=== PATIENT | female | born 1990 | race Caucasian/White ===

== ENCOUNTER 2022-06-05 23:38 | Emergency (ER) | payer MEDICAID, SELFPAY ==
[2022-06-05 23:46] VITALS: BP 101/70; PULSE 130; RESP 16; TEMP 36.3; O2SAT 98; BMI 25.5
--- NOTE | 2022-06-06 00:17 | ED.NAVMDI ---
HPI - Nausea/Vomiting/Diarrhea General Chief complaint: Nausea/Vomiting Stated complaint: vomitting and diarrhea Time Seen by Provider: 06/05/22 23:49 Source: patient and family Mode of arrival: ambulatory Limitations: no limitations History of Present Illness HPI Narrative: 31-year-old female with known prior history of Crohn's disease presents to the emergency department with nausea vomiting and diarrhea for the past 3 days accompanied by epigastric/middle periumbilical abdominal pain. She has a history of difficult to treat Crohn's disease, having previously been on 80 mg of prednisone daily tapering off just in the last 3 weeks. [facility]. She was started on still Aricept for her Crohn's disease 5 weeks ago and had initially been doing well on this while she was also on the prednisone. This is her 1st flare since being off of the prednisone. She has a history of severe flares in the past but no prior bowel resections or surgeries. Denies a history of bowel obstructions. She is not noticing blood in her stools apparently but does have some history of some chronic anemia. She has not noted fevers. She denies prior history of perforation. It sounds like she has had an endoscopy within the last few months as well. She did not try taking any medications at home for her symptoms as she does not have these available. Her main concern is that she has been unable to hold down any fluids for over 2 days and no food for the past 3 days due to her symptoms. No known illness exposures, no recent changes in her medications other than the prednisone taper. She denies chance of , LMP 9/12 which is not unusual for her to be irregular. Past medical history notable for anemia and Crohn's disease, denies any other chronic medical problems. She denies any long-term medications besides the stool Aricept for her Crohn's disease. She has no known drug allergies. Socially she admits to rare sporadic marijuana use, no recent use of this. No tobacco or alcohol use, no other illicit substances. Related Data Home Medications Medication Instructions Recorded Confirmed Tylenol 06/05/22 tylenol with codeine 06/05/22 Previous Rx's Medication Instructions Recorded hydrocodone 5 mg-acetaminophen 325 1 tab PO Q6H PRN Severe pain not 06/06/22 mg tablet relieved by Tylenol #10 tabs ondansetron 4 mg disintegrating 4 mg PO Q6H Nausea and vomiting 06/06/22 tablet #20 tabs prednisone 20 mg tablet See Rx Instructions .Route 06/06/22 .COMPLEX #32 tabs Allergies Allergy/AdvReac Type Severity Reaction Status Date / Time No Known Drug Allergies Allergy Verified 06/05/22 23:51 Review of Systems Narrative: Notable for the generalized and GI symptoms as described above, otherwise denies times 12 systems. PFSH PFS Social History Smoking Status: Never smoker How often do you have a drink containing alcohol: monthly or less AUDIT-C Alcohol total score: 1 Non-prescribed substance use: marijuana (any form) Non-prescribed substance use details: rare marijuana Exam Const: Vital Signs, click to edit/add: Vital Signs - 24 hr 06/05/22 23:46 06/06/22 00:22 06/06/22 01:00 Temperature 97.3 F L Pulse Rate [Apical ] 118 H 104 H Pulse Rate [Left P ulse Oximeter] 130 H Respiratory Rate 16 16 Blood Pressure [Ri ght Upper Arm] 101/70 115/73 Pulse Oximetry 98 97 Oxygen Delivery Me thod Room Air Room Air 06/06/22 01:30 06/06/22 02:00 Temperature Pulse Rate [Apical ] 94 92 Pulse Rate [Left P ulse Oximeter] Respiratory Rate 16 16 Blood Pressure [Ri ght Upper Arm] 113/76 105/69 Pulse Oximetry 98 94 Oxygen Delivery Me thod Room Air Room Air Documenting provider has reviewed patient's vital signs: yes Common normals: no apparent distress General appearance: cooperative and well kempt Other: Historian, forthcoming. HENMT: Common normals: normocephalic Head and scalp: normocephalic Other: Tacky mucous membranes, but no swelling or redness to the pharynx. Eye: Common normals: conjunctivae normal and no scleral icterus Conjunctiva: conjunctiva(e) normal Neck & C-Spine: Common normals: full ROM and no lymphadenopathy Resp: Common normals: normal respiratory effort, no use of accessory muscles and clear to auscultation bilaterally Effort & inspection: able to speak in complete sentences Auscultation: clear to auscultation bilaterally Cardio: Common normals: regular rate, regular rhythm, S1 normal heart sound, S2 normal heart sound, no murmurs and peripheral pulses 2+ throughout Rate: regular rate Rhythm: regular rhythm Heart sounds: S1 normal and S2 normal Peripheral pulses: pulses 2+ throughout GI: Other: Abdomen nondistended. Bowel sounds are slightly high-pitched but present in all 4 quadrants. There is tenderness in the epigastric and periumbilical areas but no rebound tenderness nor guarding. No mass, no surgical scarring. Extremity: Common normals: normal capillary refill and no pedal edema Neuro: Motor exam: no tremor noted and no movement abnormalities noted Psych: Common normals: thought process normal and speech normal Appearance: well kempt Attitude: engaged Speech: normal speech Thought process: normal thought process Insight: insight good Judgement: judgment good Skin: Common normals: no rashes or lesions noted General skin exam: no rashes or lesions noted Course Course Hospital Course: No signs of peritonitis, discussed risks and benefits of CT scan. She has had many of these through the course of her chronic disease, would like to try to avoid this if possible. Recommend placing IV, Zofran, IV steroid, pain control with a transition onto oral pain medicine as best able. She will need to restart her prednisone and of course call her GI physician for further guidance. My goal for tonight in to be able to rehydrate patient and get her to able to tolerate p.o. liquids and a minimum. The skull was discussed with her. There are no beds available in hospital or available for transfer at this time we will make good attempts to get her symptoms under control with an outpatient plan as best able. If she does not respond to treatment, would recommend CT scan. Reevaluation(s) Reevaluation #1: Update 1:20 a.m., patient reporting marked improvement in her nausea, pain down to a 6. She has received the 1st bag of IV fluids, I elected to start a 2nd bag. Labs are reviewed with patient, not atypical for someone with Crohn's disease, CRP is around 8, platelets are a little elevated, mild iron deficiency anemia, minimal leukocytosis but no overwhelming signs of worry. No indications for antibiotics. She will receive her 1st dose of IV steroids and we discussed outpatient and pain control plans. Vital Signs Vital signs: Initial Vital Signs Temperature 97.3 F L 06/05/22 23:46 Temperature Source Temporal Artery Scan 06/05/22 23:46 Pulse Rate 130 H 06/05/22 23:46 Respiratory Rate 16 06/05/22 23:46 Blood Pressure 101/70 06/05/22 23:46 Blood Pressure Mean 80 06/05/22 23:46 Blood Pressure Position Sitting 06/05/22 23:46 Pulse Oximetry 98 06/05/22 23:46 Oxygen Delivery Method 06/05/22 23:46 Vital Signs Temperature 97.3 F L 06/05/22 23:46 Pulse Rate 130 H 06/05/22 23:46 Respiratory Rate 16 06/05/22 23:46 Blood Pressure 101/70 06/05/22 23:46 Pulse Oximetry 98 06/05/22 23:46 Oxygen Delivery Method 06/05/22 23:46 Temperature 97.3 F L 06/05/22 23:46 Pulse Rate 92 06/06/22 02:00 Respiratory Rate 16 06/06/22 02:00 Blood Pressure 105/69 06/06/22 02:00 Pulse Oximetry 94 06/06/22 02:00 Oxygen Delivery Method 06/06/22 02:00 MDM - Nausea/Vomiting/Diarrhea MDM Narrative Medical decision making narrative: Labs reviewed, CRP mildly elevated with minimal leukocytosis, essentially normal electrolytes and renal function, mild dehydration, mildly elevated platelets not abnormal for autoimmune disease. Labs reviewed with patient, plan of care discussed. Good improvement of her nausea, will attempt fluids and then moving on to p.o. pain medications and some solid foods here. She relates to me that she will contact her GI doctor this morning for further guidance. Update 230: Patient held down the oxycodone well with no significant increase in nausea, pain is quite a bit better though of course not fully resolved. She is able to hold down the ice chips with no difficulty and is finishing her 2nd bag of fluid within the next couple of minutes. Plan is to discharge home, begin oral prednisone, contact her GI doctor with symptomatic control with Zofran and hydrocodone. NC meds of oxycodone and Zofran given for the night. Medical Records Attestation: I reviewed the patient's medical records. Lab Data Attestation: I reviewed the patient's lab results. Labs: Lab Results 06/06/22 06/06/22 06/06/22 Range/Units 00:30 00:30 00:30 WBC 12.32 H (4.50-11.00) K/uL RBC 4.30 (4.00-5.20) m/uL Hgb 11.5 L (12.0-16.0) gm/dL Hct 36.4 (33.0-51.0) % MCV 85 (80-100) fL MCH 27 (26-34) pg MCHC 32 (32-36) gm/dL RDW Coeff of Rebekah 14.5 (11.5-15.5) % Plt Count 545 H (140-440) K/uL Neut % (Auto) 83.6 H (42.0-72.0) % Lymph % (Auto) 7.9 L (20-44) % [place] % (Auto) 7.9 (0.0-11.0) % Eos % (Auto) 0.2 (0.0-7.0) % Baso % (Auto) 0.2 (0.0-3.0) % Neut # (Auto) 10.30 H (1.7-7.0) K/uL Lymph # (Auto) 1.00 (0.90-2.90) K/uL [place] # (Auto) 1.00 H (0.00-0.90) K/UL Eos # (Auto) 0.00 (0.00-0.50) K/uL Baso # (Auto) 0.00 (0.00-0.30) K/uL Abs Immat Gran (auto) 0.02 (0.00-0.30) K/uL Sodium 135 (135-149) mmol/L Potassium 3.9 (3.6-5.1) mmol/L Chloride 99 (96-114) mmol/L Carbon Dioxide 20 (20-32) mmol/L BUN 20 (5-24) mg/dL Creatinine 1.1 (0.5-1.5) mg/dL Estimated Creat Clear 67.90 Estimated GFR 70 ml/min Glucose 134 H (60-115) mg/dL Calcium 9.4 (8.4-10.6) mg/dL Total Bilirubin 1.4 (0.1-1.5) mg/dL AST 13 (12-35) U/L ALT 8 (4-35) U/L Alkaline Phosphatase 125 (40-150) U/L C-Reactive Protein 8.8 H (0.5-1.0) mg/dL Total Protein 8.3 (6.0-8.3) g/dL Albumin 4.1 (3.3-5.0) g/dL Lipase 19 L (23-300) U/L HCG, Qual Negative (Negative) Discharge Plan Discharge Clinical Impression: Acute Crohn's disease Patient Disposition: Home w/ Parent or Adult Condition: Improved Instructions: Crohn Disease (ED) Additional Instructions: Please send a message to your GI doctor as soon as you can. Any advice that they give overrides my recommendations today. Let us start you back on some prednisone. Take your next dose as soon as you can brick picker the medication in the morning. Let us start with 60 mg daily for the next 5 days, then taper to 40 mg daily for 5 days, then 20 mg daily for 5 days, then 10 mg for 4 days, then stop. For nausea, I have given you a prescription for Zofran. This is what you were given IV. It can work Timmy is affectively taken under the tongue. I will provide refills of this as I would like for you to have access to this medication when you need it for flares. I will also give you some pain medication, specifically some hydrocodone. This may cause nausea so consider using the Zofran if this happens. Try to use this as little as possible and the fall to Tylenol for pain control if you can. If you begin running fevers or have lots of bleeding, please come back to the ED. Activity Level: Activity as Tolerated Diet Detail: Gently advancing diet from clears to soft foods to bland foods over the next few days. Prescriptions: New prednisone 20 mg tablet See Rx Instructions .ROUTE .COMPLEX Qty: 32 0RF Rx Instructions: 60 mg daily for 5 days by mouth, then 40 mg daily for 5 days, then 20 mg daily for 5 days, then 10 mg daily for 4 days ondansetron 4 mg tablet,disintegrating 4 mg PO Q6H Qty: 20 1RF hydrocodone-acetaminophen 5-325 mg tablet 1 tab PO Q6H PRN (Reason: Severe pain not relieved by Tylenol) Qty: 10 0RF Rx Instructions: Use sparingly No Action Tylenol tylenol with codeine Stand Alone Forms: [facility] Info Instructions
[2022-06-06 00:22] VITALS: PULSE 118
[2022-06-06] MEDS: LACTATED RINGERS 1000 ML 1,000 ML IV ×2 (00:31→01:17)
[2022-06-06 00:41] LABS: Basophils Percent Auto 0.2 % (0.0-3.0); Eosinophils Percent Auto 0.2 % (0.0-7.0); Hematocrit 36.4 % (33.0-51.0); Hemoglobin* 11.5 gm/dL (12.0-16.0); Immature Granulocytes Abs Auto 0.02 K/uL (0.00-0.30); Lymphocytes Percent Auto 7.9 % (20-44); Mean Corpuscular HGB Conc 32 gm/dL (32-36); Mean Corpuscular Hemoglobin 27 pg (26-34); Mean Corpuscular Volume 85 fL (80-100); Monocytes Percent Auto 7.9 % (0.0-11.0); Neutrophils Percent Auto 83.6 % (42.0-72.0); Platelet Count* 545 K/uL (140-440); RDW Coefficient of Variation % 14.5 % (11.5-15.5); White Blood Count* 12.32 K/uL (4.50-11.00)
[2022-06-06 00:42] LABS: Slide Review Reflex No
[2022-06-06] MEDS: ONDANSETRON 2 MG/ML inj 8 MG IVP (00:45)
[2022-06-06 00:54] LABS: Albumin* 4.1 g/dL (3.3-5.0); Chloride* 99 mmol/L (96-114); Sodium* 135 mmol/L (135-149)
[2022-06-06 00:55] LABS: HCG Qualitative Serum* Negative (Negative); Potassium* 3.9 mmol/L (3.6-5.1)
[2022-06-06 00:56] LABS: Creatinine* 1.1 mg/dL (0.5-1.5); Estimated Glomerular Filt Rate 70 ml/min
[2022-06-06 00:57] LABS: Alkaline Phosphatase* 125 U/L (40-150); Aspartate Amino Transferase* 13 U/L (12-35); Bilirubin Total* 1.4 mg/dL (0.1-1.5); Blood Urea Nitrogen* 20 mg/dL (5-24); Carbon Dioxide* 20 mmol/L (20-32); Lipase* 19 U/L (23-300); Total Protein* 8.3 g/dL (6.0-8.3)
[2022-06-06 00:58] LABS: Alanine Aminotransferase* 8 U/L (4-35); Calcium* 9.4 mg/dL (8.4-10.6); Glucose* 134 mg/dL (60-115)
[2022-06-06 01:00] VITALS: BP 115/73; PULSE 104; RESP 16; O2SAT 97
[2022-06-06 01:00] LABS: C Reactive Protein* 8.8 mg/dL (0.5-1.0)
[2022-06-06] MEDS: MORPHINE 4 MG/ML INJ IVP (01:00)
[2022-06-06] MEDS: METHYLPREDNISOLONE SOD SUCC 62.5 MG/ML (125) 60 MG IVP (01:07)
[2022-06-06 01:30] VITALS: BP 113/76; PULSE 94; RESP 16; O2SAT 98
[2022-06-06 02:00] VITALS: BP 105/69; PULSE 92; RESP 16; O2SAT 94
[2022-06-06] MEDS: OXYCODONE 5 MG TABLET PO (02:08)
[2022-06-06 02:30] VITALS: BP 108/78; PULSE 89; RESP 16; O2SAT 96
== END 2022-06-06 03:00 | disposition home or self-care (01) ==
PROVIDERS: Emergency Provider Family Medicine
DX: K50.90 Crohn's disease, unspecified, without complications (principal)
CPT/HCPCS: 36415; 80053; 83690; 84703; 85025; 86140; 96374; 96375; 99283; 99284; A9270; J2270; J2405; J2930; J7120

== ENCOUNTER 2022-06-15 07:23 | Emergency (ER) | payer MEDICAID, SELFPAY ==
[2022-06-15] VITALS (25 sets, daily range): BP systolic 104–138; BP diastolic 67–89; PULSE 85–121; RESP 16–22; TEMP 36.2–36.7; O2SAT 85–99; BMI 27.0
--- NOTE | 2022-06-15 08:16 | ED_ITS ---
HPI - General Adult General Time Seen by Provider: 08:17 Date Seen: 06/15/22 Chief complaint: Abdominal Pain Stated complaint: Abdominal pain/diarrhea/carmine Time Seen by Provider: 06/15/22 08:13 Source: patient, RN notes reviewed and old records reviewed Mode of arrival: ambulatory Limitations: no limitations History of Present Illness HPI narrative: Patient is a 31-year-old female with Crohn's disease coming in with severe right-sided abdominal pain. This awoke her at 3:00 a.m. this morning. She try it 1/2 of a 5 mg oxycodone tablet and it did not help. She is still on a steroid taper that was dispensed from our ED on June 06. She has been started on Stelara by her GI. She has had her 1st dose but does not receive her next dose I believe until next month. She has more steroids to take from her GI doctor after she is done with ours. The nausea, vomiting and diarrhea have been on and off since she was seen on the . Certainly not as bad as before getting back on the steroids but she is still having these symptoms intermittently. She has had debility for oral intake better than before though. No noted fevers. She thinks at this point she might need a CT scan. She denies any prior abdominal surgeries. She has not had any resections due to her Crohn's. She sees Dr. Davey for GI. Related Data Home Medications Medication Instructions Recorded Confirmed Tylenol 06/05/22 tylenol with codeine 06/05/22 Previous Rx's Medication Instructions Recorded hydrocodone 5 mg-acetaminophen 325 1 tab PO Q6H PRN Severe pain not 06/06/22 mg tablet relieved by Tylenol #10 tabs ondansetron 4 mg disintegrating 4 mg PO Q6H Nausea and vomiting 06/06/22 tablet #20 tabs prednisone 20 mg tablet See Rx Instructions .Route 06/06/22 .COMPLEX #32 tabs Allergies Allergy/AdvReac Type Severity Reaction Status Date / Time No Known Drug Allergies Allergy Verified 06/15/22 07:38 Review of Systems Status of ROS: Reports: 10 or more systems reviewed and unremarkable except as noted in History and below [facility] Medical History (Updated 06/15/22 @ 15:04 by Lili Shetty MD) Crohn's disease Social History Smoking Status: Never smoker How often do you have a drink containing alcohol: monthly or less AUDIT-C Alcohol total score: 1 Non-prescribed substance use: marijuana (any form) Non-prescribed substance use details: rare marijuana service: No Exam Const: Vital Signs, click to edit/add: Vital Signs - 24 hr 06/15/22 07:38 06/15/22 07:45 06/15/22 08:00 Temperature 97.1 F L Pulse Rate [Pulse Oximeter] 121 H 112 H 111 H Respiratory Rate 22 Blood Pressure [Le ft Upper Arm] 117/75 111/76 113/82 Pulse Oximetry 97 96 97 Oxygen Delivery Me thod Room Air Room Air Room Air 06/15/22 08:30 06/15/22 09:17 06/15/22 09:30 Temperature Pulse Rate [Pulse Oximeter] 106 H 95 97 Respiratory Rate Blood Pressure [Le ft Upper Arm] 110/82 104/71 104/71 Pulse Oximetry 97 85 L 95 Oxygen Delivery Me thod Room Air Room Air Room Air 06/15/22 10:02 06/15/22 07:40 06/15/22 10:30 Temperature Pulse Rate [Pulse Oximeter] 97 94 Respiratory Rate 20 16 Blood Pressure [Le ft Upper Arm] 111/74 113/77 Pulse Oximetry 99 96 99 Oxygen Delivery Me thod Room Air Room Air 06/15/22 11:00 06/15/22 11:30 06/15/22 12:00 Temperature Pulse Rate [Pulse Oximeter] 89 90 Respiratory Rate 16 Blood Pressure [Le ft Upper Arm] 107/74 106/67 118/76 Pulse Oximetry 97 97 Oxygen Delivery Me thod Room Air Room Air 06/15/22 12:30 Temperature Pulse Rate [Pulse Oximeter] 85 Respiratory Rate Blood Pressure [Le ft Upper Arm] 114/75 Pulse Oximetry 95 Oxygen Delivery Me thod Documenting provider has reviewed patient's vital signs: yes Common normals: no apparent distress, average body habitus, oriented x3, no limitations and alert General appearance: cooperative, comfortable and ill appearing ( looks mildly sick.) HENMT: Common normals: normocephalic, head/scalp atraumatic and hearing grossly normal bilaterally Head and scalp: normocephalic and atraumatic Eye: Common normals: PERRL, EOMs intact bilaterally, conjunctivae normal and no scleral icterus Conjunctiva: conjunctiva(e) normal Pupil: PERRL Neck & C-Spine: Common normals: full ROM, no lymphadenopathy, supple, no meningeal signs, no JVD and thyroid normal Thyroid: thyroid normal Chest: Common normals: inspection of chest normal Resp: Common normals: normal respiratory effort, no retractions, no use of accessory muscles and clear to auscultation bilaterally Auscultation: clear to auscultation bilaterally Cardio: Common normals: no JVD, regular rhythm, S1 normal heart sound, S2 normal heart sound, no gallops, no clicks and no murmurs Rate: tachycardic Rhythm: regular rhythm Heart sounds: S1 normal and S2 normal GI: Other: Abdomen is soft, does not seem distended but I listen for a while and really hear no abdominal sounds. She is diffusely tender when I palpate but states it is really hurting more over in the right side. She admits she is tender when I palpate everywhere. No rebound or guarding on examination at this time. Extremity: Common normals: normal to inspection, full ROM, normal capillary refill, no joint enlargement, no clubbing, cyanosis or edema, no calf tenderness and no pedal edema Neuro: Common normals: oriented x3 Sensorium/orientation: alert Meningeal signs: no meningeal signs Course Course Hospital Course: Patient will have a L of IV fluids. We will get a full complement of labs. We are going to give her 2 mg IV morphine for pain control. She does not feel she needs anything for nausea at this time. We will be proceeding with CT IV contrast. She obviously has Crohn's disease, need to consider other etiologies such as appendicitis, complications of Crohn's disease. Her pulse rate is high, likely dehydrated. May need more IV fluids and will assess that. Reevaluation(s) Reevaluation #1: Reviewed with patient that I had just spoken with Radiology. Verbal report from the radiologist is that she has abscesses in her abdomen with a perforation. She has a stricture in the transverse colon. There is free fluid in the pelvis. Will await the dictated reading. She sees [facility]. We are going to need to transfer her. The radiologist stated that she would likely need a drain put in. Will have staff see if we can transfer. Have reviewed with Irma that it has been extremely difficult to transfer but she really needs to go to a higher level of care. Have ordered Zosyn after blood cultures but do not feel this patient to be septic at this time. Time: 09:42 Reevaluation #2: I have reviewed with patient and her mom who is now here that we are having difficulty with transfer. I have spoken with our surgeon who has looked at her CT. She would prefer transfer where there is GI maybe even colorectal. She does not believe that these necessarily look drainable oz far as fluid collections on the CT. The radiologist thought that they were. I do have a page in to [facility] to see if it might be possible for that to happen in the meantime will contact further facilities advancing out. There are no beds at [facility], nothing in the [facility] system, nothing in the [facility], nothing in the [facility], nothing at [facility], nothing with [facility]. We have exhausted local higher level of care. Will continue to look for other facilities outwards. Patient is hemodynamically stable outside of the tachycardia. Her fluids RO a bit behind his they had to be stopped for her going to CT. She is requesting something further for pain and I have ordered p.r.n. morphine every 2 hours, another L over 2 hours after this current 1 is finished. She is not nauseated at this time. Note, her pulse is much better just after 500 mL of fluids, down to 97 at this time. Time: 10:47 Reevaluation #3: Have spoken with Dr. Davey her kiln burner helper through [employer]. He has no further of capabilities to help us with hospitalization. Upon review of the CT with him, he thinks there is a high likelihood that she will need surgery. He did recommend that she go somewhere that there is colorectal surgery. We are still attempting to contact facilities. Our ED litigation assistant checked [facility] [place]. She also called [facility] and or [facility], reviewed with her that these would not be adequate, this patient needs GI and now colorectal surgery. She had heard from [facility], [facility]'s and [facility] in [place] and they are full. I am awaiting a call back from [facility], he did not have the films to look at when I spoke with him 1st. We will page him back at [facility] if we have not heard from him in a bit. Time: 11:42 Additional Reevaluation(s): We have contacted [facility] in [place], [place] [place] would be the only possible facility for her to go there and they have declined. [facility], [facility] and [facility] have declined. I did speak with Ivet PAREDES at [facility] in [place] and they are declining. At 1:16 p.m., I did get her on a habits wait list. They did try to have me talk to their colorectal surgeon but they could not get through at all, tried paging multiple times. Thus, we will have to wait a bed opening and continue to try to transfer elsewhere in the interim. We will have to talk to the hospitalist once [facility] has a bed open. Alternatively, if the patient starts to decline, she may be appropriate for a unit bed at that time, but she certainly is not at this point. I have ordered maintenance fluids for her, will maintain NPO status. I have subsequently notified our surgeon that there is no place around us. I will be talking to our hospitalist about keeping this patient here until we can transfer to a colorectal surgeon. It should be noted that hours were spent attempting making arrangements, consultations and potential transfers between myself and the ED staff. Did try to call [facility] back and spoke with Ira PAREDES at 3:23 p.m.. She is going to check with colorectal at [facility] in [place]. She thinks the possibly might be able to take them. Received a phone call back at 4:43 p.m. from Urszula dominique RN that was taking over. They have redone their senses and they were on divert at [facility] as well. They will not be able to accommodate our request. I have subsequently told the hospitalist, will await [facility]. Vital Signs Vital signs: Initial Vital Signs Temperature 97.1 F L 06/15/22 07:38 Temperature Source Temporal Artery Scan 06/15/22 07:38 Pulse Rate 121 H 06/15/22 07:38 Pulse Rhythm 06/15/22 07:38 Respiratory Rate 22 06/15/22 07:38 Blood Pressure 117/75 06/15/22 07:38 Blood Pressure Mean 89 06/15/22 07:38 Blood Pressure Position Supine 06/15/22 07:38 Pulse Oximetry 97 06/15/22 07:38 Oxygen Delivery Method 06/15/22 07:38 Vital Signs Temperature 97.1 F L 06/15/22 07:38 Pulse Rate 121 H 06/15/22 07:38 Respiratory Rate 22 06/15/22 07:38 Blood Pressure 117/75 06/15/22 07:38 Pulse Oximetry 97 06/15/22 07:38 Oxygen Delivery Method 06/15/22 07:38 Temperature 97.1 F L 06/15/22 07:38 Pulse Rate 85 06/15/22 12:30 Respiratory Rate 16 06/15/22 12:00 Blood Pressure 114/75 06/15/22 12:30 Pulse Oximetry 95 06/15/22 12:30 Oxygen Delivery Method 06/15/22 12:00 Medical Decision Making Lab Data Lab results reviewed: Yes I reviewed the patient's lab results Labs: Lab Results 06/15/22 06/15/22 06/15/22 Range/Units 08:23 08:23 08:23 WBC 18.64 H (4.50-11.00) K/uL RBC 3.85 L (4.00-5.20) m/uL Hgb 10.3 L (12.0-16.0) gm/dL Hct 33.4 (33.0-51.0) % MCV 87 (80-100) fL MCH 27 (26-34) pg MCHC 31 L (32-36) gm/dL RDW Coeff of Rebekah 15.8 H (11.5-15.5) % Plt Count 398 (140-440) K/uL Neut % (Auto) 86.8 H (42.0-72.0) % Lymph % (Auto) 7.0 L (20-44) % [place] % (Auto) 5.7 (0.0-11.0) % Eos % (Auto) 0.1 (0.0-7.0) % Baso % (Auto) 0.1 (0.0-3.0) % Neut # (Auto) 16.20 H (1.7-7.0) K/uL Lymph # (Auto) 1.30 (0.90-2.90) K/uL [place] # (Auto) 1.10 H (0.00-0.90) K/UL Eos # (Auto) 0.00 (0.00-0.50) K/uL Baso # (Auto) 0.00 (0.00-0.30) K/uL Abs Immat Gran (auto) 0.05 (0.00-0.30) K/uL Sodium 132 L (135-149) mmol/L Potassium 3.7 (3.6-5.1) mmol/L Chloride 97 (96-114) mmol/L Carbon Dioxide 27 (20-32) mmol/L BUN 13 (5-24) mg/dL Creatinine 0.7 (0.5-1.5) mg/dL Estimated Creat Clear 106.71 Estimated GFR 120 ml/min Glucose 109 (60-115) mg/dL Lactate 1.2 (0.5-1.9) mmol/L Calcium 8.5 (8.4-10.6) mg/dL Total Bilirubin 1.0 (0.1-1.5) mg/dL AST 12 (12-35) U/L ALT 10 (4-35) U/L Alkaline Phosphatase 80 (40-150) U/L C-Reactive Protein 8.7 H (0.5-1.0) mg/dL Total Protein 6.6 (6.0-8.3) g/dL Albumin 3.4 (3.3-5.0) g/dL HCG, Qual (Negative) SARS-CoV-2 (PCR) (Negative) 06/15/22 06/15/22 Range/Units 08:23 08:23 WBC (4.50-11.00) K/uL RBC (4.00-5.20) m/uL Hgb (12.0-16.0) gm/dL Hct (33.0-51.0) % MCV (80-100) fL MCH (26-34) pg MCHC (32-36) gm/dL RDW Coeff of Rebekah (11.5-15.5) % Plt Count (140-440) K/uL Neut % (Auto) (42.0-72.0) % Lymph % (Auto) (20-44) % [place] % (Auto) (0.0-11.0) % Eos % (Auto) (0.0-7.0) % Baso % (Auto) (0.0-3.0) % Neut # (Auto) (1.7-7.0) K/uL Lymph # (Auto) (0.90-2.90) K/uL [place] # (Auto) (0.00-0.90) K/UL Eos # (Auto) (0.00-0.50) K/uL Baso # (Auto) (0.00-0.30) K/uL Abs Immat Gran (auto) (0.00-0.30) K/uL Sodium (135-149) mmol/L Potassium (3.6-5.1) mmol/L Chloride (96-114) mmol/L Carbon Dioxide (20-32) mmol/L BUN (5-24) mg/dL Creatinine (0.5-1.5) mg/dL Estimated Creat Clear Estimated GFR ml/min Glucose (60-115) mg/dL Lactate (0.5-1.9) mmol/L Calcium (8.4-10.6) mg/dL Total Bilirubin (0.1-1.5) mg/dL AST (12-35) U/L ALT (4-35) U/L Alkaline Phosphatase (40-150) U/L C-Reactive Protein (0.5-1.0) mg/dL Total Protein (6.0-8.3) g/dL Albumin (3.3-5.0) g/dL HCG, Qual Negative (Negative) SARS-CoV-2 (PCR) Negative SARS-CoV-2 (Negative) Imaging Data CT scan - abdomen: Attestation: I have reviewed the pertinent imaging results. My impression: I did review her CT preliminarily, did see stool buildup in the proximal colon. Small bowel looked inflammatory or abnormal. Did see extraluminal fluid. Will obviously need to await Radiology over-read. Radiologist's impression: Patient: IRMA WEBER Facility:?[facility] Patient ID:?[id number] Site Patient ID:?[id number]. Site :?[id number] Study:?CT Abdomen/Pelvis 79cc Isovue 370-06/15/2022 9:17:56 AM Ordering Physician:?Sena Pearson Final Report: Indication: SEVERE RT SIDED ABD PAIN. KNOWN CROHNS Technique: Postcontrast CT abdomen and pelvis. 79 cc Isovue 370 intravenous contrast. Please note that all CT scans at this facility use dose modulation, iterative reconstruction, and/or weight-based dosing when appropriate to reduce radiation dose to as low as reasonably achievable. Comparison: None Findings: Lung bases are clear. No pleural effusion. Breast tissue appears normal, as visualized. Mild periportal edema within the liver. No intrahepatic masses. Gallbladder is completely nondistended. Numerous calcified stones are present measuring up to 7 millimeters. No biliary duct dilation. The pancreas is normal. Normal spleen. Several punctate nonobstructing stones within each kidney measuring up to 3 millimeters. The ureters are within normal limits. Normal lizbeth dder, uterus and ovaries. There is segmental wall thickening of the mid transverse colon extending over a length of 5.4 cm. Associated mural wall thickening is present measuring up to 9 millimeters. Surrounding inflammatory changes are present along an extraluminal collection of air, fluid and soft tissue density measuring 3.2 x 2.8 x 2.9 cm, located in the greater omental fat just superior and anterior to the mid transverse colon. An additional collection of extraluminal fluid and soft tissue density is located just inferior and posterior to the mid transverse colon measuring 4.9 x 2.7 cm. No disseminated free-air. There is distension of the cecum and right colon which measures up to 6.7 cm. Mild fluid distention of the ileum also present measuring up to 3.5 cm. Moderately large amount of pelvic free fluid noted. Normal appendix. No fracture. Impression: Severe segmental inflammation of the mid transverse colon with 2 extraluminal collections of fluid/soft tissue density/air representing phlegmonous collections/abscesses in the adjacent greater omental fat, measuring 3.2 x 2.8 x 2.9 cm and 4.9 x 2.7 cm. Associated partial obstruction of the right colon, cecum and ileum. Results communicated to Dr. Shetty at 9:40 a.m 06/15/2022. 06/15/2022. Cholelithiasis. Punctate nonobstructing bilateral renal stones. Please note that all CT scans at this facility use dose modulation, iterative reconstruction, and/or weight-based dosing when appropriate to reduce radiation dose to as low as reasonably achievable. Dictated by Agus Mcconnell MD @ 06/15/2022 9:43:36 AM (Electronic Signature) Critical Care Time Critical Care Time Critical Care Time: No Discharge Plan Discharge Clinical Impression: Acute Crohn's disease Patient Disposition: Admitted As Inpatient Condition: Unchanged
--- NOTE | 2022-06-15 08:22 | CRLHL7_ITS ---
For Patients: As a result of the Century Cures Act, medical imaging exams and procedure reports are released immediately into your electronic medical record. You may view this report before your referring provider. If you have questions, please contact your health care provider. Indication: SEVERE RT SIDED ABD PAIN. KNOWN CROHNS Technique: Postcontrast CT abdomen and pelvis. 79 cc Isovue 370 intravenous contrast. Please note that all CT scans at this facility use dose modulation, iterative reconstruction, and/or weight-based dosing when appropriate to reduce radiation dose to as low as reasonably achievable. Comparison: None Findings: Lung bases are clear. No pleural effusion. Breast tissue appears normal, as visualized. Mild periportal edema within the liver. No intrahepatic masses. Gallbladder is completely nondistended. Numerous calcified stones are present measuring up to 7 millimeters. No biliary duct dilation. The pancreas is normal. Normal spleen. Several punctate nonobstructing stones within each kidney measuring up to 3 millimeters. The ureters are within normal limits. Normal bladder, uterus and ovaries. There is segmental wall thickening of the mid transverse colon extending over a length of 5.4 cm. Associated mural wall thickening is present measuring up to 9 millimeters. Surrounding inflammatory changes are present along an extraluminal collection of air, fluid and soft tissue density measuring 3.2 x 2.8 x 2.9 cm, located in the greater omental fat just superior and anterior to the mid transverse colon. An additional collection of extraluminal fluid and soft tissue density is located just inferior and posterior to the mid transverse colon measuring 4.9 x 2.7 cm. No disseminated free-air. There is distension of the cecum and right colon which measures up to 6.7 cm. Mild fluid distention of the ileum also present measuring up to 3.5 cm. Moderately large amount of pelvic free fluid noted. Normal appendix. No fracture. Impression: Severe segmental inflammation of the mid transverse colon with 2 extraluminal collections of fluid/soft tissue density/air representing phlegmonous collections/abscesses in the adjacent greater omental fat, measuring 3.2 x 2.8 x 2.9 cm and 4.9 x 2.7 cm. Associated partial obstruction of the right colon, cecum and ileum. Results communicated to Dr. Shetty at 9:40 a.m 06/15/2022. 06/15/2022. Cholelithiasis. Punctate nonobstructing bilateral renal stones. Please note that all CT scans at this facility use dose modulation, iterative reconstruction, and/or weight-based dosing when appropriate to reduce radiation dose to as low as reasonably achievable. Dictated by Agus Mcconnell MD @ 06/15/2022 9:43:36 AM (Electronically Signed)
[2022-06-15] MEDS: 0.9 % SODIUM CHLORIDE 1000 ml 1,000 ML 500 ML IV ×2 (08:50→11:37)
[2022-06-15] MEDS: MORPHINE 2 MG/ML inj IVP ×6 (08:53→19:29)
[2022-06-15 08:56] LABS: Basophils Percent Auto 0.1 % (0.0-3.0); Eosinophils Percent Auto 0.1 % (0.0-7.0); Hematocrit 33.4 % (33.0-51.0); Hemoglobin* 10.3 gm/dL (12.0-16.0); Immature Granulocytes Abs Auto 0.05 K/uL (0.00-0.30); Mean Corpuscular HGB Conc 31 gm/dL (32-36); Mean Corpuscular Hemoglobin 27 pg (26-34); Mean Corpuscular Volume 87 fL (80-100); Monocytes Percent Auto 5.7 % (0.0-11.0); Neutrophils Percent Auto 86.8 % (42.0-72.0); Platelet Count* 398 K/uL (140-440); RDW Coefficient of Variation % 15.8 % (11.5-15.5); Red Blood Count 3.85 m/uL (4.00-5.20); White Blood Count* 18.64 K/uL (4.50-11.00)
[2022-06-15 08:58] LABS: Slide Review Reflex No
[2022-06-15 09:02] LABS: Lactate* 1.2 mmol/L (0.5-1.9)
[2022-06-15 09:26] LABS: HCG Qualitative Serum* Negative (Negative)
[2022-06-15 09:34] LABS: Albumin* 3.4 g/dL (3.3-5.0); Chloride* 97 mmol/L (96-114); SARS PCR* Negative SARS-CoV-2 (Negative)
[2022-06-15 09:35] LABS: Potassium* 3.7 mmol/L (3.6-5.1); Sodium* 132 mmol/L (135-149)
[2022-06-15 09:37] LABS: Creatinine* 0.7 mg/dL (0.5-1.5); Est. Creatinine Clearance* 106.71; Estimated Glomerular Filt Rate 120 ml/min
[2022-06-15 09:38] LABS: Alanine Aminotransferase* 10 U/L (4-35); Alkaline Phosphatase* 80 U/L (40-150); Aspartate Amino Transferase* 12 U/L (12-35); Blood Urea Nitrogen* 13 mg/dL (5-24); Calcium* 8.5 mg/dL (8.4-10.6); Carbon Dioxide* 27 mmol/L (20-32); Glucose* 109 mg/dL (60-115); Total Protein* 6.6 g/dL (6.0-8.3)
[2022-06-15 09:40] LABS: C Reactive Protein* 8.7 mg/dL (0.5-1.0)
[2022-06-15] MEDS: PIPERACILLIN/TAZOBACTAM 3.375 GM in 0.9 % SODIUM CHLORIDE Mini-bag 100 ML IVPB (10:02)
[2022-06-15] MEDS: 0.9 % SODIUM CH + KCL 20 mEq/L 1,000 ML 100 ML IV (15:34)
--- NOTE | 2022-06-15 18:53 | P.GSCN_ITS ---
History of Present Illness Consult details Date Seen: 06/15/22 Consult date: 06/15/22 Narrative: 31-year-old female presented to emergency room with abdominal pain that was getting progressively more severe. Patient has a history of Crohn's disease and has been on Prednisone 10 mg and was started on Stelara with the last injection being 8 weeks ago. Two weeks ago patient was seen in the emergency room with mild episode of right oral quadrant abdominal pain. She thought that she was sick. The pain has improved but yesterday the pain became significantly worse. The patient describes the pain as ?stabbing?. It comes in waves. She does not recall previous episodes of similar pain. She had nausea and vomited several times. She has not been passing gas today. Her last bowel movement was today in the morning. In the emergency room she was found to have an elevated WBC of 18. An abdominal CT was obtained that showed severe segmental inflammation of mid transverse colon with 2 extraluminal collections of fluid/soft tissue density with a small air bubble concerning for a phlegmonous collection versus an abscess. These were measuring 3.2 x 2.9 cm and 4.9 x 2.7 cm. There is an associated partial obstruction of the right colon, cecum and ileum. Review of Systems Narrative: General: no fevers HENT: no problems swallowing CV: no shortness of breath Resp: no cough GI: See above : no dysuria, no increased urinary frequency, no hematuria Skin: no new rashes Musculoskeletal: no back pain Neuro: no muscle weakness Psyche: no depression, no anxiety PFSH PFSH Medical History (Updated 06/15/22 @ 19:00 by Aníbal Arriaza MD) Crohn's disease Social History Smoking Status: Never smoker How often do you have a drink containing alcohol: monthly or less AUDIT-C Alcohol total score: 1 Non-prescribed substance use: marijuana (any form) Non-prescribed substance use details: rare marijuana service: No Meds Home Medications and Allergies Home Medications Medication Instructions Recorded Confirmed Type acetaminophen 160 mg/5 mL oral 1,000 mg PO QID PRN 06/15/22 06/15/22 History elixir Allergies Allergy/AdvReac Type Severity Reaction Status Date / Time No Known Drug Allergies Allergy Verified 06/15/22 07:38 Exam Narrative: Exam Narrative: General appearance: Alert, cooperative, and in no distress Pulmonary: Chest symmetric, lungs clear bilaterally Cardiovascular Heart: Regular rate and rhythm, S1, S2, no murmurs/rubs/gallops Gastrointestinal Abdominal: not distended, not tender to palpation in the left lower quadrant but tender to palpation in epigastrium and right lower quadrant. Skin: Normal skin color, texture, and turgor. No rashes or lesions. Psychiatric: Alert, cooperative, normal affect. Const: Vital Signs, click to edit/add: Vital Signs - 24 hr 06/15/22 07:38 06/15/22 07:45 06/15/22 08:00 Temperature 97.1 F L Pulse Rate [Pulse Oximeter] 121 H 112 H 111 H Respiratory Rate 22 Blood Pressure [Le ft Upper Arm] 117/75 111/76 113/82 Pulse Oximetry 97 96 97 Oxygen Delivery Me thod Room Air Room Air Room Air 06/15/22 08:30 06/15/22 09:17 06/15/22 09:30 Temperature Pulse Rate [Pulse Oximeter] 106 H 95 97 Respiratory Rate Blood Pressure [Le ft Upper Arm] 110/82 104/71 104/71 Pulse Oximetry 97 85 L 95 Oxygen Delivery Me thod Room Air Room Air Room Air 06/15/22 10:02 06/15/22 07:40 06/15/22 10:30 Temperature Pulse Rate [Pulse Oximeter] 97 94 Respiratory Rate 20 16 Blood Pressure [Le ft Upper Arm] 111/74 113/77 Pulse Oximetry 99 96 99 Oxygen Delivery Me thod Room Air Room Air 06/15/22 11:00 06/15/22 11:30 06/15/22 12:00 Temperature Pulse Rate [Pulse Oximeter] 89 90 Respiratory Rate 16 Blood Pressure [Le ft Upper Arm] 107/74 106/67 118/76 Pulse Oximetry 97 97 Oxygen Delivery Me thod Room Air Room Air 06/15/22 12:30 06/15/22 13:00 06/15/22 13:30 Temperature Pulse Rate [Pulse Oximeter] 85 90 Respiratory Rate Blood Pressure [Le ft Upper Arm] 114/75 115/70 138/81 Pulse Oximetry 95 96 Oxygen Delivery Me thod Room Air 06/15/22 14:00 06/15/22 14:30 06/15/22 15:00 Temperature Pulse Rate [Pulse Oximeter] 88 90 91 Respiratory Rate Blood Pressure [Le ft Upper Arm] 109/76 110/74 110/74 Pulse Oximetry 93 94 96 Oxygen Delivery Me thod Room Air Room Air Room Air 06/15/22 15:30 06/15/22 16:00 06/15/22 16:30 Temperature Pulse Rate [Pulse Oximeter] 94 89 90 Respiratory Rate Blood Pressure [Le ft Upper Arm] 105/89 118/81 115/78 Pulse Oximetry 96 96 96 Oxygen Delivery Fl thod Room Air Room Air Room Air 06/15/22 17:00 06/15/22 17:26 Temperature 98.1 F Pulse Rate [Pulse Oximeter] 85 86 Respiratory Rate 16 Blood Pressure [Le ft Upper Arm] 121/79 Pulse Oximetry 95 97 Oxygen Delivery Fl thod Room Air Room Air Results Labs Labs: Abnormal lab results 06/15/22 06/15/22 Range/Units 08:23 08:23 WBC 18.64 H (4.50-11.00) K/uL RBC 3.85 L (4.00-5.20) m/uL Hgb 10.3 L (12.0-16.0) gm/dL MCHC 31 L (32-36) gm/dL RDW Coeff of Rebekah 15.8 H (11.5-15.5) % Neut % (Auto) 86.8 H (42.0-72.0) % Lymph % (Auto) 7.0 L (20-44) % Neut # (Auto) 16.20 H (1.7-7.0) K/uL [place] # (Auto) 1.10 H (0.00-0.90) K/UL Sodium 132 L (135-149) mmol/L C-Reactive Protein 8.7 H (0.5-1.0) mg/dL Diabetes panel 06/15/22 Range/Units 08:23 Sodium 132 L (135-149) mmol/L Potassium 3.7 (3.6-5.1) mmol/L Chloride 97 (96-114) mmol/L Carbon Dioxide 27 (20-32) mmol/L BUN 13 (5-24) mg/dL Creatinine 0.7 (0.5-1.5) mg/dL Glucose 109 (60-115) mg/dL Calcium 8.5 (8.4-10.6) mg/dL AST 12 (12-35) U/L ALT 10 (4-35) U/L Alkaline Phosphatase 80 (40-150) U/L Total Protein 6.6 (6.0-8.3) g/dL Albumin 3.4 (3.3-5.0) g/dL Calcium panel 06/15/22 Range/Units 08:23 Calcium 8.5 (8.4-10.6) mg/dL Albumin 3.4 (3.3-5.0) g/dL Pituitary panel 06/15/22 Range/Units 08:23 Sodium 132 L (135-149) mmol/L Potassium 3.7 (3.6-5.1) mmol/L Chloride 97 (96-114) mmol/L Carbon Dioxide 27 (20-32) mmol/L BUN 13 (5-24) mg/dL Creatinine 0.7 (0.5-1.5) mg/dL Glucose 109 (60-115) mg/dL Calcium 8.5 (8.4-10.6) mg/dL Adrenal panel 06/15/22 Range/Units 08:23 Sodium 132 L (135-149) mmol/L Potassium 3.7 (3.6-5.1) mmol/L Chloride 97 (96-114) mmol/L Carbon Dioxide 27 (20-32) mmol/L BUN 13 (5-24) mg/dL Creatinine 0.7 (0.5-1.5) mg/dL Glucose 109 (60-115) mg/dL Calcium 8.5 (8.4-10.6) mg/dL Total Bilirubin 1.0 (0.1-1.5) mg/dL AST 12 (12-35) U/L ALT 10 (4-35) U/L Alkaline Phosphatase 80 (40-150) U/L Total Protein 6.6 (6.0-8.3) g/dL Albumin 3.4 (3.3-5.0) g/dL All other labs normal. Assessment and Plan Assessment and plan (1) Stricture of transverse colon: Status: Acute Plan 31-year-old female with Crohn's disease presents with abdominal pain that is most likely due to a localized contained transverse colon perforation and proximal partial colonic obstruction. I discussed with the patient that this could be an inflammatory stricture with contained perforation due to her Crohn's disease. Per patient she had multiple colonoscopies and had multiple areas of Crohn's disease. I think this patient would be best served in the bigger center with colorectal surgery and access to Gastroenterology. This patient has been waiting for transfer with no luck all day. She initially came in tachycardic and that improved with resuscitation. She has been NPO with IV antibiotics. Her vital signs have been stable although her abdomen is diffusely tender. We were finally able to find a bed at [facility] and patient will be transferring there shortly.
--- NOTE | 2022-06-15 20:24 | ED.NURSE ---
[facility] at bedside, report given.
--- NOTE | 2022-06-15 21:03 | ED.NURSE ---
report to [facility] yarn wrappercorporate development intern
== END 2022-06-15 20:40 | disposition short-term general hospital (02) ==
LOC: ED 15:04 → SS 19:50 → ED 20:05
PROVIDERS: Emergency Provider Family Medicine
DX: K50.914 Crohn's disease, unspecified, with abscess (principal)
CPT/HCPCS: 36415; 74177; 80053; 83605; 84703; 85025; 86140; 87040; 87186; 87635; 94761; 96361; 96365; 96375; 96376; 99285; J2270; J2543; J7030; Q9967

== ENCOUNTER 2022-06-15 20:20 | Outpatient (CLI) | payer MEDICAID, SELFPAY ==
--- OUTSIDE RECORDS SUMMARY | 2022-06-17 09:57 | XMS_ITS | Clinical Summary ---
:1990 [facility] Address [address] [address] Care Team Providers Name Role Phone Chico Buchanan MD Primary Care Provider Source Comments You are receiving this document as you are listed as the primary care provider,follow-up provider, or the patient has been referred to you for consultation.This is in compliance with the Medicare and Medicaid EHR Incentive Program,which states Providers who transition their patient to another setting of careor provider of care or refers their patient to another provider of care shouldprovide summarycare record for each transition of care or referral. [employer] Allergies Active Allergy Reactions Severity Noted Date Comments Bee Venom Hives High 01/21/2013 Medications No known medications Encounters Date Type Specialty Care Team Description 06/15/2022 Anesthesia Event [facility] Inpatient Shruti, Manny R, DO 06/15/2022 Hospital Encounter [facility] Inpatient Franc, Small bow el obstruction (HRC) (Primary Dx); Jaylon Swartz MD Intra-abdominal fluid collection; Brasseur, Crohn's disease with complication, unspecified gastrointestinal tract location (HRC) Robin Hernandes MD 06/15/2022 - Surgery [facility] Inpatient Brasseur, RIGHT HEMICOLEC JASMEET WITH 06/16/2022 Robin Hernandes MD DRAINAGE OF INTERPERITONEAL ABSCESS 06/15/2022 Ancillary Procedure Radiology from Last 3 Months Immunizations Name Administration Dates Next Due DTaP/Hib 09/16/1994 MMR 09/16/1994 Social History Tobacco Use Types Packs/Day Years Used Date Smoking Tobacco: Never Assessed Food Insecurity Answer Date Recorded Within the past 12 months, you worried that your food would Never true 06/16/2022 run out before you got money to buy more. Within the past 12 months, the food you bought just didn't N ever true 06/16/2022 last and you didn't have money to get more. Sex Assigned at Date Recorded Not on file Last Filed Vital Signs Vital Sign Reading Time Taken Comments Blood Pressure 117/74 06/17/2022 8:25 AM CDT Pulse 119 06/17/2022 8:25 AM CDT Temperature 36.9 ??C (98.4 ??F) 06/17/2022 8:25 AM CDT Respiratory Rate 18 06/17/2022 8:25 AM CDT Oxygen Saturation 96% 06/17/2022 8:25 AM CDT Inhaled Oxygen Concentration - - Weight 73.5 kg (162 lb) 06/16/2022 3:50 AM CDT Height 165.1 cm (5' 5) 06/16/2022 5:00 AM CDT Body Mass Index 26.96 06/16/2022 3:50 AM CDT Plan of Treatment Upcoming Encounters Date Type Specialty Care Team Description 06/30/2022 Appointment General Surgery Fransisco Kaur MD [address] [place], [place] [address] (Wo rk) 06/30/2022 Appointment Wound Clinic Renard Merchant APRN, PROSPECTING DRILLER HELPER [address], [place] [address] (Wo rk) Scheduled Procedures Name Priority Associated Diagnoses Date/Time OPEN EXPLORATION ABDOMEN ADULT Intra-abdominal f luid collection Health Maintenance Due Date Last Done Comments Cervical Cancer Screening 1990 Due Hep C Screening (Preventive 1990 Services) HepB (1) 1992 COVID-19 Vaccine (#1) 04/25/1993 HIV Screening (Preventive 2008 Services) Adult Preventive Visit 2010 03/18/1999, 09/23/1993 Influenza (#1) 2022 08/14/2020, 05/04/2019, 08/20/2017, Additional history exists DTaP/Tdap/Td (7 - Tdap) 04/12/2029 04/12/2019, 03/15/2011, 06/03/2010, Additional history exists Zoster/Shingles (1 of 2) 2042 Hib Completed 09/16/1994 MCV4 Completed 06/03/2010 HepA Aged Out 09/25/2015 No longer eligib le based on patient 's age to complete this topic Pneumococcal Aged Out 09/25/2015 No longer eligib le based on patient 's age to complete this topic HPV Vaccine Completed 08/20/2017, 11/09/2011, 06/03/2010 IPV (Polio) Aged Out No longer eligib le based on patient 's age to complete this topic Procedures The patient is currently admitted. The information in this section might not be complete until the patient is discharged. Procedure Name Priority Date/Time Associated Diagnosis Comme nts MAGNESIUM Routine 06/17/2022 5:19 Results for this AM CDT procedure are i n the results section. BASIC METABOLIC PANEL Routine 06/17/2022 5:19 Res ults for this AM CDT procedure are i n the results section. COMPLETE BLOOD Routine 06/17/2022 5:18 Results fo r this COUNT-NO DIFF AM CDT procedure are in the results section. GLUCOSE, WHOLE BLOOD Routine 06/16/2022 11:58 Res ults for this POCT PM CDT procedure are i n the results section. GLUCOSE, WHOLE BLOOD Routine 06/16/2022 7:47 Resu lts for this POCT PM CDT procedure are i n the results section. GLUCOSE, WHOLE BLOOD Routine 06/16/2022 4:27 Resu lts for this POCT PM CDT procedure are i n the results section. GLUCOSE, WHOLE BLOOD Routine 06/16/2022 1:03 Resu lts for this POCT PM CDT procedure are i n the results section. GLUCOSE, WHOLE BLOOD Routine 06/16/2022 8:25 Resu lts for this POCT AM CDT procedure are i n the results section. PATH REVIEW (LAB USE Routine 06/16/2022 7:44 Resu lts for this ONLY) AM CDT procedure are i n the results section. PHOSPHORUS Routine 06/16/2022 7:44 Results for this AM CDT procedure are i n the results section. MAGNESIUM Routine 06/16/2022 7:44 Results for this AM CDT procedure are i n the results section. BASIC METABOLIC PANEL Routine 06/16/2022 7:44 Res ults for this AM CDT procedure are i n the results section. COMPLETE BLOOD Routine 06/16/2022 7:44 Results fo r this COUNT-NO DIFF AM CDT procedure are in the results section. GLUCOSE, WHOLE BLOOD Routine 06/16/2022 2:54 Resu lts for this POCT AM CDT procedure are i n the results section. OPEN EXPLORATION 06/16/2022 2:46 Crohn's disease with ABDOMEN ADULT AM CDT complication, unspecified gastrointestinal tract location (HRC) 2019 NOVEL STAT 06/16/2022 2:41 Results for this CORONAVIRUS AM CDT procedure are i n the results section. HEMOGLOBIN, MEASURED Routine 06/16/2022 12:42 Res ults for this POCT AM CDT procedure are i n the results section. GLUCOSE, WHOLE BLOOD Routine 06/16/2022 12:40 Res ults for this POCT AM CDT procedure are i n the results section. BT SECOND DRAW Routine 06/15/2022 10:09 Results f or this PM CDT procedure are i n the results section. BASIC METABOLIC PANEL STAT 06/15/2022 10:03 Re sults for this PM CDT procedure are i n the results section. COMPLETE BLOOD STAT 06/15/2022 10:03 Results f or this COUNT-NO DIFF PM CDT procedure are in the results section. ANTIBODY SCREEN STAT 06/15/2022 10:03 Results for this PM CDT procedure are i n the results section. BLOOD TYPE STAT 06/15/2022 10:03 Results for this PM CDT procedure are i n the results section. APTT (ACTIVATED Routine 06/15/2022 10:03 Results for this PARTIAL PM CDT procedure are i n THROMBOPLASTIN TIME the resu lts section. INR/PROTIME STAT 06/15/2022 10:03 Results for this PM CDT procedure are i n the results section. TYPE AND SCREEN STAT 06/15/2022 10:03 Results for this PM CDT procedure are i n the results section. FOREIGN IMAGE(S) CT Routine 06/15/2022 12:00 Resu lts for this ABDOMEN/PELVIS AM CDT procedure are in the results section. from Last 3 Months Results (ABNORMAL) Basic Metabolic Panel (06/17/2022 5:19 AM CDT)Only the most recent of 3 resultswithin the time period is included. athologist Signature Sodium 135 (L) 136 - 145 06/17/2022 [facility] mmol/L 5:49 AM T HOSPITAL Potassium 4.4 3.5 - 5.1 06/17/2022 [facility] mmol/L 5:49 AM T [facility]OSPITAL Chloride 100 98 - 109 06/17/2022 [facility] mmol/L 5:49 AM [facility] CO2 28 20 - 29 06/17/2022 [facility] mmol/L 5:49 AM [facility] Anion Gap 7 7 - 16 06/17/2022 [facility] mmol/L 5:49 AM [facility] Calcium 8.4 8.4 - 10.4 06/17/2022 [facility] mg/dL 5:49 AM [facility] BUN 7 7 - 26 06/17/2022 [facility] mg/dL 5:49 AM [facility] Creatinine 0.81 0.55 - 1.02 06/17/2022 [facility] mg/dL 5:49 AM [facility] Glucose 108 (H) 70 - 100 06/17/2022 [facility] mg/dL 5:49 AM [facility] Comment: The given reference range is fo r the fasting state. Non-fasting reference range for glucose is 70 - 180 mg/dL. GFR, Estimated >60 >60 mL/min/1.73m2 06/17/2022 5:49 [facility] Specimen Anatomical Collection Method / Collection Time Recei jeanie Time (Source) Location / Volume Laterality Blood Venipuncture / 06/17/2022 5:19 06/17/2022 5:22 Unknown AM CDT AM CDT Babs Nance MD LAB_1 Performing Organization Address City/State/ZIP Code Phon e Number [address] [address] Magnesium (06/17/2022 5:19 AM CDT)Only the most recent of2 resultswithin the time period is included. athologist Signature Magnesium 2.2 1.6 - 2.6 06/17/2022 [facility] mg/dL 5:49 AM [facility] Specimen Anatomical Collection Method / Collection Time Recei jeanie Time (Source) Location / Volume Laterality Blood Venipuncture / 06/17/2022 5:19 06/17/2022 5:22 Unknown AM CDT AM CDT Babs Nance MD LAB_1 Performing Organization Address [facility] Phon e Number [address] [address] (ABNORMAL) Complete Blood Count-No Diff (06/17/2022 5:18 AM CDT)Only the most recent of3 resultswithin the time period is included. Analysis Performed At Patho logist Time Signature WBC 12.9 (H) 3.5 - 10.5 06/17/2022 [facility] x10(9)/L 5:32 AM CDT HOSPITAL RBC 3.41 (L) 3.90 - 06/17/2022 [facility] 5.03 5:32 AM T HOSPITAL x10(12)/L Hemoglobin 9.2 (L) 12.0 - 06/17/2022 [facility] 15.5 g/dL 5:32 AM T HOSPITAL HCT 30.8 (L) 34.9 - 06/17/2022 [facility] 44.5 % 5:32 AM CDT HOSPITAL MCV 90.3 80.0 - 06/17/2022 [facility] 100.0 fL 5:32 AM T HOSPITAL MCH 27.0 (L) 27.6 - 06/17/2022 [facility] 33.3 pg 5:32 AM CDT HOSPITAL MCHC 29.9 (L) 31.5 - 06/17/2022 [facility] 35.2 g/dL 5:32 AM T HOSPITAL RDW 16.0 (H) 11.9 - 06/17/2022 [facility] 15.5 % 5:32 AM T HOSPITAL Platelets 306 150 - 450 06/17/2022 [facility] x10(9)/L 5:32 AM T HOSPITAL Automated NRBC 0 <=0 /100 06/17/2022 [facility] WBC 5:32 AM T HOSPITAL Specimen Anatomical Collection Method / Collection Time Recei jeanie Time (Source) Location / Volume Laterality Blood Venipuncture / 06/17/2022 5:18 06/17/2022 5:22 Unknown AM CDT AM CDT Babs Nance MD LAB_1 Performing Organization Address [facility] Code [address] [address] Glucose, Whole Blood POCT (06/16/2022 11:58 PM CDT)Only the most recent of7 resultswithin the time period is included. [facility] gist Method Time Signature Glucose, Whole 109 70 - 180 06/17/2022 [facility] Blood mg/dL 12:00 AM CDT HOSPITAL POCT Comment 1 RN Notified 06/17/2022 [facility] 12:00 AM CDT HOSPITAL Performing RCLab S116 06/17/2022 [facility] Location 12:00 AM CDT HOSPITAL Specimen Anatomical Collection Method Collection Time Receive d Time (Source) Location / / Volume Laterality Blood 06/16/2022 11:58 06/17/2022 PM CDT 12:00 AM CDT Robin Kaur MD LAB_1 Performing Organization Address City/[facility]/ZIP [address] [address] Blood Smear Review (Lab Use Only) (06/16/2022 7:44 AM CDT) [facility] Method Time Signature Path Review Slide review 06/16/2022 [facility] done 12:58 PM CDT HOSPITAL internally for quality improvement coordinator purposes Path Review WBC high 06/16/2022 [facility] Reason 12:58 PM CDT HOSPITAL Specimen Anatomical Collection Method / Collection Time Recei jeanie Time (Source) Location / Volume Laterality Blood Venipuncture / 06/16/2022 7:44 06/16/2022 8:07 Unknown AM CDT AM CDT Robin Kaur MD LAB_1 Performing Organization Address City/State/ZIP [address] [address] Phosphorus (06/16/2022 7:44 AM CDT) P athologist Signature Phosphorus 4.2 2.3 - 4.7 06/16/2022 [facility] mg/dL 8:37 AM CDT HOSPITAL Specimen Anatomical Collection Method / Collection Time Recei jeanie Time (Source) Location / Volume Laterality Blood Venipuncture / 06/16/2022 7:44 06/16/2022 8:07 Unknown AM CDT AM CDT Robin Kaur MD LAB_1 Performing Organization Address City/[facility]/ZIP Code Phon e Number [address] [address] Rapid Covid-19 - Asymptomatic [[id number]] (06/16/2022 2:41 AM CDT) Component Value Ref Range Test Analysis Performed Pathologis t Method Time At Signature COVID-19 Not Detected Not 06/16/2022 [facility] Interpretation Detected 4:41 AM HOSPITAL CDT Source Nasopharyngeal 06/16/2022 [facility] swab 4:41 AM HOSPITAL CDT Specimen Anatomical Collection Method Collection Time Receive d Time (Source) Location / / Volume Laterality Swab (Source Non-blood 06/16/2022 2:41 AM 2:56 Required) Collection / CDT AM CDT (Nasopharyngeal Unknown swab) [facility] - 06/16/2022 4:41 AM CD T Test performed by real-time PCR. This test has been authorized by the FDA under an Emergency Use Authorization (EUA) for use by authorized laboratories. Yamilet Walker APRN, CRNA LAB_1 Performing Organization Address [facility]/ZIP Code Phon e Number [address] [address] (ABNORMAL) Hemoglobin, Measured POCT (06/16/2022 12:42 AM CDT) Analysis Performed At Patho logist Time Signature Hemoglobin 9.8 (L) 12.0 - 06/16/2022 [facility] 15.5 g/dL 11:23 AM CDT HOSPITAL Performing RCLAB OR 06/16/2022 [facility] Location 11:23 AM CDT HOSPITAL Specimen Anatomical Collection Method Collection Time Receive d Time (Source) Location / / Volume Laterality Blood 06/16/2022 12:42 06/16/2022 AM CDT 11:23 AM CDT Interface Provider LAB_1 Performing Organization Address [facility]/ZIP Code Phon e Number [address] [address] Blood Type second draw (06/15/2022 10:09 PM CDT) P athologist Signature ABO A 06/15/2022 [facility] BLOOD 11:01 PM CDT BANK RH Positive 06/15/2022 [facility] BLOOD 11:01 PM CDT BANK Specimen Anatomical Collection Method / Collection Time Recei jeanie Time (Source) Location / Volume Laterality Blood Venipuncture / 06/15/2022 10:09 2 Unknown PM CDT 10:22 PM CDT Jasmyn Rodriguez MD LAB_1 Performing Organization Address [facility] Phon e Number [facility] BLOOD BANK [address] [place] [address] Antibody Screen (06/15/2022 10:03 PM CDT) Patholo gist Method Time Signature Antibody Screen Negative 06/15/2022 [facility] BLOOD Interpretation 11:01 PM CDT BANK Specimen Anatomical Collection Method / Collection Time Recei jeanie Time (Source) Location / Volume Laterality Blood Venipuncture / 06/15/2022 10:03 2 Unknown PM CDT 10:17 PM CDT Endy Fisher PA-C LAB_1 Performing Organization Address [facility] Phon e Number [facility] BLOOD BANK [address] [place] [address] Blood Type (06/15/2022 10:03 PM CDT) P athologist Signature ABO A 06/15/2022 [facility] BLOOD 10:51 PM CDT BANK RH Positive 06/15/2022 [facility] BLOOD 10:51 PM CDT BANK Specimen Anatomical Collection Method / Collection Time Recei jeanie Time (Source) Location / Volume Laterality Blood Venipuncture / 06/15/2022 10:03 2 Unknown PM CDT 10:17 PM CDT Endy Fisher PA-C LAB_1 Performing Organization Address [facility] Phon e Number [facility] BLOOD [facility]ANK [address] [place] [address] APTT (Activated Partial Thromboplastin Time) (06/15/2022 10:03 PM CDT) P athologist Signature APTT 29.5 22.5 - 36.5 06/15/2022 [facility] Seconds 10:33 PM CDT HOSPITAL Specimen Anatomical Collection Method / Collection Time Recei jeanie Time (Source) Location / Volume Laterality Blood Venipuncture / 06/15/2022 10:03 2 Unknown PM CDT 10:17 PM CDT Endy Fisher PA-C LAB_1 Performing Organization Address [facility] Phon e Number [address] [address] (ABNORMAL) INR/Protime (06/15/2022 10:03 PM CDT) athologist Signature Protime 15.4 (H) 11.8 - 14.6 06/15/2022 [facility] Seconds 10:33 PM CDT HOSPITAL INR 1.2 (H) 0.9 - 1.1 06/15/2022 [facility] 10:33 PM CDT HOSPITAL Specimen Anatomical Collection Method / Collection Time Recei jeanie Time (Source) Location / Volume Laterality Blood Venipuncture / 06/15/2022 10:03 2 Unknown PM CDT 10:17 PM CDT [facility] - 06/15/2022 10:33 PM C DT Therapeutic range determined by protocol established by anticoagulation provider. Endy Fisehr PA-C LAB_1 Performing Organization Address [facility] Phon e Number [address] [address] Foreign Image(S) CT Abdomen/Pelvis (06/15/2022 12:00 AM CDT) Specimen (Source) Anatomical Location Collection Method / Collectio n Time Received Time / Laterality Volume Narrative EXTERNAL RESULTS - 06/16/2022 7:35 AM CD T These outside images have been uploaded into PACS. If the results were provided, they will be located in the pa saurabh's chart under the Media or Imaging tab. Foreign Images Provider RAD NON-REPORTABLES Performing Organization Address [facility] Phon e Number EXTERNAL RESULTS from Last 3 Months Insurance Payer Benefit Plan / Subscriber ID Effective Dates Phone Addre ss Type Group UCARE UCARE MNCARE [id number] 2021-Present [phone] [place] Medicaid [address] [place] [address] Advance Directives Latest Code Status on File Code Status Date Activated Date Inactivated Comments Full Code 06/15/2022 11:02 PM Care Teams Tapper Supervisor Relationship Specialty Start Date End Date Chico Buchanan MD PCP - General 08/05/[address] [place] [address]
--- OUTSIDE RECORDS SUMMARY | 2022-06-17 09:58 | XMS_ITS | Encounter Summary ---
:1990 Author Organization [facility] Address [address] [address] Care Team Providers Name Role Phone Chico Buchanan MD Primary Care Provider Encounter Details Date Type Department Care Team Description 09/16/1994 PN Conversion Only [facility] s Mariano Rayo [address] [address] [place], [place] [id number] Social History Tobacco Use Types Packs/Day Years [...] Assigned at Date Recorded Not on file documented as of this encounter Plan of Treatment Upcoming Encounters Date Type Specialty Care Team Description 06/30/2022 Appointment General Surgery Fransisco Kaur MD [address] [place], [place] [address] (Wo rk) 06/30/2022 Appointment Wound Clinic Renard Merchant, MANAGER STUDIO, CONSTRUCTION PROJECT ENGINEER [address] [place], [place] [address] (Wo rk) Scheduled Procedures Name Priority Associated Diagnoses Date/Time OPEN EXPLORATION ABDOMEN ADULT Intra-abdominal f luid collection documented as of this encounter Visit Diagnoses Not on filedocumented in this encounter Care Teams Renal Technician Relationship Specialty Start Date End Date Chanel, Chico G, MD PCP - General 08/05/1994 [address] [place] [address] documented as of this encounter
--- OUTSIDE RECORDS SUMMARY | 2022-06-17 09:58 | XMS_ITS | Encounter Summary ---
:1990 [facility] Address [address] [address] Care Team Providers Name Role Phone Chico Buchanan MD Primary Care Provider Reason for Visit Procedure/Equipment (Routine) - Incomplete Specialty Diagnoses / Procedures Referred By Contact Refer red To Contact Procedures Provider, Foreign Images Foreign Image(S) CT [address] Abdomen/[place] [address] Referral ID Status Reason Start Date Expiration Date Visits V isits Requested Authorized [id number] Incomplete 06/16/2022 09/15/2023 1 1 Encounter Details Date Type Department Care Team Description 06/15/2022 Ancillary Procedure [facility] PACS [address] [place] [address] Social History Tobacco Use Types Packs/Day Years [...] Appointment General Surgery Fransisco Kaur MD [address] [place], [place] [address] (Wo rk) 06/30/2022 Appointment Wound Clinic Renard Merchant, MUTUEL DEPARTMENT MANAGER, CONVENIENCE STORE CLERK [address] [place], [place] [address] (Wo rk) Scheduled Procedures Name Priority Associated Diagnoses Date/Time OPEN EXPLORATION ABDOMEN ADULT Intra-abdominal f luid collection documented as of this encounter Procedures Procedure Name Priority Date/Time Associated Diagnosis Comme nts FOREIGN IMAGE(S) CT Routine 06/15/2022 12:00 AM R esults for this ABDOMEN/PELVIS CDT procedure are in the results section. documented in this encounter Results Foreign Image(S) CT Abdomen/Pelvis (06/15/2022 12:00 AM CDT) Specimen (Source) Anatomical Location Collection Method / Collectio n Time Received Time / Laterality Volume Narrative EXTERNAL RESULTS - 06/16/2022 7:35 AM CD T These outside images have been uploaded into PACS. If the results were provided, they will be located in the melvi wiley's chart under the Media or Imaging tab. Foreign Images Provider RAD NON-REPORTABLES Performing Organization Address City/State/ZIP Code Phon e Number EXTERNAL RESULTS documented in this encounter Visit Diagnoses Not on filedocumented in this encounter Care Teams Incendiaries Supervisor Relationship Specialty Start Date End Date Chico Buchanan MD PCP - General [birth year]/[address] [place] [address] documented as of this encounter
--- OUTSIDE RECORDS SUMMARY | 2022-06-17 09:58 | XMS_ITS | Encounter Summary ---
:1990 Author [facility] Address [address] [place] [address] Care Team Providers Name Role Phone Chico Buchanan MD Primary Care Provider Encounter Details Date Type Department Care Team Description 09/23/1993 Office Visit Zoey Roche APRN, Unspe cified otitis media; MAT PUNCHER Need for prophylactic vaccination with u nspecified combined vaccine; [address] C/O Routine or child health check [place] [address] Social History Tobacco Use Types Packs/Day Years [...] Appointment General Surgery Fransisco Kaur MD [address] [place], [place] [address] (Wo rk) 06/30/2022 Appointment Wound Clinic Renard Merchant APRN, MAT PUNCHER [address] [place], [place] [address] (Wo rk) Scheduled Procedures Name Priority Associated Diagnoses Date/Time OPEN EXPLORATION ABDOMEN ADULT Intra-abdominal f luid collection documented as of this encounter Visit Diagnoses Diagnosis Unspecified otitis media Need for prophylactic vaccination with u nspecified combined vaccine Routine or child health check documented in this encounter Care Teams Slot Shift Supervisor Relationship Specialty Start Date End Date Chico Buchanan MD PCP - General [birth year]/05[birth year]1996 [address] [address] documented as of this encounter
--- OUTSIDE RECORDS SUMMARY | 2022-06-17 09:58 | XMS_ITS | Encounter Summary ---
:1990 Author Organization [facility] Address [address] [place] [address] Care Team Providers Name Role Phone Chico Buchanan MD Primary Care Provider Reason for Visit Auth/Cert (Routine) Specialty Diagnoses / Procedures Referred By Contact Refer red To Contact Diagnoses Exacerbation of Crohn's disease (HRC) Intra-abdominal fluid collection Small bowel obstruction (HRC) Crohn's exacerbation Intra-abdominal fluid collection Small bowel obstruction (HRC) Referral ID Status Reason Start Date Expiration Date Visits Requ ested Visits Authorized [id number] 1 1 Encounter Details Date Type Department Care Team Description 06/15/2022 Anesthesia Event RH Operating Room Manny Bahena DO [address] [facility]. [address] [place] [address] [place] [address] [phone] (Wo rk) Anesthesia Record Procedure Summary Procedure Name Responsible Anesthesia Start Anesthesia Stop Anesthesiologist Time Time RIGHT HEMICOLECTOMY WITH Manny Bahena DO 06/15/2205/24 0253 DRAINAGE OF INTERPERITONEAL ABSCESS Events Date Time Event Comment 06/15/2022 2329 An Start 2335 An Start Data 2336 An Induction 2336 / Present 2338 An Intubation 06/16/2022 0006 an tony now Surgical incisio n 0021 / Present 0042 An Labs Blood glucose 12 2 mg/dl. Hemocue 9.8 g/dl. 0244 An Extubation Purposeful movem ent with spontaneous respirations and adequate air exchange. Suctioned and ETT removed. Transfe rred with oxygen to recovery. 0246 an stop data 0253 An Stop Care transferred . 0253 Care Handoff Note I discussed wi th the receiving nurse and we: 1) Identified the p atient, muniz family member(s) or patient surrogat e 2) Identified the responsible practitioner 3) Reviewed the pertinent medical history 4) Discu ssed the surgical/procedure course 5) Reviewed intr a-op anesthesia management and issues during an esthesia 6) Set expectations for the post-procedu re period 7) Allowed opportunity for questions an d acknowledgement of understanding of report Electr onically signed by Yamilet Walker APRN, JALOUSIES INSTALLER Name Total midazolam 2 mg/2 mL injection (aka VERSED) 2 mg fentaNYL injection (aka SUBLIMAZE) 2 mL lidocaine 1% PF injection aka (XYLOCAINE) 50 mg propofol 10 mg/mL for procedural sedation (aka diPRIva n) 150 mg carboxymethylcellulose 1% eye drops (aka CELLUVISC) 2 Drop rocuronium injection (aka ZEMURON) 90 mg succinylcholine injection (aka QUELICIN) 100 mg phenylephrine-NaCl 0.9% 100 mcg/mL syringe (aka VITALY-SY NEPHRINE) 200 mcg dexamethasone 4 mg/mL injection (aka DECADRON) 4 mg ondansetron injection (aka ZOFRAN) 4 mg sugammadex injection 200mg/ 2mL (aka BRIDION) 200 mg HYDROmorphone 1 mg/mL injection (aka DILAUDID) 1 mg ceFAZolin (ANCEF) 2 g in sodium chloride 0.9% 100 mL p remade IVPB 2 g metroNIDAZOLE (FLAGYL) 500mg in sodium chloride 0.9% 1 00 mL IVPB 500 mg albumin human (FLEXBUMIN) 5 % IV solution 250 mL indocyanine green injection (IC-GREEN) 3 mL lactated ringers infusion 2,000 mL Agents Name O2 Air Sevoflurane () Blood No blood administrations on file. Lines, Drains, and Airways Type Details Placement Removal Peripheral IV Placement Date: 06/15/222209 by 06/15/22; Placement Anuel Nick RN Time: 2209; Pre-existing: No; Inserted by?: RN; Size (Gauge): 18 G; Orientation: Left; Insertion attempts: 1; Blood draw with insertion?: yes; Patient Tolerance: Tolerated well Incision/Surgical Site 06/16/22; 0005; 06/16/22 0005 by Abdomen; Medial, Upper Brian Negron, RN Drain 06/16/22; 0145; No; 06/16/22 0145 by Left; LUQ; Amandeep; 19 Brian Negron, RN Fr. Colostomy 06/16/22; 0155; No; 06/16/22 0155 by RUQ Brian Negron, RN Peripheral IV Placement Date: 06/15/222149 by 06/16/222017 b y 06/15/22; Placement Anuel Nick, Cindy Vogel, Time: 2149; RN Pre-existing: Yes; Inserted by?: Medic; Size (Gauge): 20 G; Orientation: Right; Removal Date: 06/16/22; Removal Time: 2017; Removal Reason: No longer needed; Catheter Tip: Intact ETT Placement Date: 06/15/222337 by 06/16/22243 b y 06/15/22; Placement Yamilet Walker, Yamilet Walker, Time: 2337; Placed By: ELECTRICAL PROJECT ENGINEER, JALOUSIES INSTALLER ELECTRICAL PROJECT ENGINEER, KWAKU Salguero JALOUSIES INSTALLER; Induction Type: Pre-O2, IV, RSI; Masking: Not attempted; ETT Type: ETT; Orientation: Right; Size (mm): 7.0; Depth Secured (cm): 21 cm; Cuffed: Cuffed; Intubation Method: DL; Cormack_Lehane Glottic Grade: Grade 1; Glottic View: Cords Open, Cords Clear; Blade: Farrell; Blade Size: 2; Insertion attempts: 1; Difficulty: Atraumatic; Adjunct Equipment: Stylet; Placement Verification: BBSE, Positive EtCO2, auscultation; Teeth and Lips Unchanged: Unchanged; Removal Date: 06/16/22; Removal Time: 243 Indwelling Urethral 06/15/22; 2344; No; 06/15/222344 by 2 0235 by Catheter tiff; 1 person; Brian Negron, RN Brian Negron, Indwelling Catheter; RN 16 Fr.; 1 documented in this encounter Social History Tobacco Use Types Packs/Day Years [...] on file documented as of this encounter Miscellaneous Notes Anesthesia Postprocedure Evaluation - Manny Bahena DO - 06/16/2022 3:18 AM CDT [facility] Anesthesia Post-op Note Patient: Irma Michelle Post-Op Diagnosis: Crohn's disease with complication, unspecified gastrointestinal tract location (hrc) Procedure Performed: Procedure(s): RIGHT HEMICOLECTOMY WITH DRAINAGE OF INTERPERITONEAL ABSCESS - Wound Class: 4 INFECTED/DIRTY Anesthesia Type: General Post-op vital signs: Vitals Value Taken Time BP 122/82 06/16/22314 Temp 98.5 ??F (36.9 ??C) 06/16/22247 Pulse 123 06/16/22316 Resp 30 06/16/22316 SpO2 94 % 06/16/22316 Vitals shown include unvalidated device data. Pain Score: Preferred Pain Scale: word (Verbal Rating Pain Scale) Post-op assessment: No anesthesia complication. Patient location: PACU Airway Status: Patent Cardiovascular function: Satisfactory Hydration status: Satisfactory PONV: None Level of Consciousness: Awake Fully Participates Postop Assessment: Patient tolerated procedure well. Electronically signed by: Manny Bahena DO 06/16/2022 3:18 AM Anesthesia Preprocedure Evaluation - Manny Bahena DO - 06/15/2022 11:16 PM CDT [facility] Anesthesia Pre-op Evaluation Procedure: OPEN EXPLORATION ABDOMEN ADULT, N/A RESECTION SMALL BOWEL, N/A HPI: 31 y.o. old female with Crohn's disease with complication, unspecified gastrointestinal tract location (hrc) No Known Allergies No past medical history on file. There is no problem list on file for this patient. No past surgical history on file. No current outpatient medications on file as of 06/15/2022. Facility-Administered Medications as of 06/15/2022 Medication Dose Route Frequency ??? bupivacaine 0.25% PF (2.5 mg/mL) (SENSORCAINE) 150 mg, dexamethasone (DECADRON) 4 mg, EPINEPHrine 0.3 mg in sodium chloride 0.9 % 90 mL injection Injection Once (Non-Scheduled) ??? ceFAZolin (ANCEF) 2 g in sodium chloride 0.9% 100 mL premade IVPB 2 g Intravenous Once (Non-Scheduled) ??? lidocaine PF (XYLOCAINE) 1 % injection 1 mL 1 mL Intradermal Pre-Procedure ??? metroNIDAZOLE (FLAGYL) 500mg in sodium chloride 0.9% 100 mL IVPB 500 mg Intravenous Once (Non-Scheduled) ??? sodium chloride 0.9% infusion 500 mL Intravenous Continuous Labs: Lab Results Component Value Date/Time SODIUM 136 06/15/2022 10:03 PM K 4.0 06/15/2022 10:03 PM CHLORIDE 101 06/15/2022 10:03 PM BUN 9 06/15/2022 10:03 PM CREATININE 0.78 06/15/2022 10:03 PM GLUCOSE 87 06/15/2022 10:03 PM Lab Results Component Value Date/Time WBC 20.4 (H) 06/15/2022 10:03 PM HGB 9.7 (L) 06/15/2022 10:03 PM HCT 31.9 (L) 06/15/2022 10:03 PM PLTS 351 06/15/2022 10:03 PM INR (no units) Date Value 06/15/2022 1.2 (H) Blood Bank: ABO (no units) Date Value 06/15/2022 A Antibody Screen Interpretation (no units) Date Value 06/15/2022 Negative EKG: No results found for this or any previous visit. Physical Exam: BP 105/82 Pulse (!) 105 Temp 99.2 ??F (37.3 ??C) (Oral) Resp 18 SpO2 96% Assessment/Plan: Review of Systems NPO Status: Acceptable. Patient does not have GERD. Patient is not a current smoker. The patient denies alcohol use. Patient denies any recent URI. History of PONV: No. History of motion sickness: No. Patient denies any personal or family history of anesthesia complications. Exam Mental Status: Alert and oriented. Mallampati score: I (One). Mouth opening: Normal Thyromental Distance: > 3 finger breadths and Normal Neck Extension: Full Neck Circumference > 40 cm?: No Previous airway assessment: No prior intubations. Current airway assessment:Normal Dentition: Age appropriate. Cardiac Exam: Regular rate and rhythm. Respiratory Exam: Breath sounds clear to auscultation Assessment ASA Status: 2 . Plan Anesthesia type: General, ETT and RSI Induction: Intravenous and Propofol Maintenance: Inhalation Postoperative pain management: Plan for postoperative opioid use PONV Risk Score Adult: 3 PONV Prophylaxis (planned): Ondansetron and Decadron Anesthetic plan, risks, benefits and alternatives discussed with: Patient or Dance Teacher agree tothe anesthesia treatment plan and Patient. Possibility of blood products discussed. Additional equipment needed: 2nd IV The patient and/or their sales representative gas service were notified about the potential risks of damage to the lips, teeth, dental devices, mouth and airway. H&P Reviewed and Patient examined, no change observed IV access Antibiotics per surgery Electronically signed by: Manny Bahena DO 06/15/2022 11:16 PM documented in this encounter Plan of Treatment Upcoming Encounters Date Type Specialty Care Team Description 06/30/2022 Appointment General Surgery Fransisco Kaur MD [address] [place], [place] [address] (Wo rk) 06/30/2022 Appointment Wound Clinic Renard Merchant, ELECTRICAL PROJECT ENGINEER, DRY SAND MOLDER [address] [place], [place] [address] (Wo rk) Scheduled Procedures Name Priority Associated Diagnoses Date/Time OPEN EXPLORATION ABDOMEN ADULT Intra-abdominal f luid collection documented as of this encounter Visit Diagnoses Not on filedocumented in this encounter Administered Medications Inactive Administered Medications - up to 3 most recent administrations Medication Order MAR Action Action Date Dose Rate Site albumin human (FLEXBUMIN) 5 % Given 06/15/2022 11:56 PM CDT 250 mL infusion Intravenous, Starting on Wed06/15/22 at 2356, Until Wed06/16/22 at 0253 carboxymethylcellulose PF (CELLUVISC) 1 % Given 06/15/2022 1 1:37 PM CDT 2 Drops ophthalmic gel Both Eyes, Starting on Wed06/15/22 at 2337, Until Wed06/16/22 at 0253 ceFAZolin (ANCEF) 2 g in sodium chloride 0.9% Given 06/15/20 11:46 PM CDT 2 g 100 mL premade IVPB 2 g, Intravenous, Administer over 30 Minutes, ONCE (NON-SCHEDULED), Starting on Wed06/15/22 at 2303, For 1 dose, Give 30 minutes prior to incision, Pre-op dexamethasone (DECADRON) injection Given 06/15/2022 11:45 PM CDT 4 mg Intravenous, Starting on Wed06/15/22 at 2345, Until Wed06/16/22 at 0253 fentaNYL (SUBLIMAZE) injection Given 06/16/2022 12:17 AM CDT 1 mL Intravenous, Starting on Wed06/15/22 at 2336, Until Wed06/16/22 at 025 Given 06/15/2022 11:36 PM CDT 1 mL HYDROmorphone (DILAUDID) injection Given 06/16/2022 1:42 AM CDT 0.5 mg Intravenous, Starting on Wed06/16/22 at 0056, Until Wed06/16/22 at 0253 Given 06/16/2022 1:30 AM CDT 0.3 mg Given 06/16/2022 12:56 AM CDT 0.2 mg indocyanine green (IC-GREEN) injection Given 06/16/2022 1:29 AM CDT 3 mL Intravenous, Starting on Wed06/16/22 at 0129, Until Wed06/16/22 at 0253 lactated ringers infusion Started 06/16/2022 2:29 AM CDT Intravenous, Starting on Wed06/15/22 at 2325 Started 06/16/2022 1:00 AM CDT Started 06/15/2022 11:25 PM CDT lidocaine PF (XYLOCAINE) 1 % injection Given 06/15/2022 11:36 PM CDT 50 mg Intravenous, Starting on Wed06/15/22 at 2336 metroNIDAZOLE (FLAGYL) 500mg in sodium Given 06/15/2022 11:58 PM CDT 500 mg chloride 0.9% 100 mL IVPB 500 mg, Intravenous, Administer over 30 Minutes, ONCE (NON-SCHEDULED), Starting on Wed06/15/22 at 2303, For 1 dose, Give 30 minutes prior to incision, Pre-op midazolam (VERSED) injection Given 06/15/2022 11:29 PM CDT 2 mg Intravenous, Starting on Wed06/15/22 at 2329, Until Wed06/16/22 at 0253 ondansetron (ZOFRAN) injection Given 06/16/2022 1:42 AM CDT 4 mg Intravenous, Starting on Wed06/16/22 at 0142, Until Wed06/16/22 at 0253 phenylephrine-NaCl 0.9% (VITALY-SYNEPHRINE) Given 06/16/2022 12:38 AM CDT 100 mcg injection Intravenous, Starting on Wed06/16/22 at 0038, Until Wed06/16/22 at 0253 Given 06/16/2022 12:26 AM CDT 100 mcg propofol (aka diPRIvan) injection Given 06/15/2022 11:36 PM CDT 150 mg Intravenous, Starting on Wed06/15/22 at 2336 rocuronium (ZEMURON) injection Given 06/16/2022 12:45 AM CDT 20 mg Intravenous, Starting on Wed06/15/22 at 2352, Until Wed06/16/22 at 0253 Given 06/16/2022 12:17 AM CDT 20 mg Given 06/15/2022 11:52 PM CDT 50 mg succinylcholine (QUELICIN) injection Given 06/15/2022 11:36 PM CDT 100 mg Intravenous, Starting on Wed06/15/22 at 2336, Until Wed06/16/22 at 0253 sugammadex (BRIDION) injection Given 06/16/2022 2:31 AM CDT 200 mg Intravenous, Starting on Wed06/16/22 at 0231, Until Wed06/16/22 at 0253 documented in this encounter Care Teams Nike Athlete Relationship Specialty Start Date End Date Chico Buchanan MD PCP - General [birth year][address] [place] [address] documented as of this encounter
--- OUTSIDE RECORDS SUMMARY | 2022-06-17 09:58 | XMS_ITS | Encounter Summary ---
:1990 [facility] Address [address] [place] [address] Care Team Providers Name Role Phone Chico Buchanan MD Primary Care Provider Reason for Visit Reason Comments PE,C&TC VIA INTERFACE Encounter Details Date Type Department Care Team Description 03/18/1999 Office Visit [facility], CARLOS [facility] CHILD HE[facility] EXAM; Practice [facility] [address] [facility] [place] [address] [place], [place] PHYSICIAN SERVI HARVINDER [address] [place], [place] [phone] Social History Tobacco Use Types Packs/Day Years [...] 06/30/2022 Appointment General Surgery Fransisco Kaur MD [address] [place] [phone] (Wo rk) 06/30/2022 Appointment Wound Clinic Renard Merchant APRN, CNP [address] [place], [place] [address] (Tena rk) Scheduled Procedures Name Priority Associated Diagnoses Date/Time OPEN EXPLORATION ABDOMEN ADULT Intra-abdominal f luid collection documented as of this encounter Visit Diagnoses Diagnosis Routine or child health check Laboratory examination documented in this encounter Care Teams Script Editor Relationship Specialty Start Date End Date Chico Buchanan MD PCP - General [birth year][address] [place] [address] documented as of this encounter
--- OUTSIDE RECORDS SUMMARY | 2022-06-17 09:58 | XMS_ITS | Encounter Summary ---
:1990 [facility] Address [address] [address] Care Team Providers Name Role Phone Chico Buchanan MD Primary Care Provider Reason for Visit Reason Comments Abdominal Pain Auth/Cert (Routine) Specialty Diagnoses / Procedures Referred By Contact Refer red To Contact Diagnoses Exacerbation of Crohn's disease (HRC) Intra-abdominal fluid collection Small bowel obstruction (HRC) Crohn's exacerbation Intra-abdominal fluid collection Small bowel obstruction (HRC) Referral ID Status Reason Start Date Expiration Date Visits Requ ested Visits Authorized [id number] 1 1 Encounter Details Date Type Department Care Team Description 06/15/2022 - Surgery RH Operating Room Robin Kaur RIGHT HEMICOLECTOMY WITH 06/16/2022 [address] [place] [address] 640 SUMEET INTERPERITONEAL ABSCESS [phone] [place] [address] Social History Tobacco Use Types Packs/Day Years [...] on file documented as of this encounter Last Filed Vital Signs Vital Sign Reading Time Taken Comments Blood Pressure 116/79 06/16/2022 7:50 PM CDT Pulse 96 06/16/2022 7:50 PM CDT Temperature 36.7 ??C (98 ??F) 06/16/2022 7:50 PM CDT Respiratory Rate 16 06/16/2022 7:50 PM CDT Oxygen Saturation 97% 06/16/2022 7:50 PM CDT Inhaled Oxygen Concentration - - Weight 73.5 kg (162 lb) 06/16/2022 3:50 AM CDT Height 165.1 cm (5' 5) 06/16/2022 5:00 AM CDT Body Mass Index 26.96 06/16/2022 3:50 AM CDT documented in this encounter Progress Notes Robin Kaur MD - 06/16/2022 6:00 AM CDT SURGERY PROGRESS NOTE Patient Name: Irma Michelle Date of : 1990 Date of Service: 06/16/22 Attending Attestation I saw and evaluated the patient and discussed their management with the resident I reviewed the noteand agree with the documented findings, assessment, and plan of care except where indicated above. Robin Kaur Colorectal Surgery POD #1 s/p right channing with end ileostomy for Crohn's SUBJECTIVE NAEO. Tachycardic to 120's. Pain well controlled. No nausea or vomiting. No fevers or chills. Not yet ambulated. Oxygenating on RA. OBJECTIVE Temp (24hrs), Min:98.3 ??F (36.8 ??C), Max:99.2 ??F (37.3 ??C) BP 117/82 Pulse (!) 120 Temp 98.3 ??F (36.8 ??C) (Oral) Resp 16 Ht 5' 5 (1.651 m) Wt 73.5kg (162 lb) SpO2 98% BMI 26.96 kg/m?? Intake/Output Summary (Last 24 hours) at 06/16/2022 0600 Last data filed at 06/16/2022 0543 Gross per 24 hour Intake 2000 ml Output 410 ml Net 1590 ml UOP: 300cc overnight Drain: 110cc / 24hr Ileostomy: 0cc / 24hr General: alert, interactive, appropriate Chest: breathing nonlabored Abd: soft, distended, mildly tender to palpation throughout. Incisions c/d/i. Drain with ss output. Ileostomy pink, healthy, bowel sweat in bag Extremities: no pedal edema. Labs: pending ASSESSMENT/PLAN: 31 y.o. female POD#1 s/p right hemicolectomy with end ileostomy for Crohn's S/p right channing with end ileostomy: routine drain cares. WOCN for new stoma Neuro: Matheus tylenol, gabapentin; PRN robaxin, dilaudid, oxycodone. No motrin for this pt in setting of Crohns Resp: IS CV: tachycardic to 120's this morn, cont to monitor GI/FEN: - CLD, boost - 1L bolus this morning - IVF until adequate oral intake, resolution of tachycardia - WOCN new stoma : Monitor UOP ID: Abx x 4 days post op (through 06/19) Activity: up ad jeff Ppx: lovenox Dispo: s11 Discussed [address] Vincent Flynn PA-C 06/16/2022, 6:00 AM Surgery Pager: [phone] ADDENDUM: prelim results blood cultures from [employer]: +anaerobic growth, one bottle. Unclear what is growing. Will redraw cultures. Joy Flynn PA-C 06/16/2022, 10:11 AM Raine Hernandez MD - 06/16/2022 3:07 AM CDT Post-Op Check Note 06/16/2022 S: Irma Michelle is a 31 y.o. female with a history of Crohn's disease now POD#0 s/p right hemicolectomy and end ileostomy. On evaluation, patient is doing as expected post operatively. Pain tolerable and patient about to get pain medication at time of exam. Denies dizziness, SOB, CP, N/V. Has not yet voided post-operatively. O: Filed Vitals: 06/15/22213506/15/22 2139 06/16/22 0248 06/16/22 0250 BP: 105/82 131/82 121/87 Pulse: (!) 105 (!) 118 (!) 118 Resp: Temp: 99.2 ??F (37.3 ??C) 98.5 ??F (36.9 ??C) TempSrc: Oral Temporal Artery SpO2: 96% 100% 100% General: Resting, conversant, NAD Resp: NLB on RA CV: RRR by rad pulse. Abd: soft, appropriately tender, non-distended, CITLALI drain with serosanguinous output, midline vac in place Ext: Moves all four extremities equally Lymph: No significant lower extremity edema Neuro/Psych: appropriate mood and affect, cooperative A/P: No acute post-operative events, doing well. Will continue plan per primary service. Please page if questions. Raine Hernandez MD, PharmD General Surgery PGY1 Pager: [phone] Robin Kaur MD - 06/15/2022 10:47 PM CDT Evaluated patient at bedside and evaluated OSH records. 31 yo F w crohns colitis w perforation of what appears mid transverse colon. Has peritonitis. Plan for OR tonight segmental colectomy with likelyend ileostomy. Informed consent was performed with the patient. We discussed the benefits of intervening surgically. We discussed the likely outcomes in this scenario with alternatives - including not intervening surgically. We discussed the risks of the planned procedure with the patient. We discussed that complications from surgery very rarely can result in or permanent disability. The patient understood that bleeding can occur as the result of the procedure sometimes requiring a blood transfusion or in some cases another surgery or procedure to stop thebleeding. We discussed the possibility of infection, including superficial wound infections as well as deeper infections such as an abscess or a leak from the bowel after our anastomosis. It was explained in these instances other surgical intervention may be needed, or potentially the placement of a percutaneous drain. It was discussed that damaging the surrounding area can occur during a colectomy, this may include damaging the ureters, other bowel, other organs, blood vessels and nerves which can have a variety of consequences and in some cases may require an additional surgery to fix the problem, if identified during the case we would repair it at that time if needed and call for other specialists if needed. It was discussed that they may need future surgeries depending on the results of this i ntervention, and that in their case an ostomy is necessary. In these cases we can typically reverse the ostomy at a later date, but in some instances the ostomy may be permanent. We discussed the need for continue therapy with their GI and the need for follow-up after successful surgical intervention. documented in this encounter Procedure Notes Robin Kaur MD - 06/16/2022 7:[address] [facility] Operative Note Surgery Date: 06/16/2022 Surgeon(s) and Role: * Robin Kaur MD - Primary * Babs Nance MD - Resident - Assisting Pre-op Diagnosis: * Crohn's disease with complication, unspecified gastrointestinal tract location (HRC) [K50.919] Post-op Diagnosis: * Crohn's disease with complication, unspecified gastrointestinal tract location (HRC) [K50.919] Procedure(s) (LRB): RIGHT HEMICOLECTOMY WITH DRAINAGE OF INTERPERITONEAL ABSCESS (N/A) EBL: 40mL Specimens: ID Type Source Tests Collected by Time Destination 1 : Right Colon Tissue Colon SURGICAL PATHOLOGY Robin Kaur MD 06/16/2022 0104 Findings: perforated transverse colon Complications: none IVF: 2L crystalloid and 250mL 5% albumin UOP: 300mL Intraoperative consultation: none Justification for Procedure: Irma Michelle is a 31 y.o. female with a history of crohns disease with a perforation of transversecolon who is transferred from outside hospital who no has developed peritonitis. The next step in this patient's care is to perform an ex lap likely a right colectomy. We discussed the benefits of intervening surgically. We discussed the likely outcomes in this scenario with alternatives - including not intervening surgically. We informed her that continued waiting and non intervention could result in life threatening sepsis. We discussed the risks of the planned pro cedure with the patient. We discussed that complications from surgery can result in or permanent disability. The patient understood that bleeding can occur as the result of the procedure sometimes requiring a blood transfusion or in some cases another surgery or procedure to stop the bleeding. We discussed the possibility of infection, including superficial wound infections as well as deeper infections such as an abscess or a leak from the bowel. It was explained in these instances other surgical intervention may be needed, or potentially the placement of a percutaneous drain. It was discussed that damaging the surrounding area can occur during a colectomy, this may include damaging the ureters, other bowel, other organs, blood vessels and nerves which can have a variety of consequences andin some cases may require an additional surgery to fix the problem, if identified during the case wewould repair it at that time if needed and call for other specialists if needed. It was discussed that they may need future surgeries or treatments depending on the results of this intervention, and that in some cases an ostomy may need to be created. We discussed the possibility of hernia. Procedure in detail After informed consent the patient was brought to operating room and underwent endotracheal intubation. Patient was placed in split leg postion. We then prepped and draped the patient is usual fashion.Time out was performed following our current universal protocol. We began the surgery by making a midline incision. We carefully entered the abdominal cavity. We placed an XL maximo wound retractor. We identified the inflammatory mass of the mid transverse colon. Weopened the lesser sac being the colon from the stomach. The lesser sac was filled with purulent fluid. A perforation of the transverse colon. A bookwalter retractor was placed. The right colon was dilated. We then turned our attention to the right colon. We identified the sail of treves on the terminal ileum and identified were it became the cecum. We then mobilized the right colon lateral to medial by taking down the white line of toldt. We lifted the mesentery off of the retroperitoneum. Until it waslifted well away from the retroperitoneum and the retroperitoneal structures were indeed down away from our field. The ileocolic pedicle was identified. We protected and identified duodenum and the retroperitoneal structures were down and away from our field. We took great care to gently dissect the duodenum away from the mesentery to the right colon as well as ureter. We then took a 75mm blue load KATHY stapler and transected the small bowel roughly 5cm proximal to the IC valve, after having the mesentery from the specific spot on the TI. We then scored the mesentery anteriorly along our planned dissection. We and skeletonized the ileocolic pedicle. We used ligasure device to lig ate the mesentery and the ileocolic pedicle specifically. Again we were careful to keep the duodenumand retroperitoneal structures away from our dissection/ligation. We completed taking down hepatic flexure and continued our dissection plan along transverse colon mesentery. We ligated the middle colic high using ligasure. We turned our attention distally and found a good spot of healthy distal transverse colon well distal from the perforated transverse colon. We the mesentery from the wall of the colon and used a 75mm blue load KATHY to transect the distal colon margin. The specimen was sent to pathology. We evaluated proximal and distal bowel ends which had palpable blood supply and has good bleeding at the edges. We indicated to anesthesia to give ICG and it was given intravenously. Srinivas used fluorescence angiography on the transected ends of bowel. It was bright blue and well perfused. The contamination, the steroid use made me unable to be comfortable to perform a primary anastomosis. In addition, there was creeping fat seen on the proximal descending colon. We could express fluid and air through the area. We used warm irrigation to clean his abdomen with copious irrigation. We then performed our TAP block (using 45mL bilaterally of a 90mL solution containing 0.3mg of epinephrine and 4mg of dexamethasone and 150mg of 0.25% bupivacaine in a total mixed in normal saline.) We placed a 19fr drain in the lesser sac in the location of the previous abscess. We prepped the ileostomy at the pre-marked location made prior on the patient's abdomen preoperatively. We easily passed the terminal ileum through the skin. Then we re-draped and re-scrubbed and used the closing tray. We closed peritoneum with 2-0 vicryl. We closed the fascia with 2-0 pds. We then closed the midline skin with natividad. We matured the ostomyand brooked the ileostomy with 3-0 vicryl. We placed preveena on the wound. All instrument counts and sponge counts were complete. That concluded the surgery. The patient was brought to pacu extubated. Robin Kaur MD - 06/16/2022 2:[address] [facility] Brief Operative Progress Note Surgery Date: 06/16/2022 Surgeon(s) and Role: * Robin Kaur MD - Primary * Babs Nance MD - Resident - Assisting Pre-op Diagnosis: * Crohn's disease with complication, unspecified gastrointestinal tract location (HRC) [K50.919] Post-op Diagnosis: * Crohn's disease with complication, unspecified gastrointestinal tract location (HRC) [K50.919] Procedure(s) (LRB): RIGHT HEMICOLECTOMY WITH DRAINAGE OF INTERPERITONEAL ABSCESS AND END ILEOSTOMY(N/A) EBL: 40mL IVF: 2L crystalloid 250mL 5% albumin UOP: 300mL Specimens: ID Type Source Tests Collected by Time Destination 1 : Right Colon Tissue Colon SURGICAL PATHOLOGY Robin Kaur MD 06/16/2022 0104 Complications / Findings: none/intra-abdominal abscess representing infection prior to the time of surgery documented in this encounter Consult Notes Lindsey Montano RN - 06/16/2022 2:33 PM CDTAssociated Order(s): WOUND/DINING HOST CONSULT Images from the original note were not included. [facility] Wound Progress Note Evaluate for: New ileostomy Consulted by: NAY Diagnosis: Encounter Diagnoses Name Primary? Small bowel obstruction (HRC) Yes Intra-abdominal fluid collection Crohn's disease with complication, unspecified gastrointestinal tract location (HRC) Relevant Labs: Lab Results Component Value Date/Time WBC 25.3 (H) 06/16/2022 07:44 AM WBC 20.4 (H) 06/15/2022 10:03 PM Patient reports: Patient consents to assessment and treatment. Relevant patient history: Per chart: 31 y.o. female with history of Crohn's disease diagnosed 8 years ago currently on Stelaraand prednisone (last dose within past week) who presents from OSH with acute flare and CT evidence of severe transverse colon inflammation associated with abscesses and a partial bowel obstruction. Assessment: Patient lying in bed with head of bed raised and SO at bedside. Prevena vac in place over midline incision (not assessed) and lies within pouching landscape. Current pouch with small compromise medially. Abdomen tender. Stoma size: 32 mm Stoma shape: Round Stoma color: Red Mucocutaneous junction: Intact Angie-stomal skin: WDL Stool/flatus: Enemy Swim succus present Type of Pouch: Alzada #[id number] with barrier ting #[id number] Paste: NA Powder: NA Belt: NA Complications: Prevena vac placement is within pouching landscape and drape was removed with pouch removal. Suction was turned off for aprox. 10 min while Vac patency re-achieved. Plan: Continue with education and pouch change demonstrations wvery other day while patient in hospital. Patient Education: Provided and reviewed written material, online resources and learning aid. Discussed stoma health and possible concerns. Provided complete verbalized pouch change with patient holding had over stoma after application. Patient tired but followed teaching. SO was very engaged in education and provided appropriate support to patient. Pedal pulses: Not applicable Pain: Patient recently medicated as per MAR before consult Signs of infection: none to skin/wound assessed Patient consult included visit and visual assessment: Yes/No: Yes. The following areas were visuallyassessed: Abdomen Pressure Related Wound: No Treatment Provided: Education and demonstration as mentioned above. Inpatient Plan and orders: Inpatient plan: Bedside RN to provide dressing changes as ordered PRN. Bedside RN to follow wound care and/or skin care order(s) PRN. Wound team to return 06/18 for continued education and demonstration. Support Surface: IsoFlex mattress (low air loss pump in use) Wound Care/Skin Care orders(s): Ostomy/Stoma Care ONGOING Comments: Nursing to provide care in accordance with Ostomy Care Policy [id number] (including): 1. Observe color and appearance of stoma and document every shift. 2. Empty pouch when 1/3 full of stool and record. 3. Change pouch every other day and PRN if there is leakage. 4. Begin having the patient participate in ostomy cares as soon as able. 5. Document learning in [facility] Patient Education activity. If peristomal skin is irritated, apply stomahesive powder, rub in dust off excess. Question Answer Comment Type of stoma Ileostomy Type of appliance Alzada #8931 with #7805 barrier ring Wafer size 32 mm Bag size Standard Topical powder/cream/paste None used Discharge Plan and orders: Discharge plan: Patient should continue to change pouch every other day until seen in outpatient clinic or by home care. Additional Consults: Not at this time Communication: I spoke with the patient, SO and RN regarding plan of care and entered orders. Please reorder the Wound/greens keeper Consult for questions, concerns or deterioration. Wound/Ostomy nurse is available Wednesday-Wednesday (excluding holidays) between 8a to 3p. If outside of this time please contact Attending Practitioner/team. Report completed by Lindsey Neal RN, CWWINNIE --- End of Report --- documented in this encounter OR Notes H&P - Rosales Blanchard MD - 06/15/2022 9:43 PM CDT ACS History & Physical Note Date of Service: 06/15/2022 Time of Consult Page: [id number] Time of Exam: 2154 Assessment/Plan Irma Michelle is a 31 y.o. female with history of Crohn's disease diagnosed 8 years ago currently on Stelara and prednisone (last dose within past week) who presents from OSH with acute flare and CT evidence of severe transverse colon inflammation associated with abscesses and a partial bowel obstruction. Tachycardic with diffuse abdominal tenderness. - NPO, IV fluids - Pain control - Consented for ex lap, possible bowel resection - To OR this evening Discussed with staff: Dr Jordan Blanchard MD Surgery PGY3 CC: I was asked by Dr. Bruner to evaluate the patient for Crohn's flare HPI: Irma Michelle is a 31 y.o. female with PMH Crohn's who presents with abdominal pain and CT evidenceconcerning for acute Crohn's flare with evere transverse colon inflammation associated with abscesses and a partial bowel obstruction. Tachycardic with diffuse abdominal tenderness.. Diagnosed 8 years ago. Previously on Remicade and Humira. Currently on Stelara and a prednisone burst (last dose a couple of days ago). Presented to outside ED with severe pain and tachycardia which came down after fluids. WBC [address] scan thus she was transferred to [facility]. Currently, the patient endorses diffuse abdominal pain associated with nausea/vomiting. Patient denies headache, midline neck/back pain; no chest pain or SOB. No pain, weakness or paraesthesias in the extremities. ROS: Negative unless stated in HPI above. Past Medical History Crohn's disease Social History Social History Tobacco Use Smoking status: Not on file Smokeless tobacco: Not on file Substance Use Topics Alcohol use: Not on file Drug use: Not on file Surgical History No past abdominal surgeries Family History No family history on file. No adverse reaction to anesthesia/bleeding/clotting disorders Medications No current facility-administered medications for this encounter. No current outpatient medications on file. Allergies Not on File Examination BP 105/82 Pulse (!) 105 Temp 99.2 ??F (37.3 ??C) (Oral) Resp 18 SpO2 96% General: Awake, alert, NAD HEENT: EOMI, normocephalic, atraumatic Cardiovascular: Sinus tachycardia on tele Pulmonary: NLB on RA Abdomen: soft, mildly distended, diffuse tenderness to palpation with rebound tenderness, no peritoneal signs Extremities: No edema, no gross deformities Neuro: medical administrative technician II-XII grossly intact Skin: Warm, well perfused Labs/Imaging Results for orders placed or performed in visit on 03/18/99 HEMOGLOBIN, BLOOD Result Value Ref Range Hemoglobin 13.3 11.5 - 15.5 g/dl UA MICRO IF Result Value Ref Range Appr Yellow Appr Clear Sp Gr 1.024 1.005 - 1.030 Leuk Pos 0 Nitr 0 0 pH 5.0 4.5 - 8.0 Prot 0 0 mg/dl Gluc 0 0 g/dl Ket 0 0 Urob 0.1-1 0.1 - 1 mg/dl Bili 0 0 Blood 0 0 UA MICRO Result Value Ref Range RBC'S 0 0 - 3 /hpf WBC'S 0-2 0 - 5 /hpf Epith, Squamous Occ /hpf Bact 0 Casts 0 /lpf Associated attestation - Urszula Ortega MD - 06/15/2022 10:22 PM CDT Trauma/ACS Staff I saw and examined the patient on date of service 06/15/2022. I agree with the findings and plan of care as documented in the note by Dr. Blanchard. Patient with Crohn's disease, recently started on Stelara (supposed to be taking prednisone but stopped on her own a few days ago) who was initially at [facility] with abdominal pain. Has reported transverse colon inflammation and stricture with surrounding abscesses and some cecal dilation co ncerning for obstruction. Her abdominal pain has been worsening throughout the day prompting transfer here for operative intervention. Patient is pretty tender in the epigastrium with voluntary guarding. She says she feels like crap. Planning on going to OR [facility] with colorectal for colon resection and likely ileostomy. To be admitted to colorectal service post-op. Urszula Ortega MD 06/15/2022, 10:20 PM documented in this encounter ED Notes Endy Fisher PA-C - 06/15/2022 9:31 PM CDT [facility] Emergency Medicine Visit Note Chief Complaint: No chief complaint on file. HPI Irma Michelle is a 31 y.o. old female with a past medical history of Crohn's disease on Stelara whopresents to the emergency department for evaluation of abdominal pain. Patient is a transfer from [facility]. Patient developed abdominal pain yesterday night. Around 3:30 a.m. this morning the pain got significantly worse. She is having pain on the right upper and lower abdomen. Currently rates the pain 5/10. Patient was found to have a partial bowel obstruction with phlegmon/abscess. She was on a steroid taper from the ED on 06/06. She was recently started on Stelera for her Crohn's. She had one infusion so far and is due for her second infusion soon. Denies hematuria, melena, or hematochezia. She has been having nausea, vomiting, and diarrhea intermittently since 06/06. Denies previoushistory of abdominal surgeries. Denies dysuria. Patient denies chest pain, shortness of breath, fever, chills, or cough. In addition to the above, I have personally reviewed any medications, allergies, problem list, medical history, surgical history and social history in the health record as of this visit. Review of Systems A complete review of systems was performed and is otherwise negative. Vitals: 06/15/22213506/15/222138 BP: 105/82 Pulse: (Abnormal) 105 Resp: 18 Temp: 99.2 ??F (37.3 ??C) SpO2: 96% Physical Exam General: awake and alert, comfortable, in no acute distress HEENT: atraumatic, no scleral injection, no nasal discharge, neck supple, midsized pupils Chest: clear to auscultation bilaterally without wheezes or crackles, non labored respirations, symmetric chest rise Cardiovascular: regular rate and rhythm, no murmurs or gallops Abdomen: soft, diffuse abdominal tenderness in all 4 quadrants- worse in RUQ/RLQ, no rebound or guarding, mildly distended Extremities: no deformities, edema, or tenderness Skin: warm, dry, no rashes Neuro: alert and oriented x 3, moving extremities x 4 This note created using speech-recognition software and may contain unintended word substitutions. Endy Fisher PA-C ED Course as of 06/16/22 0153 WedJun 15, [id number] Irma Michelle is a 31 y.o. old female with a past medical history of Crohn's disease on [facility] who presents to the emergency department for evaluation of abdominal pain. On arrival, patient is tachycardic otherwise vital signs are within normal limits. Patient is a transfer from [facility]. Patient was seen this morning and awaiting transfer with no available hospital. CT revealed SBOwith partial bowel obstruction with fluid collections. Patient received Zosyn. COVID negative. WBC 18.64, Hb 10.3, CRP 8.7, HCG qual negative. Plan for ACS consult. [KF] 227 ACS evaluated patient. Will go to OR soon. Labs ordered. Bed placed with colorectal surgery. [KF] 5017 Complete Blood Count no Diff(!) Leukocytosis at 20.4. Anemia with hb 9.7. Nortmal platelets. [KF] 2245 INR(!): 1.2 INR 1.2. [KF] 2246 PTT: 29.5 PTT WNL. [KF] 2247 Basic Metabolic Panel No significant electrolyte derangements, no acidosis or anion gap, no renal impairment. Glucose 87. [KF] 2253 Type and Screen A+ [KF] ED Course User Index [KF] Endy Fisher PA-C Clinical Impressions as of 06/16/22 0153 Small bowel obstruction (HRC) Intra-abdominal fluid collection Jaylon Dave MD - 06/15/2022 9:28 PM CDT [facility] Emergency Department Attending Supervision Note I have personally seen and examined patient. Case reviewed and discussed with Endy Fisher PA-C. I have reviewed and agreed with the PMH, FH, SOC, ROS. Please see today's note by NAY. NAY Care under my supervision. Case notes: Transferred from an outside hospital due to small bowel obstruction with abscesses. Has a history of Crohn's disease with few days of increasing pain particularly severe after 3:00 a.m. today. Has leukocytosis and elevated inflammatory markers CT with severe segmental inflammation of the transverse colon, to early abscesses, partial SBO Antibiotics given Will need discussion with IR, GI, colorectal and hospital admission Assessment: SBO with abscesses Crohns disease Christina Medical Decision Making/Plan: Admit Author: Jaylon Bruner MD Jossue Martin MD - 06/15/2022 7:34 PM CDT Referred from Outside ER by Provider for abdominal pain. Background/plan: 31 year old F with PMH of Crohn's. Recently started on Stelera 10 days ago. Recent course of steroids. Recent ER visit with dehydration, treated with fluids and restarted on course of steroids. Went to ER with severe abdominal pain, tachycardic there. Afebrile. HR normalized after fluids. Leukocytosis to 18. CRP of 8. CT shows severe segmental inflammation of mid- transverse colon + 2phlegmon/early abscess + partial bowel obstruction. Got Zosyn. Needs colorectal. Means of arrival: EMS Call back: none documented in this encounter Plan of Treatment Upcoming Encounters Date Type Specialty Care Team Description 06/30/2022 Appointment General Surgery Fransisco Kaur MD [address] [place], [place] [address] (Wo rk) 06/30/2022 Appointment Wound Clinic Renard Merchant APRN, DIRECTOR FRAUD [address], [place] [address] (Wo rk) Pending Results Name Type Priority Associated Diagnoses Date/Ti nv Surgical Path Lab Routine Crohn's disease with 2021 1:04 complication, unspecified AM CDT gastrointestinal tract location (HRC) Blood Culture - Microbiology Routine 06/16/2022 1 2:15 Venipuncture PM CDT Blood Culture - Microbiology Routine 06/16/2022 1 2:15 Venipuncture PM CDT Blood Culture Microbiology Routine 06/16/2022 12: 15 PM CDT Blood Culture Microbiology Routine 06/16/2022 12: 15 PM CDT Scheduled Orders Name Type Priority Associated Diagnoses Order S chedule Surgical Path Lab Routine Crohn's disease with Releas e Upon complication, Ordering for 1 unspecified Occurrences gastrointestinal tract start ing 06/16/2022 location (HRC) until 022, 1 completed Monitoring Platelets Lab Routine Every 2 days at 6am for 14 Days starting 2021 until 2 Blood Culture - Microbiology Routine Once today s tarting Venipuncture now for 1 Occurrences starting 2021 until 2 Blood Culture - Microbiology Routine Once today s tarting Venipuncture now for 1 Occurrences starting 2021 until 2 Blood Culture Microbiology Routine Once for 1 Occurrences starting 2021 until 2, 1 completed Blood Culture Microbiology Routine Once for 1 Occurrences starting 2021 until 2, 1 completed Scheduled Procedures Name Priority Associated Diagnoses Date/Time OPEN EXPLORATION ABDOMEN ADULT Intra-abdominal f luid collection Scheduled Referrals Name Type Priority Associated Diagnoses Order S chedule Wound Care Referral Referral Routine Small bowel obstructi on Ordered: 06/16/2022 ([facility]) documented as of this encounter Procedures The patient is currently admitted. The information in this section might not be complete until the patient is discharged. Procedure Name Priority Date/Time Associated Diagnosis Comme nts BASIC METABOLIC PANEL Routine 06/17/2022 5:19 Res ults for this AM CDT procedure are i n the results section. MAGNESIUM Routine 06/17/2022 5:19 Results for this [...] CDT procedure are in the results section. MAGNESIUM Routine 06/16/2022 7:44 [...] procedure are i n the results section. ANTIBODY SCREEN STAT 06/15/2022 [...] n THROMBOPLASTIN TIME the resu lts section. COMPLETE BLOOD STAT 06/15/2022 10:03 Results f or this COUNT-NO DIFF PM CDT procedure are in the results section. INR/PROTIME STAT 06/15/2022 10:03 Results for this PM CDT procedure are i n the results section. FOREIGN IMAGE(S) CT Routine 06/15/2022 12:00 Resu lts for this ABDOMEN/PELVIS AM CDT procedure are in the results section. documented in this encounter Results Magnesium (06/17/2022 5:19 AM CDT) P athologist Signature Magnesium 2.2 1.6 - 2.6 06/17/2022 [facility] mg/dL 5:49 AM CDT HOSPITAL Specimen Anatomical Collection Method / Collection Time Recei jeanie Time (Source) Location / Volume Laterality Blood Venipuncture / 06/17/2022 5:19 06/17/2022 5:22 Unknown AM CDT AM CDT Babs Nance MD LAB_1 Performing Organization Address City/[facility]/ZIP Code Phon e Number [facility] [address] [place] [address] (ABNORMAL) Basic Metabolic Panel (06/17/2022 5:19 AM CDT) athologist Signature Sodium 135 (L) 136 - 145 06/17/2022 [facility] mmol/L 5:49 AM CDT HOSPITAL Potassium 4.4 3.5 - 5.1 06/17/2022 [facility] mmol/L 5:49 AM T HOSPITAL Chloride 100 98 - 109 06/17/2022 [facility] mmol/L 5:49 AM T [facility] CO2 28 20 - 29 06/17/2022 [facility] mmol/L 5:49 AM T [facility] Anion Gap 7 7 - 16 06/17/2022 [facility] mmol/L 5:49 AM T [facility] Calcium 8.4 8.4 - 10.4 06/17/2022 [facility] mg/dL 5:49 AM T [facility] BUN 7 7 - 26 06/17/2022 [facility] mg/dL 5:49 AM T [facility] Creatinine 0.81 0.55 - 1.02 06/17/2022 [facility] mg/dL 5:49 AM T [facility] Glucose 108 (H) 70 - 100 06/17/2022 [facility] mg/dL 5:49 AM T [facility]PITAL Comment: The given reference range is fo r the fasting state. Non-fasting reference range for glucose is 70 - 180 mg/dL. GFR, Estimated >60 >60 mL/min/1.73m2 06/17/2022 5:49 [facility] Specimen Anatomical Collection Method / Collection Time Recei jeanie Time (Source) Location / Volume Laterality Blood Venipuncture / 06/17/2022 5:19 06/17/2022 5:22 Unknown AM CDT AM CDT Babs Nance MD LAB_1 Performing Organization Address City/State/ZIP Code Phon e Number [address] [address] (ABNORMAL) Complete Blood Count-No Diff (06/17/2022 5:18 AM CDT) Analysis Performed At Patho logist Time Signature WBC 12.9 (H) 3.5 - 10.5 06/17/2022 [facility] x10(9)/L 5:32 AM T HOSPITAL RBC 3.41 (L) 3.90 - 06/17/2022 [facility] 5.03 5:32 AM T [facility]PITAL x10(12)/L Hemoglobin 9.2 (L) 12.0 - 06/17/2022 [facility] 15.5 g/dL 5:32 AM T [facility] HCT 30.8 (L) 34.9 - 06/17/2022 [facility] 44.5 % 5:32 AM T HOSPITAL MCV 90.3 80.0 - 06/17/2022 [facility] 100.0 fL 5:32 AM T [facility] MCH 27.0 (L) 27.6 - 06/17/2022 [facility] 33.3 pg 5:32 AM T [facility] MCHC 29.9 (L) 31.5 - 06/17/2022 [facility] 35.2 g/dL 5:32 AM T [facility] RDW 16.0 (H) 11.9 - 06/17/2022 [facility] 15.5 % 5:32 AM T [facility]OSPITAL Platelets 306 150 - 450 06/17/2022 [facility] x10(9)/L 5:32 AM T [facility] Automated NRBC 0 <=0 /100 06/17/2022 [facility] WBC 5:32 AM T [facility]OSPITAL Specimen Anatomical Collection Method / Collection Time Recei jeanie Time (Source) Location / Volume Laterality Blood Venipuncture / 06/17/2022 5:18 06/17/2022 5:22 Unknown AM CDT AM CDT Babs Nance MD LAB_1 Performing Organization Address City/State/ZIP Code Phon e Number [address] [address] Glucose, Whole Blood POCT (06/16/2022 11:58 PM CDT) [facility] gist Method Time Signature Glucose, Whole 109 70 - 180 06/17/2022 [facility] Blood mg/dL 12:00 AM T HOSPITAL POCT Comment 1 RN Notified 06/17/2022 [facility] 12:00 AM CDT HOSPITAL Performing RCLab S116 06/17/2022 [facility] Location 12:00 AM CDT HOSPITAL Specimen Anatomical Collection Method Collection Time Receive d Time (Source) Location / / Volume Laterality Blood 06/16/2022 11:58 06/17/2022 PM CDT 12:00 AM CDT Robin Kaur MD LAB_1 Performing Organization Address [facility] Phon e Number [address] [address] Glucose, Whole Blood POCT (06/16/2022 7:47 PM CDT) [facility] gist Method Time Signature Glucose, Whole 156 70 - 180 06/16/2022 [facility] Blood mg/dL 7:48 PM CDT HOSPITAL POCT Comment 1 RN Notified 06/16/2022 [facility] 7:48 PM CDT HOSPITAL Performing RCLab S116 06/16/2022 [facility] Location 7:48 PM CDT HOSPITAL Specimen Anatomical Collection Method Collection Time Receive d Time (Source) Location / / Volume Laterality Blood 06/16/2022 7:47 PM 2 7:48 CDT PM CDT Robin Kaur MD LAB_1 Performing Organization Address [facility] Phon e Number [address] [address] Glucose, Whole Blood POCT (06/16/2022 4:27 PM CDT) [facility] Method Time Signature Glucose, Whole 159 70 - 180 06/16/2022 [facility] Blood mg/dL 4:28 PM CDT HOSPITAL POCT Comment 1 RN Notified 06/16/2022 [facility] 4:28 PM CDT HOSPITAL Performing RCLab S116 06/16/2022 [facility] Location 4:28 PM CDT HOSPITAL Specimen Anatomical Collection Method Collection Time Receive d Time (Source) Location / / Volume Laterality Blood 06/16/2022 4:27 PM 2 4:28 CDT PM CDT Robin Kaur MD LAB_1 Performing Organization Address [facility]/[place]IP [facility] [place] Number [address] [address] Glucose, Whole Blood POCT (06/16/2022 1:03 PM CDT) [facility] Method Time Signature Glucose, Whole 150 70 - 180 06/16/2022 [facility] Blood mg/dL 1:06 PM CDT HOSPITAL Performing RCLab S116 06/16/2022 [facility] Location 1:06 PM CDT HOSPITAL Specimen Anatomical Collection Method Collection Time Receive d Time (Source) Location / / Volume Laterality Blood 06/16/2022 1:03 PM 2 1:06 CDT PM CDT Robin Kaur MD LAB_1 Performing Organization Address City/[facility] Phon e Number [address] [address] (ABNORMAL) Glucose, Whole Blood POCT (06/16/2022 8:25 AM CDT) [facility] Signature Glucose, Whole 186 (H) 70 - 180 06/16/2022 [facility] Blood mg/dL 8:27 AM CDT HOSPITAL Performing RCLab S116 06/16/2022 [facility] Location 8:27 AM CDT HOSPITAL Specimen Anatomical Collection Method Collection Time Receive d Time (Source) Location / / Volume Laterality Blood 06/16/2022 8:25 AM 2 8:27 CDT AM CDT Robin Kaur MD LAB_1 Performing Organization Address [facility] Phon e Number [address] [address] Blood Smear Review (Lab Use Only) (06/16/2022 7:44 AM CDT) [facility] Path Review Slide review 06/16/2022 [facility] done 12:58 PM CDT HOSPITAL internally for water quality tester purposes Path Review WBC high 06/16/2022 [facility] Reason 12:58 PM CDT HOSPITAL Specimen Anatomical Collection Method / Collection Time Recei jeanie Time (Source) Location / Volume Laterality Blood Venipuncture / 06/16/2022 7:44 06/16/2022 8:07 Unknown AM CDT AM CDT Robin Kaur MD LAB_1 Performing Organization Address [facility]/ZIP Code Phon e Number [address] [address] Phosphorus (06/16/2022 7:44 AM CDT) athologist Signature Phosphorus 4.2 2.3 - 4.7 06/16/2022 [facility] mg/dL 8:37 AM CDT HOSPITAL Specimen Anatomical Collection Method / Collection Time Recei jeanie Time (Source) Location / Volume Laterality Blood Venipuncture / 06/16/2022 7:44 06/16/2022 8:07 Unknown AM CDT AM CDT Robin Kaur MD LAB_1 Performing Organization Address [facility]/[address] [address] (ABNORMAL) Magnesium (06/16/2022 7:44 AM CDT) athologist Signature Magnesium 1.5 (L) 1.6 - 2.6 06/16/2022 [facility] mg/dL 8:36 AM CDT HOSPITAL Specimen Anatomical Collection Method / Collection Time Recei jeanie Time (Source) Location / Volume Laterality Blood Venipuncture / 06/16/2022 7:44 06/16/2022 8:07 Unknown AM CDT AM CDT Robin Kaur MD LAB_1 Performing Organization Address [facility]/[address] [address] (ABNORMAL) Basic Metabolic Panel (Na, K, Cl, Co2, BUN. Creat, Gluc, Ca) (06/16/2022 7:44 AM CDT) athologist Signature Sodium 132 (L) 136 - 145 06/16/2022 [facility] mmol/L 8:36 AM CDT HOSPITAL Potassium 3.9 3.5 - 5.1 06/16/2022 [facility] mmol/L 8:36 AM CDT HOSPITAL Chloride 100 98 - 109 06/16/2022 [facility] mmol/L 8:36 AM CDT HOSPITAL CO2 22 20 - 29 06/16/2022 [facility] mmol/L 8:36 AM CDT HOSPITAL Anion Gap 10 7 - 16 06/16/2022 [facility] mmol/L 8:36 AM CDT HOSPITAL Calcium 8.3 (L) 8.4 - 10.4 06/16/2022 [facility] mg/dL 8:36 AM CDT HOSPITAL BUN 10 7 - 26 06/16/2022 [facility] mg/dL 8:[address] [facility] Creatinine 0.75 0.55 - 1.02 06/16/2022 [facility] mg/dL 8:[address] [facility] Glucose 189 (H) 70 - 100 06/16/2022 [facility] mg/dL 8:[address] [facility] Comment: The given reference range is fo r the fasting state. Non-fasting reference range for glucose is 70 - 180 mg/dL. GFR, Estimated >60 >60 mL/min/1.73m2 06/16/2022 8:36 [facility] Specimen Anatomical Collection Method / Collection Time Recei jeanie Time (Source) Location / Volume Laterality Blood Venipuncture / 06/16/2022 7:44 06/16/2022 8:07 Unknown AM CDT AM T Robin Kaur MD LAB_1 Performing Organization Address City/State/[place] [address] (ABNORMAL) CBC with Platelets (06/16/2022 7:44 AM T) Analysis Performed At Patho logist Time Signature WBC 25.3 (H) 3.5 - 10.5 06/16/2022 [facility] x10(9)/L 9:[address] [facility] RBC 3.98 3.90 - 06/16/2022 [facility] 5.03 9:[address] [facility] x10(12)/L Hemoglobin 10.7 (L) 12.0 - 06/16/2022 [facility] 15.5 g/dL 9:[address] [facility] HCT 34.9 34.9 - 06/16/2022 [facility] 44.5 % 9:[address] [facility] MCV 87.7 80.0 - 06/16/2022 [facility] 100.0 fL 9:[address] [facility] MCH 26.9 (L) 27.6 - 06/16/2022 [facility] 33.3 pg 9:[address] [facility] MCHC 30.7 (L) 31.5 - 06/16/2022 [facility] 35.2 g/dL 9:[address] [facility] RDW 15.9 (H) 11.9 - 06/16/2022 [facility] 15.5 % 9:08 AM CDT HOSPITAL Platelets 343 150 - 450 06/16/2022 [facility] x10(9)/L 9:08 AM CDT HOSPITAL Automated NRBC 0 <=0 /100 06/16/2022 [facility] WBC 9:08 AM CDT HOSPITAL Specimen Anatomical Collection Method / Collection Time Recei jeanie Time (Source) Location / Volume Laterality Blood Venipuncture / 06/16/2022 7:44 06/16/2022 8:07 Unknown AM CDT AM CDT Robin Kaur MD LAB_1 Performing Organization Address [facility]/[place]IP [facility] Ph[place] Number [address] [address] Glucose, Whole Blood POCT (06/16/2022 2:54 AM CDT) Patholo gist Method Time [facility] Glucose, Whole 147 70 - 180 06/16/2022 [facility] Blood mg/dL 2:55 AM CDT HOSPITAL Performing RCLAB PACU 06/16/2022 [facility] Location 2:55 AM CDT HOSPITAL Specimen Anatomical Collection Method Collection Time Receive d Time (Source) Location / / Volume Laterality Blood 06/16/2022 2:54 AM 2 2:55 CDT AM CDT Interface Provider LAB_1 Performing Organization Address [facility]/[place]IP [facility] Phon [place] Number [address] [address] Rapid Covid-19 - Asymptomatic [[id number]] (06/16/2022 2:41 AM CDT) Component Value Ref Range Test Analysis Performed Pathologis t Method Time At [facility] COVID-19 Not Detected Not 06/16/2022 [facility] Interpretation Detected 4:41 AM HOSPITAL CDT Source Nasopharyngeal 06/16/2022 [facility] swab 4:41 AM HOSPITAL CDT Specimen Anatomical Collection Method Collection Time Receive d Time (Source) Location / / Volume Laterality Swab (Source Non-blood 06/16/2022 2:41 AM 2 2:56 Required) Collection / CDT AM CDT (Nasopharyngeal Unknown swab) [facility] - 06/16/2022 4:41 AM CD T Test performed by real-time PCR. This test has been authorized by the FDA under an Emergency Use Authorization (EUA) for use by authorized laboratories. Yamilet Juan Walker APRN, CRNA LAB_1 Performing Organization Address [facility] Phon e Number [address] [address] (ABNORMAL) Hemoglobin, Measured POCT (06/16/2022 12:42 AM CDT) Analysis Performed At Path logis Time Signature Hemoglobin 9.8 (L) 12.0 - 06/16/2022 [facility] 15.5 g/dL 11:23 AM CDT HOSPITAL Performing RCLAB OR 06/16/2022 [facility] Location 11:23 AM CDT HOSPITAL Specimen Anatomical Collection Method Collection Time Receive d Time (Source) Location / / Volume Laterality Blood 06/16/2022 12:42 06/16/2022 AM CDT 11:23 AM CDT Interface Provider LAB_1 Performing Organization Address [facility] Phon e Number [address] [address] Glucose, Whole Blood POCT (06/16/2022 12:40 AM CDT) Analysis Performed At [facility] Time Signature Glucose, Whole 122 70 - 180 06/16/2022 [facility] Blood mg/dL 12:42 AM CDT HOSPITAL Performing RCLAB OR 06/16/2022 [facility] Location 12:42 AM CDT HOSPITAL Specimen Anatomical Collection Method Collection Time Receive d Time (Source) Location / / Volume Laterality Blood 06/16/2022 12:40 06/16/2022 AM CDT 12:42 AM CDT Interface Provider LAB_1 Performing Organization Address [facility] Phon e Number [address] [address] Blood Type second draw (06/15/2022 10:09 PM CDT) P athologist Signature ABO A 06/15/2022 [facility] BLOOD 11:01 PM CDT BANK RH Positive 06/15/2022 [facility] BLOOD 11:01 PM CDT BANK Specimen Anatomical Collection Method / Collection Time Recei jeanie Time (Source) Location / Volume Laterality Blood Venipuncture / 06/15/2022 10:09 2 Unknown PM CDT 10:22 PM CDT Jasmyn Rodriguez MD LAB_1 Performing Organization Address City/State/ZIP Code [facility] e Number [facility] [address] [place] [address] Basic Metabolic Panel (06/15/2022 10:03 PM CDT) P athologist Signature Sodium 136 136 - 145 06/15/2022 [facility] mmol/L 10:47 PM CDT HOSPITAL Potassium 4.0 3.5 - 5.1 06/15/2022 [facility] mmol/L 10:47 PM CDT HOSPITAL Chloride 101 98 - 109 06/15/2022 [facility] mmol/L 10:47 PM CDT HOSPITAL CO2 26 20 - 29 06/15/2022 [facility] mmol/L 10:47 PM CDT HOSPITAL Anion Gap 9 7 - 16 06/15/2022 [facility] mmol/L 10:47 PM CDT HOSPITAL Calcium 8.8 8.4 - 10.4 06/15/2022 [facility] mg/dL 10:47 PM CDT HOSPITAL BUN 9 7 - 26 06/15/2022 [facility] mg/dL 10:47 PM CDT HOSPITAL Creatinine 0.78 0.55 - 1.02 06/15/2022 [facility] mg/dL 10:47 PM CDT HOSPITAL Glucose 87 70 - 100 06/15/2022 [facility] mg/dL 10:47 PM CDT HOSPITAL Comment: The given reference range is fo r the fasting state. Non-fasting reference range for glucose is 70 - 180 mg/dL. GFR, Estimated >60 >60 mL/min/1.73m2 06/15/2022 10:[address] [facility] Specimen Anatomical Collection Method / Collection Time Recei jeanie Time (Source) Location / Volume Laterality Blood Venipuncture / 06/15/2022 10:03 2 Unknown PM CDT 10:17 PM CDT Endy Fisher PA-C LAB_1 Performing Organization Address City/[facility]/ZIP [facility] e Number [facility] [address] [place] [address] (ABNORMAL) Complete Blood Count no Diff (06/15/2022 10:03 PM CDT) Analysis Performed At Patho logist Time Signature WBC 20.4 (H) 3.5 - 10.5 06/15/2022 [facility] x10(9)/L 10:24 PM CDT HOSPITAL RBC 3.55 (L) 3.90 - 06/15/2022 [facility] 5.03 10:24 PM CDT HOSPITAL x10(12)/L Hemoglobin 9.7 (L) 12.0 - 06/15/2022 [facility] 15.5 g/dL 10:24 PM CDT HOSPITAL HCT 31.9 (L) 34.9 - 06/15/2022 [facility] 44.5 % 10:24 PM CDT HOSPITAL MCV 89.9 80.0 - 06/15/2022 [facility] 100.0 fL 10:24 PM CDT HOSPITAL MCH 27.3 (L) 27.6 - 06/15/2022 [facility] 33.3 pg 10:24 PM CDT HOSPITAL MCHC 30.4 (L) 31.5 - 06/15/2022 [facility] 35.2 g/dL 10:24 PM CDT HOSPITAL RDW 16.3 (H) 11.9 - 06/15/2022 [facility] 15.5 % 10:24 PM CDT HOSPITAL Platelets 351 150 - 450 06/15/2022 [facility] x10(9)/L 10:24 PM CDT HOSPITAL Automated NRBC 0 <=0 /100 06/15/2022 [facility] WBC 10:24 PM CDT HOSPITAL Specimen Anatomical Collection Method / Collection Time Recei jeanie Time (Source) Location / Volume Laterality Blood Venipuncture / 06/15/2022 10:03 2 Unknown PM CDT 10:17 PM CDT Endy Fisher PA-C LAB_1 Performing Organization Address [facility] Phon e Number [facility] [address] [place] [id number] Antibody Screen (06/15/2022 10:03 PM CDT) [facility] gist Method Time Signature Antibody Screen Negative 06/15/2022 [facility] BLOOD Interpretation 11:01 PM CDT BANK Specimen Anatomical Collection Method / Collection Time Recei jeanie Time (Source) Location / Volume Laterality Blood Venipuncture / 06/15/2022 10:03 2 Unknown PM CDT 10:17 PM CDT Endy Fisher PA-C LAB_1 Performing Organization Address City/[facility] Phon e Number [facility] [address] [place] [address] Blood Type (06/15/2022 10:03 PM CDT) athologist Signature ABO A 06/15/2022 [facility] BLOOD 10:51 PM CDT BANK RH Positive 06/15/2022 [facility] BLOOD 10:51 PM CDT BANK Specimen Anatomical Collection Method / Collection Time Recei jeanie Time (Source) Location / Volume Laterality Blood Venipuncture / 06/15/2022 10:03 2 Unknown PM CDT 10:17 PM CDT Endy Fisher PA-C LAB_1 Performing Organization Address City/[facility]/ZIP [facility] Ph[place] Number [facility] [address] [place] [id number] APTT (Activated Partial Thromboplastin Time) (06/15/2022 10:03 PM CDT) athologist Signature APTT 29.5 22.5 - 36.5 06/15/2022 [facility] Seconds 10:33 PM CDT HOSPITAL Specimen Anatomical Collection Method / Collection Time Recei jeanie Time (Source) Location / Volume Laterality Blood Venipuncture / 06/15/2022 10:03 2 Unknown PM CDT 10:17 PM CDT Endy Fisher PA-C LAB_1 Performing Organization Address [facility] Phon e Number [address] [address] (ABNORMAL) INR/Protime (06/15/2022 10:03 PM CDT) athologist Signature Protime 15.4 (H) 11.8 - 14.6 06/15/2022 [facility] Seconds 10:33 PM CDT HOSPITAL INR 1.2 (H) 0.9 - 1.1 06/15/2022 [facility] 10:33 PM CDT HOSPITAL Specimen Anatomical Collection Method / Collection Time Recei jeanie Time (Source) Location / Volume Laterality Blood Venipuncture / 06/15/2022 10:03 2 Unknown PM CDT 10:17 PM CDT [facility] - 06/15/2022 10:33 PM C DT Therapeutic range determined by protocol established by anticoagulation provider. Endy Fisher PA-C LAB_1 Performing Organization Address [facility] Phon e Number [address] [address] Foreign Image(S) CT Abdomen/Pelvis (06/15/2022 12:00 AM CDT) Specimen (Source) Anatomical Location Collection Method / Collectio n Time Received Time / Laterality Volume Narrative EXTERNAL RESULTS - 06/16/2022 7:35 AM CD T These outside images have been uploaded into PACS. If the results were provided, they will be located in the pa tient's chart under the Media or Imaging tab. Foreign Images Provider RAD NON-REPORTABLES Performing Organization Address City/State/ZIP Code Phon e Number EXTERNAL RESULTS documented in this encounter Visit Diagnoses Diagnosis Small bowel obstruction (HRC) - Primary Unspecified intestinal obstruction Intra-abdominal fluid collection Other ascites Crohn's disease with complication, unspe cified gastrointestinal tract location (HRC) Crohn's disease with complication, unspe cified gastrointestinal tract location (HRC) Plan of Care - Pauline Haddad RN - 06/16/2022 1:34 PM CDT [facility]. Practitioner Notified Note Name of Practitioner notified: Tessa Hudson MD Time of Practitioner notification: 1:35 PM Reason: [id number]:Miguel Angel,Dena-Just FYI, Mag and sodium low this morning. Did u want any replacements? Change IV fluid? Thanks! Shiloh PAREDES Response: Magnesium replacement ordered and MIV fluids changed to NS at same rate. Plan of Care - Chata Galan RN - 06/16/2022 4:[address] [facility] Nursing Post-Op Note Admission Date/Time: 06/15/2022 9:27 PM Returned to: S11 on (date) 06/16 at (time) 0350 from [facility] Transported by: Litter/cart Medical devices present on return from O.R.: IV General condition on return from O.R.: Good. Arouse to voice. Can make needs known. Endorses pain with activity and some nausea. Plan of Care - Jessica Yanes RN - 06/16/2022 3:37 AM CDT I completed a full assessment and assessments as ordered and per policy on this patient during my work shift. Reassessments completed during my work shift are unchanged unless documented. Triage Assessment Note - Anuel Nick RN - 06/15/2022 9:39 PM CDT Refer to pre-arrival note documented in this encounter Administered Medications Active Administered Medications - up to 3 most recent administrations Medication Order MAR Action Action Date Dose Rate Site acetaminophen (TYLENOL) tablet Given 06/17/2022 5:31 AM CDT 1,00 0 mg 1,000 mg 1,000 mg, Oral, Q8H, First dose on Wed06/16/22 at 0600, Until Discontinued, PACU & Post-op Given 06/16/2022 10:20 PM CDT 1,000 mg Given 06/16/2022 2:56 PM CDT 1,000 mg cefTRIAXone (ROCEPHIN) 1 g in sodium chloride Started 2:57 PM CDT 1 g 0.9 % 50 mL IVPB 1 g, Intravenous, Administer over 30 Minutes, Q24H (NON-STND), First dose (after last modification) on Wed06/16/22 at 1030, For 4 doses dextrose (D50) IVPB 25 g 25 g, Intravenous, Q15MIN PRN, Hypoglycemia, Per Adult Hypoglycemia Treatment Protocol, Starting on Wed06/16/22 at 02 31, Per Hypoglycemic episode: Give 25g IV push, recheck POCT glucose in 15 minutes , if result less than 70mg/dL, may repeat. After 2 doses notify Practitioner. May continue to enzo at while waiting for call back. dextrose 5%-NaCl 0.9% infusion New Bag Started 06/17/2022 2:45 AM 100 mL/hr Intravenous, at 100 mL/hr, CDT CONTINUOUS, Starting on Wed06/16/22 at 1445 Started 06/16/2022 5:59 PM CDT 100 mL/hr enoxaparin (LOVENOX) prefilled Given 06/17/2022 8:31 AM CDT 40 m g Abdominal Tissue syringe 40 mg 40 mg, Subcutaneous, Q24H, First dose on Wed06/16/22 at 0800, Until Discontinued, For VTE/DVT prophylaxis; First dose to start 4 hours after surgery end time. Ordering Provider Note: First dose start time must be within 22 hours of surgery end time., Post-op Given 06/16/2022 8:32 AM CDT 40 mg Abdom inal Tissue gabapentin (NEURONTIN) capsule 200 mg Given 06/17/2022 8:31 AM CDT 200 mg 200 mg, Oral, TID, First dose on Wed06/16/22 at 0800, Until Discontinued, For neuropathic or acute post operative pain Given 06/16/2022 8:30 PM CDT 200 mg Given 06/16/2022 2:56 PM CDT 200 mg glucagon rDNA (diagnostic) (GLUCAGEN) in jection 1 mg 1 mg, Intramuscular, Q15MIN PRN, Hypoglycemia, Per Koffi lt Hypoglycemia Treatment Protocol, Starting on Wed06/16/22 at , Until Discontinued, Per Hypoglycemic episode: Give 1mg IM, turn patient on side to prevent aspiration if vomits. If appropriate, establish IV access STAT. Recheck POCT gl ucose in 15 minutes, if result less than 70mg/dL and still no IV access, may r epeat 1mg IM x 1. Recheck POCT glucose in 15 minutes, if result is less than 70m g/dL notify Practitioner. glucose (GLUTOSE) oral gel 15 g of gluco se 15 g of glucose, Oral, Q15MIN PRN, Hypog lycemia, Per Adult Hypoglycemia Treatment Protocol, Starting on Wed06/16/22 at , Until Discontinued, Give 15g orally, recheck POCT glucose in 15 minutes, if r esult less than 70mg/dL, may repeat. After 2 doses notify Practitioner. May continue to treat whi le waiting for call back. 37.5g tube delivers 15g of glucose HYDROmorphone (DILAUDID) injection 0.2-0 .4 mg Given 06/17/2022 1:57 AM CDT 0.2 mg 0.2-0.4 mg, Intravenous, Q2H PRN, Pain, Use if unable to take PO, Starting on Wed06/16/22 at 0232, Until Shy 06/18/22 at 0231, For 48 hours, Give IV opioid for breakthrough pain, if unable to give PO or per patient preference. Given 06/16/2022 12:53 PM CDT 0.4 mg Given 06/16/2022 8:47 AM CDT 0.4 mg methocarbamol (ROBAXIN) tablet 500 mg Given 06/17/2022 8:31 AM CDT 500 mg 500 mg, Oral, Q6H PRN, Muscle Spasms, Starting on Wed06/16/22 at 0232, Until Discontinued Given 06/17/2022 12:33 AM CDT 500 mg Given 06/16/2022 5:59 PM CDT 500 mg metoclopramide (REGLAN) injection 5 mg 5 mg, Intravenous, Q6H PRN, Nausea, Vomiting, Starting on Wed06/16/22 at 0232, Until Discontinued, Give 1st line medications, then 2n d line, then 3rd line. Progress to next line if medication is i neffective after 15 minutes, or has been previously ineffective, or if a medication for a line is not ordered. May use medication from any line if patient pref erence indicates. If third line agent is ineffective, call Practitioner. If unable to give IV m edications contact Practitioner. Aromatherapy may be used a t any time as adjunct therapy. 1st Line - ondansetron 2nd Line -prochlorperazine 3rd Line - meto clopramide metroNIDAZOLE (FLAGYL) tablet 500 mg Given 06/17/2022 8:31 AM CDT 500 mg 500 mg, Oral, BID, First dose (after last modification) on Wed06/16/22 at 1030, For 8 doses, Hazardous waste disposal required., Indications: Perioperative Pharmacoprophylaxis Given 06/16/2022 8:30 PM CDT 500 mg Given 06/16/2022 2:56 PM CDT 500 mg ondansetron (ZOFRAN) injection 4 mg 4 mg, Intravenous, Q8H PRN, Nausea, Vomiting, Starting on Wed06/16/22 at 0232, Until Discontinued, Give 1st line medications, then 2n d line, then 3rd line. Progress to next line if medication is i neffective after 15 minutes, or has been previously ineffective, or if a medication for a line is not ordered. May use medication from any line if patient pref erence indicates. If third line agent is ineffective, call Practitioner. If unable to give IV m edications contact Practitioner. Aromatherapy may be used a t any time as adjunct therapy. 1st Line - ondansetron 2nd Line -prochlorperazine 3rd Line - meto clopramide oxyCODONE (ROXICODONE) immediate release Given 06/17/2022 5:44 A M CDT 10 mg tablet 5-10 mg 5-10 mg, Oral, Q4H PRN, Pain, Starting on Wed06/16/22 at 0232, Until Discontinued, Give PO opioid if able to take PO and pain not well controlled with other medications or interventions. Given 06/16/2022 10:25 PM CDT 10 mg Given 06/16/2022 2:56 PM CDT 10 mg prochlorperazine (COMPAZINE) injection 1 0 mg Given 06/16/2022 3:45 AM CDT 10 mg 10 mg, Intravenous, Q6H PRN, Nausea, Vomiting, Starting on Wed06/16/22 at 0232, Until Discontinued, Give 1st line medications, then 2nd line, then 3rd line. Progress to next line if medication is ineffective after 15 minutes, or has been previously ineffective, or if a medication for a line is not ordered. May use medication from any line if patient preference indicates. If third line agent is ineffective, call Practitioner. If unable to give IV medications contact Practitioner. Aromatherapy may be used at any time as adjunct therapy. 1st Line - ondansetron 2nd Line -prochlorperazine 3rd Line - metoclopramide Inactive Administered Medications - up to 3 most recent administrations Medication Order MAR Action Action Date Dose Rate Site bupivacaine 0.25% PF (2.5 mg/mL) Given 06/16/2022 1:13 AM CDT (SENSORCAINE) 150 mg, dexamethasone (DECADRON) 4 mg, EPINEPHrine 0.3 mg in sodium chloride 0.9 % 90 mL injection Injection, ONCE (NON-SCHEDULED), Starting on Wed06/15/22 at 2226, For 1 dose, Intra-op documented in this encounter Active and Recently Administered Medications Times are shown in CDT. Scheduled Medication Order 06/15/2022 06/16/2022 06/17/2022 acetaminophen (TYLENOL) tablet 1,000 mg 0548 (Given - Provider: Chata Galan RN)1456 (Given - Provider: Pauline Haddad, LENA)2220 (Given - Provider: Cindy Diez RN) 0531 (Given - Provider: Cynthia cedeno RN)1400 (Due)2200 (Due) 1,000 mg, Oral, Q8H, First dose on Wed at 0600, Until Discontinued, PACU & Post-op bupivacaine 0.25% PF (2.5 mg/mL) (SENSOR JATIN) 150 mg, dexamethasone (DECADRON) 4 mg, EPINEPHrine 0.3 mg in sodium chloride 0.9 % 90 mL injection (COMPLETED) 0113 (Given - Provider: Robin Kaur MD - Comment: to sterile field) Injection, ONCE (NON-SCHEDULED), Startin g on Wed06/15/22 at 2226, For 1 dose, Intra-op ceFAZolin (ANCEF) 2 g in sodium chloride 0.9% 100 mL p remade IVPB (COMPLETED) 2346 (Given - Provider: June Nieves APRN, SCENARIO WRITER) 2 g, Intravenous, Administer over 30 Min utes, ONCE (NON-SCHEDULED), Starting on Wed06/15/22 at 2303, For 1 dose, Give 30 minutes prior to incision, Pre-op cefTRIAXone (ROCEPHIN) 1 g in sodium chloride 0.9 % 50 mL IV PB 1457 (Started - Provider: Pauline Haddad, ELNA)1530 (Infused - Provider: Mario Pritchard RN) 1030 (Due) 1 g, Intravenous, Administer over 30 Min utes, Q24H (NON-STND), First dose (after last modification) on Wed06/16/22 at 1030, For 4 doses enoxaparin (LOVENOX) prefilled syringe 40 mg 0832 (Given - Provider: Pauline Haddad, LENA) 0831 (Given - Provider: Pauline bueno RN) 40 mg, Subcutaneous, Q24H, First dose on Wed06/16/22 at 0800, Until Discontinued, For VTE/DVT prophylaxis; First dose to start 4 hours after surgery end time. Ordering Provider Note: First dose start t william must be within 22 hours of surgery end time., Post-op gabapentin (NEURONTIN) capsule 200 mg 08 32 (Given - Provider: Pauline Haddad RN)1456 (Given - Provider: Pauline Haddad RN)2030 (Given - Provider: Cindy Diez RN) 0831 (Given - Provider: Pauline bueno RN)1400 (Due)2000 (Due) 200 mg, Oral, TID, First dose on Wed at 0800, Until Discontinued, For neuropathic or acute post operative pain insulin lispro (HumALOG) injection vial 0-8 Units () 0400 (Not Given - Provider: Chata Galan RN - Reason: Order parameters not met)0800 (Not Given - Provider: Pauline Haddad RN - Reason: Other (Enter Reason in Comment Area)) 0026 (Not Given - Provider: Cynthia Kuo RN - Reason: Order parameters not met) 0-8 Units, Subcutaneous, Q4H, First dose on Wed06/16/22 at 0400, For 24 hours, Blood Glucose less than 150 mg/dL give 0 units Blood Glucose 151-200 mg/dL give 2 units Blood Glucose 201-250 mg/dL give 4 1200 (Not G iven - Provider: Pauline Haddad RN - Reason: Order parameters not met)1725 (Given - Provider: Mario Pritchard RN)2029 (Given - Provider: Cindy Diez RN) units Blood Glucose 251-300 mg/dL give 6 units Blood Glucose greater than 300 mg/dL give 8 units, Post-op lactated ringers IV bolus 1,000 mL (COMPLETED) 1005 (Started - Provider: Pauline Haddad RN)1209 (Infused - Provider: Pauline Haddad RN) 1,000 mL, Intravenous, Administer over 1 Hours, ONCE, On Wed06/16/22 at 0815, For 1 dose magnesium sulfate 2 g in water 50 ml IVPB (COMPLETED) 1600 (Started - Provider: Mario Pritchard, RN)1800 (Infused - Provider: Mario Pritchard RN) 2 g, Intravenous, Administer over 120 Mi nutes, ONCE, On Wed06/16/22 at 1400, For 1 dose metroNIDAZOLE (FLAGYL) 500mg in sodium chloride 0.9% 1 00 mL IVPB (COMPLETED) 2358 (Given - Provider: June Nieves, COPY CENTER SPECIALIST, SCENARIO WRITER) 500 mg, Intravenous, Administer over 30 Minutes, ONCE (NON-SCHEDULED), Starting on Wed06/15/22 at 2303, For 1 dose, Give 30 minutes prior to incision, Pre-op metroNIDAZOLE (FLAGYL) tablet 500 mg 145 6 (Given - Provider: Pauline Haddad, LENA)2030 (Given - Provider: Cindy Diez, LENA) 0831 (Given - Provider: Pauline Haddad, LENA)2000 (Due) 500 mg, Oral, BID, First dose (after las t modification) on Wed06/16/22 at 1030, For 8 doses, Hazardous waste disposal required., Indications: Perioperative Pharmacoprophylaxis Continuous Medication Order 06/15/2022 06/16/2022 06/17/2022 dextrose 5%-NaCl 0.9% infusion 1759 (Sta rted - Provider: Cindy Diez RN) 0245 (New Bag Started - Provider: Cynthia Kuo, LENA) Intravenous, at 100 mL/hr, CONTINUOUS, Starting on Wed06/16/22 at 1445 lactated ringers infusion (CANCELED) 040 7 (Started - Provider: Chata Galan RN) Intravenous, at 100 mL/hr, CONTINUOUS, S tarting on Wed06/16/22 at 0400, Administer on day of surgery, PACU & Post-op sodium chloride 0.9% infusion (CANCELED) 1457 (Started - Provider: Pauline Haddad RN) Intravenous, at 100 mL/hr, CONTINUOUS, Starting on Wed06/16/22 at 1400 PRN Medication Order 06/15/2022 06/16/2022 06/17/2022 dextrose (D50) IVPB 25 g(Linked Group 1) 25 g, Intravenous, Q15MIN PRN, Hypoglyce amanda, Per Adult Hypoglycemia Treatment Protocol, Starting on Wed06/16/22 at 0231, Per Hypoglycemic episode: Give 25g IV push, recheck POCT glucose in 15 minutes, if result less than 70mg/dL, may repeat. After 2 doses notify Practitioner. May continue to treat while waiting for call back. glucagon rDNA (diagnostic) (GLUCAGEN) injection 1 mg(Linked Grou p 1) 1 mg, Intramuscular, Q15MIN PRN, Hypogly cemia, Per Adult Hypoglycemia Treatment Protocol, Starting on Wed06/16/22 at 0231, Until Discontinued, Per Hypoglycemic episode: Give 1mg IM, turn patient on neptali e to prevent aspiration if vomits. If ap propriate, establish IV access STAT. Recheck POCT glucose in 15 minutes, if result less than 70mg/dL and still no IV access, may repeat 1mg IM x 1. Recheck POCT g lucose in 15 minutes, if result is less than 70mg/dL notify Prac titioner. glucose (GLUTOSE) oral gel 15 g of glucose(Linked Group 1) 15 g of glucose, Oral, Q15MIN PRN, Hypog lycemia, Per Adult Hypoglycemia Treatment Protocol, Starting on Wed06/16/22 at 0231, Until Discontinued, Give 15g orally, recheck POCT glucose in 15 minutes, if result less than 70mg/dL, may repeat. Af ter 2 doses notify Practitioner. May continue to treat while waiting for call back. 37.5g tube delivers 15g of glucose HYDROmorphone (DILAUDID) injection 0.2-0.4 mg 0847 (Given - Provider: Pauline Hadadd RN)1253 (Given - Provider: Pauline Haddad RN) 0157 (Given - Provider: Cynthia Kuo RN) 0.2-0.4 mg, Intravenous, Q2H PRN, Pain, Use if unable to take PO, Starting on Wed06/16/22 at 0232, Until Wed06/18/22 at 023, For 48 hours, Give IV opioid for breakthrough pain, if unable to give PO or per patient preference. methocarbamol (ROBAXIN) tablet 500 mg 08 32 (Given - Provider: Pauline Haddad RN)1759 (Given - Provider: Cindy Diez RN) 0033 (Given - Provider: Cynthia Kuo RN)0831 (Given - Provider: Pauline Haddad RN) 500 mg, Oral, Q6H PRN, Muscle Spasms, St arting on Wed06/16/22 at 0232, Until Discontinued metoclopramide (REGLAN) injection 5 mg(Linked Group 2) 5 mg, Intravenous, Q6H PRN, Nausea, Vomi ting, Starting on Wed06/16/22 at 0232, Until Discontinued, Give 1st line medications, then 2nd line, then 3rd line. Progress to next line if medication is ineffe ctive after 15 minutes, or has been prev iously ineffective, or if a medication for a line is not ordered. May use medication from any line if patient preference indicates. If third line agent is ineffec tive, call Practitioner. If unable to gi ve IV medications contact Practitioner. Aromatherapy may be used at any time as adjunct therapy. 1st Line - ondansetron 2nd Line -prochlorperazine 3rd Line - metoclopramide naloxone (NARCAN) injection 0.2 mg 0.2 mg, Intravenous, PRN PER PARAMETERS, Opioid Reversal, Excessive Sedation/Respiratory Rate less than 8 breaths per minute.? Notify Practitioner if given., Starting on Wed06/16/22 at 0232, Until D iscontinued, Excessive Sedation/Respirat ory Rate less than 8 breaths per minute.? Notify Practitioner if given. ondansetron (ZOFRAN) injection 4 mg (CANCELED) 321 (Given - Provider: Jessica Yanes RN) 4 mg, Intravenous, Q15MIN PRN, Nausea, S tarting on Wed06/16/22 at 0144, Until Wed06/16/22 at 0333, For 2 doses, Step 1 Ondansetron 4 mg IV If not given in operating room. (PACU use only) If an intra-o perative dose was given may repeat up to a total dose of 8 mg (including intra- operative dose). If nausea is not resolved in 15 minutes go to step 2 (Dexamethasone) if ordered otherwise proceed to next antiemetic step., PACU (only) ondansetron (ZOFRAN) injection 4 mg(Linked Group 2) 4 mg, Intravenous, Q8H PRN, Nausea, Vomi ting, Starting on Wed06/16/22 at 0232, Until Discontinued, Give 1st line medications, then 2nd line, then 3rd line. Progress to next line if medication is ineffe ctive after 15 minutes, or has been prev iously ineffective, or if a medication for a line is not ordered. May use medication from any line if patient preference indicates. If third line agent is ineffec tive, call Practitioner. If unable to gi ve IV medications contact Practitioner. Aromatherapy may be used at any time as adjunct therapy. 1st Line - ondansetron 2nd Line -prochlorperazine 3rd Line - metoclopramide oxyCODONE (ROXICODONE) immediate release tablet 5-10 mg 0548 (Given - Provider: Chata Galan RN)1009 (Given - Provider: Pauline Haddad, LENA)1456 (Given - Provider: Pauline Haddad, LENA)2225 (Given - Provider: Cindy Diez RN) 0544 (Given - Provider: Cynthia Kuo RN) 5-10 mg, Oral, Q4H PRN, Pain, Starting o n Wed06/16/22 at 0232, Until Discontinued, Give PO opioid if able to take PO and pain not well controlled with other medications or interventions. prochlorperazine (COMPAZINE) injection 10 mg(Linked Group 2) 2505 (Given - Provider: Nely Munguia RN) 10 mg, Intravenous, Q6H PRN, Nausea, Vom iting, Starting on Wed06/16/22 at 0232, Until Discontinued, Give 1st line medications, then 2nd line, then 3rd line. Progress to next line if medication is ineff ective after 15 minutes, or has been pre viously ineffective, or if a medication for a line is not ordered. May use medication from any line if patient preference indicates. If third line agent is ineffe ctive, call Practitioner. If unable to g edmundo IV medications contact Practitioner. Aromatherapy may be used at any time as adjunct therapy. 1st Line - ondansetron 2nd Line -prochlorperazine 3rd Line - metoclopramide Linked Groups Order Group 1: glucose (GLUTOSE) oral gel 15 g of glucoseJump to med 15 g of glucose, Oral, Q15MIN PRN, Hypog lycemia, Per Adult Hypoglycemia Treatment Protocol, Starting on Wed06/16/22 at 0231, Until Discontinued
Give 15g orally, recheck POCT glucose in 15 reese tyler, if result less than 70mg/dL, may re peat. After 2 doses notify Practitioner. May continue to treat while waiting for call back. 37.5g tube delivers 15g of glucose
Or dextrose (D50) IVPB 25 gJump to med 25 g, Intravenous, Q15MIN PRN, Hypoglyce amanda, Per Adult Hypoglycemia Treatment Protocol, Starting on Wed06/16/22 at 0231
Per Hypoglycemic episode: Give 25g IV push, recheck POCT glucos e in 15 minutes, if result less than 70m g/dL, may repeat. After 2 doses notify Practitioner. May continue to treat while waiting for call back.
Or glucagon rDNA (diagnostic) (GLUCAGEN) injection 1 mgJump to med 1 mg, Intramuscular, Q15MIN PRN, Hypogly cemia, Per Adult Hypoglycemia Treatment Protocol, Starting on Wed06/16/22 at 0231, Until Discontinued
Per Hypoglycemic episode: Give 1mg IM, tu rn patient on side to prevent aspiration if vomits. If appropriate, establish IV access STAT. Recheck POCT glucose in 15 minutes, if result less than 70mg/dL and still no IV access, m ay repeat 1mg IM x 1. Recheck POCT glucose in 15 minutes, if result is less than 70mg/dL notify Practitioner.
Group 2: ondansetron (ZOFRAN) injection 4 mgJump to med 4 mg, Intravenous, Q8H PRN, Nausea, Vomi ting, Starting on Wed06/16/22 at 0232, Until Discontinued
Give 1st line medications, then 2nd line, then 3rd line. Progress to next line if medication i s ineffective after 15 minutes, or has b een previously ineffective, or if a medication for a line is not ordered. May use medication from any line if patient preference indicates. If third line agent is ineffective, call Practitioner. If unab le to give IV medications contact Practitioner. Aromatherapy may be used at any time as adjunct therapy. 1st Line - ondansetron &n bsp;2nd Line -prochlorperazine 3rd Line - metoclopramide
And prochlorperazine (COMPAZINE) injection 10 mgJump to med 10 mg, Intravenous, Q6H PRN, Nausea, Vom iting, Starting on Wed06/16/22 at 0232, Until Discontinued
Give 1st line medications, then 2nd line, then 3rd line. Progress to next line if medication is ineffective after 15 minutes, or has been previously ineffective, or if a medication for a line is not ordered. May use medication from any line if patient preference indicates. If third line agent i s ineffective, call Practitioner. If dilia ble to give IV medications contact Practitioner. Aromatherapy may be used at any time as adjunct therapy. 1st Line - ondansetron & nbsp;2nd Line -prochlorperazine 3rd Line - metoclopramide
And metoclopramide (REGLAN) injection 5 mgJump to med 5 mg, Intravenous, Q6H PRN, Nausea, Vomi ting, Starting on Wed06/16/22 at 0232, Until Discontinued
Give 1st line medications, then 2nd line, then 3rd line. Progress to next line if medication i s ineffective after 15 minutes, or has b een previously ineffective, or if a medication for a line is not ordered. May use medication from any line if patient preference indicates. If third line agent is ineffective, call Practitioner. If unab le to give IV medications contact Practitioner. Aromatherapy may be used at any time as adjunct therapy. 1st Line - ondansetron &n bsp;2nd Line -prochlorperazine 3rd Line - metoclopramide
And Aromatherapy - Q-easy Routine, Q8H PRN, Starting on Wed at 0945, Until Specified
Aromatherapy may be used at any time as adjunct therapy as needed for Nausea/Vomiting. documented in this encounter Care Teams System Configuration Specialist Relationship Specialty Start Date End Date Chico Buchanan MD PCP - General 08/05/[address] [place] [id number] documented as of this encounter
--- OUTSIDE RECORDS SUMMARY | 2022-06-17 09:58 | XMS_ITS | Encounter Summary ---
:1990 Author Organization [facility] Address [address], [place] [address] Care Team Providers Name Role Phone Chico Buchanan MD Primary Care Provider Encounter Details Date Type Department Care Team Description 11/12/1993 Office Visit tEhan Song MD Need for prophylactic [id number] [place] [address] unspecified combined [phone] (Wo rk) vaccine Social History Tobacco Use Types Packs/Day Years [...] Appointment General Surgery Fransisco Kaur MD [address] [place], [place] [address] (Wo rk) 06/30/2022 Appointment Wound Clinic Renard Merchant, ASSOCIATE TEACHER, [employer]IT[employer] RETINAL SURGEON [address], [place] [address] (Wo rk) Scheduled Procedures Name Priority Associated Diagnoses Date/Time OPEN EXPLORATION ABDOMEN ADULT Intra-abdominal f luid collection documented as of this encounter Visit Diagnoses Diagnosis Need for prophylactic vaccination with u nspecified combined vaccine documented in this encounter Care Teams Certified Nurse Midwife Relationship Specialty Start Date End Date Chico Buchanan MD PCP - General 08/05/[address] [place] [id number] documented as of this encounter
--- OUTSIDE RECORDS SUMMARY | 2022-06-17 09:58 | XMS_ITS | Encounter Summary ---
:[address] [facility] Address [address] [address] Care Team Providers Name Role Phone Chico Buchanan MD Primary Care Provider Reason for Referral Consult/Transfer Care (Routine) - New Request Specialty Diagnoses / Procedures Referred By Contact Refer red To Contact Diagnoses Small bowel obstruction (HRC) Robin Kaur MD [address] [place] [address] Referral ID Status Reason Start Date Expiration Date Visits V isits Requested Authorized [id number] New Request 06/16/2022 09/15/2023 1 1 Scheduling Instructions Your provider has recommended an appoint ment with the [facility]. You may call [phone] to matheus edule your appointment. Procedure/Equipment (Routine) - Incomplete Specialty Diagnoses / Procedures Referred By Contact Refer red To Contact Procedures Provider, Foreign Images Foreign Image(S) CT [address] Abdomen/[place] [address] Referral ID Status Reason Start Date Expiration Date Visits V isits Requested Authorized [id number] Incomplete 06/16/2022 09/15/2023 1 1 Procedure/Equipment (Routine) - Incomplete Specialty Diagnoses / Procedures Referred By Contact Refer red To Contact Diagnoses Intra-abdominal fluid collection Robin Kaur MD Procedures Case Request OR - General/Vascular Surg: OPEN EXPLORATION ABDOMEN ADULT [address] [place] [address] Referral ID Status Reason Start Date Expiration Date Visits V isits Requested Authorized [id number] Incomplete 06/15/2022 09/14/2023 1 1 Reason for Visit Reason Comments Abdominal Pain Auth/Cert (Routine) Specialty Diagnoses / Procedures Referred By Contact Refer red To Contact Diagnoses Exacerbation of Crohn's disease (HRC) Intra-abdominal fluid collection Small bowel obstruction (HRC) Crohn's exacerbation Intra-abdominal fluid collection Small bowel obstruction (HRC) Referral ID Status Reason Start Date Expiration Date Visits Requ ested Visits Authorized [id number] 1 1 Encounter Details Date Type Department Care Team Description 06/15/2022 [place] [address] Jaylon Bruner MD [address] [place] [address] Small bowel obstruction (HRC) (Primary D x); Encounter [address] [facility] Robin Kaur MD [address] [place] [address] Intra-abdominal fluid collection; [place], [place] Crohn's disea se with complication, unspecified gastrointestinal tract location (HRC) [id number] Social History Tobacco Use Types Packs/Day Years [...] Flynn PA-C 06/16/2022, 6:00 AM Surgery Pager: [phone] ADDENDUM: prelim results blood cultures from [facility]: +anaerobic growth, one bottle. Unclear what is [...] not yet voided post-operatively. O: Filed Vitals: 06/15/22 2136 06/15/22 2139 06/16/22 0248 06/16/22 0250 BP: 105/82 [...] Hernandez MD, PharmD General Surgery PGY1 Pager: [phone] Robin Kaur MD - 06/15/2022 10:47 PM [...] MD - 06/16/2022 7:[address] [facility] Operative Note Surgery Date: 06/16/2022 Surgeon(s) and [...] MD - 06/16/2022 2:[address] [facility] Brief Operative Progress Note Surgery Date: 06/16/2022 [...] RN - 06/16/2022 2:33 PM CDTAssociated Order(s): WOUND/RN ASSESSMENT CONSULT Images from the original note were not included. [facility] Wound Progress Note Evaluate for: New [...] Mucocutaneous junction: Intact Angie-stomal skin: WDL Stool/flatus: [place] succus present Type of Pouch: [place] #[id number] with barrier ting #[id number] Paste: NA [...] soon as able. 5. Document learning in [facility] Patient Education activity. If peristomal skin is irritated, apply stomahesive powder, rub in dust off excess. Question Answer Comment Type of stoma Ileostomy Type of appliance Ismael #8931 with #[id number] barrier ring Wafer size [...] care and entered orders. Please reorder the Wound/classifier Consult for questions, concerns or deterioration. Wound/Ostomy nurse is available Wednesday-Wednesday (excluding holidays) between 8a to 3p. If outside of this time please contact Attending Practitioner/team. Report completed by Lindsey Neal RN, RAFIA --- End of Report --- documented in this encounter OR Notes H&P - Rosales Blanchard MD - 06/15/2022 9:43 PM CDT ACS History & Physical Note Date of Service: 06/15/2022 Time of Consult Page: [phone] Time of Exam: 2154 Assessment/Plan Irma Michelle [...] CT scan thus she was transferred to [facility]. 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 Has reported transverse colon inflammation and stricture with surrounding abscesses and some cecal dilation co ncerning for obstruction. Her abdominal pain has been worsening throughout the day prompting transfer here for operative intervention. Patient is pretty tender in the epigastrium with voluntary guarding. She says she feels like crap. Planning on going to OR tonight with colorectal for colon resection and likely ileostomy. To be admitted to colorectal service post-op. Urszula Ortega MD 06/15/2022, 10:20 PM documented in this encounter ED Notes Endy Fisher PA-C - 06/15/2022 9:31 PM CDT [facility] Emergency Medicine Visit Note Chief Complaint: No chief complaint on file. HPI Irma Michelle is a 31 y.o. old female with a past medical history of Crohn's disease on [place] whopresents to the emergency department for evaluation of abdominal pain. Patient is a transfer from [facility]. Patient developed abdominal pain yesterday night. Around [...] Fisher PA-C ED Course as of 06/16/22 015WedJun 15, [id number] Irma Michelle is a 31 y.o. old female with a past medical history of Crohn's disease on [facility] who presents to the emergency department for evaluation of abdominal pain. On arrival, patient is tachycardic otherwise vital signs are within normal limits. Patient is a transfer from [facility]. Patient was seen this morning and awaiting transfer with no available hospital. CT revealed SBOwith partial bowel obstruction with fluid collections. Patient received Zosyn. COVID negative. WBC 18.64, Hb 10.3, CRP 8.7, HCG qual negative. Plan for ACS consult. [KF] 2153 ACS evaluated patient. Will go to OR soon. Labs ordered. Bed placed with colorectal surgery. [KF] 2244 Complete Blood Count no Diff(!) Leukocytosis at 20.4. Anemia with hb 9.7. Nortmal platelets. [KF] 2244 INR(!): 1.2 INR 1.2. [KF] 2246 PTT: 29.5 PTT WNL. [KF] 2247 Basic Metabolic Panel No significant electrolyte derangements, no acidosis or anion gap, no renal impairment. Glucose 87. [KF] 2253 Type and Screen A+ [KF] ED Course User Index [KF] Endy Fisher PA-C Clinical Impressions as of 06/16/22 0153 Small bowel obstruction (HRC) Intra-abdominal fluid collection Jaylon Bruner MD - 06/15/2022 9:28 PM CDT [facility] Emergency Department Attending Supervision Note I [...] Making/Plan: Admit Author: Jaylon Bruner MD Jossue Foley MD - 06/15/2022 7:34 PM CDT Referred [...] Appointment General Surgery Fransisco Kaur MD [address], [place] [address] (Wo rk) 06/30/2022 Appointment Wound Clinic Renard Merchant, SOUND RANGING CREWMEMBER, SPOUT LINER HELPER [address] [place], [place] [address] (Wo rk) Pending Results Name Type Priority Associated Diagnoses Date/Ti nm Surgical Path Lab Routine Crohn's disease with [...] Routine Small bowel obstructi on Ordered: 06/16/2022 ([facility]) documented as of this encounter Procedures The [...] Organization Address City/State/ZIP Code Phon e Number [facility] [address] [place] [address] (ABNORMAL) Basic Metabolic Panel (06/17/2022 5:19 AM CDT) P athologist Signature Sodium 135 (L) 136 - 145 06/17/2022 [facility] mmol/L 5:49 AM CDT HOSPITAL Potassium 4.4 3.5 - 5.1 06/17/2022 [facility] mmol/L 5:49 AM CDT HOSPITAL Chloride 100 98 - 109 06/17/2022 [facility] mmol/L 5:49 AM T HOSPITAL CO2 28 20 - 29 06/17/2022 [facility] mmol/L 5:49 AM CDT [facility]PITAL Anion Gap 7 7 - 16 06/17/2022 [facility] mmol/L 5:49 AM CDT [facility]PITAL Calcium 8.4 8.4 - 10.4 06/17/2022 [facility] mg/dL 5:49 AM CDT [facility]OSPITAL BUN 7 7 - 26 06/17/2022 [...] >60 >60 mL/min/1.73m2 06/17/2022 5:49 [facility] Specimen Anatomical Collection Method / Collection Time Recei jeanie Time (Source) Location / Volume Laterality Blood Venipuncture / 06/17/2022 5:19 06/17/2022 5:22 Unknown AM CDT AM CDT Babs Nance MD LAB_1 Performing Organization Address City/[facility]/ZIP Code Phon e Number [address] [address] (ABNORMAL) Complete Blood Count-No Diff (06/17/2022 5:18 [...] 06/17/2022 [facility] 33.3 pg 5:32 AM T HOSPITAL MCHC 29.9 (L) 31.5 - 06/17/2022 [facility] 35.2 g/dL 5:32 AM T [facility]OSPITAL RDW 16.0 (H) 11.9 - 06/17/2022 [facility] 15.5 % 5:32 AM T HOSPITAL Platelets 306 150 - 450 06/17/2022 [facility] x10(9)/L 5:32 AM T [facility] Automated NRBC 0 <=0 /100 06/17/2022 [facility] WBC 5:32 AM T HOSPITAL Specimen Anatomical Collection Method / Collection Time Recei jeanie Time (Source) Location / Volume Laterality Blood Venipuncture / 06/17/2022 5:18 06/17/2022 5:22 Unknown AM CDT AM CDT Babs Nance MD LAB_1 Performing Organization Address City/State/ZIP Code Phon e Number [address] [address] Glucose, Whole Blood POCT (06/16/2022 11:58 PM CDT) [facility] gist Method Time Signature Glucose, Whole 109 70 - 180 06/17/2022 [facility] Blood mg/dL 12:00 AM T HOSPITAL POCT Comment 1 RN Notified 06/17/2022 [facility] 12:00 AM [facility] Performing RCLab S116 06/17/2022 [facility] Location 12:00 AM T HOSPITAL Specimen Anatomical Collection Method Collection Time Receive d Time (Source) Location / / Volume Laterality Blood 06/16/2022 11:58 06/17/2022 PM CDT 12:00 AM CDT Robin Kaur MD LAB_1 Performing Organization Address City/[facility] e Number [address] [address] Glucose, Whole Blood POCT (06/16/2022 7:47 PM CDT) [facility] Method Time Signature Glucose, Whole 156 70 - 180 06/16/2022 [facility] Blood mg/dL 7:48 PM CDT HOSPITAL POCT Comment 1 RN Notified 06/16/2022 [facility] 7:48 PM CDT HOSPITAL Performing RCLab S116 06/16/2022 [facility] Location 7:48 PM CDT HOSPITAL Specimen Anatomical Collection Method Collection Time Receive d Time (Source) Location / / Volume Laterality Blood 06/16/2022 7:47 PM 2 7:48 CDT PM CDT Robin Kaur MD LAB_1 Performing Organization Address [facility] e Number [address] [address] Glucose, Whole Blood POCT (06/16/2022 4:27 PM CDT) [facility] Method Time Signature Glucose, Whole 159 [...] Robin Kaur MD LAB_1 Performing Organization Address City/[facility] e Number [address] [address] Glucose, Whole Blood POCT (06/16/2022 1:03 PM CDT) [facility] Method Time Signature Glucose, Whole 150 70 - 180 06/16/2022 [facility] Blood mg/dL 1:06 PM CDT HOSPITAL Performing RCLab S116 06/16/2022 [facility] Location 1:06 PM T HOSPITAL Specimen Anatomical Collection Method Collection Time Receive d Time (Source) Location / / Volume Laterality Blood 06/16/2022 1:03 PM 2 1:06 CDT PM CDT Robin Karu MD LAB_1 Performing Organization Address City/[facility]/ZIP Code Phon e Number [address] [address] (ABNORMAL) Glucose, Whole Blood POCT (06/16/2022 8:25 AM CDT) [facility] Method Time Signature Glucose, Whole 186 (H) 70 - 180 06/16/2022 [facility] Blood mg/dL 8:27 AM CDT HOSPITAL Performing RCLab S116 06/16/2022 [facility] Location 8:27 AM CDT HOSPITAL Specimen Anatomical Collection Method Collection Time Receive d Time (Source) Location / / Volume Laterality Blood 06/16/2022 8:25 AM 2 8:27 CDT AM CDT Robin Kaur MD LAB_1 Performing Organization Address City/[facility]/ZIP Code Phon e Number [address] [address] Blood Smear Review (Lab Use Only) (06/16/2022 7:44 AM CDT) [facility] Method Time Signature Path Review Slide review 06/16/2022 [facility] done 12:58 PM CDT HOSPITAL internally for quality system manager purposes Path Review WBC high 06/16/2022 [facility] Reason 12:58 PM CDT HOSPITAL Specimen Anatomical Collection Method / Collection Time Recei jeanie Time (Source) Location / Volume Laterality Blood Venipuncture / 06/16/2022 7:44 06/16/2022 8:07 Unknown AM CDT AM CDT Robin Kaur MD LAB_1 Performing Organization Address City/[facility]/ZIP [facility] Phon e Number [address] [address] Phosphorus (06/16/2022 7:44 AM CDT) P athologist Signature Phosphorus 4.2 2.3 - 4.7 06/16/2022 [facility] mg/dL 8:37 AM CDT HOSPITAL Specimen Anatomical Collection Method / Collection Time Recei jeanie Time (Source) Location / Volume Laterality Blood Venipuncture / 06/16/2022 7:44 06/16/2022 8:07 Unknown AM CDT AM CDT Robin Kaur MD LAB_1 Performing Organization Address [facility] e [address] [address] (ABNORMAL) Magnesium (06/16/2022 7:44 AM CDT) athologist Signature Magnesium 1.5 (L) 1.6 - 2.6 06/16/2022 [facility] mg/dL 8:36 AM CDT HOSPITAL Specimen Anatomical Collection Method / Collection Time Recei jeanie Time (Source) Location / Volume Laterality Blood Venipuncture / 06/16/2022 7:44 06/16/2022 8:07 Unknown AM CDT AM CDT Robin Kaur MD LAB_1 Performing Organization Address [facility]/[address] [address] (ABNORMAL) Basic Metabolic Panel (Na, K, Cl, [...] - 26 06/16/2022 [facility] mg/dL 8:36 AM CDT HOSPITAL Creatinine 0.75 0.55 - 1.02 06/16/2022 [facility] mg/dL 8:36 AM CDT HOSPITAL Glucose 189 (H) 70 - 100 06/16/2022 [facility] mg/dL 8:36 AM [facility] Comment: The given reference range is fo r the fasting state. Non-fasting reference range for glucose is 70 - 180 mg/dL. GFR, Estimated >60 >60 mL/min/1.73m2 06/16/2022 8:36 [facility] Specimen Anatomical Collection Method / Collection Time Recei jeanie Time (Source) Location / Volume Laterality Blood Venipuncture / 06/16/2022 7:44 06/16/2022 8:07 Unknown AM CDT AM CDT Robin Kaur MD LAB_1 Performing Organization Address City/State/ZIP Code Phon e Number [address] [address] (ABNORMAL) CBC with Platelets (06/16/2022 7:44 AM T) Analysis Performed At Patho logist Time Signature WBC 25.3 (H) 3.5 - 10.5 06/16/2022 [facility] x10(9)/L 9:08 AM [facility] RBC 3.98 3.90 - 06/16/2022 [facility] 5.03 9:08 AM [facility] x10(12)/L Hemoglobin 10.7 (L) 12.0 - 06/16/2022 [facility] 15.5 g/dL 9:08 AM [facility] HCT 34.9 34.9 - 06/16/2022 [facility] 44.5 % 9:08 AM [facility] MCV 87.7 80.0 - 06/16/2022 [facility] 100.0 fL 9:08 AM [facility] MCH 26.9 (L) 27.6 - 06/16/2022 [facility] 33.3 pg 9:08 AM [facility] MCHC 30.7 (L) 31.5 - 06/16/2022 [facility] 35.2 g/dL 9:08 AM [facility] RDW 15.9 (H) 11.9 - 06/16/2022 [facility] 15.5 % 9:08 AM [facility] Platelets 343 150 - 450 06/16/2022 [facility] x10(9)/L 9:08 AM [facility] Automated NRBC 0 <=0 /100 06/16/2022 [facility] WBC 9:08 AM CDT HOSPITAL Specimen Anatomical Collection Method / Collection Time Recei jeanie Time (Source) Location / Volume Laterality Blood Venipuncture / 06/16/2022 7:44 06/16/2022 8:07 Unknown AM CDT AM CDT Robin Kaur MD LAB_1 Performing Organization Address City/[facility]/ZIP Code Phon e Number [address] [address] Glucose, Whole Blood POCT (06/16/2022 2:54 AM CDT) Patholo gist Method Time [facility] Glucose, Whole 147 70 - 180 06/16/2022 [facility] Blood mg/dL 2:55 AM CDT HOSPITAL Performing RCLAB PACU 06/16/2022 [facility] Location 2:55 AM CDT HOSPITAL Specimen Anatomical Collection Method Collection Time Receive d Time (Source) Location / / Volume Laterality Blood 06/16/2022 2:54 AM 2 2:55 CDT AM CDT Interface Provider LAB_1 Performing Organization Address [facility]/ZIP [facility] Phon e Number [address] [address] Rapid Covid-19 - Asymptomatic [[id number]] (06/16/2022 2:41 AM CDT) Component Value Ref Range Test Analysis Performed Pathologis t Method Time At [facility] COVID-19 Not Detected Not 06/16/2022 [facility] Interpretation Detected 4:41 AM HOSPITAL CDT Source Nasopharyngeal 06/16/2022 [facility] swab 4:41 AM HOSPITAL CDT Specimen Anatomical Collection Method Collection Time Receive d Time (Source) Location / / Volume Laterality Swab (Source Non-blood 06/16/2022 2:41 AM 2 2:56 Required) Collection / CDT AM CDT (Nasopharyngeal Unknown swab) [facility] - 06/16/2022 4:41 AM CD T Test performed by real-time PCR. This test has been authorized by the FDA under an Emergency Use Authorization (EUA) for use by authorized laboratories. Yamilet Walker APRN, CRNA LAB_1 Performing Organization Address [facility]/ZIP [facility] Phon e Number [address] [address] (ABNORMAL) Hemoglobin, Measured POCT (06/16/2022 12:42 AM CDT) Analysis Performed At [facility] Time Signature Hemoglobin 9.8 (L) 12.0 - 06/16/2022 [facility] 15.5 g/dL 11:23 AM CDT HOSPITAL Performing RCLAB OR 06/16/2022 [facility] Location 11:23 AM CDT HOSPITAL Specimen Anatomical Collection Method Collection Time Receive d Time (Source) Location / / Volume Laterality Blood 06/16/2022 12:42 06/16/2022 AM CDT 11:23 AM CDT Interface Provider MD LAB_1 Performing Organization Address [facility] Phon e Number [address] [address] Glucose, Whole Blood POCT (06/16/2022 12:40 AM CDT) Analysis Performed At [facility] Signature Glucose, Whole 122 70 - 180 06/16/2022 [facility] Blood mg/dL 12:42 AM CDT HOSPITAL Performing RCLAB OR 06/16/2022 [facility] Location 12:42 AM CDT HOSPITAL Specimen Anatomical Collection Method Collection Time Receive d Time (Source) Location / / Volume Laterality Blood 06/16/2022 12:40 06/16/2022 AM CDT 12:42 AM CDT Interface Provider LAB_1 Performing Organization Address [facility] Phon e Number [address] [address] Blood Type second draw (06/15/2022 10:09 PM CDT) athologist Signature ABO A 06/15/2022 [facility] BLOOD 11:01 PM CDT BANK RH Positive 06/15/2022 [facility] BLOOD 11:01 PM CDT BANK Specimen Anatomical Collection Method / Collection Time Recei jeanie Time (Source) Location / Volume Laterality Blood Venipuncture / 06/15/2022 10:09 2 Unknown PM CDT 10:22 PM CDT Jasmyn Rodriguez MD LAB_1 Performing Organization Address [facility]/ZIP [facility] Phon e Number [facility] BLOOD BANK [address] [place] [address] Basic Metabolic Panel (06/15/2022 10:03 PM CDT) [...] - 1.02 06/15/2022 [facility] mg/dL 10:47 PM T HOSPITAL Glucose 87 70 - 100 06/15/2022 [facility] mg/dL 10:47 PM T HOSPITAL Comment: The given reference range is fo r the fasting state. Non-fasting reference range for glucose is 70 - 180 mg/dL. GFR, Estimated >60 >60 mL/min/1.73m2 06/15/2022 10:[address] [facility] Specimen Anatomical Collection Method / Collection Time Recei jeanie Time (Source) Location / Volume Laterality Blood Venipuncture / 06/15/2022 10:03 2 Unknown PM CDT 10:17 PM CDT Endy Fisher PA-C LAB_1 Performing Organization Address City/State/ZIP Code Phon e Number [address] [address] (ABNORMAL) Complete Blood Count no Diff (06/15/2022 [...] Endy Fisher PA-C LAB_1 Performing Organization Address City/[facility]/ZIP [facility] Phon e Number [address] [address] Antibody Screen (06/15/2022 10:03 PM CDT) [facility] gist Method Time Signature Antibody Screen Negative 06/15/2022 [facility] BLOOD Interpretation 11:01 PM CDT BANK Specimen Anatomical Collection Method / Collection Time Recei jeanie Time (Source) Location / Volume Laterality Blood Venipuncture / 06/15/2022 10:03 2 Unknown PM CDT 10:17 PM CDT Endy Fisher PA-C LAB_1 Performing Organization Address City/[facility] Phon e Number [facility] BLOOD [facility] [address] [place] [address] Blood Type (06/15/2022 10:03 PM CDT) P athologist Signature ABO A 06/15/2022 [facility] BLOOD 10:51 PM CDT BANK RH Positive 06/15/2022 [facility] BLOOD 10:51 PM CDT BANK Specimen Anatomical Collection Method / Collection Time Recei jeanie Time (Source) Location / Volume Laterality Blood Venipuncture / 06/15/2022 10:03 2 Unknown PM CDT 10:17 PM CDT Endy Fisher PA-C LAB_1 Performing Organization Address [facility]/ZIP [facility] e Number [facility] B[facility]OD [facility] [address] [place] [address] APTT (Activated Partial Thromboplastin Time) (06/15/2022 10:03 PM CDT) athologist Signature APTT 29.5 22.5 - 36.5 06/15/2022 [facility] Seconds 10:33 PM CDT HOSPITAL Specimen Anatomical Collection Method / Collection Time Recei jeanie Time (Source) Location / Volume Laterality Blood Venipuncture / 06/15/2022 10:03 2 Unknown PM CDT 10:17 PM CDT Endy Fisher PA-C LAB_1 Performing Organization Address [facility] e Number [address] [address] (ABNORMAL) INR/Protime (06/15/2022 10:03 PM CDT) athologist Signature Protime 15.4 (H) 11.8 - 14.6 06/15/2022 [facility] Seconds 10:33 PM CDT HOSPITAL INR 1.2 (H) 0.9 - 1.1 06/15/2022 [facility] 10:33 PM CDT HOSPITAL Specimen Anatomical Collection Method / Collection Time Recei jeanie Time (Source) Location / Volume Laterality Blood Venipuncture / 06/15/2022 10:03 2 Unknown PM CDT 10:17 PM CDT [facility] - 06/15/2022 10:33 PM C DT Therapeutic range determined by protocol established by anticoagulation provider. Endy Fisher PA-C LAB_1 Performing Organization Address [facility] e Number [address] [address] Foreign Image(S) CT Abdomen/Pelvis (06/15/2022 12:00 AM [...] Haddad RN - 06/16/2022 1:34 PM CDT [facility]. Practitioner Notified Note Name of Practitioner notified: Tessa Hudson MD Time of Practitioner notification: 1:35 PM Reason: [id number]:Miguel Angel,Dena-Just FYI, Mag and sodium low this morning. Did u want any replacements? Change IV fluid? Thanks! Shiloh PAREDES Response: Magnesium replacement ordered and MIV fluids changed to NS at same rate. Plan of Care - Chata Galan RN - 06/16/2022 4:[address] [facility] Nursing Post-Op Note Admission Date/Time: 06/15/2022 9:27 [...] MAR Action Action Date Dose Rate Site insulin lispro (HumALOG) Given 06/16/2022 8:29 PM CDT 2 Units Right Arm injection vial 0-8 Units 0-8 Units, Subcutaneous, Q4H, First dose on Wed06/16/22 at 0400, For 24 hours, Blood Glucose less than 150 mg/dL give 0 units Blood Glucose 151-200 mg/dL give 2 units Blood Glucose 201-250 mg/dL give 4 units Blood Glucose 251-300 mg/dL give 6 units Blood Glucose greater than 300 mg/dL give 8 units, Post-op Given 06/16/2022 5:25 PM CDT 2 Units Left Arm lactated ringers infusion Started 06/16/2022 4:07 AM CDT 100 mL/hr Intravenous, at 100 mL/hr, CONTINUOUS, Starting on Wed06/16/22 at 0400, Administer on day of surgery, PACU & Post-op lactated ringers IV bolus 1,000 Started 06/16/2022 10:05 AM CD T 1,000 mL 500 mL/hr mL 1,000 mL, Intravenous, Administer over 1 Hours, ONCE, On Wed06/16/22 at 0815, For 1 dose magnesium sulfate 2 g in water 50 ml IVP B Started 06/16/2022 4:00 PM CDT 2 g 2 g, Intravenous, Administer over 120 Minutes, ONCE, On Wed06/16/22 at 1400, For 1 dose ondansetron (ZOFRAN) injection 4 mg Given 06/16/2022 3:22 AM CDT 4 mg 4 mg, Intravenous, Q15MIN PRN, Nausea, Starting on Wed06/16/22 at 0144, Until Wed06/16/22 at 0333, For 2 doses, Step 1 Ondansetron 4 mg IV If not given in operating room. (PACU use only) If an intra-operative dose was given may repeat up to a total dose of 8 mg (including intra-operative dose). If nausea is not resolved in 15 minutes go to step 2 (Dexamethasone) if ordered otherwise proceed to next antiemetic step., PACU (only) sodium chloride 0.9% infusion Started 06/16/2022 2:57 PM CDT 100 mL/hr Intravenous, at 100 mL/hr, CONTINUOUS, Starting on Wed06/16/22 at 1400 documented in this encounter Active and Recently Administered Medications Times are shown in CDT. Scheduled Medication Order 06/15/2022 06/16/2022 06/17/2022 acetaminophen (TYLENOL) tablet 1,000 mg 0548 (Given - Provider: Chata Galan RN)1456 (Given - Provider: Pauline Haddad RN)2220 (Given - Provider: Cindy Diez RN) 0531 [...] 2346 (Given - Provider: June Nieves APRN, HIGH SCHOOL LIBRARY MEDIA SPECIALIST) 2 g, Intravenous, Administer over 30 Min utes, ONCE (NON-SCHEDULED), Starting on Wed06/15/22 at 2303, For 1 dose, Give 30 minutes prior to incision, Pre-op cefTRIAXone (ROCEPHIN) 1 g in sodium chloride 0.9 % 50 mL IV PB 1457 (Started - Provider: Pauline Haddad RN)1530 (Infused - Provider: Mario Pritchard RN) 1030 (Due) 1 g, Intravenous, Administer over 30 Min utes, Q24H (NON-STND), First dose (after last modification) on Wed06/16/22 at 1030, For 4 doses enoxaparin (LOVENOX) prefilled syringe 40 mg 0832 (Given - Provider: Pauline Haddad RN) 0831 (Given - Provider: Pauline bueno, LENA) 40 mg, Subcutaneous, Q24H, First dose on [...] parameters not met)1725 (Given - Provider: Mario Pritchard, LENA)2029 (Given - Provider: Cindy Diez RN) units [...] IVPB (COMPLETED) 1600 (Started - Provider: Mario Pritchard RN)1800 (Infused - Provider: Mario Pritchard RN) 2 g, Intravenous, Administer over 120 Mi nutes, ONCE, On Wed06/16/22 at 1400, For 1 dose metroNIDAZOLE (FLAGYL) 500mg in sodium chloride 0.9% 1 00 mL IVPB (COMPLETED) 1908 (Given - Provider: June Nieves APRN, HIGH SCHOOL LIBRARY MEDIA SPECIALIST) 500 mg, Intravenous, Administer over 30 Minutes, ONCE (NON-SCHEDULED), Starting on Wed06/15/22 at 2303, For 1 dose, Give 30 minutes prior to incision, Pre-op metroNIDAZOLE (FLAGYL) tablet 500 mg 145 6 (Given - Provider: Pauline Haddad RN)2030 (Given - Provider: Cindy Diez, LENA) 0831 (Given - Provider: Pauline Haddad, LENA)2000 (Due) 500 mg, Oral, BID, First dose (after las t modification) on Wed06/16/22 at 1030, For 8 doses, Hazardous waste disposal required., Indications: Perioperative Pharmacoprophylaxis Continuous Medication Order 06/15/2022 06/16/2022 06/17/2022 dextrose 5%-NaCl 0.9% infusion 1759 (Sta rted - Provider: Cindy Diez, LENA) 0245 (New Bag Started - Provider: Cynthia Kuo, RN) Intravenous, at 100 mL/hr, CONTINUOUS, Starting on Wed06/16/22 at 1445 lactated ringers infusion (CANCELED) 040 7 (Started - Provider: Chata Galan RN) Intravenous, at 100 mL/hr, CONTINUOUS, S tarting on Wed06/16/22 at 0400, Administer on day of surgery, PACU & Post-op sodium chloride 0.9% infusion (CANCELED) 1457 (Started - Provider: Pauline Haddad, LENA) Intravenous, at 100 mL/hr, CONTINUOUS, Starting [...] 0.2-0.4 mg 0847 (Given - Provider: Pauline Haddad RN)1253 (Given - Provider: Pauline Haddad RN) [...] given. ondansetron (ZOFRAN) injection 4 mg (CANCELED) 032 (Given - Provider: Jessica Yanes RN) 4 [...] 5-10 mg 0548 (Given - Provider: Chata Galan, RN)1009 (Given - Provider: Pauline Haddad, LENA)1456 (Given - Provider: Pauline Haddad, LENA)2225 (Given - Provider: Cindy Diez RN) 0544 (Given - Provider: Cynthia Kuo, LENA) 5-10 mg, Oral, Q4H PRN, Pain, Starting o n Wed06/16/22 at 0232, Until Discontinued, Give PO opioid if able to take PO and pain not well controlled with other medications or interventions. prochlorperazine (COMPAZINE) injection 10 mg(Linked Group 2) 9465 (Given - Provider: Nely Munguia RN) 10 [...] Nausea/Vomiting. documented in this encounter Care Teams In Class Special Education Teacher Relationship Specialty Start Date End Date Chico Buchanan MD PCP - General 08/05/[address] [place] [address] documented as of this encounter
--- OUTSIDE RECORDS SUMMARY | 2022-06-17 09:58 | XMS_ITS | Encounter Summary ---
:1990 Author Organization [facility] Address [address], [place] [address] Care Team Providers Name Role Phone Chico Buchanan MD Primary Care Provider Encounter Details Date Type Department Care Team Description 08/03/1993 Office Visit Clarence Reyes MD Acute upper respiratory infections of unspecified site Social History Tobacco Use Types Packs/Day Years [...] Appointment General Surgery Fransisco Kaur MD [address] [place], [place] [address] (Wo rk) 06/30/2022 Appointment Wound Clinic Renard Merchant, TENSION MACHINE OPERATOR, EPIC ANALYST [address] [place], [place] [address] (Wo rk) Scheduled Procedures Name Priority Associated Diagnoses Date/Time OPEN EXPLORATION ABDOMEN ADULT Intra-abdominal f luid collection documented as of this encounter Visit Diagnoses Diagnosis Acute upper respiratory infections of un specified site documented in this encounter Care Teams Campus Rep Relationship Specialty Start Date End Date Chico Buchanan MD PCP - General [birth year]/[address] [place] [address] documented as of this encounter
--- OUTSIDE RECORDS SUMMARY | 2022-06-17 09:58 | XMS_ITS | Encounter Summary ---
:1990 Author Organization [facility] Address [address] [place] [address] Care Team Providers Name Role Phone Chico Buchanan MD Primary Care Provider Encounter Details Date Type Department Care Team Description 03/18/1999 Orders Only Zoey Roche APRN, CURING SUPERVISOR [address] [facility] [place] [address] Social History Tobacco Use Types Packs/Day Years [...] Appointment General Surgery Fransisco Kaur MD [address] [place], [place] [address] (Wo rk) 06/30/2022 Appointment Wound Clinic Renard Merchant APRN, CURING SUPERVISOR [address] [place], [place] [address] (Wo rk) Scheduled Procedures Name Priority Associated Diagnoses Date/Time OPEN EXPLORATION ABDOMEN ADULT Intra-abdominal f luid collection documented as of this encounter Procedures Procedure Name Priority Date/Time Associated Diagnosis Comme nts HEMOGLOBIN, BLOOD Waiting 03/18/1999 2:59 PM Resu lts for this CDT procedure are i n the results section. UA MICRO Routine 03/18/1999 2:59 PM Results f or this CDT procedure are i n the results section. UA MICRO IF Routine 03/18/1999 2:59 PM Results f or this CDT procedure are i n the results section. documented in this encounter Results UA MICRO (03/18/1999 2:59 PM CDT) P athologist Signature RBC'S 0 0 - 3 /hpf [facility] WBC'S 0-2 0 - 5 /hpf [facility] Epith, Occ /hpf [facility] Squamous Bact 0 [facility] Casts 0 /lpf [facility] Specimen Anatomical Collection Method Collection Time Receive d Time (Source) Location / / Volume Laterality 03/18/1999 2:59 PM 9 3:00 CDT PM CDT Zoey Roche APRN, JOSELINE LAB_1 Performing Organization Address [facility] Phon e Number [facility] [phone] [address] UA MICRO IF (03/18/1999 2:59 PM CDT) athologist Signature Appr Yellow [facility] Appr Clear [facility] Sp Gr 1.024 1.005 - [facility] 1.030 Leuk Pos 0 [facility] Nitr 0 0 [facility] pH 5.0 4.5 - 8.0 [facility] Prot 0 0 mg/dl [facility] Gluc 0 0 g/dl [facility] Ket 0 0 [facility] Urob 0.1-1 0.1 - 1 [facility] mg/dl Bili 0 0 [facility] Blood 0 0 [facility] Specimen Anatomical Collection Method Collection Time Receive d Time (Source) Location / / Volume Laterality 03/18/1999 2:59 PM 9 3:00 CDT PM CDT Zoey Roche APRN, CURING SUPERVISOR LAB_1 Performing Organization Address [facility] Phon e Number [facility] [phone] [facility] [address] [place] [phone] HEMOGLOBIN, BLOOD (03/18/1999 2:59 PM CDT) athologist Signature Hemoglobin 13.3 11.5 - 15.5 [facility] g/dl Specimen Anatomical Collection Method Collection Time Receive d Time (Source) Location / / Volume Laterality 03/18/1999 2:59 PM 9 3:00 CDT PM CDT Zoey Roche APRN, CNP LAB_1 Performing Organization Address City/State/ZIP Code Phon e Number [facility] [phone] [facility] [address] [address] documented in this encounter Visit Diagnoses Not on filedocumented in this encounter Care Teams Certified Surgical Technologist Relationship Specialty Start Date End Date Chico Buchanan MD PCP - General [birth year]/[address] [place] [address] documented as of this encounter
--- OUTSIDE RECORDS SUMMARY | 2022-06-17 09:58 | XMS_ITS | Encounter Summary ---
:1990 Author [facility] Address [address] [address] Care Team Providers Name Role Phone Chico Buchanan MD Primary Care Provider Encounter Details Date Type Department Care Team Description 12/25/2013 Orders Only HP Claims MD [employer] Contact Bill [address] [place] [address] Mailstop [id number] [phone] (Wo rk) Social History Tobacco Use Types Packs/Day Years [...] Appointment General Surgery Fransisco Kaur MD [address] [place], [place] [address] (Wo rk) 06/30/2022 Appointment Wound Clinic Renard Merchant APRN, AUTO SERVICE INSTRUCTOR [address] [place], [place] [address] (Wo rk) Scheduled Procedures Name Priority Associated Diagnoses Date/Time OPEN EXPLORATION ABDOMEN ADULT Intra-abdominal f luid collection documented as of this encounter Visit Diagnoses Not on filedocumented in this encounter Care Teams Machine Erector Relationship Specialty Start Date End Date Chico Buchanan MD PCP - General 08/05/1994 [address] [address] documented as of this encounter
--- OUTSIDE RECORDS SUMMARY | 2022-06-17 09:58 | XMS_ITS | Encounter Summary ---
:1990 Author [facility] Address [address], [place] [address] Care Team Providers Name Role Phone Chico Buchanan MD Primary Care Provider Encounter Details Date Type Department Care Team Description 08/07/1993 Office Visit Duy Buchanan MD Unspecified otitis media [address] [place] [address] (Wo rk) Social History Tobacco Use Types [...] Appointment General Surgery Fransisco Kaur MD [address] [place], [place] [address] (Wo rk) 06/30/2022 Appointment Wound Clinic Renard Merchant APRN, LEVEL VIAL SETTER [address] [place], [place] [address] (Wo rk) Scheduled Procedures Name Priority Associated Diagnoses Date/Time OPEN EXPLORATION ABDOMEN ADULT Intra-abdominal f luid collection documented as of this encounter Visit Diagnoses Diagnosis Unspecified otitis media documented in this encounter Care Teams Regional Rehabilitation Director Relationship Specialty Start Date End Date Chico Buchanan MD PCP - General [birth year][address] [place] [address] documented as of this encounter
== END 2022-06-15 20:21 | disposition home or self-care (01) ==
LOC: AMB 06-17 09:56
PROVIDERS: Visit Provider Family Medicine
DX: K50.90 Crohn's disease, unspecified, without complications (principal); R10.9 Unspecified abdominal pain
CPT/HCPCS: A0425; A0434

== ENCOUNTER 2023-07-25 01:45 | Emergency (ER) | payer MEDICAID, SELFPAY ==
[2023-07-25] VITALS (7 sets, daily range): BP systolic 113–126; BP diastolic 76–88; PULSE 63–82; RESP 20; TEMP 36.6; O2SAT 99–100; BMI 30.5
--- NOTE | 2023-07-25 02:12 | ED_ITS ---
HPI - Abdominal Pain General Time Seen by Provider: 02:12 Date Seen: 07/25/23 Chief Complaint: Abdominal Pain Stated Complaint: right side abdominal pain Time Seen by Provider: 07/25/23 01:52 History of Present Illness HPI narrative: Patient left prior to being seen. Related Data Home Medications Medication Instructions Recorded Confirmed acetaminophen 160 mg/5 mL oral 1,000 mg PO QID PRN 06/15/22 07/25/23 elixir docosahexaenoic acid PO 07/25/23 ustekinumab subcut 07/25/23 Allergies Allergy/AdvReac Type Severity Reaction Status Date / Time No Known Drug Allergies Allergy Verified 07/25/23 01:57 PFSH [facility] Medical History (Updated 06/21/22 @ 00:00 by Juhi Madera) Crohn's disease ?K50.90 - Crohn's disease, unspecified, without complications (ICD-10) Social History Smoking Status: Former smoker Do you use any of these nicotine containing products: None Second hand tobacco smoke exposure: No How often do you have a drink containing alcohol: monthly or less AUDIT-C Alcohol total score: 1 Non-prescribed substance use: marijuana (any form) Non-prescribed substance use details: rare marijuana service: No Exam Const: Vital Signs, click to edit/add: Vital Signs - 24 hr 07/25/23 01:47 Temperature 97.8 F Pulse Rate [Pulse Oximeter] 82 Respiratory Rate 20 Blood Pressure [Ri ght Upper Arm] 126/81 Pulse Oximetry 100 Oxygen Delivery Me thod Room Air Course Vital Signs Vital signs: Initial Vital Signs Temperature 97.8 F 07/25/23 01:47 Temperature Source Temporal Artery Scan 07/25/23 01:47 Pulse Rate 82 07/25/23 01:47 Respiratory Rate 20 07/25/23 01:47 Blood Pressure 126/81 07/25/23 01:47 Blood Pressure Mean 96 07/25/23 01:47 Blood Pressure Position Sitting 07/25/23 01:47 Pulse Oximetry 100 07/25/23 01:47 Oxygen Delivery Method Room Air 07/25/23 01:47 Vital Signs Temperature 97.8 F 07/25/23 01:47 Pulse Rate 82 07/25/23 01:47 Respiratory Rate 20 07/25/23 01:47 Blood Pressure 126/81 07/25/23 01:47 Pulse Oximetry 100 07/25/23 01:47 Oxygen Delivery Method Room Air 07/25/23 01:47 Temperature 97.8 F 07/25/23 01:47 Pulse Rate 66 07/25/23 03:01 Respiratory Rate 20 07/25/23 01:47 Blood Pressure 113/88 07/25/23 03:01 Pulse Oximetry 99 07/25/23 03:01 Oxygen Delivery Method Room Air 07/25/23 02:18 MDM - Abdominal Pain Lab Data Labs: Lab Results 07/25/23 Range/Units 02:10 Urine Color Yellow (Yellow) Urine Appearance Clear (Clear) Urine pH 6.5 (5.0-8.5) Ur Specific [place] 1.025 (1.000-1.030) Urine Protein Negative (Negative) Urine Glucose (UA) Negative (Negative) Urine Ketones Negative (Negative) Urine Blood Negative (Negative) Urine Nitrite Negative (Negative) Urine Bilirubin Negative (Negative) Urine Urobilinogen 0.2 (0.2-1.0) Ur Leukocyte Esterase Negative (Negative) Urine RBC 0-2 (0-2) Urine WBC 0-2 (0-5) Ur Squamous Epith Cells None (None-Few) Urine Bacteria None (None) Urine HCG, Qual Negative (Negative) Discharge Plan Discharge Patient Disposition: Home, Self-Care Prescriptions: No Action docosahexaenoic acid [ DHA] PO ustekinumab [Stelara] subcut acetaminophen 160 mg/5 mL elixir 1,000 mg PO QID PRN Follow Up/Referrals: Provider,Not a Local [Primary Care Provider] -
[2023-07-25 02:38] LABS: Appearance Urine Clear (Clear); Bilirubin Urine Negative (Negative); Blood Urine Negative (Negative); Color Urine Yellow (Yellow); Glucose Urine Negative (Negative); Ketones Urine Negative (Negative); Leukocyte Esterase Urine Negative (Negative); Nitrite Urine Negative (Negative); Protein Urine Negative (Negative); Specific Gravity Urine 1.025 (1.000-1.030); Urobilinogen Urine 0.2 (0.2-1.0); pH Urine 6.5 (5.0-8.5)
[2023-07-25 02:49] LABS: RBC Urine 0-2 (0-2); Ur HCG Qualitative* Negative (Negative); WBC Urine 0-2 (0-5)
--- NOTE | 2023-07-25 03:05 | ED.NURSE ---
Pt states she is going to leave. Refusal of services signed. Pt leaves ER without being seen. Pt ambulatory, accompanied by partner.
== END 2023-07-25 03:10 | disposition home or self-care (01) ==
LOC: ED 03:09
PROVIDERS: Emergency Provider Family Medicine
DX: Z53.21 Procedure and treatment not carried out due to patient leaving prior to being seen by health care provider (principal)
CPT/HCPCS: 81001; 81025; 95992; 99281

== ENCOUNTER 2023-10-18 15:56 | Emergency (ER) | payer MEDICAID, SELFPAY ==
[2023-10-18 15:59] VITALS: BP 101/70; PULSE 90; RESP 18; TEMP 37.2; O2SAT 95; BMI 31.0
--- NOTE | 2023-10-18 16:17 | ED.GENADULT ---
HPI - General Adult General Chief complaint: Chest Pain Stated complaint: UC ref-R side chest and back pain-gallstones? Time Seen by Provider: 10/18/23 16:16 History of Present Illness HPI narrative: Pt 14 weeks and 6 days and is receiving care at [facility]. Pt c /o intermittent right sided chest pain that radiates to bottom of right ribs and right back. Pt also states she is unable to eat and when she does eat, she has sharp bursts of pain and nausea approximately 30 minutes after eating. Hx gallstones. Pt was at [facility] urgent care earlier today and advised to come to ER. This is pt's second . Pt states first had complications at (pt's baby was not breathing after and was in NICU in [place]). 32 year old woman presenting to the emergency department with complaint of abdominal and flank pain. She is nearly 15 weeks . Over the last week has been experiencing daily sharp pain that starts in the epigastrium and radiates around her upper right side to her back following any food ingestion she says. Tends to last 2-3 hours. May have been helped with a warm bath. Partner might rub her back/right flank. A year and a half ago did have perforated bowel and surgery for this. She reports a history of gallstones and surgery to remove them at the age of 8 however with further clarification sounds like this was actually ovarian cysts. This pain did not occur when she had some broth the other day. Seem to resolve initially after having expelled some gas. Last night was a particularly bad attack occurring about 30 minutes after having a beef zohaib and some corn dogs. Mother apparently had a cholecystectomy. Does not report any dysuria. Went to urgent care earlier today and advised to go to the emergency department after being told there was nothing they could do for them at the urgent care. Related Data Home Medications Medication Instructions Recorded Confirmed acetaminophen 160 mg/5 mL oral 1,000 mg PO QID PRN 06/15/22 10/18/23 elixir docosahexaenoic acid PO 07/25/23 ustekinumab subcut 07/25/23 Allergies Allergy/AdvReac Type Severity Reaction Status Date / Time bee venom protein (honey bee) Allergy Unknown Verified 10/18/23 16:07 Review of Systems Status of ROS: Reports: 6 or more systems reviewed and unremarkable except as noted in History and below PFSH PFS Medical History Crohn's disease ?K50.90 - Crohn's disease, unspecified, without complications (ICD-10) Social History Smoking Status: Former smoker Do you use any of these nicotine containing products: None Second hand tobacco smoke exposure: No How often do you have a drink containing alcohol: monthly or less AUDIT-C Alcohol total score: 1 Non-prescribed substance use: marijuana (any form) Non-prescribed substance use details: rare marijuana service: No Exam Narrative: Exam Narrative: Pleasant. NAD. Skin is warm and dry. Abdomen appears appropriately gravid. Bowel sounds are present. She is tender to palpation epigastrium and to the right upper quadrant. No peritoneal signs. Negative Santiago's. Lungs appear to be clear. Heart in elevated rate and regular rhythm. Extremities are well perfused without edema. Const: Vital Signs, click to edit/add: Vital Signs - 24 hr 10/18/23 15:59 Temperature 98.9 F Pulse Rate [Pulse Oximeter] 90 Respiratory Rate 18 Blood Pressure [Ri ght Upper Arm] 101/70 Pulse Oximetry 95 Oxygen Delivery Me thod Room Air Documenting provider has reviewed patient's vital signs: yes Course Vital Signs Vital signs: Initial Vital Signs Temperature 98.9 F 10/18/23 15:59 Temperature Source Temporal Artery Scan 10/18/23 15:59 Pulse Rate 90 10/18/23 15:59 Respiratory Rate 18 10/18/23 15:59 Blood Pressure 101/70 10/18/23 15:59 Blood Pressure Mean 80 10/18/23 15:59 Blood Pressure Position Sitting 10/18/23 15:59 Pulse Oximetry 95 10/18/23 15:59 Oxygen Delivery Method Room Air 10/18/23 15:59 Vital Signs Temperature 98.9 F 10/18/23 15:59 Pulse Rate 90 10/18/23 15:59 Respiratory Rate 18 10/18/23 15:59 Blood Pressure 101/70 10/18/23 15:59 Pulse Oximetry 95 10/18/23 15:59 Oxygen Delivery Method Room Air 10/18/23 15:59 Temperature 98.9 F 10/18/23 15:59 Pulse Rate 90 10/18/23 15:59 Respiratory Rate 18 10/18/23 15:59 Blood Pressure 101/70 10/18/23 15:59 Pulse Oximetry 95 10/18/23 15:59 Oxygen Delivery Method Room Air 10/18/23 15:59 Medications Administered Medications: Discontinued Medications Generic Name Dose Route Start Last Admin Trade Name Steveq PRN Reason Stop Dose Admin Sodium Chloride 1,000 mls @ 1,000 mls/hr 10/18/23 16:39 10/18/23 19:30 0.9 % Sodium Chloride 1000 Ml IV 10/18/23 17:38 Infused .Q1H ONE Infusion Medical Decision Making MDM Narrative Medical decision making narrative: I would suspect biliary colic here is leading in differential. Does not seem to have risk factors otherwise for pancreatitis. Does not seem to be experiencing a Crohn's flare. Would be set up for strictures and obstruction in the abdomen following perforation and surgery but does not sound to be experiencing abnormal bowels. Gastritis, stomach or duodenal ulcer or duodenitis could be an issue too. IV placed. Will do ultrasound limited and a check labs to correlate with findings. She does not feel she needs other intervention is though admits might benefit from some IV fluids generally Did discuss ultrasound findings with ring attacher. Confirming mildly thickened gallbladder wall, cholelithiasis and dilated common bile duct. Labs show mildly elevated transaminases but also elevation of alkaline phosphatase. Bili is normal. Discussed all findings with on-call surgeon. Concern for ductal stone and offered admission for MRCP and potential surgery. Alternatively outpatient with close follow-up. Ms. Michelle prefers the latter noting a son at home. Ambulating and comfortable prior to departure. Left with significant other. Urinalysis also indicates an infection. She has had increased vaginal discharge though not atypical as described for . I suppose could also represent BV or similar. See patient discharge plan Lab Data Lab results reviewed: Yes I reviewed the patient's lab results Labs: Lab Results 10/18/23 10/18/23 Range/Units 16:22 16:55 WBC 7.62 (4.50-11.00) K/uL RBC 3.50 L (4.00-5.20) m/uL Hgb 10.3 L (12.0-16.0) gm/dL Hct 31.8 L (33.0-51.0) % MCV 91 (80-100) fL MCH 29 (26-34) pg MCHC 32 (32-36) gm/dL RDW Coeff of Rebekah 14.1 (11.5-15.5) % Plt Count 270 (140-440) K/uL Neut % (Auto) 76.5 H (42.0-72.0) % Lymph % (Auto) 18.5 L (20-44) % [place] % (Auto) 4.1 (0.0-11.0) % Eos % (Auto) 0.5 (0.0-7.0) % Baso % (Auto) 0.3 (0.0-3.0) % Neut # (Auto) 5.80 (1.7-7.0) K/uL Lymph # (Auto) 1.40 (0.90-2.90) K/uL [place] # (Auto) 0.30 (0.00-0.90) K/UL Eos # (Auto) 0.04 (0.00-0.50) K/uL Baso # (Auto) 0.02 (0.00-0.30) K/uL Abs Immat Gran (auto) 0.01 (0.00-0.30) K/uL Imm/Tot Granulo (auto) 0.1 % Sodium 136 (135-149) mmol/L Potassium 4.1 (3.6-5.1) mmol/L Chloride 103 (96-114) mmol/L Carbon Dioxide 26 (20-32) mmol/L Anion Gap 7 (7-15) mEq/L BUN 8 (5-24) mg/dL Creatinine 0.5 (0.5-1.5) mg/dL Estimated Creat Clear 148.04 Estimated GFR 129 ml/min Glucose 83 (60-115) mg/dL Calcium 9.4 (8.4-10.6) mg/dL Total Bilirubin 0.9 (0.1-1.5) mg/dL Direct Bilirubin 0.3 (0.0-0.5) mg/dL AST 104 H (12-35) U/L ALT 175 H (4-35) U/L Alkaline Phosphatase 244 H (40-150) U/L C-Reactive Protein 1.4 H (0.5-1.0) mg/dL Total Protein 7.9 (6.0-8.3) g/dL Albumin 4.0 (3.3-5.0) g/dL Lipase 190 (23-300) U/L Urine Color Yellow (Yellow) Urine Appearance Cloudy A (Clear) Urine pH 7.0 (5.0-8.5) Ur Specific [place] 1.020 (1.000-1.030) Urine Protein 1+ A (Negative) Urine Glucose (UA) Negative (Negative) Urine Ketones Negative (Negative) Urine Blood Negative (Negative) Urine Nitrite Negative (Negative) Urine Bilirubin Negative (Negative) Urine Urobilinogen 0.2 (0.2-1.0) Ur Leukocyte Esterase 3+ A (Negative) Urine RBC 0-2 (0-2) Urine WBC >100 A (0-5) Ur Squamous Epith Cells Few (None-Few) Amorphous Sediment Moderate A (None) Urine Bacteria Many A (None) Discharge Plan Discharge Clinical Impression: Cholelithiasis, Biliary colic, Cystitis Patient Disposition: Home w/ Parent or Adult Condition: Stable Additional Instructions: I understand that you prefer not to be admitted. Please return for intense pain not relieved within 2 hours, repeated vomiting, fever. Would ask you to follow-up with primary care/OB within a couple of days to recheck your labs. Your transaminases were elevated. Would like you also to see General surgery. I spoke with Dr. Cuevas today. They would be happy to see you in clinic. Please call tomorrow on advice of the emergency department to set up these appointments tomorrow. Will need to have the relatively fat/oil free diet in the meantime. Probably easiest just to avoid meat products. Focus on hydration. Can use Percocet and Zofran if needed. Can get these from [facility]. cephalexin as antibiotic urine culture is pending Prescriptions: No Action docosahexaenoic acid [ DHA] PO ustekinumab [Stelara] subcut acetaminophen 160 mg/5 mL elixir 1,000 mg PO QID PRN Hold Instructions: On hold for , per pt Follow Up/Referrals: Provider,Not a Local [Primary Care Provider] - Stand Alone Forms: [employer] Info Instructions
[2023-10-18 16:31] LABS: Appearance Urine Cloudy (Clear); Bilirubin Urine Negative (Negative); Blood Urine Negative (Negative); Color Urine Yellow (Yellow); Glucose Urine Negative (Negative); Ketones Urine Negative (Negative); Leukocyte Esterase Urine 3+ (Negative); Nitrite Urine Negative (Negative); Protein Urine 1+ (Negative); Urobilinogen Urine 0.2 (0.2-1.0)
[2023-10-18 16:46] LABS: Amorphous Sediment Urine Moderate; Bacteria Urine Many; RBC Urine 0-2 (0-2); Squamous Epithelial Cell Urine Few (None-Few); WBC Urine >100 (0-5)
[2023-10-18 17:08] LABS: Basophils Absolute Auto 0.02 K/uL (0.00-0.30); Basophils Percent Auto 0.3 % (0.0-3.0); Eosinophils Absolute Auto 0.04 K/uL (0.00-0.50); Eosinophils Percent Auto 0.5 % (0.0-7.0); Hematocrit 31.8 % (33.0-51.0); Hemoglobin* 10.3 gm/dL (12.0-16.0); Immature Granulocytes Abs Auto 0.01 K/uL (0.00-0.30); Immature Granulocytes Pct Auto 0.1 %; Lymphocytes Percent Auto 18.5 % (20-44); Mean Corpuscular HGB Conc 32 gm/dL (32-36); Mean Corpuscular Hemoglobin 29 pg (26-34); Mean Corpuscular Volume 91 fL (80-100); Monocytes Percent Auto 4.1 % (0.0-11.0); Neutrophils Percent Auto 76.5 % (42.0-72.0); Platelet Count* 270 K/uL (140-440); RDW Coefficient of Variation % 14.1 % (11.5-15.5); White Blood Count* 7.62 K/uL (4.50-11.00)
[2023-10-18 17:10] LABS: Slide Review Reflex No
[2023-10-18] MEDS: 0.9 % SODIUM CHLORIDE 1000 ml 1,000 ML IV (17:10)
[2023-10-18 17:20] LABS: Chloride* 103 mmol/L (96-114); Sodium* 136 mmol/L (135-149)
[2023-10-18 17:22] LABS: Creatinine* 0.5 mg/dL (0.5-1.5); Est. Creatinine Clearance* 148.04; Estimated Glomerular Filt Rate 129 ml/min
[2023-10-18 17:23] LABS: Alanine Aminotransferase* 175 U/L (4-35); Alkaline Phosphatase* 244 U/L (40-150); Anion Gap 7 mEq/L (7-15); Aspartate Amino Transferase* 104 U/L (12-35); Bilirubin Direct* 0.3 mg/dL (0.0-0.5); Bilirubin Total* 0.9 mg/dL (0.1-1.5); Blood Urea Nitrogen* 8 mg/dL (5-24); Calcium* 9.4 mg/dL (8.4-10.6); Carbon Dioxide* 26 mmol/L (20-32); Glucose* 83 mg/dL (60-115); Lipase* 190 U/L (23-300); Potassium* 4.1 mmol/L (3.6-5.1); Total Protein* 7.9 g/dL (6.0-8.3)
[2023-10-18 17:26] LABS: C Reactive Protein* 1.4 mg/dL (0.5-1.0)
--- NOTE | 2023-10-18 18:00 | US_ITS ---
Patient: SILVIA WEBER Facility:?[facility] Patient ID:?[id number] Site Patient ID:?[id number]. Site :?[id number] Study:?US-Abdomen RUQ-10/18/2023 6:37:27 PM Ordering Physician:?ED Final Report: INDICATION: Right upper quadrant pain. TECHNIQUE: Ultrasound abdomen limited. Sonographic images of the right upper quadrant were obtained using jones-scale and color Doppler images. COMPARISON: CT abdomen/pelvis dated 06/15/2022. FINDINGS: Liver: Echogenicity of the liver parenchyma is within normal limits. The liver measures 15.5 cm. Bile ducts: Intrahepatic bile ducts are not dilated. There is mild dilation of the common bile duct, measuring up to 0.8 cm. No choledocholithiasis identified. Gallbladder: Multiple gallstones. Gallbladder is decompressed, no significant gallbladder wall thickening or pericholecystic fluid identified. Negative sonographic Santiago`s sign. Pancreas: Pancreas is poorly visualized secondary to acoustic shadowing from overlying/adjacent bowel gas. Right kidney: The right kidney measures 9.3 cm in length. No renal calculi or significant hydronephrosis is identified. IMPRESSION: 1. Cholelithiasis, without secondary signs of acute cholecystitis. 2. Mild dilation of the common bile duct measuring up to 0.8 cm. No choledocholithiasis is identified. Recommend correlation with serum alkaline phosphatase. Dictated by Mario Umana MD @ 10/18/2023 8:32:56 PM Signed by:?Mario Umana MD @10/18/2023 8:32:56 PM (Electronic Signature)
== END 2023-10-18 21:01 | disposition home or self-care (01) ==
PROVIDERS: Emergency Provider Family Medicine
DX: K80.70 Calculus of gallbladder and bile duct without cholecystitis without obstruction (principal); N30.90 Cystitis, unspecified without hematuria
CPT/HCPCS: 36415; 76705; 80048; 80076; 81001; 83690; 85025; 86140; 87086; 96360; 96361; 99284; J7030

== ENCOUNTER 2023-11-08 12:47 | Outpatient (CLI) | payer MEDICAID, SELFPAY | END 2023-11-08 12:48 | disposition home or self-care (01) | LOC: NFLDREF 11-10 11:19 | PROVIDERS: PCP Family Medicine; Visit Provider Family Medicine | DX: N30.90 Cystitis, unspecified without hematuria (principal); Z01.818 Encounter for other preprocedural examination | CPT/HCPCS: 87086 ==

== ENCOUNTER 2023-11-15 06:05 | Day surgery (SDC) | payer MEDICAID, SELFPAY ==
[2023-11-15] VITALS (12 sets, daily range): BP systolic 103–125; BP diastolic 60–73; PULSE 61–79; RESP 14–25; TEMP 36.2–36.6; O2SAT 96–100; BMI 30.7
--- NOTE | 2023-11-15 06:57 | SUR.PREOP ---
Lazaro OB RN down to SDS at 0650 for HR check with doppler. HR 145.
[2023-11-15] MEDS: SODIUM CHLORIDE 0.9 % (FLUSH) 10 ML SYRINGE IVF (07:00)
[2023-11-15] MEDS: LACTATED RINGERS 1000 ML 1,000 ML 100 ML IV ×2 (07:00→07:54)
[2023-11-15] MEDS: CEFAZOLIN 2 GM INJ IVP (07:52)
--- NOTE | 2023-11-15 08:41 | P.GSOP_ITS ---
Operative Note Date of procedure: 11/15/23 Pre-op diagnosis: 1. Biliary colic. 2. 18 weeks gestation. 3. s/p total colectomy. Post-op diagnosis: Same Type of Procedure: 1. Laparoscopic cholecystectomy. Indications: 33-year-old female with Crohn's disease 18 weeks s/p initially right hemicolectomy and then completion total colectomy with diverting ileostomy and ileostomy takedown was seen in clinic for evaluation of right upper quadrant and epigastric abdominal pain. Patient described the pain as starting in epigast rium and wrapping around her right upper quadrant and radiating to the back. Patient was seen in emergency room prior to her clinic presentation. She stated that the pain was so severe that she was not able to tolerated. She had vomiting associated with the pain. She was not sure if certain food was the culprit of her pain. She noticed that any type of food could bring her symptoms on. When patient was worked up in the emergency room she was found to have elevated AST 104, ALT 175, alkaline phosphatase 244, normal bilirubin. Her WBC was normal. A gallbladder ultrasound showed a contracted gallbladder with cholelithiasis. The common bile duct was measured 4 mm distally and 8 mm proximally. When patient was seen in clinic her pain was resolved and patient was avoiding greasy food. On clinical exam her abdomen was not distended, it was tender to palpation in the right upper quadrant and epigastrium was negative Santiago sign. She had a well-healed midline laparotomy scar and right mid abdominal ileostomy scar. Given patient's clinical history and her 18 weeks gestation, discussion was held about managing her symptoms conservatively with avoiding greasy food and fatty food versus laparoscopic cholecystectomy. We had a long discussion regarding the risks associated with surgery during specifically pre term labor, loss, and the need for additional procedures. We also discussed the risks of infection, bleeding, injury to intra-abdominal organs, and injury to the common bile duct, and patient agreed to proceed. Procedure Description: After discussing the risks and benefits of the procedure, the patient signed informed consent.? The operative site was marked and the patient was brought to the operating room and placed on the operating table in supine position.? Care was taken to pad the patient's pressure points.?? The patient was then intubated by anesthesia.?? The operative site was then prepped and draped in the usual sterile fashion.? A time-out was then performed. A 5-mm laparoscopy port was placed in the left upper quadrant guided by a 5-mm laparoscope placed into a translucent trochar.~ Passage through the layers of the abdominal wall was visualized with the laparoscope.~ A pneumoperitoneum was established. A 0-degree 5-mm laparoscope was advanced into the abdomen. The abdomen was briefly surveyed, and adhesions were noted in the right upper quadrant and epigastrium. Periumbilical incisional hernia and right mid abdominal hernia from patient's previous ileostomy were noted. No intra- abdominal structures were incarcerated in this hernias. A gravid uterus was noted inferior to the umbilicus. A 10-mm port were placed infraumbilically just below the periumbilical hernia and two more 5 mm ports were placed on the right under direct visualization by laparoscope. The camera was then changed to 10 mm 30-degree scope and placed into the abdomen through the 10 mm port. The left upper quadrant port entrance was examined and no injury to intra-abdominal organs was identified. I first proceeded with lysis of adhesions in the left upper quadrant. This was done with hook cautery. Once the gallbladder was identified, the fundus was then grasped and the gallbladder was retracted cephalad. Additional lysis of adhesions of omentum a was done with hook cautery and Metzenbaum scissors to be able to identify the gallbladder infundibulum. The infundibulum was grasped and retracted laterally, exposing the peritoneum overlying the triangle of Calot. This was then divided and exposed in a blunt fashion and with hook cautery. Common bile duct was not identified but care was taken not to injure it. The cystic duct was clearly identified and bluntly dissected circumferentially. Cystic artery was identified and tissues around it were dissected off. The cystic artery and the cystic duct were clearly going into the gallbladder. The cystic artery was first clipped with 5 mm clips on the patient's side and the gallbladder side and divided with scissors. The cystic duct was slightly dilated and when 5 mm clips were placed, the clips did not go completely across the cystic duct. I elected not to dissect the cystic duct further towards the andrea hepaticus. Two clips were placed on the patient's side and a single clip was spaced on the specimen side of the cystic duct, and the cystic duct was divided with scissors. I then placed 0-0 PDS suture just proximal to the cystic duct clips. The gallbladder was dissected from the liver bed in retrograde fashion using hookcautery. The gallbladder was placed into an Endo-Catch bag and removed through the infraumbilical incision. Surgical site was examined for bleeding. No bleeding was seen in the surgical field. The fascia of the infraumbilical incision was then closed with a figure of 8 0-0 vicryl. This closure was examined intra-abdominally, and no intra-abdominal structures were incarcerated in the closure. This fascial closure was very close to the periumbilical fascial defect. Pneumoperitoneum was completely reduced after viewing removal of the trocars under direct vision. The skin was then closed with 4-0 monocryl and steristrips were applied. Instrument, sponge, and needle counts were correct at closure and at the conclusion of the case. The patient was transferred to PACU in stable condition. Findings: Gravid uterus. The gallbladder did not have evidence of acute inflammation but was contracted. Scar tissue was noted mostly in the upper abdomen. Periumbilical ventral hernia and abdominal hernia at the previous ileostomy site on the right was noted. Patient's pre and post surgery Doppler showed healthy heart rate for the baby. Anesthesia: GETA Surgeon: Aníbal Arriaza MD Estimated blood loss (mL): 5 Specimen: Gallbladder Condition: stable Disposition: PACU
[2023-11-15] MEDS: MEPERIDINE 25 MG/ML INJ 12.5 MG IVP (09:12)
--- NOTE | 2023-11-15 09:12 | W.ANESCHARGE ---
Anesthesia Charges Start Date/Time Anesthesia Start Date: 11/15/23 Anesthesia Start Time: 07:29 Stop Date/Time Anesthesia Stop Date: 11/15/23 Anesthesia Stop Time: 08:49
--- NOTE | 2023-11-15 09:29 | SUR.PHASEI ---
patient met discharge criteria per anesthesia
--- NOTE | 2023-11-15 10:18 | W.ANESCHARGE ---
Anesthesia Charges Start Date/Time Anesthesia Start Date: 11/15/23 Anesthesia Start Time: 07:29 Stop Date/Time Anesthesia Stop Date: 11/15/23 Anesthesia Stop Time: 08:49
== END 2023-11-15 10:50 | disposition home or self-care (01) ==
PROVIDERS: PCP Family Medicine; Visit Provider Surgery
PROC: 0FT44ZZ Resection of Gallbladder, Percutaneous Endoscopic Approach (ICD-10-PCS; CPT 47562; principal; 2023-11-15 07:30)
DX: O26.612 Liver and biliary tract disorders in pregnancy, second trimester (principal); O99.612 Diseases of the digestive system complicating pregnancy, second trimester; K80.10 Calculus of gallbladder with chronic cholecystitis without obstruction; K50.90 Crohn's disease, unspecified, without complications; Z3A.18 18 weeks gestation of pregnancy
CPT/HCPCS: 47562; 00790; 88304; J0330; J0690; J1100; J1200; J1630; J2175; J2250; J2371; J2405; J2704; J2710; J2765; J3010; J7120

== ENCOUNTER 2024-01-21 07:13 | Outpatient (CLI) | payer MEDICAID, SELFPAY ==
--- NOTE | 2024-01-21 07:15 | CRLHL7_ITS ---
For Patients: As a result of the Century Cures Act, medical imaging exams and procedure reports are released immediately into your electronic medical record. You may view this report before your referring provider. If you have questions, please contact your health care provider. INDICATION: Third trimester scan, evaluate growth. Crohn`s disease. COMPARISON: none TECHNIQUE: Real time jones scale imaging of the fetus was performed. FINDINGS: Sonographic imaging demonstrates a single living intrauterine gestation. Fetus demonstrates a regular cardiac rate of 149 beats per minute. Fetus has a variable position. The placenta lies posterior. Amniotic fluid volume appears normal and there is a single deepest vertical pocket: 5.7 cm. The estimated weight is 1357gm which lies at the 68th %. BPD 63rd percentile. HC 36th percentile. AC 77th percentile. FL 43rd percentile. The HC/AC ratio measures 1.05 range (0.99-1.21). IMPRESSION: Sonographic gestational age 29 weeks 1 day and sonographic due date 04/06/2024. Sonographic age 5 days ahead of the clinical age. Estimated weight 68th percentile. Abdominal circumference 77th percentile. Dictated by Agus Mcconnell MD @ 01/23/2024 6:01:29 AM (Electronically Signed)
--- OUTSIDE RECORDS SUMMARY | 2024-01-21 07:15 | XMS_ITS | Clinical Summary ---
Author Organization [facility] Address [address] [place] [address] Care Team Providers Care Household Appliance Repairer Name Role Phone Yasmine Dumont MD Primary Care Provider [phone] Allergies No known active allergies Medications Medication Sig Dispensed Refills Start Date End Date Status hydrocodone-acetamino phen 5-325 MG per tabletIndications:For earm fracture Take 1 tablet by mouth every 6 hours as needed for pain. 30 tablet 0 09/07/2011 Active oxycodone-acetaminoph en (PERCOCET) 5-325 MG per tablet Take 1 tablet by mouth every 4 hours as needed for pain. 20 tablet 0 09/09/2011 Active Encounters Date Type Department Care Team Description 12/08/2023 2:00 PM CDT Office Visit [facility] [address] [place] [address] Tristen Swartz MD Encounter for follow-up ultrasound of anatomy (Primary Dx) 12/08/2023 1:24 PM CDT - 12/08/2023 11:59 PM CDT Hospital Encounter [facility] [address] [place] [address] Tristen Swartz MD Encounter for follow-up ultrasound of anatomy Discharge Disposition: Home or Self Care 12/08/2023 Travel 11/10/2023 12:15 PM CDT Office Visit [facility] [place] [address] [place] [address] Annmarie Gilbert APRN CNP Rauk, Phillip Neil, MD High-risk , unspecified trimester (Primary Dx); Crohn's disease of large intestine with other complication (H); Encounter for follow-up ultrasound of anatomy 11/10/2023 11:45 AM CDT - 11/10/2023 11:59 PM CDT Hospital Encounter [facility] [place] [address] [place] [address] Annmarie Gilbert APRN CNP Rauk, Phillip Neil, MD related condition, antepartum Discharge Disposition: Home or Self Care 11/10/2023 Travel 11/05/2023 PRE VISIT [facility] [place] [address] [place] [phone] Ria Barger RN Ultrasound (L2-Crohns disease, low weight gain in ) 11/05/2023 Transcribe Orders [facility] [place] [address] [facility] [address] [place] [phone] Annmarie Gilbert APRN CNP related condition, antepartum (Primary Dx) 11/01/2023 Medical Correspondence [facility] [address] [facility] [place] [phone] Scan, Non-Provider 10/29/2023 Medical Correspondence [facility] [address] [facility] [place] [phone] Scan, Non-Provider from Last 3 Months Social History Tobacco Use Types Packs/Day Years Used Date Smoking Tobacco: Never Alcohol Use Standard Drinks/Week Comments No 0 (1 standard drink = 0.6 oz pur e alcohol) Adolescent Education Answer Date Record ed Getting School Help Needed Not on file 05/23 Estimated Date of Delivery Comme nts Yes 04/11/2024 Based on Ultraso und Sex and Gender Information Value Date Recorded Sex Assigned at Not on file Gender Identity Not on file Sexual Orientation Not on file Last Filed Vital Signs Vital Sign Reading Time Taken Comments Blood Pressure 121/83 06/24/2021 2:58 AM CDT Pulse 83 06/24/2021 2:58 AM CDT Temperature 36.7 ??C (98 ??F) 06/24/2021 2:58 AM CDT Respiratory Rate 18 06/24/2021 2:58 AM CDT Oxygen Saturation 94% 06/24/2021 2:58 AM CDT Inhaled Oxygen Concentration - - Weight 70.8 kg (156 lb) 06/24/2021 2:58 AM CDT Height 165.1 cm (5' 5) 06/24/2021 2:58 AM CDT Body Mass Index 25.96 06/24/2021 2:58 AM CDT Plan of Treatment Health Maintenance Due Date Last Done Comments ADVANCE CARE PLANNING 1992 ANNUAL REVIEW OF HM ORDERS 1992 YEARLY PREVENTIVE VISIT 03/18/2000 03/18/1999 HIV SCREENING 10/24/2007 HEPATITIS C SCREENING 2010 COVID-19 Vaccine ( season) 2023 06/27/2021, 06/06/2021 PHQ-2 (once per calendar year) 2023 MATERNAL SCREENING DISCUSSION 09/14/2023 OBGCT (OB) 12/21/2023 INFLUENZA VACCINE (Season Ended) 2024 08/14/2020, 05/04/2019, 08/20/2017, Additional history exists PAP 08/20/2026 08/20/2023, 08/20/2023 DTAP/TDAP/TD IMMUNIZATION (7 - Td or Tdap) 04/12/2029 04/12/2019, 03/15/2011, 06/03/2010, Additional history exists HEPATITIS B IMMUNIZATION Completed 006, 04/21/2005, 01/06/2000, Additional history exists MENINGITIS IMMUNIZATION Completed 06/03/2010 Pneumococcal Vaccine: Pediatrics (0 to 5 Years) and At-Risk Patients (6 to 64 Years) Aged Out 09/25/2015 No longer eligible based on patient's age to complete this topic HPV IMMUNIZATION Completed 08/20/2017, , 11/09/2011, Additional history exists IPV IMMUNIZATION Aged Out No longer e ligible based on patient's age to complete this topic RSV MONOCLONAL ANTIBODY Aged Out No l onger eligible based on patient's age to complete this topic RSV VACCINE ( & 60+) (No Doses Required) Completed Medical Devices Implanted Type Area Shellfish Farming Supervisor Device Identifier Shelf Expiration Date Model / Serial / Lot Graft Bone Putty Dbx 01ml [id number] Implanted:Qty: 1 on 09/07/2011 at [facility] Left: Arm 10/21/2012 [id number] / [id number] / Explanted Type Area Shellfish Farming Supervisor Device Identifier Shelf Expiration Date Model / Serial / Lot Screws And Plate Implanted:09/07 by Israel Rg MD (Quantity not on file) Explanted:Qty: 1 on 09/07/2011 at [facility] Left: Arm Procedures Procedure Name Priority Date/Time Associated Diagnosis Comments [facility] US COMPREHENSIVE SINGLE F/U Routine 12/08/2023 2:13 PM CDT Encounter for follow-up ultrasound of anatomy [facility] US COMPREHENSIVE SINGLE Routine 11/10/2023 12:57 PM CDT related condition, antepartum from Last 3 Months Results * [facility] US Comprehensive Single F/U (12/08/2023 2:13 PM CDT) Anatomical Region Laterality Modality Ultrasound 12/08/2023 1:27 PM CDT Impressions 12/08/2023 2:08 PM CDT IMPRESSION ----- 1. Peters at 22w 1d gestational age. 2. The remaining anatomic survey was completed, no anomalies commonly detected by ultrasound were identified within the limits of ultrasound. 3. Growth parameters and estimated weight were consistent with gestational age predicted by assigned CHERIE. 4. The amniotic fluid volume appeared normal. Narrative 12/08/2023 2:08 PM CDT ?Comp Follow Up ----- Pat. Name: IRMA WEBER ? Study Date: ??12/08/2023 1:27pm Pat. NO: ??[id number] ?Referring ??MD: ANNMARIE GILBERT Site: [facility] ? Dot Compliance Coordinator: Rekha Maldonado RDMS : ??1990 ?Age: ?? 33 ----- INDICATION ----- Reevaluate growth and suboptimal anatomy METHOD ----- Transabdominal ultrasound examination. View: Suboptimal view: limited by abdominal scarring ----- Peters . Number of fetuses: 1 DATING ----- ? Date ?Details ?Gest. age ?CHERIE LMP ?06/02/2023 ?27 w + 0 d ? 03/08/2024 Prior assessment ? 08/18/2023 ? GA: 6 w + 1 d ?22 w + 1 d ? 04/11/2024 U/S ? 12/08/2023 ? based upon AC, BPD, Femur, HC ?22 w + 2 d ? 04/10/2024 Assigned dating ?Dating performed on 11/10/2023, based on the prior assessment (on 08/18/2023) ? 22 w + 1 d ? 04/11/2024 GENERAL EVALUATION ----- Cardiac activity present. FHR 136 bpm. movements present. Presentation Variable. Placenta Posterior. Umbilical cord 3 vessel cord. Amniotic fluid Amount of AF: normal. MVP 4.7 cm. BIOMETRY ----- Main Biometry: BPD ?54.7 ?mm ? 22w 5d ?Hadlock OFD ?70.3 ?mm ? 21w 6d ?Nicolaides HC ?201.0 ?mm ?22w 2d ?Hadlock Cerebellum tr ?22.6 ? mm ?21w 2d ?Nicolaides AC ?180.3 ?mm ?22w 6d ?67% ?Hadlock Femur ?36.2 ? mm ?21w 3d ?Hadlock Weight Calculation: EFW ? 491 ? g ? 50% ?Hadlock EFW (lb,oz) ? 1 lb 1 ?oz EFW by ?Hadlock ([id number]) Head / Face / Neck Biometry: Line Person ? 6.1 ? mm CM ?4.5 ? mm ANATOMY ----- The following structures appear normal: Head / Neck ? Cranium. Head size. Head shape. Lateral ventricles. Midline falx. Cavum septi pellucidi. Cerebellum. Cisterna magna. Thalami. Face ? Lips. Nose. Heart / Thorax ?4-chamber view. RVOT view. LVOT view. Aortic arch view. Ductal arch view. 1-fwhtrv-jpmzjvi view. ? Right lung. Left lung. Diaphragm. Abdomen ? Stomach. Kidneys. Bladder. Spine ?Cervical spine. Thoracic spine. Lumbar spine. Sacral spine. The following structures were documented previously: Face ? Profile. MATERNAL STRUCTURES ----- Cervix ?Suboptimal Right Ovary ?Not examined Left Ovary ?Not examined RECOMMENDATION ----- We discussed the findings on today's ultrasound with the patient. Return to primary provider for continued care. Thank-you for the opportunity to participate in the care of this patient. If you have questions regarding today's evaluation or if we can be of further service, please contact the [facility]. anomalies may be present but not detected Procedure Note Tristen Swartz MD - 12/08/2023 Comp Follow Up ----- Pat. Name: IRMA WEBER Study Date: 12/08/2023 1:27pm Pat. NO: [id number] Referring MD: ANNMARIE GILBERT Site: [facility] Dot Compliance Coordinator: Rekha Maldonado RDMS : 1990 Age: 33 ----- INDICATION ----- Reevaluate growth and suboptimal anatomy METHOD ----- Transabdominal ultrasound examination. View: Suboptimal view: limited byabdominal scarring ----- Peters . Number of fetuses: 1 DATING ----- DateDetailsGest. age CHERIE LMP w + 0 d 03/08/2024 Prior assessment 08/18/2023 GA: 6 w +1 d22 w + 1 d 04/11/2024 U/S 12/08/2023ased upon AC, BPD, Femur, HC22 w + 2 d 04/10/2024 Assigned dating Dating performed on 11/10/2023, based onthe prior assessment (on 08/18/2023) 22 w + 1 04/11/2024 GENERAL EVALUATION ----- Cardiac activity present. FHR 136 bpm. movements present. Presentation Variable. Placenta Posterior. Umbilical cord 3 vessel cord. Amniotic fluid Amount of AF: normal. MVP 4.7 cm. BIOMETRY ----- Main Biometry: BPD 54.7 mm22w 5d Hadlock OFD 70.3 mm21w 6d Nicolaides HC 201.0 mm22w 2d Hadlock Cerebellum tr 22.6 mm21w 2d Nicolaides AC 180.3 mm22w 6d 67% Hadlock Femur 36.2 mm21w 3d Hadlock Weight Calculation: EFW 491 g50% Hadlock EFW (lb,oz) 1 lb 1 oz EFW by Hadlock ([id number]) Head / Face / Neck Biometry: Line Person 6.1 mm CM 4.5 mm ANATOMY ----- The following structures appear normal: Head / Neck Cranium. Head size. Head shape.Lateral ventricles. Midline falx. Cavum septi pellucidi. Cerebellum.Cisterna magna. Thalami. Face Lips. Nose. Heart / Thorax 4-chamber view. RVOT view. LVOT view.Aortic arch view. Ductal arch view. 8-njmdhe-qfjrxvy view. Right lung. Left lung.Diaphragm. Abdomen Stomach. Kidneys. Bladder. Spine Cervical spine. Thoracic spine.Lumbar spine. Sacral spine. The following structures were documented previously: Face Profile. MATERNAL STRUCTURES ----- Cervix Suboptimal Right Ovary Not examined Left Ovary Not examined RECOMMENDATION ----- We discussed the findings on today's ultrasound with the patient. Return to primary provider for continued care. Thank-you for the opportunity to participate in the care of this patient.If you have questions regarding today's evaluation or if we can be offurther service, please contact the [facility]. anomalies may be present but not detected IMPRESSION ----- 1. Peters at 22w 1d gestational age. 2. The remaining anatomic survey was completed, no anomaliescommonly detected by ultrasound were identified within the limits ofprenatal ultrasound. 3. Growth parameters and estimated weight were consistent withgestational age predicted by assigned CHERIE. 4. The amniotic fluid volume appeared normal. Tristen Swartz MD [facility] US ORDERABL ES * [facility] US Comprehensive Single (11/10/2023 12:57 PM CDT) Anatomical Region Laterality Modality Ultrasound 11/10/2023 12:0 1 PM CDT Impressions 11/10/2023 1:01 PM CDT IMPRESSION ----- 1) Sonographic biometry agrees with gestational age predicted by assigned CHERIE. 2) The upper lip and cardiac anatomy were not adequately seen. 3) The anatomy was otherwise adequately visualized and appeared normal. 4) None of the anomalies commonly detected by ultrasound were evident in those structures that were visualized. 5) No markers for aneuploidy seen. Narrative 11/10/2023 1:01 PM CDT ?Comprehensive ----- Pat. Name: IRMA WEBER ? Study Date: ??11/10/2023 12:01pm Pat. NO: ??[id number] ?Referring ??MD: ANNMARIE GILBERT Site: ??[facility] ? Dot Compliance Coordinator: Yinka Orozco RDMS : ??1990 ?Age: ?? 33 ----- INDICATION ----- Crohn's Disease - Stelara. Declined Screening. METHOD ----- Transabdominal ultrasound examination. View: Suboptimal view: limited by abdominal scarring. Suboptimal view: limited by position ----- Peters . Number of fetuses: 1 DATING ----- ? Date ?Details ?Gest. age ?CHERIE LMP ?06/02/2023 ?23 w + 0 d ? 03/08/2024 Prior assessment ? 08/18/2023 ? GA: 6 w + 1 d ?18 w + 1 d ? 04/11/2024 U/S ? 11/10/2023 ? based upon AC, BPD, Femur, HC ?18 w + 3 d ? 04/09/2024 Assigned dating ?Dating performed on 11/10/2023, based on the prior assessment (on 08/18/2023) ? 18 w + 1 d ? 04/11/2024 GENERAL EVALUATION ----- Cardiac activity present. FHR 145 bpm. movements present. Presentation Variable. Placenta Posterior, No Previa, > 2 cm from internal os. Umbilical cord 3 vessel cord. Amniotic fluid Amount of AF: normal. MVP 4.2 cm. BIOMETRY ----- Main Biometry: BPD ?40.7 ?mm ? 18w 2d ?Quang QUINTANILLA ?56.0 ?mm ? 18w 4d ?Nicolaides HC ?154.9 ?mm ?18w 3d ?Hadlock Cerebellum tr ?19.8 ? mm ?18w 6d ?Nicolaides AC ?131.5 ?mm ?18w 5d ?65% ?Hadlock Femur ?26.5 ? mm ?18w 0d ?Hadlock Humerus ?29.3 ?mm ? 19w 4d ?Juan Jose Weight Calculation: EFW ? 237 ? g ? 59% ?Hadlock EFW (lb,oz) ? 0 lb 8 ?oz EFW by ?Hadlock ([id number]) Head / Face / Neck Biometry: Line Person ? 8.1 ? mm CM ?3.9 ? mm Nasal bone ? 5.0 ? mm Nuchal fold ? 4.4 ? mm ANATOMY ----- The following structures appear normal: Head / Neck ? Cranium. Head size. Head shape. Lateral ventricles. Choroid plexus. Midline falx. Cavum septi pellucidi. Cerebellum. Cisterna magna. ? Parenchyma. Thalami. Vermis. ? Neck. Nuchal fold. Face ? Profile. Nose. Maxilla. Mandible. Orbits. Lens. Heart / Thorax ?RVOT view. Situs. Aortic arch view. Bicaval view. Superior vena cava. Inferior vena cava. 3-vessel view. Cardiac position. Cardiac size. Cardiac ? rhythm. ? Diaphragm. Abdomen ? Abdominal wall. Cord insertion. Stomach. Kidneys. Bladder. Liver. Bowel. Genitals. Spine ?Cervical spine. Thoracic spine. Lumbar spine. Extremities / Skeleton ?Right arm. Right hand. Left arm. Left hand. Right leg. Right foot. Left leg. Left foot. The following structures could not be adequately visualized: Face ? Lips. Heart / Thorax ?4-chamber view. LVOT view. Ductal arch view. 6-mnhhza-cfzaail view. ? Right lung. Left lung. Spine ?Sacral spine. MATERNAL STRUCTURES ----- Cervix ?Visualized ? Appearance: Appears Closed ? Approach - Transabdominal: Cervical length 55.7 mm Right Ovary ?Visualized Left Ovary ?Not visualized RECOMMENDATION ----- We discussed the findings on today's ultrasound with the patient. The patient is scheduled to return to [facility] in 4 weeks to complete the anatomic survey. For Crohn's disease on a biological agent we recommend that you assess growth every 4 weeks beginning at 28 weeks and begin weekly testing at 32 weeks. Return to primary provider for continued care. Thank-you for the opportunity to participate in the care of this patient. If you have questions regarding today's evaluation or if we can be of further service, please contact the [facility]. anomalies may be present but not detected Procedure Note Tristen Swartz MD - 11/10/2023 Comprehensive ----- Pat. Name: IRMA WEBER Study Date: 11/10/2023 12:01pm Pat. NO: [id number] Referring MD: ANNMARIE GILBERT Site: [facility] Dot Compliance Coordinator: Yinka Orozco RDMS : 1990 Age: 33 ----- INDICATION ----- Crohn's Disease - Stelara. Declined Screening. METHOD ----- Transabdominal ultrasound examination. View: Suboptimal view: limited byabdominal scarring. Suboptimal view: limited by position ----- Peters . Number of fetuses: 1 DATING ----- DateDetailsGest. age CHERIE LMP w + 0 d 03/08/2024 Prior assessment 08/18/2023 GA: 6 w +1 d18 w + 1 d 04/11/2024 U/S 11/10/2023ased upon AC, BPD, Femur, HC18 w + 3 d 04/09/2024 Assigned dating Dating performed on 11/10/2023, based onthe prior assessment (on 08/18/2023) 18 w + 1 04/11/2024 GENERAL EVALUATION ----- Cardiac activity present. FHR 145 bpm. movements present. Presentation Variable. Placenta Posterior, No Previa, > 2 cm from internal os. Umbilical cord 3 vessel cord. Amniotic fluid Amount of AF: normal. MVP 4.2 cm. BIOMETRY ----- Main Biometry: BPD 40.7 mm18w 2d Hadlock OFD 56.0 mm18w 4d Nicolaides HC 154.9 mm18w 3d Hadlock Cerebellum tr 19.8 mm18w 6d Nicolaides AC 131.5 mm18w 5d 65% Hadlock Femur 26.5 mm18w 0d Hadlock Humerus 29.3 mm19w 4d Juan Jose Weight Calculation: EFW 237 g59% Hadlock EFW (lb,oz) 0 lb 8 oz EFW by Hadlock ([id number]) Head / Face / Neck Biometry: Line Person 8.1 mm CM 3.9 mm Nasal bone 5.0 mm Nuchal fold 4.4 mm ANATOMY ----- The following structures appear normal: Head / Neck Cranium. Head size. Head shape.Lateral ventricles. Choroid plexus. Midline falx. Cavum septi pellucidi.Cerebellum. Cisterna magna. Parenchyma. Thalami. Vermis. Neck. Nuchal fold. Face Profile. Nose. Maxilla. Mandible.Orbits. Lens. Heart / Thorax RVOT view. Situs. Aortic arch view.Bicaval view. Superior vena cava. Inferior vena cava. 3-vessel view.Cardiac position. Cardiac size. Cardiac rhythm. Diaphragm. Abdomen Abdominal wall. Cord insertion.Stomach. Kidneys. Bladder. Liver. Bowel. Genitals. Spine Cervical spine. Thoracic spine.Lumbar spine. Extremities / Skeleton Right arm. Right hand. Left arm. [place]. Right leg. Right foot. Left leg. Left foot. The following structures could not be adequately visualized: Face Lips. Heart / Thorax 4-chamber view. LVOT view. Ductal archview. 1-wgodri-kmvfyqp view. Right lung. Left lung. Spine Sacral spine. MATERNAL STRUCTURES ----- Cervix Visualized Appearance: Appears Closed Approach - Transabdominal:Cervical length 55.7 mm Right Ovary Visualized Left Ovary Not visualized RECOMMENDATION ----- We discussed the findings on today's ultrasound with the patient. The patient is scheduled to return to [facility] in 4 weeks to complete theanatomic survey. For Crohn's disease on a biological agent we recommend that you assessfetal growth every 4 weeks beginning at 28 weeks and begin weeklyantenatal testing at 32 weeks. Return to primary provider for continued care. Thank-you for the opportunity to participate in the care of this patient.If you have questions regarding today's evaluation or if we can be offurther service, please contact the [facility]. anomalies may be present but not detected IMPRESSION ----- 1) Sonographic biometry agrees with gestational age predicted by assignedEDD. 2) The upper lip and cardiac anatomy were not adequately seen. 3) The anatomy was otherwise adequately visualized and appearednormal. 4) None of the anomalies commonly detected by ultrasound were evident inthose structures that were visualized. 5) No markers for aneuploidy seen. Annmarie Gilbert APRN [facility] US ORDERABLES from Last 3 Months Care Teams Household Appliance Repairer Relationship Specialty Start Date End Date Yasmine Dumont MD PCP - General Speciality Unknown 08/31/11
--- OUTSIDE RECORDS SUMMARY | 2024-01-21 07:16 | XMS_ITS | Clinical Summary ---
Author Organization [facility] Address [address], [place] [address] Care Team Providers Care Head Of Sales Promotion Name Role Phone Marie Yanes PA-C Primary Care Provider [phone] Source Comments You are receiving this document as you are listed as the primary care provider,follow-up provider, or the patient has been referred to you for consultation.This is in compliance with the Medicare and[facility] EHR Incentive Program,which states Providers who transition their patient to another setting of careor provider of care or refers their patient to another provider of care shouldprovide summary care record for each transition of care or referral. [facility] Allergies Active Allergy Reactions Criticality Noted Date Comments Bee Venom Hives High 01/21/2013 Other Gastrointestinal 06/20/2022 Lactose intolerance - causes gas, nausea and diarrhea Medications Medication Sig Dispensed Refills Start Date End Date Status loperamide (IMODIUM) 2 MG capsule Take 2 Capsules (4 mg) by mouth 4 times a day before meals. 200 Capsule 3 06/22/2022 Active methocarbamol (ROBAXIN) 500 MG tablet Take 1 Tablet (500 mg) by mouth every 6 hours as needed. 15 Tablet 06/22/2022 Active acetaminophen (TYLENOL) 500 MG tablet Take 2 Tablets (1,000 mg) by mouth every 8 hours as needed for Pain. Maximum acetaminophen dose is 4000 mg in 24 hours 100 Tablet 06/22/2022 Active HYDROcodone-acetami nophen (NORCO) 5-325 MG tablet Take 1 Tablet by mouth every 6 hours as needed. 06/06/2022 Active ondansetron (ZOFRAN-ODT) 4 MG disintegrating tablet Take 1 Tablet (4 mg) by mouth every 6 hours as needed. 06/06/2022 Active predniSONE (DELTASONE) 10 MG tablet Take 4 Tablets (40 mg) by mouth. Active predniSONE (DELTASONE) 20 MG tablet Take by mouth. 06/06/2022 Active predniSONE (DELTASONE) 5 MG tablet Take by mouth. 06/08/2022 Active Active Problems Problem Noted Date Diagnosed Date Exacerbation of Crohn's disease 06/22/2022 Intra-abdominal fluid collection 06/22/2022 Colon perforation 06/22/2022 Immunizations Name Administration Dates Next Due DTaP/Hib 09/16/1994 MMR 09/16/1994 Social History Tobacco Use Types Packs/Day Years Used Date Smoking Tobacco: Never Assessed Sex and Gender Information Value Date Recorded Sex Assigned at Not on file Gender Identity Not on file Sexual Orientation Not on file Last Filed Vital Signs Vital Sign Reading Time Taken Comments Blood Pressure 120/82 06/22/2022 3:25 PM CDT Pulse 102 06/22/2022 3:25 PM CDT Temperature 37.3 ??C (99.2 ??F) 06/22/2022 1:19 PM CD T Respiratory Rate 18 06/22/2022 3:25 PM CDT Oxygen Saturation 100% 06/22/2022 3:25 PM CDT Inhaled Oxygen Concentration - - Weight 73.5 kg (162 lb) 06/16/2022 3:50 AM CDT Height 165.1 cm (5' 5) 06/18/2022 1:00 PM CDT p er chart Body Mass Index 26.96 06/16/2022 3:50 AM CDT Plan of Treatment Health Maintenance Due Date Last Done Comments Cervical Cancer Screening Due 1992 Hep C Screening (Preventive Services) 1992 HIV Screening (Preventive Services) 2008 Adult Preventive Visit 2010 03/18/1999, 1993 HepB (1) 10/24/2011 COVID-19 Vaccine ( season) 2023 06/27/2021, 06/06/2021 Influenza (Season Ended) 2024 020, 05/04/2019, 08/20/2017, Additional history exists DTaP/Tdap/Td (7 - Tdap) 04/12/2029 04/12/20 19, 03/15/2011, 06/03/2010, Additional history exists Zoster/Shingles (1 of 2) 2042 Hib Completed 09/16/1994, 09/16/1994 MCV4 Completed 06/03/2010 HepA Aged Out 09/25/2015 No longer eligi ble based on patient's age to complete this topic Pneumococcal Aged Out 09/25/2015 No longer eligi ble based on patient's age to complete this topic HPV Vaccine Completed 08/20/2017, 10/21, 06/03/2010 IPV (Polio) Aged Out No longer eligi ble based on patient's age to complete this topic Advance Directives * Full Code (Latest Code Status on File) Date Activated Date Inactivated Comments 06/15/2022 11:02 PM 06/22/2022 8:11 PM Care Teams Head Of Sales Promotion Relationship Specialty Start Date End Date Marie Yanes PA-C PCP - General Physician Gas Reverser 06/18/22
--- OUTSIDE RECORDS SUMMARY | 2024-01-21 07:16 | XMS_ITS | Encounter Summary ---
Author Organization [place] Address [address] [place] [address]. [place] [address] Care Team Providers Care Supervisor Assembly Name Role Phone Yasmine Dumont MD Primary Care Provider Encounter Details Date Type Department Care Team ([facility] Contact Info) Description 10/29/2023 Medical Correspondence [facility] [address] [place] [phone] Scan, Non-Provider Social History Tobacco Use Types Packs/Day Years Used Date Smoking Tobacco: Never Alcohol Use Standard Drinks/Week Comments No 0 (1 standard drink = 0.6 oz pur e alcohol) Adolescent Education Answer Date Record ed Getting School Help Needed Not on file 05/23 Sex and Gender Information Value Date Recorded Sex Assigned at Not on file Gender Identity Not on file Sexual Orientation Not on file documented as of this encounter Plan of Treatment Not on file documented as of this encounter Visit Diagnoses Not on filedocumented in this encounter Care Teams Supervisor Assembly Relationship Specialty Start Date End Date Yasmine Dumont MD PCP - General Speciality Unknown 08/31/11 documented as of this encounter
--- OUTSIDE RECORDS SUMMARY | 2024-01-21 07:16 | XMS_ITS | Encounter Summary ---
Author Organization [place] Address [address] [facility] [place] [address] Care Team Providers Care Batter Depositor Name Role Phone Yasmine Dumont MD Primary Care Provider [phone] Reason for Referral * Diagnostic Imaging Ultrasound (Routine) - Pending Review Specialty Diagnoses / Procedures Referred By Contac t Referred To Contact Radiology. Diagnoses Encounter for follow-up ultrasound of anatomy Procedures [facility] US Comprehensive Single F/U Tristen Swartz MD [address] [place] [address] Referral ID Status Reason Start Date Expiration Date V isits Requested Visits Authorized [id number] Pending Review 11/10/2023 11/09/2024 1 1 Reason for Visit * Reason Comments Ultrasound L2-Chron's, low weig ht gain in Encounter Details Date Type Department Care Team (Late st Contact Info) Description 11/10/2023 12:15 PM CDT Office Visit [facility] [place] [address] [facility] [address] [place] [phone] Annmarie Gilbert APRN [facility] [address] [place] [address] Tristen Swartz MD [address] [place], [place] [address] [facility] [address] [place] [address] High-risk , unspecified trimester (Primary Dx); Crohn's disease of large intestine with other complication (H); Encounter for follow-up ultrasound of anatomy Social History Tobacco Use Types Packs/Day Years [...] on file documented as of this encounter Progress Notes * Tristen Swartz MD - 11/10/2023 12:15 PM CDT Please see Imaging tab under Chart Review for details of today's US at the [facility]. Trsiten Swartz MD Maternal- Medicine documented in this encounter Plan of Treatment Not on file documented as of this encounter Results * [facility] US Comprehensive Single F/U (12/08/2023 2:13 PM [...] ? Study Date: ??12/08/2023 1:27pm Pat. NO: ??[id number] ?Referring ??MD: ANNMARIE GILBERT Site: ??[facility] ? Renal Nurse: Rekha Maldonado RDMS : ??1990 ?Age: ?? [...] 1 lb 1 ?oz EFW by ?Hadlock ([id number]) Head / Face / Neck Biometry: Splunk Architect ? 6.1 ? mm CM ?4.5 ? mm ANATOMY ----- The following structures appear normal: Head / Neck ? Cranium. Head size. Head shape. Lateral ventricles. Midline falx. Cavum septi pellucidi. Cerebellum. Cisterna magna. Thalami. Face ? Lips. Nose. Heart / Thorax ?4-chamber view. RVOT view. LVOT view. Aortic arch view. Ductal arch view. 2-smevgy-afjpocp view. ? Right lung. Left lung. Diaphragm. [...] WEBER Study Date: 12/08/2023 1:27pm Pat. NO: [id number] Referring MD: ANNMARIE GILBERT Site: [facility] Renal Nurse: Rekha Maldonado RDMS : 1990 Age: 33 [...] 1 lb 1 oz EFW by Hadlock ([id number]) Head / Face / Neck Biometry: Splunk Architect 6.1 mm CM 4.5 mm ANATOMY ----- The following structures appear normal: Head / Neck Cranium. Head size. Head shape.Lateral ventricles. Midline falx. Cavum septi pellucidi. Cerebellum.Cisterna magna. Thalami. Face Lips. Nose. Heart / Thorax 4-chamber view. RVOT view. LVOT view.Aortic arch view. Ductal arch view. 0-qsbuxg-dslyqan view. Right lung. Left lung.Diaphragm. Abdomen Stomach. [...] fluid volume appeared normal. Tristen Swartz MD [facility] US ORDERABL ES documented in this encounter Visit Diagnoses Diagnosis High-risk , unspecified trimester- Primary Crohn's disease of large intestine with other complication (H) Encounter for follow-up ultrasound of anatomy Encounter for follow-up ultrasound of anatomy documented in this encounter Care Teams Batter Depositor Relationship Specialty Start Date End Date Yasmine Dumont MD PCP - General Speciality Unknown 08/31/11 documented as of this encounter
--- OUTSIDE RECORDS SUMMARY | 2024-01-21 07:16 | XMS_ITS | Encounter Summary ---
Author Organization [place] Address [address] [place] [address] Care Team Providers Care Roller Varnisher Name Role Phone Yasmine Dumont MD Primary Care Provider [phone] Reason for Visit * Reason Comments Ultrasound L2-Crohns disease, l ow weight gain in Encounter Details Date Type Department Care Team (Late st Contact Info) Description 11/05/2023 PRE VISIT [facility] Maternal Medicine Center [place] [address] [facility] [address] [place] [address] Ria Barger, LENA Ultrasound (L2-Crohns disease, low weight gain in ) Social History Tobacco Use Types Packs/Day Years [...] on filedocumented in this encounter Care Teams Roller Varnisher Relationship Specialty Start Date End Date Yasmine Dumont MD PCP - General Speciality Unknown 08/31/11 documented as of this encounter
--- OUTSIDE RECORDS SUMMARY | 2024-01-21 07:16 | XMS_ITS | Encounter Summary ---
Author Organization [place] Address [address] [place] [address] Care Team Providers Care Property Custodian Name Role Phone Yasmine Dumont MD Primary Care Provider [phone] Encounter Details Date Type Department Care Team (Latest Contact Info) Description 11/10/2023 Travel Social History Tobacco Use Types Packs/Day Years [...] on filedocumented in this encounter Care Teams Property Custodian Relationship Specialty Start Date End Date Yasmine Dumont MD PCP - General Speciality Unknown 08/31/11 documented as of this encounter
--- OUTSIDE RECORDS SUMMARY | 2024-01-21 07:16 | XMS_ITS | Encounter Summary ---
Author Organization [place] Address [address] [place] [address] Care Team Providers Care Food And Nutrition Services Supervisor Name Role Phone Yasmine Dumont MD Primary Care Provider [phone] Encounter Details Date Type Department Care Team (Latest Contact Info) Description 12/08/2023 Travel Social History Tobacco Use Types Packs/Day [...] on filedocumented in this encounter Care Teams Food And Nutrition Services Supervisor Relationship Specialty Start Date End Date Yasmine Dumont MD PCP - General Speciality Unknown 08/31/11 documented as of this encounter
--- OUTSIDE RECORDS SUMMARY | 2024-01-21 07:16 | XMS_ITS | Referral Summary ---
Author Organization [place] Address [address] [place] [address] Care Team Providers Care Unix Administrator Name Role Phone Yasmine Dumont MD Primary Care Provider [phone] Encounters Date Type Department Care Team Description 12/08/2023 Travel 12/08/2023 2:00 PM CDT Office Visit [facility] [place] [address] [place] [phone] Tristen Swartz MD Encounter for follow-up ultrasound of anatomy (Primary Dx) 12/08/2023 1:24 PM CDT - 12/08/2023 11:59 PM CDT Hospital Encounter [facility] [address] [place] [phone] Tristen Swartz MD Encounter for follow-up ultrasound of anatomy Discharge Disposition: Home or Self Care 11/10/2023 Travel 11/10/2023 12:15 PM CDT Office Visit [facility] [address] [place] [phone] Annmarie Gilbert APRN CNP Rauk, Phillip Neil, MD High-risk , unspecified trimester (Primary Dx); Crohn's disease of large intestine with other complication (H); Encounter for follow-up ultrasound of anatomy 11/10/2023 11:45 AM CDT - 11/10/2023 11:59 PM CDT Hospital Encounter [facility] [place] [address] [place] [facility] [address] [place] [address] Annmarie Gilbert APRN CNP Rauk, Phillip Neil, MD related condition, antepartum Discharge Disposition: Home or Self Care 11/05/2023 PRE VISIT [facility] [place] [address] [place] [facility] [address] [place] [phone] Ria Barger RN Ultrasound (L2-Crohns disease, low weight gain in ) 11/05/2023 Transcribe Orders [facility] [place] [address] [facility] [place] [facility] [address] [place] [phone] Annmarie Gilbert APRN CNP related condition, antepartum (Primary Dx) 11/01/2023 [facility] [address] [place] [phone] Scan, Non-Provider 10/29/2023 [facility] [address] [place] [phone] Scan, Non-Provider from Last 3 Months Allergies No known active allergies Medications Medication [...] for pain. 20 tablet 0 09/09/2011 Active Social History Tobacco Use Types Packs/Day Years [...] 06/24/2021 2:58 AM CDT Plan of Treatment Not on file Medical Devices Implanted Type Area Rail Washer Device Identifier Shelf Expiration Date Model / Serial / Lot Graft Bone Putty Dbx 01ml [id number] Implanted:Qty: 1 on 09/07/[address] [facility] Left: Arm 10/21/2012 [id number] / [id number] / Explanted Type Area Rail Washer Device Identifier Shelf Expiration Date Model / Serial / Lot Screws And Plate Implanted:09/07 by Israel Rg MD (Quantity not on file) Explanted:Qty: 1 on 09/07/[address] [facility] Left: Arm Procedures Procedure Name Priority Date/Time Associated Diagnosis Comments [facility] US COMPREHENSIVE SINGLE F/U Routine 12/08/2023 2:13 PM CDT Encounter for follow-up ultrasound of anatomy [facility] US COMPREHENSIVE SINGLE Routine 11/10/2023 12:57 PM CDT related condition, antepartum from Last 3 Months Results * [facility] US Comprehensive Single F/U (12/08/2023 2:13 PM [...] ? Study Date: ??12/08/2023 1:27pm Pat. NO: ??[id number] ?Referring ??MD: ANNMARIE GILBERT Site: ??[facility] ? Horse Stud Manager: Rekha Maldonado RDMS : ??1990 ?Age: ?? [...] 1 lb 1 ?oz EFW by ?Hadlock ([id number]-[id number]-FL) Head / Face / Neck Biometry: Nurse Clinical ? 6.1 ? mm CM ?4.5 ? mm ANATOMY ----- The following structures appear normal: Head / Neck ? Cranium. Head size. Head shape. Lateral ventricles. Midline falx. Cavum septi pellucidi. Cerebellum. Cisterna magna. Thalami. Face ? Lips. Nose. Heart / Thorax ?4-chamber view. RVOT view. LVOT view. Aortic arch view. Ductal arch view. 3-dcxpwj-awjipil view. ? Right lung. Left lung. Diaphragm. [...] WEBER Study Date: 12/08/2023 1:27pm Pat. NO: [id number] Referring MD: ANNMARIE GILBERT Site: [facility] Horse Stud Manager: Rekha Maldonado RDMS : 1990 Age: 33 ----- INDICATION ----- Reevaluate growth and suboptimal anatomy METHOD ----- Transabdominal ultrasound examination. View: Suboptimal view: limited byabdominal scarring ----- Peters . Number of fetuses: 1 DATING ----- DateDetailsGest. age CHEREI LMP w + 0 d 03/08/2024 Prior [...] 1 lb 1 oz EFW by Hadlock ([id number]-FL) Head / Face / Neck Biometry: Nurse Clinical 6.1 mm CM 4.5 mm ANATOMY ----- The following structures appear normal: Head / Neck Cranium. Head size. Head shape.Lateral ventricles. Midline falx. Cavum septi pellucidi. Cerebellum.Cisterna magna. Thalami. Face Lips. Nose. Heart / Thorax 4-chamber view. RVOT view. LVOT view.Aortic arch view. Ductal arch view. 2-pvtgqj-bxolonr view. Right lung. Left lung.Diaphragm. Abdomen Stomach. [...] fluid volume appeared normal. Tristen Swartz MD Ángel [facility] US ORDERABL ES * [facility] US Comprehensive Single (11/10/2023 12:57 PM CDT) [...] ? Study Date: ??11/10/2023 12:01pm Pat. NO: ??[id number] ?Referring ??MD: ANNMARIE GILBERT Site: ??[facility] ? Horse Stud Manager: Yinka Orozco RDMS : ??1990 ?Age: ?? 33 ----- INDICATION ----- Crohn's Disease - Levi. Declined Screening. METHOD ----- Transabdominal ultrasound examination. [...] Biometry: BPD ?40.7 ?mm ? 18w 2d ?Hadlock OFD ?56.0 ?mm ? 18w 4d ?Nicolaides HC ?154.9 ?mm ?18w 3d ?Hadlock Cerebellum tr ?19.8 ? mm ?18w 6d ?Nicolaides AC ?131.5 ?mm ?18w 5d ?65% ?Hadlock Femur ?26.5 ? mm ?18w 0d ?Hadlock Humerus ?29.3 ?mm ? 19w 4d ?Juan Jose Weight Calculation: EFW ? 237 ? g ? 59% ?Hadlock EFW (lb,oz) ? 0 lb 8 ?oz EFW by ?Hadlock ([id number]) Head / Face / Neck Biometry: Nurse Clinical ? 8.1 ? mm CM ?3.9 ? [...] ?4-chamber view. LVOT view. Ductal arch view. 6-ktztzp-xtfdaru view. ? Right lung. Left lung. Spine ?Sacral spine. MATERNAL STRUCTURES ----- Cervix ?Visualized ? Appearance: Appears Closed ? Approach - Transabdominal: Cervical length 55.7 mm Right Ovary ?Visualized Left Ovary ?Not visualized RECOMMENDATION ----- We discussed the findings on today's ultrasound with the patient. The patient is scheduled to return to [facility] in 4 weeks to complete the anatomic [...] WEBER Study Date: 11/10/2023 12:01pm Pat. NO: [id number] Referring MD: ANNMARIE GILBERT Site: [facility] Horse Stud Manager: Yinka Orozco RDMS : 1990 Age: 33 [...] 0 lb 8 oz EFW by Hadlock ([id number]-FL) Head / Face / Neck Biometry: Nurse Clinical 8.1 mm CM 3.9 mm Nasal bone [...] Thorax 4-chamber view. LVOT view. Ductal archview. 4-oqcvut-zjknnwu view. Right lung. Left lung. Spine Sacral spine. MATERNAL STRUCTURES ----- Cervix Visualized Appearance: Appears Closed Approach - Transabdominal:Cervical length 55.7 mm Right Ovary Visualized Left Ovary Not visualized RECOMMENDATION ----- We discussed the findings on today's ultrasound with the patient. The patient is scheduled to return to [facility] in 4 weeks to complete theanatomic survey. [...] markers for aneuploidy seen. Annmarie Gilbert APRN DIGITAL MARKETING ASSOCIATE G [facility] US ORDERABLES from Last 3 Months Care Teams Unix Administrator Relationship Specialty Start Date End Date Yasmine Dumont MD PCP - General Speciality Unknown 08/31/11
--- OUTSIDE RECORDS SUMMARY | 2024-01-21 07:16 | XMS_ITS | Encounter Summary ---
Author Organization [place] Address [address] [place] [address] Care Team Providers Care Housing Relocation Name Role Phone Yasmine Dumont MD Primary Care Provider [phone] Reason for Referral * Diagnostic Imaging Ultrasound (Routine) - Pending Review Specialty Diagnoses / Procedures Referred By Contac t Referred To Contact Radiology. Diagnoses related condition, antepartum Procedures [facility] US Comprehensive [facility] Annmarie Gilbert APRN CNP [facility] [address] [place] [address] Referral ID Status Reason Start Date Expiration Date V isits Requested Visits Authorized [id number] Pending Review 11/05/2023 11/04/2024 1 1 * Consultation (Routine) - Pending Review Specialty Diagnoses / Procedures Referred By Contac t Referred To Contact Diagnoses related condition, antepartum Annmarie Gilbert APRN CNP [facility] [address] [place] [address] [facility] [address] [place] [address] Referral ID Status Reason Start Date Expiration Date V isits Requested Visits Authorized [id number] Pending Review 11/05/2023 11/04/2024 1 1 Question Answer Preferred Location: [facility] [place] [facility] 04/11/2024 Ultrasound Comprehensive US (>than 18 weeks GA) US PROC NONE MFM Issue OTHER (enter details in Comments) - Crohn's disease, low weight gain in MFM MD Consultation (unrelated to Ultrasound findings): No Inflammatory Bowel Disease Clinic: Joint MFM and GI Consultation: No Chronic Kidney Disease: Joint MFM and Nephrology Consultation No Genetic Counseling Consultation: No fax [facility], Comments Crohn's disease, low weight gain in Encounter Details Date Type Department Care Team (Late st Contact Info) Description 11/05/2023 Transcribe Orders [facility] Maternal Medicine [facility] [place] [address] [facility] [address] [place] [address] Annmarie Gilbert APRN [facility] [address] [place] [address] related condition, antepartum (Primary Dx) Social History Tobacco Use Types Packs/Day Years [...] as of this encounter Plan of Treatment Scheduled Referrals Name Type Priority Associated Diagnoses Orde r Schedule Mat Med Ctr Referral - Referral Routine related condition, antepartum Expected: 11/05/2023 (Approximate), Expires: 11/04/2024 documented as of this encounter Results * [facility] US Comprehensive Single (11/10/2023 12:57 PM CDT) [...] 1:01 PM CDT ?Comprehensive ----- Pat. Name: TIACLAUDIO ARDONIE ? Study Date: ??11/10/2023 12:01pm Pat. NO: ??[id number] ?Referring ??: ANNMARIE GILBERT Site: ??[facility] ? Can Machine Operator: Yinka Orozco RDMS : ??1990 ?Age: ?? [...] 0 lb 8 ?oz EFW by ?Hadlock ([id number]-PT-RP-FL) Head / Face / Neck Biometry: Mechanical Door Repairer ? 8.1 ? mm CM ?3.9 ? [...] ?4-chamber view. LVOT view. Ductal arch view. 7-ldwcll-jovizdw view. ? Right lung. Left lung. Spine ?Sacral spine. MATERNAL STRUCTURES ----- Cervix ?Visualized ? Appearance: Appears Closed ? Approach - Transabdominal: Cervical length 55.7 mm Right Ovary ?Visualized Left Ovary ?Not visualized RECOMMENDATION ----- We discussed the findings on today's ultrasound with the patient. The patient is scheduled to return to [facility] in 4 weeks to complete the anatomic [...] WEBER Study Date: 11/10/2023 12:01pm Pat. NO: [id number] Referring MD: ANNMARIE GILBERT Site: [facility] Can Machine Operator: Yinka Orozco RDMS : 1990 Age: 33 [...] assessment (on 08/18/2023) 18 w + 1 d8/ GENERAL EVALUATION ----- Cardiac activity present. FHR [...] mm18w 0d Hadlock Humerus 29.3 mm19w 4d Ujan Jose Weight Calculation: EFW 237 g59% Hadlock EFW (lb,oz) 0 lb 8 oz EFW by Hadlock ([id number]-[id number]-FL) Head / Face / Neck Biometry: Mechanical Door Repairer 8.1 mm CM 3.9 mm Nasal bone [...] Thorax 4-chamber view. LVOT view. Ductal archview. 6-mfovrp-warmgwg view. Right lung. Left lung. Spine Sacral spine. MATERNAL STRUCTURES ----- Cervix Visualized Appearance: Appears Closed Approach - Transabdominal:Cervical length 55.7 mm Right Ovary Visualized Left Ovary Not visualized RECOMMENDATION ----- We discussed the findings on today's ultrasound with the patient. The patient is scheduled to return to [facility] in 4 weeks to complete theanatomic survey. [...] markers for aneuploidy seen. Annmarie Gilbert APRN MANAGER CENTER IMG [facility] US ORDERABLES documented in this encounter Visit Diagnoses Diagnosis related condition, antepartum- Primary related condition, antepartum documented in this encounter Care Teams Housing Relocation Relationship Specialty Start Date End Date Yasmine Dumont MD PCP - General Speciality Unknown 08/31/11 documented as of this encounter
--- OUTSIDE RECORDS SUMMARY | 2024-01-21 07:16 | XMS_ITS | Encounter Summary ---
Author Organization [place] Address [address] [place] [address]. [place] [address] Care Team Providers Care Box Sorter Name Role Phone Yasmine Dumont MD Primary Care Provider [phone] Encounter Details Date Type Department Care Team ([facility] Contact Info) Description 11/01/2023 Medical Correspondence [facility] [address] [place] [phone] Scan, Non-Provider Social History Tobacco Use [...] on filedocumented in this encounter Care Teams Box Sorter Relationship Specialty Start Date End Date Yasmine Dumont MD PCP - General Speciality Unknown 08/31/11 documented as of this encounter
--- OUTSIDE RECORDS SUMMARY | 2024-01-21 07:16 | XMS_ITS | Encounter Summary ---
Author Organization [place] Address [address] [facility] [place] [address] Care Team Providers Care Transplant Surgeon Name Role Phone Yasmine Dumont MD Primary Care Provider [phone] Reason for Visit * Reason Comments Ultrasound RL2-Subopt Encounter Details Date Type Department Care Team (Late st Contact Info) Description 12/08/2023 2:00 PM CDT Office Visit [facility] Maternal Medicine [facility] [place] [address] [facility] [address] [place] [address] Tristen Swartz MD [address] [facility] [address] [place] [address] Encounter for follow-up ultrasound of anatomy (Primary Dx) Social History Tobacco Use Types [...] Progress Notes * Tristen Swartz MD - 12/08/2023 2:00 PM CDT Please see Imaging tab under Chart Review for details of today's US at the [facility]. Tristen Swartz MD Maternal- Medicine documented in this encounter Plan of Treatment Not on file documented as of this encounter Visit Diagnoses Diagnosis Encounter for follow-up ultrasound of anatomy- Primary documented in this encounter Care Teams Transplant Surgeon Relationship Specialty Start Date End Date Yasmine Dumont MD PCP - General Speciality Unknown 08/31/11 documented as of this encounter
--- OUTSIDE RECORDS SUMMARY | 2024-01-21 07:16 | XMS_ITS | Encounter Summary ---
Author Organization [facility] Address [address] [place] [id number] Care Team Providers Care Vocational Psychologist Name Role Phone Yasmine Dumont MD Primary Care Provider [phone] Reason for Referral * Diagnostic Imaging Ultrasound (Routine) - Pending Review Specialty Diagnoses / Procedures Referred By Contac t Referred To Contact Radiology. Diagnoses related condition, antepartum Procedures [facility] US Comprehensive Single Annmarie Gilbert APRN CNP [facility] [address] [place] [address] Referral ID Status Reason Start Date Expiration Date V isits Requested Visits Authorized [id number] Pending Review 11/05/2023 11/04/2024 1 1 Reason for Visit * Diagnostic Imaging Ultrasound (Routine) - Pending Review Specialty Diagnoses / Procedures Referred By Holly perry Referred To Contact Radiology. Diagnoses related condition, antepartum Procedures [facility] US Comprehensive Single Annmarie Gilbert APRN CNP [facility] [address] [place] [address] Referral ID Status Reason Start Date Expiration Date V isits Requested Visits Authorized [id number] Pending Review 11/05/2023 11/04/2024 1 1 Encounter Details Date Type Department Care Team (Latest Contact Info) Description 11/10/2023 11:45 AM CDT - 11/10/2023 11:59 PM CDT Hospital Encounter [facility] [place] [address] [facility] [address] [place] [address] Annmarie Gilbert APRN [facility] [address] [place] [address] Tristen Swartz MD [address] [address] [place] [address] related condition, antepartum Discharge Disposition: Home or Self Care Social History Tobacco Use Types Packs/Day Years [...] on file documented as of this encounter Medications at Time of Discharge Medication Sig Dispensed Refills Start Date End Date hydrocodone-acetaminophen 5-325 MG per tabletIndications:Forearm fracture Take 1 tablet by mouth every 6 hours as needed for pain. 30 tablet 0 09/07/2011 oxycodone-acetaminophen (PERCOCET) 5-325 MG per tablet Take 1 tablet by mouth every 4 hours as needed for pain. 20 tablet 0 09/09/2011 documented as of this encounter Plan of Treatment Not on file documented as of this encounter Procedures Procedure Name Priority Date/Time Associated Diagnosis Comments [facility] US COMPREHENSIVE SINGLE Routine 11/10/2023 12:57 PM CDT related condition, antepartum documented in this encounter Results * [facility] US Comprehensive Single (11/10/2023 12:57 PM CDT) [...] ? Study Date: ??11/10/2023 12:01pm Pat. NO: ??[id number] ?Referring ??MD: ANNMARIE GILBERT Site: ??[facility] ? Liquid Loader: Yinka Orozco RDMS : ??1990 ?Age: ?? [...] ? 0 lb 8 ?oz EFW by ?[facility] ([id number]) Head / Face / Neck Biometry: Machine Iii Coremaker ? 8.1 ? mm CM ?3.9 ? [...] ?4-chamber view. LVOT view. Ductal arch view. 4-fbggwx-shrwrvd view. ? Right lung. Left lung. Spine ?Sacral spine. MATERNAL STRUCTURES ----- Cervix ?Visualized ? Appearance: Appears Closed ? Approach - Transabdominal: Cervical length 55.7 mm Right Ovary ?Visualized Left Ovary ?Not visualized RECOMMENDATION ----- We discussed the findings on today's ultrasound with the patient. The patient is scheduled to return to [facility] in 4 weeks to complete the anatomic [...] WEBER Study Date: 11/10/2023 12:01pm Pat. NO: [id number] Referring MD: ANNMARIE GILBERT Site: [facility] Liquid Loader: Yinka Orozco RDMS : 1990 Age: 33 [...] 0 lb 8 oz EFW by [facility] ([id number]) Head / Face / Neck Biometry: Machine Iii Coremaker 8.1 mm CM 3.9 mm Nasal bone [...] Thorax 4-chamber view. LVOT view. Ductal archview. 2-yoiewp-acdadlk view. Right lung. Left lung. Spine Sacral spine. MATERNAL STRUCTURES ----- Cervix Visualized Appearance: Appears Closed Approach - Transabdominal:Cervical length 55.7 mm Right Ovary Visualized Left Ovary Not visualized RECOMMENDATION ----- We discussed the findings on today's ultrasound with the patient. The patient is scheduled to return to [facility] in 4 weeks to complete theanatomic survey. [...] markers for aneuploidy seen. Annmarie Gilbert APRN DIRECTOR OF HOUSING AND ENERGY SERVICES IMG [facility] US ORDERABLES documented in this encounter Visit Diagnoses Diagnosis related condition, antepartum documented in this encounter Care Teams Vocational Psychologist Relationship Specialty Start Date End Date Yasmine Dumont MD PCP - General Speciality Unknown 08/31/11 documented as of this encounter
--- OUTSIDE RECORDS SUMMARY | 2024-01-21 07:16 | XMS_ITS | Encounter Summary ---
Author Organization [facility] Address [address] [place] [address] Care Team Providers Care Improvement Lead Name Role Phone Yasmine Dumont MD Primary Care Provider [phone] Reason for Referral * Diagnostic Imaging Ultrasound (Routine) - Pending Review Specialty Diagnoses / Procedures Referred By Contac t Referred To Contact Radiology. Diagnoses Encounter for follow-up ultrasound of anatomy Procedures [facility] US Comprehensive Single F/U Tristen Swartz MD [address] [address] Referral ID Status Reason Start Date Expiration Date V isits Requested Visits Authorized [id number] Pending Review 11/10/2023 11/09/2024 1 1 Reason for Visit * Diagnostic Imaging Ultrasound (Routine) - Pending Review Specialty Diagnoses / Procedures Referred By Holly perry Referred To Contact Radiology. Diagnoses Encounter for follow-up ultrasound of anatomy Procedures [facility] US Comprehensive Single F/U Tristen Swartz MD [address] [place] [address] Referral ID Status Reason Start Date Expiration Date V isits Requested Visits Authorized [id number] Pending Review 11/10/2023 11/09/2024 1 1 Encounter Details Date Type Department Care Team (Latest Contact Info) Description 12/08/2023 1:24 PM CDT - 12/08/2023 11:59 PM CDT Hospital Encounter [facility] [place] [address] [place] [address] Tristen Swartz MD [address] [place] [address] Encounter for follow-up ultrasound of anatomy Discharge Disposition: Home or Self Care Social [...] Procedure Name Priority Date/Time Associated Diagnosis Comments [facility] US COMPREHENSIVE SINGLE F/U Routine 12/08/2023 2:13 PM CDT Encounter for follow-up ultrasound of anatomy documented in this encounter Results * [facility] US Comprehensive Single F/U (12/08/2023 2:13 [...] ? Study Date: ??12/08/2023 1:27pm Pat. NO: ??[id number] ?Referring ??MD: BEBO SANTIAGO Site: ??[facility] ? Sewer: Rekha Maldonado RDMS : ??1990 ?Age: ?? [...] 1 lb 1 ?oz EFW by ?[facility] ([id number]) Head / Face / Neck Biometry: Hedge Fund Accountant ? 6.1 ? mm CM ?4.5 ? mm ANATOMY ----- The following structures appear normal: Head / Neck ? Cranium. Head size. Head shape. Lateral ventricles. Midline falx. Cavum septi pellucidi. Cerebellum. Cisterna magna. Thalami. Face ? Lips. Nose. Heart / Thorax ?4-chamber view. RVOT view. LVOT view. Aortic arch view. Ductal arch view. 1-feugza-ebwhqil view. ? Right lung. Left lung. Diaphragm. [...] WEBER Study Date: 12/08/2023 1:27pm Pat. NO: [id number] Referring MD: BEBO SANTIAGO Site: [facility] Sewer: Rekha BoyleFLORENCIO العلي : 1990 Age: 33 ----- INDICATION ----- [...] (lb,oz) 1 lb 1 oz EFW by [facility] ([id number]) Head / Face / Neck Biometry: Hedge Fund Accountant 6.1 mm CM 4.5 mm ANATOMY ----- The following structures appear normal: Head / Neck Cranium. Head size. Head shape.Lateral ventricles. Midline falx. Cavum septi pellucidi. Cerebellum.Cisterna magna. Thalami. Face Lips. Nose. Heart / Thorax 4-chamber view. RVOT view. LVOT view.Aortic arch view. Ductal arch view. 6-splckw-inhgbaf view. Right lung. Left lung.Diaphragm. Abdomen Stomach. [...] fluid volume appeared normal. Tristen Swartz MD [facility] US ORDERABL ES documented in this encounter Visit Diagnoses Diagnosis Encounter for follow-up ultrasound of anatomy documented in this encounter Care Teams Improvement Lead Relationship Specialty Start Date End Date Yasmine Dumont MD PCP - General Speciality Unknown 08/31/11 documented as of this encounter
--- OUTSIDE RECORDS SUMMARY | 2024-01-21 07:16 | XMS_ITS | Continuity of Care Document ---
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 Please contact the source practice for further details. Medications Medication Instructions Dosage Effective Dates (start - stop) Status Comments Stelara 90 mg/mL subcutaneous syringe Administer Stelara 90mg/mL every 6 weeks by subcutaneous route - Active VITAMINS (unknown strength) take 1 by Oral route every day Not Available - Active Procedures Procedure Date Therap/dx Inj; Subq/im Stelara Injection Routine Serum Collection Offic/outpt E&m Estab Mod-hi 2 24 Iv Infus Therap/dx-by Phys; To Stelara Injection Routine Serum Collection Therap/dx Inj; Subq/im Stelara Injection Therap/dx Inj; Subq/im Stelara Injection Therap/dx Inj; Subq/im Stelara Injection Therap/dx Inj; Subq/im Stelara Injection Routine Serum Collection Therap/dx Inj; Subq/im Stelara Injection Therap/dx Inj; Subq/im Stelara Injection Routine Serum Collection Ileoscpy-stoma; Dx W/wo Specmn FFS W/Submucosal Injection Sigmoidoscopy Flex; W/bx 1/mx 3 Level Iv-surg Path Gross/micro Therap/dx Inj; Subq/im Stelara Injection Therap/dx Inj; Subq/im Stelara Injection Routine Serum Collection Therap/dx Inj; Subq/im Stelara Injection HB Assess Or Reassessment Therap/dx Inj; Subq/im Stelara Injection Medical nutrition therapy, initial, each 15 minutes Routine Serum Collection Therap/dx Inj; Subq/im Stelara Injection Offic/outpt E&m Estab Mod-hi 2 Offic/outpt E&m Estab Mod-hi 2 22 Routine Serum Collection Iv Infus Therap/dx-by Phys; To 22 Stelara Infusion Ugi Endo; W/bx 1/mx Level Iv-surg Path Gross/micro Routine Serum Collection Routine Serum Collection Subsqt Hosp-da E&m Minr Compl 2 Init Inpt Cons New/est Mod-hi 2 Established Level 4 Routine Serum Collection Established Level 5 IV Infusion Up To 1 Hour Remicade Per 10 Mg Routine Serum Collection IV Infusion Up To 1 Hour Each Additional Hour Remicade Per 10 Mg Remicade Per 10 Mg Iv Infus Therap/dx-by Phys; To Venofer Iv Infus Therap/dx-by Phys; To Venofer Iv Infus Therap/dx-by Phys; To Venofer Iv Infus Therap/dx-by Phys; To Venofer IV Infusion Up To 1 Hour Each Additional Hour Remicade Per 10 Mg Remicade Per 10 Mg IV Infusion Up To 1 Hour Each Additional Hour Remicade Per 10 Mg Remicade Per 10 Mg Routine Serum Collection Offic/outpt E&m [facility] Mod-nv 4 Colonoscopy Flex; W/bx 1/mx Ugi Endo; W/bx 1/mx Level Iv-surg Path Gross/micro Immunocytochemistry, Each Antibody Offic/outpt E&m [facility] Mod-hi Routine Serum Collection Bld Ct; Hg/pltlt Ct Auto/compl Ag-immunoassay; Hep B Surface C-reactive Prot Comp Metabolic Panel Cyanocobalamin Vitamin D; 25 Hydroxy Offic/outpt E&m Estab Low-mod 6 Routine Serum Collection C-reactive Prot Vitamin D; 25 Hydroxy Hepatic Function Panel Bld Ct; Hg/pltlt Ct Auto/compl 16 Offic/outpt E&m Estab Mod-hi 2 16 Colonoscopy Flex; W/bx 1/mx Level Iv-surg Path Gross/micro 16 Routine Serum Collection Bld Ct; Hg/pltlt Ct Auto/compl 16 Hepatic Function Panel Offic/outpt E&m Estab Low-mod 6 Routine Serum Collection Immuniz Admin; 1/combo Vacc/to 16 Hepatitis A Vaccine Adult Dose 16 Immuniz Admin; 2/> Sing/comb V 16 [id number] Vaccine Immuniz Admin; 2/> Sing/comb V 16 Influenza vaccine-quadrivalent [address]; Hg/pltlt Ct Auto/compl 16 Hepatic Function Panel Prothrombin Time Offic/outpt E&m Estab Low-mod 5 Offic/outpt E&m Estab Mod-hi 2 15 Routine Serum Collection Bld Ct; Hg/pltlt Ct Auto/compl 15 C-reactive Prot Comp Metabolic Panel Vitamin D; 25 Hydroxy Offic/outpt E&m Estab Mod-hi 4 15 Routine Serum Collection Gg; Iga, Igd, Igg, Igm, Ea Bld Ct; Hg/pltlt Ct Auto/compl 15 Hepatitis A Antibody; Igg & Ig 15 Hepatic Function Panel C-reactive Prot Prothrombin Time Medical nutrition therapy, initial, each 15 minutes Routine Serum Collection Bld Ct; Hg/pltlt Ct Auto/compl 15 Hepatic Function Panel Prothrombin Time Gg; Ige Gg; Iga, Igd, Igg, Igm, Ea Offic/outpt E&m Estab Mod-hi 2 15 Routine Serum Collection Bld Ct; Hg/pltlt Ct Auto/compl 15 Cyanocobalamin C-reactive Prot Comp Metabolic Panel Ag-immunoassay; Hep B Surface 5 Vitamin D; 25 Hydroxy Hepatitis B Surface Antibody Hep B Core Antibody Routine Serum Collection Colonoscopy Flex; W/bx 1/mx Level Iv-surg Path Gross/micro 15 Init Hosp-da E&m Mod Severity 5 Subsqt Hosp-da E&m Minr Compl 5 Subsqt Hosp-da E&m Minr Compl 5 Subsqt Hosp-da E&m Minr Compl 5 Ugi Endo; W/bx 1/mx Level Iv-surg Path Gross/micro 15 Immunocytochemistry, Each Antibody Advance Directives Directive Yes / No Effective Date File Name No Information Encounters Encounter Description Practice Location Reason(s) For Visit Diagnoses Date Provider Providers Copied on Encounter [facility], [address] [address], [place], [place], [id number], [place] tel:[phone] [facility] No Information 4 Tamica Mcclain. [address] [address], [place], [place], [id number], [place]. tel:[phone] [facility], [address] [address], [place], [place], [address], [place] tel:[phone] [facility] [place] Crohn's disease of both small and lg int w/o complications 4 Demetri Borrego. [address] [address], [place], [place], [address], [place]. tel:[phone] Referring Provider: Referral Self, USE FOR SELF REFERRALS. [facility], [address] [address], [place], [id number], [place] tel:[phone] [facility] Crohn's disease of both small and lg int w/o complications 4 Tamica Mcclain. [address] [facility], [address], [address], [place]. tel:[phone] Referring Provider: Referral Self, USE FOR SELF REFERRALS. [facility], [address] [address], [place], [id number], [place] tel:[phone] [facility] No Information 4 Tamica Mcclain. [address] [facility], [address], [id number], [place]. tel:[phone] Offic/outpt E&m Estab Mod-hi 2 [facility], [address] [address], [place], [id number], [place] tel:[phone] [facility] GI Symptoms or Concerns (chief complaint) Previous History Review (chief complaint) Crohn's disease of both small and large intestine without complication 4 Tamica Mcclain. [address] [facility], [address], [id number], [place]. tel:[phone] Referring Provider: Referral Self, USE FOR SELF REFERRALS. [facility], [address] [address], [place], [id number], [place] tel:[phone] [facility] [place] Crohn's disease of both small and lg int w/o complications 4 Tamica Mcclain. [address] [facility], [facility] [address], [place], [address], [place]. tel:[phone] [facility], [address] [address], [place], [id number], [place] tel:[phone] [facility] Crohn's disease of both small and lg int w/o complications 0 4 Tamica Mcclain. [address] [facility], [address], [id number], [place]. tel:[phone] [facility], [address] [address], [place], [address], [place] tel:[phone] [facility] [place] Crohn's disease of both small and lg int w/o complications 4 Demetri Borrego. [address] [facility], [facility] [address], [place], [place], [address], [place]. tel:[phone] Referring Provider: Referral Self, USE FOR SELF REFERRALS. [facility], [address] [address], [place], [address], [place] tel:[phone] [facility] Crohn's disease of both small and lg int w/o complications 4 Tamica Mcclain. [address] [facility], [address], [id number], [place]. tel:[phone] Referring Provider: Referral Self, USE FOR SELF REFERRALS. [facility], [address] [address], [place], [address], [place] tel:[phone] [facility] [place] Crohn's disease of both small and lg int w/o complications 4 Tamica Mcclain. [address] [facility], [facility] [address], [place], [address], [place]. tel:[phone] [facility], [address] [address], [place], [address], [place] tel:[phone] [facility] [place] Crohn's disease of both small and lg int w/o complications 4 Demetri Borrego. [address] [facility], [facility] [address], [place], [address], [place]. tel:[phone] Referring Provider: Referral Self, USE FOR SELF REFERRALS. [facility], [address] [address], [place], [address], [place] tel:[phone] [facility] [place] Crohn's disease of both small and lg int w/o complications 4 Tamica Mcclain. [address] [facility], [facility] [address], [place], [address], [place]. tel:[phone] [facility], [address] [address], [place], [address], [place] tel:[phone] [facility] [place] Crohn's disease of both small and lg int w/o complications 4 Nazanin Humphrey. [address] [facility], [facility] [address], [place], [address], [place]. tel:[phone] Referring Provider: Referral Self, USE FOR SELF REFERRALS. [facility], [address] [address], [place], [address], [place] tel:[phone] [facility] [place] Crohn's disease of both small and lg int w/o complications 4 Tamica Mcclain. [address] [facility], [address], [id number], [place]. tel:[phone] [facility], [address] [address], [place], [address], [place] tel:[phone] [facility] [place] Crohn's disease of both small and lg int w/o complications 3 Flip Joyce. [address] [facility], [facility] [address], [place], [address], [place]. tel:[phone] Referring Provider: Referral Self, USE FOR SELF REFERRALS. [facility], [address] [address], [place], [address], [place] tel:[phone] [facility] [place] Crohn's disease of both small and lg int w/o complications 3 Tmaica Mcclain. [address] [facility], [facility] [address], [place], [address], [place]. tel:[phone] [facility], [address] [address], [place], [address], [place] tel:[phone] [facility] Crohn's disease of both small and large intestine with other complication 3 Tamica Mcclain. [address] [facility], [facility] [address], [place], [address], [place]. tel:[phone] [facility], [address] [address], [place], [address], [place] tel:[phone] [facility] [place] Crohn's disease of both small and lg int w/o complications 3 Bahman Ang. [address] [facility], [facility] [address], [place], [address], [place]. tel:[phone] Referring Provider: Johny Davey MD, [address] [facility] [address], [place], [address] . tel:[phone] [facility], [address] [address], [place], [address], [place] tel:[phone] [facility] Crohn's disease of both small and lg int w/o complications 3 Tamica Mcclain. [facility], [address], [id number], [place]. tel:[phone] Referring Provider: Referral Self, USE FOR SELF REFERRALS. [facility], [address] [address], [place], [address], [place] tel:[phone] [facility] Crohn's disease of both small and lg int w/o complications 0 3 Tamica Mcclain. [facility], [facility] [address], [place], [address], [place]. tel:[phone] [facility], [address] [address], [place], [address], [place] tel:[phone] [facility] [place] Crohn's disease of both small and lg int w/o complications 3 Flip Joyce. [address] [facility], [facility] [address], [place], [place], [address], [place]. tel:[phone] Referring Provider: Referral Self, USE FOR SELF REFERRALS. [facility], [address] [address], [place], [address], [place] tel:[phone] [facility] [place] Crohn's disease of both small and lg int w/o complications 3 Tamica Mcclain. [address] [facility], [facility] [address], [place], [address], [place]. tel:[phone] [facility], [address] [address], [place], [address], [place] tel:[phone] [facility] [place] Crohn's disease of both small and lg int w/o complications 3 Bahman Ang. [address] [facility], [facility] [address], [place], [address], [place]. tel:[phone] Referring Provider: Referral Self, USE FOR SELF REFERRALS. [facility], [address] [address], [place], [address], [place] tel:[phone] [facility] Crohn's disease of both small and lg int w/o complications 3 Tamica Mcclain. [address] [facility], [facility] [address], [place], [address], [place]. tel:[phone] Referring Provider: Referral Self, USE FOR SELF REFERRALS. [facility], [address] [address], [place], [address], [place] tel:[phone] [facility] [place] Crohn's disease of both small and lg int w/o complications 3 Tamica Mcclain. [address] [facility], [facility] [address], [place], [address], [place]. tel:[phone] [facility], [address] [address], [place], [address], [place] tel:[phone] [facility] GI Symptoms or Concerns (chief complaint) Crohn's disease of both small and lg int w oth complicationC rohn's disease of both small and large intestine with other complicationC rohn's disease of both small and lg int w oth complication 3 Tamica Mcclain. [address] [facility], [facility] [address], [place], [address], [place]. tel:[phone] Referring Provider: Referral Self, USE FOR SELF REFERRALS. [facility], [address] [address], [place], [address], [place] tel:[phone] [facility] [place] Crohn's disease of both small and lg int w/o complications 3 Gregorio Ponce. [address] [facility], [address], [id number], [place]. tel:[phone] Referring Provider: Referral Self, USE FOR SELF REFERRALS. [facility], [address] [address], [place], [address], [place] tel:[phone] [facility] Crohn's disease of both small and lg int w/o complications 3 Tamica Mcclain. [address] [facility], [address], [id number], [place]. tel:[phone] [facility], [address] [address], [place], [address], [place] tel:[phone] [facility] [place] Crohn's disease of both small and lg int w/o complications 3 Ashu Ruby. [address] [facility], [address], [id number], [place]. tel:[phone] Referring Provider: Referral Self, USE FOR SELF REFERRALS. [facility], [address] [address], [place], [address], [place] tel:[phone] [facility] Crohn's disease of both small and lg int w/o complications 3 Tamica Mcclain. [address] [facility], [facility] [address], [place], [address], [place]. tel:[phone] Referring Provider: Referral Self, USE FOR SELF REFERRALS. [facility], [address] [address], [place], [address], [place] tel:[phone] [facility] Crohn's disease of both small and lg int w/o complications Nov- 3 Tamica Mcclain. [address] [facility] [address], [place], [address], [place]. tel:[phone] [facility], [address] [address], [place], [address], [place] tel:[phone] [facility] Crohn's disease of both small and large intestine with other complication Apr-1 3 Tamica Mcclain. [address] [facility], [facility] [address], [place], [address], [place]. tel:[phone] [facility], [address] [address], [place], [address], [place] tel:[phone] [facility] [place] Crohn's disease of both small and lg int w/o complications Oct- 3 Nazanin Humphrey. [facility], [address], [id number], [place]. tel:[phone] Referring Provider: Referral Self, USE FOR SELF REFERRALS. [facility], [address] [address], [place], [address], [place] tel:[phone] [facility] Crohn's disease of both small and lg int w/o complications Sep- 3 Tamica Mcclain. [facility], [facility] [address], [place], [address], [place]. tel:[phone] [facility], [address] [address], [place], [address], [place] tel:[phone] [facility] GI Symptoms or Concerns (chief complaint) Crohn's disease of both small and lg int w oth complication Sep- 3 Tung Mariano PhD, LP Latoya. [address] [place] [address], [address], [address], [place]. tel:[phone] Referring Provider: Referral Self, USE FOR SELF REFERRALS. [facility], [address] [address], [place], [address], [place] tel:[phone] [facility] Crohn's disease of both small and lg int w/o complications 3 Tamica Mcclain. [address] [facility], [facility] [address], [place], [place], [address], [place]. tel:[phone] Referring Provider: Referral Self, USE FOR SELF REFERRALS. [facility], [address] [address], [place], [address], [place] tel:[phone] [facility] [place] Crohn's disease of both small and lg int w/o complications 3 Cabrera Carrasco. [address] [facility], [facility] [address], [place], [address], [place]. tel:[phone] Referring Provider: Referral Self, USE FOR SELF REFERRALS. [facility], [address] [address], [place], [address], [place] tel:[phone] [facility] Crohn's disease of both small and large intestine without complication 3 Tamica Mcclain. [address] [facility], [address], [address], [place]. tel:[phone] [facility], [address] [address], [place], [address], [place] tel:[phone] [facility] GI Symptoms or Concerns (chief complaint) Crohn's disease of both small and large intestine without complicationD ietary counseling and surveillance 2 Trav Klein. [address] [facility], [address], [address], [place]. tel:[phone] Referring Provider: Referral Self, USE FOR SELF REFERRALS. [facility], [address] [address], [place], [address], [place] tel:[phone] [facility] [place] Crohn's disease of both small and large intestine without complicationC rohn's disease of both small and lg int w oth complication 2 Teresa Lim. [address] [facility], [facility] [address], [place], [address], [place]. tel:[phone] Referring Provider: Referral Self, USE FOR SELF REFERRALS. [facility], [address] [address], [place], [address], [place] tel:[phone] [facility] [place] Crohn's disease of both small and large intestine without complication 2 Tamica Mcclain. [address] [facility], [address], [address], [place]. tel:[phone] Offic/outpt E&m Estab Mod-hi 2 [facility], [address] [address], [place], [address], [place] tel:[phone] [facility] GI Symptoms or Concerns (chief complaint) Previous History Review (chief complaint) Crohn's disease of both small and large intestine with other complication 2 Tamica Mcclain. [address] [facility], [address], [address], [place]. tel:[phone] Referring Provider: Referral Self, USE FOR SELF REFERRALS. Offic/outpt E&m Estab Mod-hi 2 [facility], [address] [address], [place], [address], [place] tel:[phone] [facility] GI Symptoms or Concerns (chief complaint) Previous History Review (chief complaint) Crohn's disease of both small and large intestine without complication 2 Tamica Mcclain. [address] [facility], [address], [address], [place]. tel:[phone] Referring Provider: Referral Self, USE FOR SELF REFERRALS. [facility], [address] [address], [place], [address], [place] tel:[phone] [facility] [place] Crohn's disease of both small and lg int w/o complications Apr-2 2 Teresa Lim. [address] [facility], [address], [address], [place]. tel:[phone] Referring Provider: Referral Self, USE FOR SELF REFERRALS. [facility], [address] [address], [place], [address], [place] tel:[phone] [facility] Crohn's disease of both small and large intestine without complication Sep-1 2 Tamica Mcclain. [address] [facility], [address], [place], [place], [address], [place]. tel:[phone] [facility], [address] [address], [place], [address], [place] tel:[phone] [facility] GI Symptoms or Concerns (chief complaint) Abdominal pain, unspecified abdominal locationUnspe cified abdominal pain Sep-0 2 Tamica Mcclain. [address] [facility], [address], [place], [place], [address], [place]. tel:[phone] Referring Provider: Referral Self, USE FOR SELF REFERRALS. [facility], [address] [address], [place], [address], [place] tel:[phone] [facility] Epigastric abdominal pain Sep-0 2 Tamica Mcclain. [address] [facility], [address], [place], [address], [place]. tel:[phone] [facility], [address] [address], [place], [address], [place] tel:[phone] [facility] Crohn's disease of both small and lg int w/o complications Sep-0 2 Tamica Mcclain. [address] [facility], [facility] [address], [place], [address], [place]. tel:[phone] Referring Provider: Referral Self, USE FOR SELF REFERRALS. [facility], [address] [address], [place], [address], [place] tel:[phone] [facility] Crohn's disease of both small and lg int w/o complications Aug-3 2 Tamica Mcclain. [address] [facility], [address], [place], [address], [place]. tel:[phone] Referring Provider: Referral Self, USE FOR SELF REFERRALS. [facility], [address] [address], [place], [address], [place] tel:[phone] [facility] Crohn's disease of both small and large intestine without complication 2 Tamica Mcclain. [address] [facility], [facility] [address], [place], [address], [place]. tel:[phone] Subsqt Hosp-da E&m Minr Compl [facility], [address] [address], [place], [address], [place] tel:[phone] [facility] No Information 2 Bud Fernandez. [address] [facility], [facility] 500, [place], [place], [address], [place]. tel:[phone] Referring Provider: Rebecca Pulliam, [address] [facility] 500, [place], [address] . tel:[phone] Init Inpt Cons New/est Mod-hi [facility], [address] [address], [place], [address], [place] tel:[phone] [facility] No Information 2 Enriqueta Sauceda. [address] [facility], [facility] 500, [place], [place], [address], [place]. tel:[phone] Referring Provider: Marie LALA, [id number] [place] [address], [address]. tel:[phone] Established Level 4 [facility], [address] [address], [place], [address], [place] tel:[phone] [facility] GI Symptoms or Concerns (chief complaint) Previous History Review (chief complaint) Crohn's disease of both small and large intestine without complication 2 Tamica Mcclain. [address] [facility], [facility] [address], [place], [address], [place]. tel:[phone] Referring Provider: Referral Self, USE FOR SELF REFERRALS. [facility], [address] [address], [place], [address], [place] tel:[phone] [facility] Crohn's disease of both small and lg int w/o complications Mckinley-1 7-202 2 Zackery Aguirre. [address] [facility], [place] [address], [place], [address], [place]. tel:[phone] Referring Provider: Referral Self, USE FOR SELF REFERRALS. Established Level 5 [facility], [address] [address], [place], [address], [place] tel:[phone] [facility] GI Symptoms or Concerns (chief complaint) Crohn's disease of both small and lg int w/o complications 2 Zackery Aguirre. [address] [facility], [facility] [address], [place], [address], [place]. tel:[phone] Referring Provider: Referral Self, USE FOR SELF REFERRALS. [facility], [address] [address], [place], [address], [place] tel:[phone] [facility] [place] Crohn's disease of both small and lg int w/o complications 2 Skylar Duron. [address] [facility], [place] [address], [place], [address], [place]. tel:[phone] Referring Provider: Referral Self, USE FOR SELF REFERRALS. [facility], [address] [address], [place], [address], [place] tel:[phone] [facility] Iron deficiency anemia secondary to blood loss (chronic) 2 Tamica Mcclain. [address] [facility], [facility] [address], [place], [address], [place]. tel:[phone] Referring Provider: Referral Self, USE FOR SELF REFERRALS. [facility], [address] [address], [place], [address], [place] tel:[phone] [facility] No Information 1 Tamica Mcclain. [address] [facility], [place] [address], [place], [place], [address], [place]. tel:[phone] [facility], [address] [address], [place], [address], [place] tel:[phone] [facility] [place] Crohn's disease of both small and lg int w/o complications 1 Skylar Duron. [address] [place] [address], [id number], [place]. tel:[phone] Referring Provider: Referral Self, USE FOR SELF REFERRALS. [facility], [address] [address], [place], [address], [place] tel:[phone] [facility] No Information 1 Tamica Mcclain. [address] [place] [address], [facility] [address], [place], [address], [place]. tel:[phone] [facility], [address] [address], [place], [address], [place] tel:[phone] [facility] [place] Iron deficiency anemia secondary to blood loss (chronic) 1 Skylar Duron. [address] [place] [address], [id number], [place]. tel:[phone] Referring Provider: Referral Self, USE FOR SELF REFERRALS. [facility], [address] [address], [place], [address], [place] tel:[phone] [facility] [place] Iron deficiency anemia secondary to blood loss (chronic) 1 Kushal Biggs. [address] [place] [address], [id number], [place]. tel:[phone] Referring Provider: Referral Self, USE FOR SELF REFERRALS. [facility], [address] [address], [place], [address], [place] tel:[phone] [facility] [place] Iron deficiency anemia secondary to blood loss (chronic) 1 Shell Olmos. [address] [place] [address], [address], [address], [place]. tel:[phone] Referring Provider: Referral Self, USE FOR SELF REFERRALS. [facility], [address] [address], [place], [address], [place] tel:[phone] [facility] [place] Iron deficiency anemia secondary to blood loss (chronic) Oct-0 1 Juanjose Carlisle. [address] [facility], [address], [address], [place]. tel:[phone] Referring Provider: Referral Self, USE FOR SELF REFERRALS. [facility], [address] [address], [place], [address], [place] tel:[phone] [facility] [place] Crohn's disease of both small and lg int w/o complications Sep-2 1 Mau Mclain. [address] [facility], [facility] [address], [place], [address], [place]. tel:[phone] Referring Provider: Referral Self, USE FOR SELF REFERRALS. [facility], [address] [address], [place], [address], [place] tel:[phone] [facility] [place] Crohn's disease of both small and lg int w/o complications Sep-1 1 Tamica Mcclain. [address] [facility], [facility] [address], [place], [address], [place]. tel:[phone] Referring Provider: Referral Self, USE FOR SELF REFERRALS. [facility], [address] [address], [place], [address], [place] tel:[phone] [facility] No Information Sep- 1 Jackie Kelly. [address] [facility], [facility] [address], [place], [address], [place]. tel:[phone] [facility], [address] [address], [place], [address], [place] tel:[phone] [facility] Iron deficiency anemia due to chronic blood loss Sep-0 1 Tamica Mcclain. [address] [facility], [facility] 500, [place], [place], [address], [place]. tel:[phone] Offic/outpt E&m Estab Mod-hi 4 [facility], [address] [address], [place], [place], [address], [place] tel:[phone] [facility] GI Symptoms or Concerns (chief complaint) Crohn's disease of both small and large intestine without complication 1 Tamica Mcclain. [address] [place] [address], [facility] [address], [place], [address], [place]. tel:[phone] Referring Provider: Referral Self, USE FOR SELF REFERRALS. [facility], [address] [address], [place], [address], [place] tel:[phone] [facility] Anemia, unspecifiedCr ohn's disease of colon with complicationC rohn's disease of large intestine with unsp complications Anemia, unspecified 1 Marily Rodriguez. [address] [place] [address], [facility] [address], [place], [address], [place]. tel:[phone] [facility], [address] [address], [place], [address], [place] tel:[phone] [facility] No Information 1 Jackie Kelly. [address] [facility], [facility] 500, [place], [place], [address], [place]. tel:[phone] [facility], [address] [address], [place], [address], [place] tel:[phone] [facility] Calculus of gallbladder and bile duct without cholecystitis or obstructionAn emia, unspecified type 1 No Information Offic/outpt E&m [facility], [address] [address], [place], [address], [place] tel:[phone] [facility] GI Symptoms or Concerns (chief complaint) Additional Narrative (chief complaint) Crohn's disease of both small and large intestine with other complicationG eneralized abdominal painAcute midline low back pain without sciaticaDiarr hea, unspecified typeErythema nodosum 1 No Information Referring Provider: [place], [address] [place], [address]. tel:[phone] Offic/outpt E&m Estab Low-mod [facility], [address] [address], [place], [address], [place] tel:[phone] [facility] GI Symptoms or Concerns (chief complaint) Crohn's disease of both small and large intestine without complicationD ietary counseling and surveillance 6 Tamica Mcclain. [address] [place] [address], [facility] [address], [place], [address], [place]. tel:[phone] Referring Provider: Referral Self, USE FOR SELF REFERRALS. Offic/outpt E&m Estab Mod-hi 2 [facility], [address] [address], [place], [address], [place] tel:[phone] [facility] GI Symptoms or Concerns (chief complaint) Crohn's disease of both small and large intestine without complication 6 Tamica Mcclain. [address] [place] [address] [address], [place], [address], [place]. tel:[phone] Referring Provider: Yasmine Cleveland, [address], [place], [address]. tel:[phone] [facility], [address] [address], [place], [address], [place] tel:[phone] [facility] Crohn's disease of both small and lg int w/o complications Inflammatory polyps of colon without complications Crohn's disease of both small and lg int w/o complications 6 No Information Referring Provider: Yasmine Cleveland, [address], [place], [address]. tel:[phone] [facility], [address] [address], [place], [address], [place] tel:[phone] [facility] Crohn's disease of both small and large intestine without complication 6 No Information Referring Provider: Referral Self, USE FOR SELF REFERRALS. Offic/outpt E&m Estab Low-mod [facility], [address] [address], [place], [address], [place] tel:[phone] [facility] GI Symptoms or Concerns (chief complaint) Crohn's disease of both small and large intestine without complication 6 Tamica Mcclain. [address] [facility], [address], [id number], [place]. tel:[phone] Referring Provider: Yasmine Josuel, [address], [place], [address]. tel:[phone] Offic/outpt E&m Estab Low-mod [facility], [address] [address], [place], [address], [place] tel:[phone] [facility] GI Symptoms or Concerns (chief complaint) Perianal lesionCrohn's disease of both small and large intestine without complicationD ietary counseling and surveillance 5 No Information Referring Provider: Referral Self, USE FOR SELF REFERRALS. Offic/outpt E&m Estab Mod-hi 2 [facility], [address] [address], [place], [address], [place] tel:[phone] [facility] GI Symptoms or Concerns (chief complaint) Crohn's disease of both small and large intestine without complication 5 No Information Referring Provider: Referral Self, USE FOR SELF REFERRALS. Offic/outpt E&m Estab Mod-hi 4 [facility], [address] [address], [place], [address], [place] tel:[phone] [facility] GI Symptoms or Concerns (chief complaint) Crohn's Small/large Intestine Apr- 5 Tamica Mcclain. [address] [facility], [facility] [address], [place], [address], [place]. tel:[phone] Referring Provider: Referral Self, USE FOR SELF REFERRALS. [facility], [address] [address], [place], [address], [place] tel:[phone] [facility] Abdominal Pain 5 Thomas Burgos. [address] [facility], [facility] [address], [place], [address], [place]. tel:[phone] Referring Provider: Referral Self, USE FOR SELF REFERRALS. [facility], [address] [address], [place], [address], [place] tel:[phone] [facility] No Information 5 No Information Referring Provider: Yasmine Cleveland, [address], [place], [address]. tel:[phone] [facility], [address] [address], [place], [address], [place] tel:[phone] [facility] Abn Blood Chemistry NecCrohn's Small/large Intestine 5 No Information Referring Provider: Yasmine Cleveland, [address], [place], [address]. tel:[phone] [facility], [address] [address], [place], [address], [place] tel:[phone] [facility] Crohn's Small/large IntestineAbn Blood Chemistry Nec 5 No Information Offic/outpt E&m Estab Mod-hi 2 [facility], [address] [address], [place], [address], [place] tel:[phone] [facility] GI Symptoms or Concerns (chief complaint) Abdominal PainGastritis Crohn's Small/large IntestineDiar jan 5 No Information Referring Provider: Referral Self, USE FOR SELF REFERRALS. [facility], [address] [address], [place], [address], [place] tel:[phone] [facility] Regional Enteritis Nos 5 No Information [facility], [address] [address], [place], [address], [place] tel:[phone] [facility] Regional Enteritis NosRegional Enteritis Nos 5 No Information Referring Provider: Yasmine Cleveland, [address], [place], [address]. tel:[phone] Init Hosp-da E&m Mod Severity [facility], [address] [address], [place], [address], [place] tel:[phone] [facility] No Information 5 Skylar Duron. [address] [facility], [facility] [address], [place], [address], [place]. tel:[phone] Referring Provider: Yasmine Cleveland, [address], [place], [address]. tel:[phone] [facility], [address] [address], [place], [address], [place] tel:[phone] [facility] Gastric/antra l Ulcer UnspecGastric ulcerGastric ulcerAbdomina l PainNausea And VomitingRegio nal Enteritis NosGastritisA bdominal PainRegional Enteritis Nos 5 Deven Edwards. [address] [facility], [facility] [address], [place], [address], [place]. tel:[phone] Referring Provider: Yasmine Cleveland, [address], [place], [address]. tel:[phone] Family History Family Member Type Diagnosis Age At Onset Father Problem (finding) Alive and well Son Problem (finding) Alive and well Father Problem (finding) Colon polyps Mother Problem (finding) Alive and well Brother Problem (finding) Alive and well Immunizations Vaccine Date Status Comments SARS-COV-2 (COVID-19) vaccine, mRNA, spike protein, LNP, preservative free, 30 mcg/0.3mL dose administered Note: [facility] bi-direct ional interface ; Source: Other Registry SARS-COV-2 (COVID-19) vaccine, mRNA, spike protein, LNP, preservative free, 30 mcg/0.3mL dose administered Note: [facility] bi-direct ional interface ; Source: Other Registry Pneumo (2 yrs or older)(PPV) not administ ered Note: old order ; Source: New Immunization Record Influenza virus vaccine, injectable, quadrivalent, split virus, preservative free, 3 years or older Fluarix Quad not administered Note: old order ; Source: New Immunization Record Afluria Qd administered Note: [facility] bi-directional interface ; Source: Other Registry Afluria Qd administered Note: [facility] bi-directional interface ; Source: Other Registry Afluria Qd administered Note: [facility] bi-directional interface ; Source: Other Registry Human Papillomavirus 9-wander t vaccine administered Note: [facility] bi-direct ional interface ; Source: Other Registry Afluria Qd administered Note: [facility] bi-directional interface ; Source: Other Registry Prevnar 13 administered Note: [facility] bi-d irectional interface ; Source: Other Registry Havrix administered Note: [facility] bi-d irectional interface ; Source: Other Registry Hep A (adult) administered Source: New Im munization Record Pneumococcal conjugate PCV 13 administere d Source: New Immunization Record Influenza virus vaccine, injectable, quadrivalent, split virus, preservative free, 3 years or older Fluarix Quad not administered Note: old order ; Source: New Immunization Record Influenza virus vaccine, injectable, quadrivalent, split virus, preservative free, 3 years or older Fluarix, Flulaval or Fluzone Quad administered Note: Invalid docume nted admin date was NULL/NULL/2013. ; Source: Other Provider human papilloma virus vaccine, quadrivalent administered Note: [facility] bi-dire ctional interface ; Source: Other Registry tetanus toxoid, reduced diphtheria toxoid, and acellular pertussis vaccine, adsorbed administered Note: [facility] bi-direct ional interface ; Source: Other Registry tetanus toxoid, reduced diphtheria toxoid, and acellular pertussis vaccine, adsorbed administered Note: [facility] bi-direct ional interface ; Source: Other Registry human papilloma virus vaccine, quadrivalent administered Note: [facility] bi-dire ctional interface ; Source: Other Registry Influenza, seasonal, injectable administered Note: [facility] bi-direct ional interface ; Source: Other Registry meningococcal polysaccharide (groups A, C, Y and W-135) diphtheria toxoid conjugate vaccine (MCV4P) administered Note: [facility] bi-direct ional interface ; Source: Other Registry Energix Pediatric administered Note: [facility] bi-directional interface ; Source: Other Registry Energix Pediatric administered Note: [facility] bi-directional interface ; Source: Other Registry hepatitis B vaccine, unspecified formulation administered Note: [facility] bi-di rectional interface ; Source: Other Registry tetanus and diphtheria toxoids, adsorbed, preservative free, for adult use (2 Lf of tetanus toxoid and 2 Lf of diphtheria toxoid) administered Note: [facility] bi-direct ional interface ; Source: Other Registry measles, mumps and rubella virus vaccine administered Note: [facility] bi-direct ional interface ; Source: Other Registry DTP-Haemophilus influenzae type b conjugate vaccine administered Note: [facility] bi-d irectional interface ; Source: Other Registry measles, mumps and rubella virus vaccine administered Note: [facility] bi-direct ional interface ; Source: Other Registry Payers Payer name Insurance type Covered constitution party ID Authorelias katz(s) [facility] [id number] [facility] [id number] [facility] CI [id number] [facility] [id number] Social History Type Description Quantity Date Captured Comments Alcohol Use Details Unknown Caffeine Use Details Unknown Tobacco Use Status No Information Smoking Status No Information Sex Female Chief Complaint And Reason For Visit No Information Reason For Referral Reason For Referral No Information Plan Of Treatment Date Type Action Status Goal Lifestyle education regardin g diet completed Goal Lifestyle education regardin g diet completed Referral Ordered: Vitamin B12 Serum Appointment date/timeframe: 01/07/2024 ordered Referral Ordered: referred to Aditi Kothari MD [facility] Crohn's, ostomy take-down within 6 Weeks Appointment date/timeframe: 02/04/2023 ordered Referral Ordered: Ileoscopy Appointment date/timeframe: 03/03/2023 ordered Referral Ordered: referred to Latoya Mariano PhD LP [facility] therapist Crohn's disease within 3 Months Appointment date/timeframe: 3 Months ordered Referral Ordered: Flexible Sigmoidoscopy Appointment date/timeframe: 09/01/2022 ordered Referral Ordered: follow-up visit with Johny Davey MD in 3 Months or by 10/01/2022 Appointment date/timeframe: 3 Months ordered Referral Ordered: referred to [facility] [employer] Mediterranean diet/ok for fiber within 6 Weeks Appointment date/timeframe: 42 Days ordered Referral Ordered: MRI Enterography With Contrast Per Radiology Appointment date/timeframe: 04/30/2022 ordered Referral Ordered: Adalimumab Concentration and Anti Adalimumab Antibody Appointment date/timeframe: 04/21/2022 ordered Referral Ordered: follow-up visit with Johny Davey MD in 2-3 months Appointment date/timeframe: 2-3 months ordered Referral Ordered: Modify IBD Disease Management Protocol Appointment date/timeframe: First Available ordered Referral Ordered: Administer 2 doses of 500mg Injectafer by IV route at least 7 days apart over at least 15 minutes ordered Referral Ordered: EGD Appointment date/timeframe: 04/18/2021 ordered Referral Ordered: referred to Mar Oh MD Surgery gallstones Appointment date/timeframe: 03/21/2021 ordered Referral Ordered: CT Abdomen And Pelvis WITH Contrast Appointment date/timeframe: 02/28/2021 ordered Referral Ordered: C-Reactive Protein Appointment date/timeframe: 05/28/2016 ordered Referral Ordered: Vitamin D, 25-Hydroxy Appointment date/timeframe: 05/28/2016 ordered Referral Ordered: follow-up visit with Rashaun LALA or Dr. Davey in 6 Months Appointment date/timeframe: 6 Months ordered Referral Ordered: Colonoscopy Appointment date/timeframe: 01/29/2016 ordered Referral Ordered: Financial Counselor Review Appointment date/timeframe: -today ordered Referral Ordered: PT/INR Appointment date/timeframe: 03/08/2015 ordered Referral Ordered: Ultrasound Abdomen Appointment date/timeframe: 03/04/2015 ordered Referral Ordered: Hep B surface Ag Appointment date/timeframe: -today ordered Referral Ordered: follow-up visit with IBD provider 1st convenience Appointment date/timeframe: 1st convenience ordered Appointment Irma Michelle BOOKED Appointment Irma Michelle BOOKED Future Order: Lab Order Antimito chondrial Ab (AMA), Qn ([id number]), Body Site: Right Antecubital Fossa, Appointment on: Ordered History Of Present Illness Encounter Date Complaint History Of Prese nt Illness GI Symptoms or Concerns Previous History Review -------- -------Previous IBD history is detailed below:Irma has upper GI, ileal and colonic Crohn's disease that was diagnosed in 2014.SURGERIESRight hemicolectomy with ileostomy and long Denisha's pouch, some residual mild inflammation in descending colon, May 2022 ([facility])Ileostomy take down and ileocolonic anastomosis, 2022: await op report and path.ENDOSCOPIESColonoscopy, March 2021: Normal terminal ileum advanced 10 to 12 cm. There are deep serpiginous ulcers in the cecum, ascending and transverse colon with severe inflammation. There was moderate inflammation with deep ulcers in the descending and sigmoid colon. The rectum was normal. Biopsies showed patchy marked active chronic colitis with erosion consistent with Crohn's disease in all segments, CMV was negative.Upper endoscopy, April 2022: Normal esophagus, stomach and duodenum. Gastric and duodenal biopsies normal. IMAGINGAbdominopelvic CT scan with contrast, February 2021: No small bowel or colonic abnormality. Gallstones in the gallbladder lumen with 1 or 2 stones possibly in the cystic duct. No bile duct dilation.A/P CT: perforation, May 2022. Report not availableTREATMENTExcellent response to prednisone in the past.No prior immunomodulator.Humira used 40 mg every other week from 2014 to 2018, she stopped while , but had an excellent response.Remicade 2020 - 4 doses, stopped due to lack of insurance, achieved a clinical remission on this.Failed Humira and azathioprine combo therapy in 2021.CURRENT TREATMENTStelara 90mg every 8 weeks, started in April 2022HEALTHCARE MAINTENANCEInfluenza vaccine yearly. Pneumococcal and Prevnar vaccine done in 2015, will need a repeat pneumococcal vaccine at a future visit. The patient is immune to hepatitis B based on serology in 2012. Hepatitis A vaccine completed in 2014. Varicella status uncertain. COVID status uncertain.Vitamin D was low at 26 in 2020.Vitamin B12 was normal, 2021. 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 GI Symptoms or Concerns GI Symptoms or Concerns Length o f Session: 50 min (face to face with patient)Start Time: 9:15amStop Time: 10:05am*Pt arrived 30 minutes late due to arriving at the wrong clinic. Today's visit was abbreviated due to time constraints.*IDENTIFYING DATA/REASON FOR REFERRAL: Ms. Michelle is a 31 year old, White, female who was referred to GI psychology by her instructional designer, Dr. Davey, for brain-gut therapy to reduce GI symptoms and associated distress, enhance coping with and management of GI symptoms, and improve quality of life.Ms. Michelle reported she was first diagnosed with Crohn's disease in 2014. She explained she has had recent complications after she had a perforation in May 2022 and underwent an emergent hemicolectomy and ileostomy placement; please see a detailed review of her GI history in Dr. Davey's most recent clinic note dated 07/01/22. Today, Ms. Michelle reported she continues to experience severe pain (rating of 5/10) on the right side of her abdomen every couple of days. She reported she also experiences significant fatigue, nausea, and watery stool in her ileostomy. She reported she receives Stelara infusions every 8 weeks, though she is uncertain what benefit she is getting from this medication. She explained she is scheduled to meet with the surgeon in November 2022 to discuss take down of her ileostomy. Please see additional details regarding her GI history in the EHR. FUNCTIONAL ASSESSMENT OF HEALTH CONDITIONResponse to GI Condition: In response to her Crohn's disease and most recent complications, she said, It been tough... It has taken away my life. She reported worry and anger about her Crohn's disease and ileostomy. [place]: She reported she is generally hopeful about future improvements in her Crohn's disease. Current Coping Strategies: She reported she seeks emotional support from her mother and fiance to cope. Goals/Motivations: She stated her goals are to be healthy enough to work, physically active, and engaged with her son. Additionally, she stated her goals are to have her ileostomy taken down. Previous strategies used for change: Per chart and patient report, she has primarily been treated with biologics and surgical interventions. She reported she has also been attempting to follow a Mediterranean diet. Barriers to change: She described finances as a barrier to eating a healthier diet to support management of her Crohn's disease. Exacerbation of GI condition: She identified various relational and psychosocial stressors as contributing factors to worsened nausea and GI symptoms in the past. Changes in functioning reported in: She described limiting her activity and overall functioning due to her ileostomy (particularly activities with her young son, such as swimming). She reported she has also stopped exercising, working, and socializing as regularly due to her Crohn's disease. Lifestyle: She described difficulty with sleep maintenance and onset. She reported she does not feel rested during the day. She reported she does not exercise regularly. Gastrointestinal Quality of Life Index (Total Score): 93MENTAL HEALTH SCREENINGPast Psychiatric History: She reported a history of depression and anxiety. She reported she sees a counselor through the [facility] in [place], [place] on a weekly basis, but denied participation in psychotherapy; the exact role of her counselor and nature of the services Ms. Michelle was receiving was unclear despite inquiry. She reported a history of using Fluoxetine in the past; she denied any current psychiatric medication use. She reported a history of one psychiatric hospitalization more than one year ago. Eating Disorder Screening: Patient denied past eating disorder diagnosis or treatment. She denied any current or past binging or purging behaviors. Today, she described current and longstanding poor body image and current restricting behavior due to fear of weight gain. She noted she will elect to not eat for a day if she notes that her weight has gone up. She explained she lost a significant amount of weight over the last year due to Crohn's related complications and she has been fearful of regaining weight. A comprehensive eating disorder evaluation was outside of the scope of today's consultation and this provider's expertise; further, specialized eating disorder assessment is indicated.Mood And Anxiety Screening: Mood and anxiety symptoms DO appear to be contributing to current GI symptoms. She reported her mood and anxiety symptoms are "through the roof right now. Please see PHQ9 and GAD7 scores below. RISK ASSESSMENT1. In the past month, have you wished you were or wished you could go to sleep and not wake up? No2. In the past month, have you actually had any thoughts of killing yourself? No3. Have you ever done anything, started to do anything, or prepared to do anything to end your life? Yes - One year ago, she reported a suicide attempt via alcohol poisoning. She reported she was hospitalized after this attempt. Patient denied current or recent suicidal or self-injurious ideation, intent or plan. Patient has a history of one previous suicide attempt via alcohol poisoning as described above. Today, she identified her 3 year old son as her primary protective factor, she was future oriented, reported very occasional and limited alcohol use (see below), described having social support from her mother and fiance, and stated her willingness to utilize her supports if she were to be in acute distress in the future. Today, she was provided with emergency mental health resources and agreed to utilize these resources if she was in acute distress in the future. Based on these factors, the patient was determined to be sustainable as an outpatient at this time. Patient denied current violent or homicidal ideation, intent, plan, or behavior. CHEMICAL HEALTH HISTORY:Active substance use: She reported drinking two alcoholic drinks, every few months. She denied any current drug use. She reported smoking 5-6 cigarettes per week. Past Problematic Substance Use: Denied. CD treatment history: Denied. AUDIT: See score belowDAST-10 (Total Score): Patient did not complete. SOCIAL HISTORY: She lives with her fiance and her 3 year old son (part-time; she shares custody with her ex-). She is not currently working. She reported having strong social support from her family and kevin. She identified relational stress related to her divorce and shared custody with her son's father as well as financial stress related to being unable to work due to her Crohn's symptoms. 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 Finally, she described emotional distress related to spiritual uncertainty and exploration. Progress Towards Treatment Goals:Patient will be taught GI-focused cognitive and behavioral strategies in order to reduce exacerbations in and impairment with GI symptoms. Progress towards treatment goals will be tracked in future visits.Patient Education:Patient was educated about the purpose of the initial consultation, integrated care team, shared medical record (including communication with PCP), limits of confidentiality, gut-brain interaction, and rationale for GI-focused psychological treatment. Patient was given handouts on [facility] GI Health Psychology Services, patient rights, and mental health crisis resources. Patient was given an opportunity to ask questions. Patient expressed understanding of and agreement with this information. Informed consent was obtained. GI Symptoms or Concerns New Christina ent Nutrition AssessmentAnthropometrics: Patient reports weight is stable, maybe has gained a pound or so recently. Food and Exercise History: Diet Recall: Breakfast: Egg and gluten free indonesian muffinLunch: Chicken, pasta, almond milkDinner: Pot roast with carrots, almond milkNutrition Diagnosis: Food and nutrition related knowledge deficit related to IBD nutrition and Mediterranean Diet as evidenced by patient request for information. Nutrition Discussion and Education: Met with patient and kevin in office today. Patient has a complicated recent medical history including Crohn's of both large and small intestine with perforation and emergent right hemicolectomy and ileostomy placement this past May. Patient tells me ileostomy is still present, she has a follow up appointment scheduled for November to evaluate for possible take down. She reports adequate stool output from ostomy, today seems a bit loose to her and she did experience some cramping this morning. She is trying to consume small frequent meals. Has been avoiding gas forming foods. She is interested in learning about the Mediterranean diet and we discussed this today. We also discussed the basics of IBD nutrition and how to merge these principles with those of the Mediterranean diet. Kevin is involved and very supportive. Questions have been answered to their satisfaction, they are welcome to follow ups as needed. Previous History Review Previous IBD history is detailed below:Patient's upper GI, ileal and colonic Crohn's disease was diagnosed in 2014.SURGERIESRight hemicolectomy with ileostomy and long Denisha's pouch, some residual mild inflammation in descending colon, May 2022 ([facility])ENDOSCOPIESColonoscopy, March 2021: Normal terminal ileum advanced 10 to 12 cm. There are deep serpiginous ulcers in the cecum, ascending and transverse colon with severe inflammation. There was moderate inflammation with deep ulcers in the descending and sigmoid colon. The rectum was normal. Biopsies showed patchy marked active chronic colitis with erosion consistent with Crohn's disease in all segments, CMV was negative.Upper endoscopy, April 2022: Normal esophagus, stomach and duodenum. Gastric and duodenal biopsies normal. IMAGINGAbdominopelvic CT scan with contrast, February 2021: No small bowel or colonic abnormality. Gallstones in the gallbladder lumen with 1 or 2 stones possibly in the cystic duct. No bile duct dilation.A/P CT: perforation, May 2022. Report not availableTREATMENTExcellent response to prednisone in the past.No prior immunomodulator.Humira used 40 mg every other week from 2014 to 2018, she stopped while , but had an excellent response.Remicade 2020 - 4 doses, stopped due to lack of insurance, achieved a clinical remission on this.Failed Humira and azathioprine combo therapy in 2021.CURRENT TREATMENTStelara 90mg every 8 weeks, started in April 2022HEALTHCARE MAINTENANCEInfluenza vaccine yearly. Pneumococcal and Prevnar vaccine done in 2015, will need a repeat pneumococcal vaccine at a future visit. The patient is immune to hepatitis B based on serology in 2012. Hepatitis A vaccine completed in 2014. Varicella status uncertain. COVID status uncertain.Vitamin D was low at 26 in 2020.Vitamin B12 was normal, 2021.QuantiFERON negative in January 2021.The patient's TPMT is 19.2, in 2020.Skin cancer screen evaluation every 1 to 2 years while on immunosuppression.Surveillance colonoscopy, every 2 years, due in 2022. Flex sig and ileoscopy, 5 months after surgeryOTHERSignificant elevation for liver enzymes in February 2013, normal in 2014, extensive serologic workup was negative. Previous History Review Previous IBD history is detailed below:Patient's upper GI, ileal and colonic Crohn's disease was diagnosed in 2014.SURGERIESRight hemicolectomy with ileostomy and long Denisha's pouch, some residual mild inflammation in descending colon, May 2022 ([facility])ENDOSCOPIESColonoscopy, March 2021: Normal terminal ileum advanced 10 to 12 cm. There are deep serpiginous ulcers in the cecum, ascending and transverse colon with severe inflammation. There was moderate inflammation with deep ulcers in the descending and sigmoid colon. The rectum was normal. Biopsies showed patchy marked active chronic colitis with erosion consistent with Crohn's disease in all segments, CMV was negative.Upper endoscopy, April 2022: Normal esophagus, stomach and duodenum. Gastric and duodenal biopsies normal. IMAGINGAbdominopelvic CT scan with contrast, February 2021: No small bowel or colonic abnormality. Gallstones in the gallbladder lumen with 1 or 2 stones possibly in the cystic duct. No bile duct dilation.A/P CT: perforation, May 2022. Report not availableTREATMENTExcellent response to prednisone in the past.No prior immunomodulator.Humira used 40 mg every other week from 2014 to 2018, she stopped while , but had an excellent response.Remicade 2020 - 4 doses, stopped due to lack of insurance, achieved a clinical remission on this.Failed Humira and azathioprine combo therapy in 2021.CURRENT TREATMENTStelara 90mg every 8 weeks, started in April 2022HEALTHCARE MAINTENANCEInfluenza vaccine yearly. Pneumococcal and Prevnar vaccine done in 2015, will need a repeat pneumococcal vaccine at a future visit. The patient is immune to hepatitis B based on serology in 2012. Hepatitis A vaccine completed in 2014. Varicella status uncertain. COVID status uncertain.Vitamin D was low at 26 in 2020.Vitamin B12 was normal, 2021.QuantiFERON negative in January 2021.The patient's TPMT is 19.2, in 2020.Skin cancer screen evaluation every 1 to 2 years while on immunosuppression.Surveillance colonoscopy, every 2 years, due in 2022. Flex sig and ileoscopy, 5 months after surgeryOTHERSignificant elevation for liver enzymes in February 2013, normal in 2014, extensive serologic workup was negative. Previous History Review GI Symptoms or Concerns Irma is a pleasant 31-year-old female, who is here with her family to clinic today for followup regarding Crohn's disease. She had an acute perforation of her colonic Crohn's disease in May of 2022. This occurred at an outside hospital, she was ultimately transferred to [facility], there was significant shortage of beds. She had an emergent right hemicolectomy and ileostomy at that time. She is doing quite well since that time. She reports that she has had to decrease the Imodium, because her stools were too formed in her ileostomy. She is now down to 1 pill with meals, but may go down to 1-2 pills per day.She is due for Stelara next Wednesday. This will occur without any interruption in the every 8-week dosing. GI Symptoms or Concerns Ms. Phoebe cedeno is a pleasant 31-year-old female, who presents for followup in clinic today regarding her Crohn' disease. She reports she is better after the first infusion. Previously, she was a 10/10 being the worst she has been for Crohn's disease. She is now at 6/10. She still has some abdominal pain. She has loose stools 4 times a day. No blood in the stool. No fevers. No weight loss.She did quit her job because they would not offer full-time position. 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 Previous History Review Previous IBD history is detailed below:[facility] upper GI, ileal and colonic Crohn's disease was diagnosed in 2014.SURGERIESNoneENDOSCOPIESColonoscopy, March 2021: Normal terminal ileum advanced 10 to 12 cm. There are deep serpiginous ulcers in the cecum, ascending and transverse colon with severe inflammation. There was moderate inflammation with deep ulcers in the descending and sigmoid colon. The rectum was normal. Biopsies showed patchy marked active chronic colitis with erosion consistent with Crohn's disease in all segments, CMV was negative.Upper endoscopy, April 2022: Normal esophagus, stomach and duodenum. Gastric and duodenal biopsies normal. IMAGINGAbdominopelvic CT scan with contrast, February 2021: No small bowel or colonic abnormality. Gallstones in the gallbladder lumen with 1 or 2 stones possibly in the cystic duct. No bile duct dilation.TREATMENTExcellent response to prednisone in the past.No prior immunomodulator.Humira used 40 mg every other week from 2014 to 2018, she stopped while , but had an excellent response.Remicade 2020 - 4 doses, stopped due to lack of insurance, achieved a clinical remission on this.Failed Humira and azathioprine combo therapy in 2021.CURRENT TREATMENTStelara 90mg every 8 weeks, started in April 2022HEALTHCARE MAINTENANCEInfluenza vaccine yearly. Pneumococcal and Prevnar vaccine done in 2015, will need a repeat pneumococcal vaccine at a future visit. The patient is immune to hepatitis B based on serology in 2012. Hepatitis A vaccine completed in 2014. Varicella status uncertain. COVID status uncertain.Vitamin D was low at 26 in 2020.Vitamin B12 was normal at 573 in 2020. Recheck today.QuantiFERON negative in January 2021.The patient's TPMT is 19.2, in 2020.Skin cancer screen evaluation every 1 to 2 years while on immunosuppression.Surveillance colonoscopy, every 2 years, due in 2022. Will try 6 months after Stelara.OTHERSignificant elevation for liver enzymes in February 2013, normal in 2014, extensive serologic workup was negative. GI Symptoms or Concerns GI Symptoms or Concerns Irma is a pleasant 31-year-old female who presents for virtual visit today. Today is more urgent visit. She is not doing well from a Crohn's standpoint. The patient was initially seen back in our clinic in 2020. At that time was having a significant flare. She had a remission on Humira, but stopped in 2018 because she became . After April 2021 visit, we started Remicade, prednisone, and she was given Venofer. She got 4 doses of Remicade and achieved a clinical remission. Unfortunately, her insurance stopped and she has not been able to get Remicade since early this year. She has had an ongoing significant flare requiring 2 rounds of prednisone. She recently was increased back up to 40 mg per day after having increased symptoms. She has been on prednisone 40 mg per day for last 3 days, and despite this, she has abdominal pain, diarrhea 15 stools a day, and significant fatigue. She has postprandial loose stools within 30 minutes. She has significant stress due to c Previous History Review Previous IBD history is detailed below:[facility] upper GI, ileal and colonic Crohn's disease was diagnosed in 2014.SURGERIESNoneENDOSCOPIESUpper endoscopy, March 2021: Normal esophagus, stomach and duodenum. Gastric biopsies normal. Duodenum biopsies normal.Colonoscopy, March 2021: Normal terminal ileum advanced 10 to 12 cm. There are deep serpiginous ulcers in the cecum, ascending and transverse colon with severe inflammation. There was moderate inflammation with deep ulcers in the descending and sigmoid colon. The rectum was normal. Biopsies showed patchy marked active chronic colitis with erosion consistent with Crohn's disease in all segments, CMV was negative.IMAGINGAbdominopelvic CT scan with contrast, February 2021: No small bowel or colonic abnormality. Gallstones in the gallbladder lumen with 1 or 2 stones possibly in the cystic duct. No bile duct dilation.TREATMENTExcellent response to prednisone in the past.No prior immunomodulator.Humira used 40 mg every other week from 2014 to 2018, she stopped while , but had an excellent response.Remicade 2020 - 4 doses, stopped due to lack of insurance, achieved a clinical remission on this.CURRENT TREATMENTPrednisone 40mg daily (went back up, at this dose for 3 days) with taper.Azathioprine 150mg dailyHEALTHCARE MAINTENANCEInfluenza vaccine yearly. Pneumococcal and Prevnar vaccine done in 2015, will need a repeat pneumococcal vaccine at a future visit. The patient is immune to hepatitis B based on serology in 2012. Hepatitis A vaccine completed in 2014. Varicella status uncertain. COVID status uncertain.Vitamin D was low at 26 in 2020.Vitamin B12 was normal at 573 in 2020.QuantiFERON negative in January 2021.The patient's TPMT is 19.2, in 2020.Skin cancer screen evaluation every 1 to 2 years while on immunosuppression.Surveillance colonoscopy, every 2 years.OTHERSignificant elevation for liver enzymes in February 2013, normal in 2014, extensive serologic workup was negative. GI Symptoms or Concerns This was a virtual visit with Ms. Irma Argueta. She consented to proceed with a virtual visit. She was at home for the visit. We spoke for 19 minutes and I spent additional time reviewing her extensive chart and coordinating her care.This is a followup in regards to Crohn's disease. She is currently experiencing flare symptoms. To review, she was diagnosed with Crohn's disease involving the colon in 2014. She was diagnosed and treated at the clinic. However, she moved to [place] in 2015 and then returned to [place] in the year 2019. She last saw Dr. Davey in clinic on 04/29/2021 in the setting of a flare. Prior to the flare, she was actually treated with Humira from 2014 from the time of diagnosis until 2018 when she became and was stopped at that point for unclear reasons. She was out of therapy until she was seen by Dr. Davey in April 2021, at which time she was experiencing severe symptoms. She underwent a colonoscopy at that time that showed a norm GI Symptoms or Concerns Irma is a pleasant 30-year-old female who presents for followup in my clinic today regarding her Crohn's disease. The patient was seen in our office up until 2015, then she moved to [place] and returned back to [place] about a year ago. She had significant improvement on Humira, but stopped in 2018 when she became . She presented to our office earlier this summer with significant flare. Overall, she was having constant diarrhea, her weight is down 40 pounds, she has associated hair loss and there was suspicion for erythema nodosum.The patient's upper GI, ileal and colonic Crohn's disease was diagnosed in 2014.SURGERIESNone.ENDOSCOPIESUpper endoscopy, March 2021: Normal esophagus, stomach and duodenum. Gastric biopsies normal. Duodenum biopsies normal.Colonoscopy, March 2021: Normal terminal ileum advanced 10 to 12 cm. There are deep serpiginous ulcers in the cecum, ascending and transverse colon with severe inflammation. There was moderate GI Symptoms or Concerns This is a 30-year-old female who presents to clinic today after being referred by her PCP for evaluation of Crohn's disease. The patient was previously seen in our office in 2015. The patient had moved to [place] but returned home about 1 year ago. The patient was diagnosed with upper GI, ileal and colonic Crohn's disease in 2014. She was started on Humira in June of 2015 with a dramatic improvement of her symptoms. The patient states that she continued the Humira until around 2018 when she became . She held the medication at that time and did not restart the Humira after the . She now has a baby boy that is around 1-1/2 years old. The patient states that she had been doing well up until about 2 months ago when she developed hard tender bruises on her legs. She was seen by her primary and was started empirically on prednisone for suspected erythema nodosum. Around that time she also began developing abdominal cramping and diarrhea which worsened wi Additional Narrative The patient 's upper GI, ileal and colonic Crohn's was diagnosed in 2014.ENDOSCOPIES1. Upper endoscopy, January 2015: Small healing ulcer in the distal esophagus with linear ulcer present, as well. Distal esophageal biopsies showed lymphocytic esophagitis with ulcer, suspicious for Crohn's disease. There was a small 2 mm ulcer in the antrum. Biopsies revealed chronic, active gastritis with non-necrotizing granulomatous inflammation, possibly Crohn's related. Negative H. pylori. Normal duodenal biopsy showed duodenal intraepithelial lymphocytosis with normal architecture, potentially Crohn's related.2. Colonoscopy, January 2016: Only two very small patches of aphthous ulcers in the ileum. Remainder of colon showed scattered inflammatory pseudopolyps, very focally superficial erosions. From the pictures, the patient has near complete mucosal healing and significant improvement compared to her February 2015 procedure which showed deep ulcerations. Random colon biopsies showed mild, active chronic colitis consistent with Crohn's disease. Random polyp biopsies showed inflammatory polyps. Rectal biopsies showed patchy mild, active chronic colitis consistent with Crohn's. Fragments of normal mucosa present.IMAGING1. Abdominal and pelvic CT scan, January 2015: Thickening of the right colon, transverse colon with associated pneumatosis in these areas. Left colon appeared normal, no filling defects within the mesenteric arteries or veins. No mesenteric fat stranding or edema.2. Abdominal ultrasound, February 2015: A few sludge balls or stones in the gallbladder, liver normal and otherwise unremarkable.TREATMENT1. Excellent response to prednisone in the past. No prior immunomodulator treatment.2. Humira 40 mg every other week, started in June 2015. Stopped by the patient in 2019 while . HEALTHCARE MAINTENANCE1. Influenza vaccine done yearly, the patient will pursue this on her own. Pneumococcal and Prevnar vaccinations done in 2015. The patient is immune to hepatitis B based on serology in 2012. Her hepatitis A vaccine completed in 2014.2. Vitamin D low in February 2015, recheck today. Vitamin B12 normal in February 2015, recheck today.3. TPMT normal at 18.3, February 2015. QuantiFERON negative February 2015. Rechecking today4. Surveillance colonoscopy starting 2022, given the extensive involvement in the colon.OTHERSignificant elevation of liver enzymes in February 2013 and normal 2014, extensive serologic workup was negative. GI Symptoms or Concerns Irma juana diaz for followup regarding her Crohn's disease. She continues to do well. She is checking in one last time before she moves to [place]. She is moving to [place] in two weeks. She already has a GI appointment on September 02, 2015. She is moving to [place]. She is pursuing a transfer within her company. She denies any diarrhea. No fevers or weight loss.The patient's upper GI, ileal and colonic Crohn's was diagnosed in 2014.ENDOSCOPIES1. Upper endoscopy, January 2015: Small healing ulcer in the distal esophagus with linear ulcer present, as well. Distal esophageal biopsies showed lymphocytic esophagitis with ulcer, suspicious for Crohn's disease. There was a small 2 mm ulcer in the antrum. Biopsies revealed chronic, active gastritis with non-necrotizing granulomatous inflammation, possibly Crohn's related. Negative H. pylori. Normal duodenal biopsy showed duodenal intraepithelial lymphocytosis with normal architecture, potentially Crohn's related.2. Co GI Symptoms or Concerns Irma diaz for followup regarding her Crohn's disease. She is doing significantly better since being on Humira. She denies any episodes of abdominal pain or diarrhea. She had one episode of blood in the stool, with some dripping into the toilet bowl two weeks ago. This was an isolated episode and has not recurred. There are no fevers or weight loss. She does report that she is . She is approximately five weeks long. Her urine was negative, but the blood test is positive. She is planning on terminating the this week.The patient's upper GI, ileal and colonic Crohn's disease was diagnosed in 2014.ENDOSCOPIESUpper endoscopy, January 2015: Small healing ulcer in the distal esophagus with linear ulcer present, as well. Distal esophageal biopsies showed lymphocytic esophagitis with ulcer, suspicious for Crohn's disease. There was a small 2 mm ulcer in the antrum. Biopsies revealed chronic, active gastritis with non-necrotizing granulo GI Symptoms or Concerns Irma kernents with her mother for followup regarding her Crohn's disease. She is doing significantly better since being on Humira for three months. She now has bowel movements that are formed one to two times per day. No blood. Her abdominal pain is completely resolved. Prior to starting Humira, her stools were two to five loose stools per day. She has gained weight, previously she had lost at least eight pounds. She no longer feels sick anymore. She denies any fevers or weight loss. She has started gluten-free diet and is eating healthier. Along with this, she started working out once or twice a week.The patient's upper GI, ileal and colonic Crohn's disease was diagnosed in 2014. Upper endoscopy, January 2015: Small healing ulcer in the distal esophagus with linear ulcer present, as well. Distal esophageal biopsies showed lymphocytic esophagitis with ulcer, suspicious for Crohn's disease. There was a small 2 mm ulcer in the antrum, biopsies revealed chronic, active gas GI Symptoms or Concerns SUSIE Michelle comes to the office for unscheduled followup. She was last seen in March 2014 by Rashaun Montero PA-C. She is being followed by the inflammatory bowel disease clinic for Crohn's disease of both the small and large intestine. She was recently started on Humira in her Crohn's disease seems to be under good control. She is currently taking Humira 40 mg sub acute twice monthly. She is not scheduled for IBD clinic followup, but this was recommended by Rashaun Montero when she was last seen.He comes today to discuss itching and burning in the perianal area. She saw her primary care physician and was told she had an external hemorrhoid. There is no rectal bleeding. There is no straining. There is no diarrhea or constipation. There is no pain at the passage of stool. There is no historical evidence to suggest perirectal abscess or perianal involvement with Crohn's disease.Past medical history includes Crohn's disease of both large and small intestine as out GI Symptoms or Concerns Irma ray is a 24-year-old female who presents to clinic today in followup. The patient was seen by Dr. Johny Davey last month in our [facility]. The patient was diagnosed with ileocolonic Crohn's disease in December 2014 with improvement of her symptoms after a course of prednisone. For further details of her history, please refer to Dr. Davey's note from April 23. He discussed potential treatment options with her, she was overwhelmed with her new diagnosis and was unable to make a decision of medication, therefore she follows up today.The patient states that she continues to have some left lower quadrant pain as well as diarrhea three to four times per day. She denies any hematochezia or melena. Her appetite has been good and her weight has remained stable. We discussed potential treatment options including aminosalicylate, immunomodulator, and biologic medications. The patient would prefer to try Humira if possible which I think would be a reasonab GI Symptoms or Concerns Irma kernents with her mother for her first evaluation in my Crohn's and Colitis Clinic. Her symptoms started in late December or early January 2015. She developed nausea, vomiting and diarrhea. She was having three to five loose stools per day. She was also having some abdominal pain as well. She underwent an endoscopy in early January, which revealed likely Crohn's disease on the pathologic. After the endoscopy, 24 hours later, she was hospitalized with abdominal pain and found to have thickening in her right colon and transverse colon with associated pneumatosis in this area. She was placed on antibiotics and a plan was made to pursue colonoscopy in the future. This was done February 21, and this did show a classic appearance of Crohn's ulcers throughout the colon sparing the distal colon. There is also appetite in the ileum. She was placed on prednisone shortly after this and within two to three days, she had significant improvement in her symptoms. She has been on prednisone between GI Symptoms or Concerns The christina montana is a 24-year-old woman newly diagnosed with Crohn's disease who comes in today for her first office visit following both an EGD and a colonoscopy as well as a short stay in the hospital.The patient reports that in early January she began to have problems with increasing abdominal pain as well as nausea and vomiting. Because of these symptoms, she had an upper endoscopy on January 29. This showed a small healing ulcer in the distal esophagus as well as another healing linear erosion. The stomach also showed a 2 mm clean based superficial non-bleeding ulcer in the gastric antrum. Biopsies were taken of all these lesions. The path report showed that all of the ulcerated lesions showed the possibility of Crohn's disease. There was also some duodenal intraepithelial lymphocytosis, which was potentially Crohn's related. There was no evidence of Rivera's, H. pylori, or celiac.Because of these findings, the patient was started on omeprazole twice daily. In spite of this, she continued to worsen and eventually was admitted to the hospital around February 02. When she went into the hospital, she was having problems with abdominal pain, nausea and vomiting, diarrhea, and dehydration, and the temperature of 103. A CT scan showed wall thickening in the colon and this along with the findings on the EGD certainly pointed to Crohn's disease. No colonoscopy was done during the hospitalization because there was some pneumatosis seen in the colon, but it was advised that once this resolved she should have an outpatient colonoscopy.The colonoscopy was done on February 21. This was a complete examination throughout the entire colon. There are a few small aphthous ulcers seen in the distal ileum. The colon itself showed classic Crohn's ulcerations mostly on the right side of the colon. It appeared as if the distal 30 to 40 cm were spared. Biopsies were taken and were consistent with a diagnosis of mildly active chronic colitis. Because of these findings, the patient was advised to start 20 mg of prednisone daily and to return for office followup, which she does today accompanied by her mother.Even though she has been on prednisone only about five or six days, she is already experiencing some improvement. She reports that she is having much less pain. She is able to eat, although she is still trying to figure out what the best diet for her will be. She is now having about five or six episodes of diarrhea daily. Unfortunately for her, these tend to start in the evening and she will often have to get up two or three times during the night for diarrhea. Most of the times, she feels fairly well during the day. She now has pain before she needs to have a bowel movement, but this is usually relieved when she does. She sees no obvious blood. She no longer has vomiting. 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 It appears as if she has responded very well to the prednisone. She complained about some bruising on her legs, but on closer examination this appears to be erythema nodosum, although it seems now that it is resolving.The patient does have a strong family history with aunts, uncles, and cousins with Crohn's disease on both sides of her family. She is not aware of their usual treatment course. She does not smoke. She does not use alcohol. Except for the medications, which she is now taking for the Crohn's itself, her only other medication is paroxetine. Currently, she is not on any control. She did have an IUD in place, but this was removed because she was having some problems with it and she questions whether this might have been the trigger, which started her symptoms. Functional Status Date Functional Assessmen t No Information Instructions Date Instruction Additional Infor sergio - B12 level with nex t injection- Continue Stelara 90mg every 8 weeks- Colonscopy in 6 months with ileal evaluation and surveillance biopsies- Obtain op report and path- Follow-up in 6 months Related to Crohn's disease of both small and large intestine without complication Plan:1. Prior to ini tiating GI focused psychological services, it is recommended that she establish general, primary, individual psychotherapy services to target her untreated mood and anxiety symptoms. Community referrals were provided.2. Recommend pt complete a specialized eating disorder evaluation; community referrals were provided. 3. Primary GI needs are managed by GI provider, Dr. Davey.4. Patient agreed to contact local crisis mental health resources (provided), 144 or visit the nearest emergency room if there was a psychiatric emergency. 5.Questions for Dr. Tung Mariano can be sent via [employer] patient portal or by calling her patient coordinator at [phone] xt. [phone].CRISIS ADULT MENTAL HEALTH RESOURCES:[facility] Crisis Line: [phone] [facility]: [phone] Crisis Line: [phone] [facility] ([facility] for Psychiatric Emergencies): [phone] Crisis Line: 309-499-[place] Crisis Line: Crisis Text Line: Text [place] to [address]80864[place] Suicide Hotline: 926 or 8-336-071-TALK (1363)Latoya Mariano, PhD [facility] Psychologist Related to Crohn's disease of both small and lg int w oth complication Referral List Genera l Adult Mental Health Related to Crohn's disease of both small and lg int w oth complication Referral List Eating Disorders R elated to Crohn's disease of both small and lg int w oth complication 1. Feel free to star t liberalizing your diet if you are feeling well and in remission. You can incorporate well cooked vegetables and canned or blended fruits. If you are feeling abdominal pain, bloating or loose stool, avoid raw fruits/veggies like lettuce and ones with seeds, skins, peels until you are feeling better, then slowly start incorporating a wider variety of fruits/veggies. You may want to continue avoiding you known trigger foods, if any, and foods that cause gas while you have your ileostomy. For grains, avoid high fiber, whole grain versions of breads, cereals, rice and pasta during times of inflammation. Much like fruits/veggies, you can liberalize this based on how you're feeling and if you're experiencing symptoms. 2. For the Mediterranean diet, refer to the food guide pyramid to structure your diet to promote a reduction of inflammation. You may need to make some adaptations to this based on how you're feeling at any given time (refer to #1 above). 3. Feel free to make a follow up appointment with me as needed or send questions/concerns through the patient portal. Related to Crohn's disease of both small and large intestine without complication - Continue Stelara e very 8 weeks, ok to get injection next week. - Check ustekinumab level and other labs next week before Stelara- Flex sig with ileoscopy in 5 months- Sawmill Or Timber Yard Worker- Referral to GI therapist- Follow-up in 3 months Related to Crohn's disease of both small and large intestine with other complication - Start budesonide t hree 3mg tablets for 1 months, then two 3mg tablets for 2 weeks, then one 3mg tablets for 2 weeks, then stop.- Continue Stelara- If no improvement 1-2 weeks after the next Stelara injection, then please call and we would try to increase Stelara to every 6 weeks and check a Stelara level before the next infusion.- Routine labs- Follow-up in 2-3 months- Please call if you are and if not , then please try to hold off on for 6 months at least. Related to Crohn's disease of both small and large intestine without complication - Go to the ED today ([place] or [place] or [facility]) and be admitted, will need IV steroids and imaging, also work with social work to get patient covered.- We will pursue the [facility] through the assistance application- Follow-up in 2-3 months Related to Crohn's disease of both small and large intestine without complication 1. Repetition for Re micade and re-induced.2. Start azathioprine 150 mg daily.3. Start prednisone 40 mg daily x7 days, followed by 30 mg daily x7 days, followed by 20 mg daily by x7 days, followed by 15 mg daily for 7 days, followed by 10 mg daily for 7 days, followed by 5 mg daily for 7 days and then stop.4. She will have a DEXA scan 3 months after completing that steroid taper.5. We will also check for C. diff infection today to make sure and let us know why she is flaring.6. At the same time, we will check CBC and iron stores as well as CMP and vitamin D.7. She will follow up in 2-3 months or sooner if needed. Related to Crohn's disease of both small and lg int w/o complications - Pursue Remicade AP- Continue prednisone taper - decrease by 5mg every week (40mg x 1 week, then 35mg x 1 week, etc).- Consider combination therapy with azathioprine (this will offer the best chance for remission), with plan to stop azathioprine in 6-12 months when a complete remission achieved. We would 150mg daily (between 2 mg/kg and 2.5 mg/kg), given normal TPMT.- CBC with iron studies, if iron deficient, we will order iron infusions.- Follow-up in 8 weeks Related to Crohn's disease of both small and large intestine without complication IBD Folder Related to Crohn 's disease of both small and large intestine without complication AZA/6-MP Related to Crohn 's disease of both small and large intestine without complication Remicade (infliximab) Related to Crohn's disease of both small and large intestine without complication Infliximab IV per ac celerated protocol Colon Cancer Prevention Related to Anemia, unspecified Remicade (infliximab) Related to Crohn's disease of both small and large intestine with other complication Biologics, Biosimilars, and IBD Related to Crohn's disease of both small and large intestine with other complication - CBC, LFTS, Vit D, CRP- Continue Humira 40mg every other week, 6 month of refills given, after this patient will need to get her Humira prescription from new GI physician in [place].- Follow-up on as needed basis, given patient will transfer her care to [place]. Related to Crohn's disease of both small and large intestine without complication Lifestyle education regarding di et Related to Dietary counseling and surveillance - Continue Humira 40 mg every other week- CBC/LFT/Vit D/CRP in 1 month- Follow-up in 6 month Related to Crohn's disease of both small and large intestine without complication 1. Discussed hemorrh oidal hygiene with the patient including the recommendation for baby wipes and a high fiber diet. She was given literature regarding these issues today as part of her after visit summary.2. We would not recommend surgical removal of this skin tag illness becomes significantly troublesome to her lifestyle given her Crohn's disease and sometimes poor healing which can be seen in these patients.3. Vitamin D3 was refilled at her request #90 two refills for a year total.4. An appointment will be made for her in September 2015 to follow up with the inflammatory bowel disease clinic.5. The patient otherwise will follow up with her primary care provider and contact our office any problems, questions, or concerns regarding the above.6. The patient's questions were answered to her satisfaction today and she voices understanding agrees with the above plan. Related to Perianal lesion High fiber Related to Peria nal lesion Lifestyle education regarding di et Related to Dietary counseling and surveillance Hemorrhoids Related to Peria nal lesion Humira (adalimumab) Related to C rohn's disease of both small and large intestine without complication Humira - My Humira Assistance Pr ogram Related to Crohn's disease of both small and large intestine without complication - Routine labs, incl uding liver panel- Follow-up in near future for decision on treatment- Call if increased symptoms in the interim. Related to Crohn's Small/large Intestine IBD Folder Related to Crohn 's Small/large Intestine Humira (adalimumab) Related to C rohn's Small/large Intestine AZA/6-MP Related to Crohn 's Small/large Intestine She was given the me ans to reach me and advised to call with questions or problems. She was also advised to check the website for the Crohn's and colitis foundation for further information. She will return for office followup with one of the IBD physicians in about six weeks. At that time, a further decision can be made about her ongoing treatment. We have briefly discussed immune-modulating drugs like azathioprine and also biologic agents since the patient will probably need to be on either one of these or perhaps both. Related to Abdominal Pain IBD Folder Related to Regio nal Enteritis Nos Assessments Type Assessment Date No Information Patient Care Teams Name Effective Dates (start - stop) Status Members No Information
== END 2024-01-21 07:14 | disposition home or self-care (01) ==
PROVIDERS: PCP Family Medicine; Visit Provider Obstetrics & Gynecology
DX: Z34.93 Encounter for supervision of normal pregnancy, unspecified, third trimester (principal); K50.90 Crohn's disease, unspecified, without complications; Z3A.29 29 weeks gestation of pregnancy
CPT/HCPCS: 76816; 86592

== ENCOUNTER 2024-01-26 08:34 | Outpatient (CLI) | payer MEDICAID, SELFPAY ==
--- OUTSIDE RECORDS SUMMARY | 2024-01-30 10:57 | XMS_ITS | Encounter Summary ---
Author Organization [place] Address [address] [place] [address] Care Team Providers Care Digital Commentator Name Role Phone Yasmine Dumont MD Primary Care Provider [phone] Reason for Referral * Diagnostic Imaging Ultrasound (Routine) - Pending Review Specialty Diagnoses / Procedures Referred By Lesviaac t Referred To Contact Radiology. Diagnoses Encounter for follow-up ultrasound of anatomy Procedures [facility] US Comprehensive Single F/U Tristen Swartz MD [address] [address] Referral ID Status Reason Start Date Expiration Date V isits Requested Visits Authorized [id number] Pending Review 11/10/2023 11/09/2024 1 1 Reason for Visit * Diagnostic Imaging Ultrasound (Routine) - Pending Review Specialty Diagnoses / Procedures Referred By Holly perry Referred To Contact Radiology. Diagnoses Encounter for follow-up ultrasound of anatomy Procedures [facility] US Comprehensive Single F/U Tristen Swartz MD [address] [place] [address] Referral ID Status Reason Start Date Expiration Date V isits Requested Visits Authorized [id number] Pending Review 11/10/2023 11/09/2024 1 1 Encounter Details Date Type Department Care Team (Latest Contact Info) Description 12/08/2023 1:24 PM CDT - 12/08/2023 11:59 PM CDT Hospital Encounter [facility] [place] [address] [place] [address] Tristen Swartz MD [address] [place] [address] Encounter for follow-up ultrasound of [...] Procedure Name Priority Date/Time Associated Diagnosis Comments [facility] US COMPREHENSIVE SINGLE F/U Routine 12/08/2023 2:13 PM CDT Encounter for follow-up ultrasound of anatomy documented in this encounter Results * [facility] US Comprehensive Single F/U (12/08/2023 2:13 [...] ? Study Date: ??12/08/2023 1:27pm Pat. NO: ??[id number] ?Referring ??MD: BEBO SANTIAGO Site: ??[facility] ? Consultant Nurse: Rekha Maldonado RDMS : ??1990 ?Age: [...] 1 lb 1 ?oz EFW by ?Hadlock ([id number]-FL) Head / Face / Neck Biometry: Customer Development Representative ? 6.1 ? mm CM ?4.5 ? mm ANATOMY ----- The following structures appear normal: Head / Neck ? Cranium. Head size. Head shape. Lateral ventricles. Midline falx. Cavum septi pellucidi. Cerebellum. Cisterna magna. Thalami. Face ? Lips. Nose. Heart / Thorax ?4-chamber view. RVOT view. LVOT view. Aortic arch view. Ductal arch view. 3-jzvfjd-kyubfvc view. ? Right lung. Left lung. Diaphragm. [...] WEBER Study Date: 12/08/2023 1:27pm Pat. NO: [id number] Referring MD: BEBO SANTIAGO Site: [facility] Consultant Nurse: Rekha BoyleFLORENCIO العلي : 1990 Age: 33 [...] 1 lb 1 oz EFW by Quang ([id number]-GN-AA-FL) Head / Face / Neck Biometry: Customer Development Representative 6.1 mm CM 4.5 mm ANATOMY ----- The following structures appear normal: Head / Neck Cranium. Head size. Head shape.Lateral ventricles. Midline falx. Cavum septi pellucidi. Cerebellum.Cisterna magna. Thalami. Face Lips. Nose. Heart / Thorax 4-chamber view. RVOT view. LVOT view.Aortic arch view. Ductal arch view. 1-rhmtdz-joqujnh view. Right lung. Left lung.Diaphragm. Abdomen Stomach. [...] fluid volume appeared normal. Tristen Swartz MD [facility] US ORDERABL ES documented in this encounter Visit Diagnoses Diagnosis Encounter for follow-up ultrasound of anatomy documented in this encounter Care Teams Digital Commentator Relationship Specialty Start Date End Date Yasmine Dumont MD PCP - General Speciality Unknown 08/31/11 documented as of this encounter
--- OUTSIDE RECORDS SUMMARY | 2024-01-30 10:57 | XMS_ITS | Clinical Summary ---
Author Organization [facility] Address [address] [place] [address] Care Team Providers Care Household Refrigerator Mechanic Name Role Phone Yasmine Dumont MD Primary Care Provider [phone] Allergies No known active allergies Medications Medication [...] Description 12/08/2023 2:00 PM CDT Office Visit [facility] Medicine [facility] [address] [place] [address] Tristen Swartz MD Encounter for follow-up ultrasound of anatomy (Primary Dx) 12/08/2023 1:24 PM CDT - 12/08/2023 11:59 PM CDT Hospital Encounter [facility] Medicine [facility] [address] [place] [address] Tristen Swartz MD Encounter for follow-up ultrasound of anatomy Discharge Disposition: Home or Self Care 12/08/2023 Travel 11/10/2023 12:15 PM CDT Office Visit [facility] Medicine [place] [address] [place] [address] Bebo Gilbert APRN CNP Rauk, Phillip Neil, MD High-risk , unspecified trimester (Primary Dx); Crohn's disease of large intestine with other complication (H); Encounter for follow-up ultrasound of anatomy 11/10/2023 11:45 AM CDT - 11/10/2023 11:59 PM CDT Hospital Encounter [facility] Medicine [place] [address] [facility] [address] [place] [address] Bebo Gilbert APRN CNP Rauk, Phillip Neil, MD related condition, antepartum Discharge Disposition: Home or Self Care 11/10/2023 Travel 11/05/2023 PRE VISIT [facility] [place] [address] [facility] [address] [place] [phone] Ria Barger RN Ultrasound (L2-Crohns disease, low weight gain in ) 11/05/2023 Transcribe Orders [place] [address] [facility] [address] [place] [phone] Bebo Gilbert APRN CNP related condition, antepartum (Primary Dx) 11/01/2023 Medical Correspondence [facility] [address] [place] [address] Scan, Non-Provider from Last 3 Months Social [...] Required) Completed Medical Devices Implanted Type Area Skein Tier Device Identifier Shelf Expiration Date Model / Serial / Lot Graft Bone Putty Dbx 01ml [id number] Implanted:Qty: 1 on 09/07/2011 at [facility] Left: Arm 10/21/2012 [id number] / [id number] / Explanted Type Area Skein Tier Device Identifier Shelf Expiration Date Model / Serial / Lot Screws And Plate Implanted:09/07 by Israel Rg MD (Quantity not on file) Explanted:Qty: 1 on 09/07/2011 at [facility] Left: Arm Procedures Procedure Name Priority Date/Time Associated Diagnosis Comments [facility] US COMPREHENSIVE SINGLE F/U Routine 12/08/2023 2:13 PM CDT Encounter for follow-up ultrasound of anatomy [facility] US COMPREHENSIVE SINGLE Routine 11/10/2023 12:57 PM CDT related condition, antepartum from Last 3 Months Results * [facility] US Comprehensive Single F/U (12/08/2023 2:13 [...] CDT ?Comp Follow Up ----- Pat. Name: SILVIA WEBER ? Study Date: ??12/08/2023 1:27pm Pat. NO: ??[id number] ?Referring ??MD: BEBO GILBERT Site: ??[facility] ? Engraver Wood: Rekha Maldonado RDMS : ??1990 ?Age: ?? [...] Biometry: BPD ?54.7 ?mm ? 22w 5d ?Quang QUINTANILLA ?70.3 ?mm ? 21w 6d ?Nicolaides HC ?201.0 ?mm ?22w 2d ?Hadlock Cerebellum tr ?22.6 ? mm ?21w 2d ?Nicolaides AC ?180.3 ?mm ?22w 6d ?67% ?Hadlock Femur ?36.2 ? mm ?21w 3d ?Hadlock Weight Calculation: EFW ? 491 ? g ? 50% ?Hadlock EFW (lb,oz) ? 1 lb 1 ?oz EFW by ?Hadlock ([id number]-DM-[id number]-FL) Head / Face / Neck Biometry: Knurling Machine Tender ? 6.1 ? mm CM ?4.5 ? mm ANATOMY ----- The following structures appear normal: Head / Neck ? Cranium. Head size. Head shape. Lateral ventricles. Midline falx. Cavum septi pellucidi. Cerebellum. Cisterna magna. Thalami. Face ? Lips. Nose. Heart / Thorax ?4-chamber view. RVOT view. LVOT view. Aortic arch view. Ductal arch view. 0-sypide-hceornh view. ? Right lung. Left lung. Diaphragm. [...] 12/08/2023 Comp Follow Up ----- Pat. Name: SILVIA WEBER Study Date: 12/08/2023 1:27pm Pat. NO: [id number] Referring MD: BEBO GILBERT Site: [facility] Engraver Wood: Rekha Maldonado RDMS : 1990 Age: 33 ----- INDICATION ----- Reevaluate growth and suboptimal anatomy METHOD ----- Transabdominal ultrasound examination. View: Suboptimal view: limited byabdominal scarring ----- Peters . Number of fetuses: 1 DATING ----- DateDetailsGest. age CHERIE LMP w + 0 d 03/08/2024 Prior assessment 08/18/2023 GA: 6 w +1 d22 w + 1 d 04/11/2024 U/S 4based upon AC, BPD, Femur, HC22 w + [...] 1 lb 1 oz EFW by Hadlock ([id number]-BR-KK-FL) Head / Face / Neck Biometry: Knurling Machine Tender 6.1 mm CM 4.5 mm ANATOMY ----- The following structures appear normal: Head / Neck Cranium. Head size. Head shape.Lateral ventricles. Midline falx. Cavum septi pellucidi. Cerebellum.Cisterna magna. Thalami. Face Lips. Nose. Heart / Thorax 4-chamber view. RVOT view. LVOT view.Aortic arch view. Ductal arch view. 5-ugapcy-kzigtun view. Right lung. Left lung.Diaphragm. Abdomen Stomach. [...] appeared normal. Tristen Swartz MD [facility] US ORDERABL * [facility] Comprehensive Single (11/10/2023 12:57 PM CDT) Anatomical [...] 1:01 PM CDT ?Comprehensive ----- Pat. Name: SILVIA WEBER ? Study Date: ??11/10/2023 12:01pm Pat. NO: ??[id number] ?Referring ??MD: BEBO GILBERT Site: ??[facility] ? Engraver Wood: Yinka Orozco RDMS : ??1990 ?Age: ?? [...] QUINTANILLA ?56.0 ?mm ? 18w 4d ?Nicolaides ?154.9 ?mm ?18w 3d ?Hadlock Cerebellum tr ?19.8 ? mm ?18w 6d ?Nicolaides AC ?131.5 ?mm ?18w 5d ?65% ?Hadlock Femur ?26.5 ? mm ?18w 0d ?Hadlock Humerus ?29.3 ?mm ? 19w 4d ?Juan Jose Weight Calculation: EFW ? 237 ? g ? 59% ?Hadlock EFW (lb,oz) ? 0 lb 8 ?oz EFW by ?Hadlock ([id number]-GU-SB-FL) Head / Face / Neck Biometry: Knurling Machine Tender ? 8.1 ? mm CM ?3.9 ? [...] ?4-chamber view. LVOT view. Ductal arch view. 1-kfmpuw-veovapn view. ? Right lung. Left lung. Spine ?Sacral spine. MATERNAL STRUCTURES ----- Cervix ?Visualized ? Appearance: Appears Closed ? Approach - Transabdominal: Cervical length 55.7 mm Right Ovary ?Visualized Left Ovary ?Not visualized RECOMMENDATION ----- We discussed the findings on today's ultrasound with the patient. The patient is scheduled to return to [facility] in 4 weeks to complete the [...] MD - 11/10/2023 Comprehensive ----- Pat. Name: SILVIA WEBER Study Date: 11/10/2023 12:01pm Pat. NO: [id number] Referring MD: BEBO GILBERT Site: [facility] Engraver Wood: Yinka Orozco RDMS : 1990 Age: 33 ----- INDICATION ----- Crohn's Disease - Leonara. Declined Screening. METHOD ----- Transabdominal ultrasound examination. [...] 0 lb 8 oz EFW by Hadlock (QTU-BD-XR-FL) Head / Face / Neck Biometry: Knurling Machine Tender 8.1 mm CM 3.9 mm Nasal bone [...] Thorax 4-chamber view. LVOT view. Ductal archview. 6-qalgup-blnoomx view. Right lung. Left lung. Spine Sacral spine. MATERNAL STRUCTURES ----- Cervix Visualized Appearance: Appears Closed Approach - Transabdominal:Cervical length 55.7 mm Right Ovary Visualized Left Ovary Not visualized RECOMMENDATION ----- We discussed the findings on today's ultrasound with the patient. The patient is scheduled to return to [facility] in 4 weeks to complete theanatomic [...] visualized. 5) No markers for aneuploidy seen. Bebo Gilbert APRN [facility] M ORDERABLES from Last 3 Months Care Teams Household Refrigerator Mechanic Relationship Specialty Start Date End Date Yasmine Dumont MD PCP - General Speciality Unknown 08/31/11
--- OUTSIDE RECORDS SUMMARY | 2024-01-30 10:57 | XMS_ITS | Encounter Summary ---
Author Organization [place] Address [address] [facility] [place] [address] Care Team Providers Care Air Box Tester Name Role Phone Yasmine Dumont MD Primary Care Provider [phone] Reason for Visit * Reason Comments Ultrasound RL2-Subopt Encounter Details Date Type Department Care Team (Late st Contact Info) Description 12/08/2023 2:00 PM CDT Office Visit [facility] [place] [address] [place] [address] Tristen Swartz MD [address] [facility] [address] [place] [address] Encounter for follow-up ultrasound of [...] today's US at the [facility]. Tristen Swartz MD Maternal- Medicine documented in this encounter Plan of Treatment Not on file documented as of this encounter Visit Diagnoses Diagnosis Encounter for follow-up ultrasound of anatomy- Primary documented in this encounter Care Teams Air Box Tester Relationship Specialty Start Date End Date Yasmine Dumont MD PCP - General Speciality Unknown 08/31/11 documented as of this encounter
--- OUTSIDE RECORDS SUMMARY | 2024-01-30 10:57 | XMS_ITS | Referral Summary ---
Author Organization [facility] Address [address] [place] [address] Care Team Providers Care Stars Specialist Name Role Phone Yasmine Dumont MD Primary Care Provider [phone] Encounters Date Type Department Care Team Description 12/08/2023 Travel 12/08/2023 2:00 PM CDT Office Visit [facility] Medicine [facility] [address] [place] [phone] Tristen Swartz MD Encounter for follow-up ultrasound of anatomy (Primary Dx) 12/08/2023 1:24 PM CDT - 12/08/2023 11:59 PM CDT Hospital Encounter [facility] Medicine [facility] [address] [place] [phone] Tristen Swartz MD Encounter for follow-up ultrasound of anatomy Discharge Disposition: Home or Self Care 11/10/2023 Travel 11/10/2023 12:15 PM CDT Office Visit [facility] Medicine [facility] [address] [place] [phone] Bebo Gilbert APRN CNP Rauk, Phillip Neil, MD High-risk , unspecified trimester (Primary Dx); Crohn's disease of large intestine with other complication (H); Encounter for follow-up ultrasound of anatomy 11/10/2023 11:45 AM CDT - 11/10/2023 11:59 PM CDT Hospital Encounter [facility] Medicine [facility] [address] [facility] [address] [place] [phone] Bebo Gilbert APRN CNP Rauk, Phillip Neil, MD related condition, antepartum Discharge Disposition: Home or Self Care 11/05/2023 PRE VISIT [facility] Medicine [place] [address] [facility] [address] [place] [phone] Ria Barger RN Ultrasound (L2-Crohns disease, low weight gain in ) 11/05/2023 Transcribe Orders [facility] Medicine [place] [address] [facility] [address] [place] [phone] Bebo Gilbert APRN CNP related condition, antepartum (Primary Dx) 11/01/2023 Medical Correspondence [facility] S[facility] [address] [facility] [place] [address] Scan, Non-Provider from Last 3 Months Allergies [...] on file Medical Devices Implanted Type Area Medical Records Supervisor Device Identifier Shelf Expiration Date Model / Serial / Lot Graft Bone Putty Dbx 01ml [id number] Implanted:Qty: 1 on 09/07/2011 at [facility] Left: Arm 10/21/2012 [id number] / [id number] / Explanted Type Area Medical Records Supervisor Device Identifier Shelf Expiration Date Model / Serial / Lot Screws And Plate Implanted:09/07 by Israel Rg MD (Quantity not on file) Explanted:Qty: 1 on 09/07/2011 at [facility] Left: Arm Procedures Procedure Name Priority Date/Time Associated Diagnosis Comments [facility] US COMPREHENSIVE SINGLE F/U Routine 12/08/2023 2:13 PM CDT Encounter for follow-up ultrasound of anatomy [facility] US COMPREHENSIVE SINGLE Routine 11/10/2023 12:57 PM CDT related condition, antepartum from Last 3 Months Results * [facility] US Comprehensive Single F/U (12/08/2023 2:13 [...] ? Study Date: ??12/08/2023 1:27pm Pat. NO: ??[id number] ?Referring ??MD: BEBO GILBERT Site: ??[facility] ? Ticket Taker Ferryboat: Rekha Maldonado RDMS : ??1990 ?Age: ?? [...] 1 lb 1 ?oz EFW by ?Hadlock ([id number]-[id number]-CE-FL) Head / Face / Neck Biometry: Infantry Indirect Fire Crewmember ? 6.1 ? mm CM ?4.5 ? mm ANATOMY ----- The following structures appear normal: Head / Neck ? Cranium. Head size. Head shape. Lateral ventricles. Midline falx. Cavum septi pellucidi. Cerebellum. Cisterna magna. Thalami. Face ? Lips. Nose. Heart / Thorax ?4-chamber view. RVOT view. LVOT view. Aortic arch view. Ductal arch view. 8-qtpmis-dppvrus view. ? Right lung. Left lung. Diaphragm. [...] WEBER Study Date: 12/08/2023 1:27pm Pat. NO: [id number] Referring MD: BEBO GILBERT Site: [facility] Ticket Taker Ferryboat: Rekha Maldonado RDMS : 1990 Age: 33 [...] 1 lb 1 oz EFW by Quang (AAV-MF-PF-FL) Head / Face / Neck Biometry: Infantry Indirect Fire Crewmember 6.1 mm CM 4.5 mm ANATOMY ----- The following structures appear normal: Head / Neck Cranium. Head size. Head shape.Lateral ventricles. Midline falx. Cavum septi pellucidi. Cerebellum.Cisterna magna. Thalami. Face Lips. Nose. Heart / Thorax 4-chamber view. RVOT view. LVOT view.Aortic arch view. Ductal arch view. 0-fpggyq-wrktaof view. Right lung. Left lung.Diaphragm. Abdomen Stomach. [...] volume appeared normal. Tristen Swartz MD [facility] US ORDERABL ES * [facility] US Comprehensive Single (11/10/2023 12:57 [...] ? Study Date: ??11/10/2023 12:01pm Pat. NO: ??[id number] ?Referring ??MD: BEBO GILBERT Site: ??[facility] ? Ticket Taker Ferryboat: Yinka Orozco RDMS : ??1990 ?Age: ?? [...] 0 lb 8 ?oz EFW by ?Hadlock (LVO-YP-QJ-FL) Head / Face / Neck Biometry: Infantry Indirect Fire Crewmember ? 8.1 ? mm CM ?3.9 ? [...] ?4-chamber view. LVOT view. Ductal arch view. 2-ytcqwf-ppuznmo view. ? Right lung. Left lung. Spine ?Sacral spine. MATERNAL STRUCTURES ----- Cervix ?Visualized ? Appearance: Appears Closed ? Approach - Transabdominal: Cervical length 55.7 mm Right Ovary ?Visualized Left Ovary ?Not visualized RECOMMENDATION ----- We discussed the findings on today's ultrasound with the patient. The patient is scheduled to return to [facility] in 4 weeks to complete [...] WEBER Study Date: 11/10/2023 12:01pm Pat. NO: [id number] Referring MD: BEBO GILBERT Site: [facility] Ticket Taker Ferryboat: Yinka Orozco RDMS : 1990 Age: 33 [...] 0 lb 8 oz EFW by Hadlock (OFQ-TT-HW-FL) Head / Face / Neck Biometry: Infantry Indirect Fire Crewmember 8.1 mm CM 3.9 mm Nasal bone [...] Thorax 4-chamber view. LVOT view. Ductal archview. 3-kuvfyf-psariny view. Right lung. Left lung. Spine Sacral spine. MATERNAL STRUCTURES ----- Cervix Visualized Appearance: Appears Closed Approach - Transabdominal:Cervical length 55.7 mm Right Ovary Visualized Left Ovary Not visualized RECOMMENDATION ----- We discussed the findings on today's ultrasound with the patient. The patient is scheduled to return to [facility] in 4 weeks to complete [...] markers for aneuploidy seen. Bebo Gilbert APRN [employer]PERATIONS ARCHIT[employer] IMG [facility] US ORDERABLES from Last 3 Months Care Teams Stars Specialist Relationship Specialty Start Date End Date Yasmine Dumont MD PCP - General Speciality Unknown 08/31/11
--- OUTSIDE RECORDS SUMMARY | 2024-01-30 10:57 | XMS_ITS | Encounter Summary ---
Author Organization [place] Address [address] [place] [address] Care Team Providers Care Web Services Architect Name Role Phone Yasmine Dumont MD Primary Care Provider [phone] Encounter Details Date Type Department Care Team [...] on filedocumented in this encounter Care Teams Web Services Architect Relationship Specialty Start Date End Date Yasmine Dumont MD PCP - General Speciality Unknown 08/31/11 documented as of this encounter
--- OUTSIDE RECORDS SUMMARY | 2024-01-30 10:58 | XMS_ITS | Encounter Summary ---
Author Organization [place] Address [address] [place] [address]. [place] [address] Care Team Providers Care National Insurance Officer Name Role Phone Yasmine Dumont MD Primary Care Provider [phone] Encounter Details Date Type Department Care Team ([facility] [address] Contact Info) Description 10/29/2023 Medical Correspondence [facility] [address] [place] [phone] Scan, Non-Provider Social History Tobacco Use [...] on filedocumented in this encounter Care Teams National Insurance Officer Relationship Specialty Start Date End Date Yasmine Dumont MD PCP - General Speciality Unknown 08/31/11 documented as of this encounter
--- OUTSIDE RECORDS SUMMARY | 2024-01-30 10:58 | XMS_ITS | Clinical Summary ---
Author Organization [facility] Address [address], [place] [address] Care Team Providers Care Winder Tender Name Role Phone Marie Yanes PA-C Primary Care Provider [phone] Source Comments You are receiving this document as you are listed as the primary care provider,follow-up provider, or the patient has been referred to you for consultation.This is in compliance with the Medicare and[facility] Surgical Hospitalcaid EHR Incentive Program,which states Providers who transition their patient to another setting of careor provider of care or refers their patient to another provider of care shouldprovide summary care record for each transition of care or referral. [facility] Allergies Active Allergy Reactions Criticality Noted Date [...] 11:02 PM 06/22/2022 8:11 PM Care Teams Winder Tender Relationship Specialty Start Date End Date Marie Yanes PA-C PCP - General Physician National Investigative Producer 06/18/22
--- OUTSIDE RECORDS SUMMARY | 2024-01-30 10:58 | XMS_ITS | Encounter Summary ---
Author Organization [place] Address [address] [place] [address]. [place] [address] Care Team Providers Care Hot Car Operator Name Role Phone Yasmine Dumont MD Primary Care Provider [phone] Encounter Details Date Type Department Care Team ([facility] Contact Info) Description 11/01/2023 Medical Correspondence [facility] [address] [place] [address] Scan, Non-Provider Social History Tobacco Use [...] on filedocumented in this encounter Care Teams Hot Car Operator Relationship Specialty Start Date End Date Yasmine Dumont MD PCP - General Speciality Unknown 08/31/11 documented as of this encounter
--- OUTSIDE RECORDS SUMMARY | 2024-01-30 10:58 | XMS_ITS | Encounter Summary ---
Author Organization [place] Address [address] [place] [address] Care Team Providers Care Geomagnetist Name Role Phone Yasmine Dumont MD Primary Care Provider [phone] Reason for Visit * Reason Comments Ultrasound L2-Crohns disease, l ow weight gain in Encounter Details Date Type Department Care Team (Late st Contact Info) Description 11/05/2023 PRE VISIT [facility] [place] [address] [facility] [address] [place] [address] Ria Barger, LENA Ultrasound (L2-Crohns [...] on filedocumented in this encounter Care Teams Geomagnetist Relationship Specialty Start Date End Date Yasmine Dumont MD PCP - General Speciality Unknown 08/31/11 documented as of this encounter
--- OUTSIDE RECORDS SUMMARY | 2024-01-30 10:58 | XMS_ITS | Encounter Summary ---
Author Organization [facility] Address [address] [facility] [place] [address] Care Team Providers Care Category Analyst Name Role Phone Yasmine Dumont MD Primary Care Provider [phone] Reason for Referral * Diagnostic Imaging Ultrasound (Routine) - Pending Review Specialty Diagnoses / Procedures Referred By Contac t Referred To Contact Radiology. Diagnoses Encounter for follow-up ultrasound of anatomy Procedures [facility] US Comprehensive Single F/U Tristen Swartz MD [address] [place] [address] Referral ID Status Reason Start Date Expiration Date V isits Requested Visits Authorized [id number] Pending Review 11/10/2023 11/09/2024 1 1 Reason for Visit * Reason Comments Ultrasound L2-Chron's, low weig ht gain in Encounter Details Date Type Department Care Team (Late st Contact Info) Description 11/10/2023 12:15 PM CDT Office Visit [facility] [place] [address] [facility] [facility] [address] [place] [phone] Annmarie Gilbert APRN [facility] [address] [place] [address] Tristen Swartz MD [address] [place], [place] [address] [facility] [address] [place] [address] High-risk , unspecified trimester (Primary Dx); Crohn's [...] for details of today's US at the [facility]. Tristen Swartz MD Maternal- Medicine documented in this encounter Plan of Treatment Not on file documented as of this encounter Results * [facility] US Comprehensive Single F/U (12/08/2023 2:13 [...] ? Study Date: ??12/08/2023 1:27pm Pat. NO: ??[id number] ?Referring ??MD: ANNMARIE GILBERT Site: ??[facility] ? Pet Care Attendant: Rekha Maldonado RDMS : ??1990 ?Age: ?? [...] 1 lb 1 ?oz EFW by ?Hadlock ([id number]) Head / Face / Neck Biometry: Spike Machine Feeder ? 6.1 ? mm CM ?4.5 ? mm ANATOMY ----- The following structures appear normal: Head / Neck ? Cranium. Head size. Head shape. Lateral ventricles. Midline falx. Cavum septi pellucidi. Cerebellum. Cisterna magna. Thalami. Face ? Lips. Nose. Heart / Thorax ?4-chamber view. RVOT view. LVOT view. Aortic arch view. Ductal arch view. 5-bwbyjb-acpflgo view. ? Right lung. Left lung. Diaphragm. [...] WEBER Study Date: 12/08/2023 1:27pm Pat. NO: [id number] Referring MD: ANNMARIE GILBERT Site: [facility] Pet Care Attendant: Rekha Maldonado RDMS : 1990 Age: 33 [...] 1 lb 1 oz EFW by Hadlock ([id number]) Head / Face / Neck Biometry: Spike Machine Feeder 6.1 mm CM 4.5 mm ANATOMY ----- The following structures appear normal: Head / Neck Cranium. Head size. Head shape.Lateral ventricles. Midline falx. Cavum septi pellucidi. Cerebellum.Cisterna magna. Thalami. Face Lips. Nose. Heart / Thorax 4-chamber view. RVOT view. LVOT view.Aortic arch view. Ductal arch view. 5-yyncow-jftrlco view. Right lung. Left lung.Diaphragm. Abdomen Stomach. [...] volume appeared normal. Tristen Swartz MD [facility] US ORDERABL ES documented in this encounter Visit Diagnoses Diagnosis High-risk , unspecified trimester- Primary Crohn's disease of large intestine with other complication (H) Encounter for follow-up ultrasound of anatomy Encounter for follow-up ultrasound of anatomy documented in this encounter Care Teams Category Analyst Relationship Specialty Start Date End Date Yasmine Dumont MD PCP - General Speciality Unknown 08/31/11 documented as of this encounter
--- OUTSIDE RECORDS SUMMARY | 2024-01-30 10:58 | XMS_ITS | Encounter Summary ---
Author Organization [facility] Address [address] [place] [address] Care Team Providers Care Plant Maintenance Worker Name Role Phone Yasmine Dumont MD Primary Care Provider [phone] Reason for Referral * Diagnostic Imaging Ultrasound (Routine) - Pending Review Specialty Diagnoses / Procedures Referred By Contac t Referred To Contact Radiology. Diagnoses related condition, antepartum Procedures [facility] US Comprehensive Single Annmarie Gilbert APRN CNP [facility] [address] [place] [address] Referral ID Status Reason Start Date Expiration Date V isits Requested Visits Authorized [id number] Pending Review 11/05/2023 11/04/2024 1 1 Reason for Visit * Diagnostic Imaging Ultrasound (Routine) - Pending Review Specialty Diagnoses / Procedures Referred By Holly perry Referred To Contact Radiology. Diagnoses related condition, antepartum Procedures [facility] US Comprehensive Single Annmarie Gilbert APRN CNP [facility] [address] [place] [address] Referral ID Status Reason Start Date Expiration Date V isits Requested Visits Authorized [id number] Pending Review 11/05/2023 11/04/2024 1 1 Encounter Details Date Type Department Care Team (Latest Contact Info) Description 11/10/2023 11:45 AM CDT - 11/10/2023 11:59 PM CDT Hospital Encounter [facility] [place] [address] [facility] [address] [place] [address] Annmarie Gilbert APRN [facility] [address] [place] [address] Tristen Swartz MD [address] [address] [place] [address] related condition, antepartum Discharge Disposition: [...] Procedure Name Priority Date/Time Associated Diagnosis Comments [facility] US COMPREHENSIVE SINGLE Routine 11/10/2023 12:57 PM CDT related condition, antepartum documented in this encounter Results * [facility] US Comprehensive Single (11/10/2023 12:57 PM CDT) [...] ? Study Date: ??11/10/2023 12:01pm Pat. NO: ??[id number] ?Referring ??MD: ANNMARIE GILBERT Site: ??[facility] ? Flight Attendant: Yinka Orozco RDMS : ??1990 ?Age: ?? [...] ? 0 lb 8 ?oz EFW by ?[facility] ([id number]-SV-[id number]-FL) Head / Face / Neck Biometry: Online Content Coordinator ? 8.1 ? mm CM ?3.9 ? [...] ?4-chamber view. LVOT view. Ductal arch view. 2-xiywtb-stwmtms view. ? Right lung. Left lung. Spine ?Sacral spine. MATERNAL STRUCTURES ----- Cervix ?Visualized ? Appearance: Appears Closed ? Approach - Transabdominal: Cervical length 55.7 mm Right Ovary ?Visualized Left Ovary ?Not visualized RECOMMENDATION ----- We discussed the findings on today's ultrasound with the patient. The patient is scheduled to return to [facility] in 4 weeks to complete the anatomic [...] WEBER Study Date: 11/10/2023 12:01pm Pat. NO: [id number] Referring MD: ANNMARIE GILBERT Site: [facility] Flight Attendant: Yinka Orozco RDMS : 1990 Age: 33 [...] 0 lb 8 oz EFW by Hadlock ([id number]) Head / Face / Neck Biometry: Online Content Coordinator 8.1 mm CM 3.9 mm Nasal bone [...] Thorax 4-chamber view. LVOT view. Ductal archview. 9-ceuezf-rjtzxdl view. Right lung. Left lung. Spine Sacral spine. MATERNAL STRUCTURES ----- Cervix Visualized Appearance: Appears Closed Approach - Transabdominal:Cervical length 55.7 mm Right Ovary Visualized Left Ovary Not visualized RECOMMENDATION ----- We discussed the findings on today's ultrasound with the patient. The patient is scheduled to return to [facility] in 4 weeks to complete theanatomic survey. [...] markers for aneuploidy seen. Annmarie Gilbert APRN EMERY WHEEL MOLDER IMG [facility] US ORDERABLES documented in this encounter Visit Diagnoses Diagnosis related condition, antepartum documented in this encounter Care Teams Plant Maintenance Worker Relationship Specialty Start Date End Date Yasmine Dumont MD PCP - General Speciality Unknown 08/31/11 documented as of this encounter
--- OUTSIDE RECORDS SUMMARY | 2024-01-30 10:58 | XMS_ITS | Encounter Summary ---
Author Organization [facility] Address [address] [place] [address] Care Team Providers Care Director Marketing Communications Name Role Phone Yasmine Dumont MD Primary Care Provider [phone] Encounter Details Date Type Department Care Team [...] on filedocumented in this encounter Care Teams Director Marketing Communications Relationship Specialty Start Date End Date Yasmine Dumont MD PCP - General Speciality Unknown 08/31/11 documented as of this encounter
--- OUTSIDE RECORDS SUMMARY | 2024-01-30 10:58 | XMS_ITS | Encounter Summary ---
Author Organization [facility] Address [address] [place] [address] Care Team Providers Care Concierge Name Role Phone Yasmine Dumont MD Primary Care Provider [phone] Reason for Referral * Diagnostic Imaging Ultrasound (Routine) - Pending Review Specialty Diagnoses / Procedures Referred By Contac t Referred To Contact Radiology. Diagnoses related condition, antepartum Procedures [facility] US Comprehensive [facility] Annmarie Gilbert APRN CNP [facility] [address] [place] [address] Referral ID Status Reason Start Date Expiration Date V isits Requested Visits Authorized [id number] Pending Review 11/05/2023 11/04/2024 1 1 * Consultation (Routine) - Pending Review Specialty Diagnoses / Procedures Referred By Contac t Referred To Contact Diagnoses related condition, antepartum Annmarie Gilbert APRN CNP [facility] [address] [place] [address] [facility] [address] [place] [address] Referral ID Status Reason Start Date Expiration Date V isits Requested Visits Authorized [id number] Pending Review 11/05/2023 11/04/2024 1 1 Question Answer Preferred Location: [facility] [place] CHERIE 04/11/2024 Ultrasound Comprehensive US (>than 18 weeks GA) US PROC NONE MFM Issue OTHER (enter details in Comments) - Crohn's disease, low weight gain in MFM MD Consultation (unrelated to Ultrasound findings): No Inflammatory Bowel Disease Clinic: Joint MFM and GI Consultation: No Chronic Kidney Disease: Joint MFM and Nephrology Consultation No Genetic Counseling Consultation: No fax [facility] Crohn's disease, low weight gain in Encounter Details Date Type Department Care Team (Late st Contact Info) Description 11/05/2023 Transcribe Orders [facility] [place] [address] [facility] [address] [place] [address] Annmarie Gilbert APRN [facility] [address] [place] [id number] related condition, antepartum (Primary Dx) Social History [...] documented as of this encounter Results * [facility] US Comprehensive Single (11/10/2023 12:57 [...] ? Study Date: ??11/10/2023 12:01pm Pat. NO: ??[id number] ?Referring ??: ANNMARIE GILBERT Site: ??[facility] ? Petroleum Geologist: Yinka Orozco RDMS : ??1990 ?Age: ?? [...] 0 lb 8 ?oz EFW by ?Hadlock ([id number]) Head / Face / Neck Biometry: Crabbing Machine Operator ? 8.1 ? mm CM ?3.9 ? [...] ?4-chamber view. LVOT view. Ductal arch view. 4-fzlomn-pmlljax view. ? Right lung. Left lung. Spine ?Sacral spine. MATERNAL STRUCTURES ----- Cervix ?Visualized ? Appearance: Appears Closed ? Approach - Transabdominal: Cervical length 55.7 mm Right Ovary ?Visualized Left Ovary ?Not visualized RECOMMENDATION ----- We discussed the findings on today's ultrasound with the patient. The patient is scheduled to return to [facility] in 4 weeks to complete [...] WEBER Study Date: 11/10/2023 12:01pm Pat. NO: [id number] Referring MD: ANNMARIE GILBERT Site: [facility] Petroleum Geologist: Yinka Orozco RDMS : 1990 Age: 33 [...] 0 lb 8 oz EFW by Hadlock ([id number]-FL) Head / Face / Neck Biometry: Crabbing Machine Operator 8.1 mm CM 3.9 mm Nasal bone [...] Thorax 4-chamber view. LVOT view. Ductal archview. 5-wkwbdq-ppoklgw view. Right lung. Left lung. Spine Sacral spine. MATERNAL STRUCTURES ----- Cervix Visualized Appearance: Appears Closed Approach - Transabdominal:Cervical length 55.7 mm Right Ovary Visualized Left Ovary Not visualized RECOMMENDATION ----- We discussed the findings on today's ultrasound with the patient. The patient is scheduled to return to [facility] in 4 weeks to complete [...] markers for aneuploidy seen. Annmarie Gilbert APRN PARTS ORDER AND STOCK CLERK IMG [facility] US ORDERABLES documented in this encounter Visit Diagnoses Diagnosis related condition, antepartum- Primary related condition, antepartum documented in this encounter Care Teams Concierge Relationship Specialty Start Date End Date Yasmine Dumont MD PCP - General Speciality Unknown 08/31/11 documented as of this encounter
== END 2024-01-26 08:35 | disposition home or self-care (01) ==
LOC: NFLDREF 01-30 10:55
PROVIDERS: PCP Family Medicine; Referring Provider Family Medicine; Visit Provider Obstetrics & Gynecology
DX: R73.09 Other abnormal glucose (principal)
CPT/HCPCS: 82951; 82952

== ENCOUNTER 2024-02-14 20:51 | Outpatient (CLI) | payer MEDICAID, SELFPAY ==
--- OUTSIDE RECORDS SUMMARY | 2024-02-14 20:52 | XMS_ITS | Referral Summary ---
Author Organization [facility] Address [address] [place] [address] Care Team Providers Care Mechanical Engineering Coop Name Role Phone Yasmine Dumont MD Primary Care Provider [phone] Encounters Date Type Department Care Team Description 12/08/2023 Travel 12/08/2023 2:00 PM CDT Office Visit [facility] [address] [facility] [address] [place] [phone] Tristen Swartz MD Encounter for follow-up ultrasound of anatomy (Primary Dx) 12/08/2023 1:24 PM CDT - 12/08/2023 11:59 PM CDT Hospital Encounter [facility] [address] [facility] [address] [place] [address] Tristen Swartz MD Encounter for follow-up ultrasound of anatomy Discharge Disposition: Home or Self Care from Last 3 Months Allergies No known [...] on file Medical Devices Implanted Type Area Modeler Device Identifier Shelf Expiration Date Model / Serial / Lot Graft Bone Putty Dbx 01ml [id number] Implanted:Qty: 1 on 09/07/2011 at [facility] Left: Arm 10/21/2012 [id number] / [id number] / Explanted Type Area Modeler Device Identifier Shelf Expiration Date Model / Serial / Lot Screws And Plate Implanted:09/07 by Israel Rg MD (Quantity not on file) Explanted:Qty: 1 on 09/07/2011 at [facility] Left: Arm Procedures Procedure Name Priority Date/Time Associated Diagnosis Comments [facility] US COMPREHENSIVE SINGLE F/U Routine 12/08/2023 2:13 PM CDT Encounter for follow-up ultrasound of anatomy from Last 3 Months Results * [facility] US Comprehensive Single F/U (12/08/2023 2:13 [...] ? Study Date: ??12/08/2023 1:27pm Pat. NO: ??[id number] ?Referring ??: BEBO SANTIAGO Site: ??[facility] ? Dent Remover: Rekha Maldonado RDMS : ??1990 ?Age: ?? [...] 1 lb 1 ?oz EFW by ?Hadlock ([id number]-FL) Head / Face / Neck Biometry: Watch Assembly Inspector ? 6.1 ? mm CM ?4.5 ? mm ANATOMY ----- The following structures appear normal: Head / Neck ? Cranium. Head size. Head shape. Lateral ventricles. Midline falx. Cavum septi pellucidi. Cerebellum. Cisterna magna. Thalami. Face ? Lips. Nose. Heart / Thorax ?4-chamber view. RVOT view. LVOT view. Aortic arch view. Ductal arch view. 7-cabnsy-kptalvo view. ? Right lung. Left lung. Diaphragm. [...] WEBER Study Date: 12/08/2023 1:27pm Pat. NO: [id number] Referring MD: BEBO SANTIAGO Site: [facility] Dent Remover: Rekha Maldonado RDMS : 1990 Age: 33 [...] 1 lb 1 oz EFW by Hadlock ([id number]-FL) Head / Face / Neck Biometry: Watch Assembly Inspector 6.1 mm CM 4.5 mm ANATOMY ----- The following structures appear normal: Head / Neck Cranium. Head size. Head shape.Lateral ventricles. Midline falx. Cavum septi pellucidi. Cerebellum.Cisterna magna. Thalami. Face Lips. Nose. Heart / Thorax 4-chamber view. RVOT view. LVOT view.Aortic arch view. Ductal arch view. 1-kcagiq-hywxbfs view. Right lung. Left lung.Diaphragm. Abdomen Stomach. [...] fluid volume appeared normal. Tristen Swartz MD [facility] ORDERABL ES from Last 3 Months Care Teams Mechanical Engineering Coop Relationship Specialty Start Date End Date Yasmine Dumont MD PCP - General Speciality Unknown 08/31/11
--- OUTSIDE RECORDS SUMMARY | 2024-02-14 20:52 | XMS_ITS | Encounter Summary ---
Author Organization [facility] Address [address] [place] [address] Care Team Providers Care Radiation Oncology Nurse Name Role Phone Yasmine Dumont MD Primary Care Provider [phone] Reason for Referral * Diagnostic Imaging Ultrasound (Routine) - Pending Review Specialty Diagnoses / Procedures Referred By Contac t Referred To Contact Radiology. Diagnoses Encounter for follow-up ultrasound of anatomy Procedures [facility] US Comprehensive Single F/U Tristen Swartz MD [address] [address] Referral ID Status Reason Start Date Expiration Date V isits Requested Visits Authorized [id number] Pending Review 11/10/2023 11/09/2024 1 1 Reason for Visit * Diagnostic Imaging Ultrasound (Routine) - Pending Review Specialty Diagnoses / Procedures Referred By Holly perry Referred To Contact Radiology. Diagnoses Encounter for follow-up ultrasound of anatomy Procedures [facility] US Comprehensive Single F/U Tristen Swartz MD [address] [place] [address] Referral ID Status Reason Start Date Expiration Date V isits Requested Visits Authorized [id number] Pending Review 11/10/2023 11/09/2024 1 1 Encounter Details Date Type Department Care Team (Latest Contact Info) Description 12/08/2023 1:24 PM CDT - 12/08/2023 11:59 PM CDT Hospital Encounter [facility] [place] [address] [place] [address] Tristen Swartz MD [address] [place] [address] Encounter for follow-up ultrasound of [...] Procedure Name Priority Date/Time Associated Diagnosis Comments [facility] US COMPREHENSIVE SINGLE F/U Routine 12/08/2023 2:13 PM CDT Encounter for follow-up ultrasound of anatomy documented in this encounter Results * [facility] US Comprehensive Single F/U (12/08/2023 2:13 PM [...] ? Study Date: ??12/08/2023 1:27pm Pat. NO: ??[id number] ?Referring ??MD: BEBO SANTIAGO Site: ??[facility] ? Registered Midwife: Rekha Maldonado RDMS : ??1990 ?Age: ?? [...] 1 lb 1 ?oz EFW by ?Hadlock ([id number]) Head / Face / Neck Biometry: Oil Well Fishing Tool Technician ? 6.1 ? mm CM ?4.5 ? mm ANATOMY ----- The following structures appear normal: Head / Neck ? Cranium. Head size. Head shape. Lateral ventricles. Midline falx. Cavum septi pellucidi. Cerebellum. Cisterna magna. Thalami. Face ? Lips. Nose. Heart / Thorax ?4-chamber view. RVOT view. LVOT view. Aortic arch view. Ductal arch view. 2-uokiak-dzkdeme view. ? Right lung. Left lung. Diaphragm. [...] WEBER Study Date: 12/08/2023 1:27pm Pat. NO: [id number] Referring MD: BEBO SANTIAGO Site: [facility] Registered Midwife: Rekha BoyleFLORENCIO العلي : 1990 Age: 33 [...] 1 lb 1 oz EFW by Quang ([id number]) Head / Face / Neck Biometry: Oil Well Fishing Tool Technician 6.1 mm CM 4.5 mm ANATOMY ----- The following structures appear normal: Head / Neck Cranium. Head size. Head shape.Lateral ventricles. Midline falx. Cavum septi pellucidi. Cerebellum.Cisterna magna. Thalami. Face Lips. Nose. Heart / Thorax 4-chamber view. RVOT view. LVOT view.Aortic arch view. Ductal arch view. 3-cbuzik-ujzrjjp view. Right lung. Left lung.Diaphragm. Abdomen Stomach. [...] present but not detected IMPRESSION ----- 1. Petres at 22w 1d gestational age. 2. The remaining anatomic survey was completed, no anomaliescommonly detected by ultrasound were identified within the limits ofprenatal ultrasound. 3. Growth parameters and estimated weight were consistent withgestational age predicted by assigned CHERIE. 4. The amniotic fluid volume appeared normal. Tristen Swartz MD [facility] US ORDERABL ES documented in this encounter Visit Diagnoses Diagnosis Encounter for follow-up ultrasound of anatomy documented in this encounter Care Teams Radiation Oncology Nurse Relationship Specialty Start Date End Date Yasmine Dumont MD PCP - General Speciality Unknown 08/31/11 documented as of this encounter
--- OUTSIDE RECORDS SUMMARY | 2024-02-14 20:52 | XMS_ITS | Clinical Summary ---
Author Organization [facility] Address [address] [place] [address] Care Team Providers Care Spray Dry Operator Name Role Phone Yasmine Dumont MD Primary Care Provider [phone] Allergies No known active allergies Medications Medication [...] Description 12/08/2023 2:00 PM CDT Office Visit [facility] [address] [facility] [address] [place] [address] Tristen Swartz MD Encounter for follow-up ultrasound of anatomy (Primary Dx) 12/08/2023 1:24 PM CDT - 12/08/2023 11:59 PM CDT Hospital Encounter [facility] [address] [facility] [address] [place] [address] Tristen Swartz MD Encounter for follow-up ultrasound of anatomy Discharge Disposition: Home or Self Care 12/08/2023 Travel from Last 3 Months Social History Tobacco [...] exists HEPATITIS B IMMUNIZATION Completed 006, 04/21/2005, 01/06/2000 MENINGITIS IMMUNIZATION Completed 06/03/2010 Pneumococcal Vaccine: Pediatrics (0 to 5 Years) and At-Risk Patients (6 to 64 Years) Aged Out 09/25/2015 No longer eligible based on patient's age to complete this topic HPV IMMUNIZATION Completed 08/20/2017, , 06/03/2010 IPV IMMUNIZATION Aged Out No longer e ligible based on patient's age to complete this topic RSV MONOCLONAL ANTIBODY Aged Out No l onger eligible based on patient's age to complete this topic RSV VACCINE ( & 60+) (No Doses Required) Completed Medical Devices Implanted Type Area Rn Corrections Device Identifier Shelf Expiration Date Model / Serial / Lot Graft Bone Putty Dbx 01ml [id number] Implanted:Qty: 1 on 09/07/2011 at [facility] Left: Arm 10/21/2012 [id number] / [id number] / Explanted Type Area Rn Corrections Device Identifier Shelf Expiration Date Model / Serial / Lot Screws And Plate Implanted:09/07 by Israel Rg MD (Quantity not on file) Explanted:Qty: 1 on 09/07/2011 at [facility] Left: Arm Procedures Procedure Name Priority Date/Time Associated Diagnosis Comments [facility] US COMPREHENSIVE SINGLE F/U Routine 12/08/2023 2:13 PM CDT Encounter for follow-up ultrasound of anatomy from Last 3 Months Results * [facility] US Comprehensive Single F/U (12/08/2023 2:13 PM [...] ? Study Date: ??12/08/2023 1:27pm Pat. NO: ??[id number] ?Referring ??MD: BEBO SANTIAGO Site: ??[facility] ? Web Application Dev Specialist: Rekha Maldonado RDMS : ??1990 ?Age: ?? [...] 1 lb 1 ?oz EFW by ?Hadlock ([id number]) Head / Face / Neck Biometry: Configuration Manager ? 6.1 ? mm CM ?4.5 ? mm ANATOMY ----- The following structures appear normal: Head / Neck ? Cranium. Head size. Head shape. Lateral ventricles. Midline falx. Cavum septi pellucidi. Cerebellum. Cisterna magna. Thalami. Face ? Lips. Nose. Heart / Thorax ?4-chamber view. RVOT view. LVOT view. Aortic arch view. Ductal arch view. 8-wzdrkp-yavwiih view. ? Right lung. Left lung. Diaphragm. [...] WEBER Study Date: 12/08/2023 1:27pm Pat. NO: [id number] Referring MD: BEBO SANTIAGO Site: [facility] Web Application Dev Specialist: Rekha Maldonado RDMS : 1990 Age: 33 [...] 1 lb 1 oz EFW by Hadlock ([id number]-FL) Head / Face / Neck Biometry: Configuration Manager 6.1 mm CM 4.5 mm ANATOMY ----- The following structures appear normal: Head / Neck Cranium. Head size. Head shape.Lateral ventricles. Midline falx. Cavum septi pellucidi. Cerebellum.Cisterna magna. Thalami. Face Lips. Nose. Heart / Thorax 4-chamber view. RVOT view. LVOT view.Aortic arch view. Ductal arch view. 1-kaxgny-xoucysw view. Right lung. Left lung.Diaphragm. Abdomen Stomach. [...] fluid volume appeared normal. Tristen Swartz MD [facility] ORDERABL ES from Last 3 Months Care Teams Spray Dry Operator Relationship Specialty Start Date End Date Yasmine Dumont MD PCP - General Speciality Unknown 08/31/11
--- OUTSIDE RECORDS SUMMARY | 2024-02-14 20:52 | XMS_ITS | Encounter Summary ---
Author Organization [place] Address [address] [facility] [place] [address] Care Team Providers Care Catering Associate Name Role Phone Yasmine Dumont MD Primary Care Provider [phone] Reason for Referral * Diagnostic Imaging Ultrasound (Routine) - Pending Review Specialty Diagnoses / Procedures Referred By Contac t Referred To Contact Radiology. Diagnoses Encounter for follow-up ultrasound of anatomy Procedures [facility] US Comprehensive Single F/U Tristen Swartz MD [address] [place] [address] Referral ID Status Reason Start Date Expiration Date V isits Requested Visits Authorized [id number] Pending Review 11/10/2023 11/09/2024 1 1 Reason for Visit * Reason Comments Ultrasound L2-Chron's, low weig ht gain in Encounter Details Date Type Department Care Team (Late st Contact Info) Description 11/10/2023 12:15 PM CDT Office Visit [facility] [place] [address] [facility] [address] [place] [phone] Annmarie Gilbert APRN [facility] [address] [place] [address] Tristen Swartz MD [address] [place], [place] [address] [facility] [address] [place] [address] High-risk , unspecified trimester (Primary Dx); Crohn's [...] for details of today's US at the [facility]. Tristen Swartz MD Maternal- Medicine documented in this encounter Plan of Treatment Not on file documented as of this encounter Results * [facility] US Comprehensive Single F/U (12/08/2023 2:13 PM [...] ? Study Date: ??12/08/2023 1:27pm Pat. NO: ??[id number] ?Referring ??MD: ANNMARIE GILBERT Site: ??[facility] ? Inside Sales: Rekha Maldonado RDMS : ??1990 ?Age: ?? [...] 1 lb 1 ?oz EFW by ?[facility] ([id number]) Head / Face / Neck Biometry: [employer] Librarian ? 6.1 ? mm CM ?4.5 ? mm ANATOMY ----- The following structures appear normal: Head / Neck ? Cranium. Head size. Head shape. Lateral ventricles. Midline falx. Cavum septi pellucidi. Cerebellum. Cisterna magna. Thalami. Face ? Lips. Nose. Heart / Thorax ?4-chamber view. RVOT view. LVOT view. Aortic arch view. Ductal arch view. 2-grhqfp-spdyqjg view. ? Right lung. Left lung. Diaphragm. [...] WEBER Study Date: 12/08/2023 1:27pm Pat. NO: [id number] Referring MD: ANNMARIE GILBERT Site: [facility] Inside Sales: Rekha Maldonado RDMS : 1990 Age: 33 [...] 1 lb 1 oz EFW by [facility] ([id number]) Head / Face / Neck Biometry: [employer] Librarian 6.1 mm CM 4.5 mm ANATOMY ----- The following structures appear normal: Head / Neck Cranium. Head size. Head shape.Lateral ventricles. Midline falx. Cavum septi pellucidi. Cerebellum.Cisterna magna. Thalami. Face Lips. Nose. Heart / Thorax 4-chamber view. RVOT view. LVOT view.Aortic arch view. Ductal arch view. 6-xidnhc-guvuqta view. Right lung. Left lung.Diaphragm. Abdomen Stomach. [...] fluid volume appeared normal. Tristen Swartz MD [facility] US ORDERABL ES documented in this encounter Visit Diagnoses Diagnosis High-risk , unspecified trimester- Primary Crohn's disease of large intestine with other complication (H) Encounter for follow-up ultrasound of anatomy Encounter for follow-up ultrasound of anatomy documented in this encounter Care Teams Catering Associate Relationship Specialty Start Date End Date Yasmine Dumont MD PCP - General Speciality Unknown 08/31/11 documented as of this encounter
--- OUTSIDE RECORDS SUMMARY | 2024-02-14 20:52 | XMS_ITS | Encounter Summary ---
Author Organization [place] Address [address] [place] [address] Care Team Providers Care Casting Repairer Name Role Phone Yasmine Dumont MD Primary Care Provider [phone] Encounter Details Date Type Department Care Team [...] on filedocumented in this encounter Care Teams Casting Repairer Relationship Specialty Start Date End Date Yasmine Dumont MD PCP - General Speciality Unknown 08/31/11 documented as of this encounter
--- OUTSIDE RECORDS SUMMARY | 2024-02-14 20:52 | XMS_ITS | Encounter Summary ---
Author Organization [place] Address [address] [place] [address] Care Team Providers Care Developer Prover Upholstering Name Role Phone Yasmine Dumont MD Primary Care Provider [phone] Encounter Details Date Type Department Care Team [...] on filedocumented in this encounter Care Teams Developer Prover Upholstering Relationship Specialty Start Date End Date Yasmine Dumont MD PCP - General Speciality Unknown 08/31/11 documented as of this encounter
--- OUTSIDE RECORDS SUMMARY | 2024-02-14 20:52 | XMS_ITS | Encounter Summary ---
Author Organization [place] Address [address] [facility] [place] [address] Care Team Providers Care Truer Pinion And Wheel Name Role Phone Yasmine Dumont MD Primary Care Provider [phone] Reason for Visit * Reason Comments Ultrasound RL2-Subopt Encounter Details Date Type Department Care Team (Late st Contact Info) Description 12/08/2023 2:00 PM CDT Office Visit [facility] [place] [address] [facility] [address] [place] [address] Tristen Swartz MD [address] [facility] [address] [place] [address] Encounter for follow-up ultrasound of [...] for details of today's US at the [facility]. Tristen Swartz MD Maternal- Medicine documented in this encounter Plan of Treatment Not on file documented as of this encounter Visit Diagnoses Diagnosis Encounter for follow-up ultrasound of anatomy- Primary documented in this encounter Care Teams Truer Pinion And Wheel Relationship Specialty Start Date End Date Yasmine Dumont MD PCP - General Speciality Unknown 08/31/11 documented as of this encounter
--- OUTSIDE RECORDS SUMMARY | 2024-02-14 20:52 | XMS_ITS | Encounter Summary ---
Author Organization [place] Address [address] [place] [address] Care Team Providers Care Flat Spring Assembler Name Role Phone Yasmine Dumont MD Primary Care Provider [phone] Reason for Referral * Diagnostic Imaging Ultrasound (Routine) - Pending Review Specialty Diagnoses / Procedures Referred By Contac t Referred To Contact Radiology. Diagnoses related condition, antepartum Procedures [facility] US Comprehensive Single Annmarie Gilbert APRN CNP [facility] [address] [place] [address] Referral ID Status Reason Start Date Expiration Date V isits Requested Visits Authorized [id number] Pending Review 11/05/2023 11/04/2024 1 1 Reason for Visit * Diagnostic Imaging Ultrasound (Routine) - Pending Review Specialty Diagnoses / Procedures Referred By Holly perry Referred To Contact Radiology. Diagnoses related condition, antepartum Procedures [facility] US Comprehensive Single Annmarie Gilbert APRN CNP [facility] [address] [place] [address] Referral ID Status Reason Start Date Expiration Date V isits Requested Visits Authorized [id number] Pending Review 11/05/2023 11/04/2024 1 1 Encounter Details Date Type Department Care Team (Latest Contact Info) Description 11/10/2023 11:45 AM CDT - 11/10/2023 11:59 PM CDT Hospital Encounter [facility] [place] [address] [facility] [address] [place] [address] Annmarie Gilbert APRN [facility] [address] [place] [address] Tristen Swartz MD [address] [address] [place] [address] related condition, antepartum Discharge Disposition: [...] Procedure Name Priority Date/Time Associated Diagnosis Comments [facility] US COMPREHENSIVE SINGLE Routine 11/10/2023 12:57 PM CDT related condition, antepartum documented in this encounter Results * [facility] US Comprehensive Single (11/10/2023 12:57 PM [...] ? Study Date: ??11/10/2023 12:01pm Pat. NO: ??[id number] ?Referring ??MD: ANNMARIE GILBETR Site: ??[facility] ? Flat Lock Machine Operator: Yinka Orozco RDMS : ??1990 [...] ? 0 lb 8 ?oz EFW by ?[facility] ([id number]) Head / Face / Neck Biometry: Public Address System Installer ? 8.1 ? mm CM ?3.9 ? [...] ?4-chamber view. LVOT view. Ductal arch view. 6-gaktfv-znuntxx view. ? Right lung. Left lung. Spine ?Sacral spine. MATERNAL STRUCTURES ----- Cervix ?Visualized ? Appearance: Appears Closed ? Approach - Transabdominal: Cervical length 55.7 mm Right Ovary ?Visualized Left Ovary ?Not visualized RECOMMENDATION ----- We discussed the findings on today's ultrasound with the patient. The patient is scheduled to return to [facility] in 4 weeks to complete the [...] WEBER Study Date: 11/10/2023 12:01pm Pat. NO: [id number] Referring MD: ANNMARIE GILBERT Site: [facility] Flat Lock Machine Operator: Yinka Orozco RDMS : 1990 [...] 0 lb 8 oz EFW by [facility] ([id number]) Head / Face / Neck Biometry: Public Address System Installer 8.1 mm CM 3.9 mm Nasal bone [...] Thorax 4-chamber view. LVOT view. Ductal archview. 5-qnbbpy-tiufbpx view. Right lung. Left lung. Spine Sacral spine. MATERNAL STRUCTURES ----- Cervix Visualized Appearance: Appears Closed Approach - Transabdominal:Cervical length 55.7 mm Right Ovary Visualized Left Ovary Not visualized RECOMMENDATION ----- We discussed the findings on today's ultrasound with the patient. The patient is scheduled to return to [facility] in 4 weeks to complete theanatomic [...] markers for aneuploidy seen. Annmarie Gilbert APRN SUPERVISOR [employer] IM[employer] [facility] US ORDERABLES documented in this encounter Visit Diagnoses Diagnosis related condition, antepartum documented in this encounter Care Teams Flat Spring Assembler Relationship Specialty Start Date End Date Yasmine Dumont MD PCP - General Speciality Unknown 08/31/11 documented as of this encounter
--- OUTSIDE RECORDS SUMMARY | 2024-02-14 20:53 | XMS_ITS | Clinical Summary ---
Author Organization [facility] Address [address] [address] Care Team Providers Care Customs Broker Name Role Phone Marie Yanes PA-C Primary Care Provider [phone] Source Comments You are receiving this document as you are listed as the primary care provider,follow-up provider, or the patient has been referred to you for consultation.This is in compliance with the Medicare and[facility] EHR Incentive Program,which states Providers who transition their patient to another setting of careor provider of care or refers their patient to another provider of care shouldprovide summary care record for each transition of care or referral. [facility] Allergies Active Allergy Reactions Criticality Noted Date [...] 11:02 PM 06/22/2022 8:11 PM Care Teams Customs Broker Relationship Specialty Start Date End Date Marie Yanes PA-C PCP - General Physician Reproduction Machine Loader 06/18/22
--- OUTSIDE RECORDS SUMMARY | 2024-02-14 20:53 | XMS_ITS | Continuity of Care Document ---
Author Organization [facility] Address [address] [address] [place] [address] Phone Care Team Providers Care Foundation Director Name Role Phone Elmo Mosquera MD Unavailable Unavailable Allergies, Adverse Reactions, Alerts [...] Procedure Date Therap/dx Inj; Subq/im Stelara Injection Therap/dx Inj; [...] FFS W/Submucosal Injection Sigmoidoscopy Flex; W/bx 1/mx Level Iv-surg Path Gross/micro Therap/dx Inj; Subq/im Stelara Injection Therap/dx Inj; Subq/im Stelara Injection Routine Serum Collection Therap/dx Inj; Subq/im Stelara Injection HB Assess Or Reassessment Therap/dx Inj; Subq/im Stelara Injection Medical nutrition therapy, initial, each 15 minutes Routine Serum Collection Therap/dx Inj; Subq/im Stelara Injection Offic/outpt E&m Estab Mod-hi 2 Offic/outpt E&m Estab Mod-hi 2 Routine Serum Collection Iv Infus Therap/dx-by Phys; To Stelara Infusion Ugi Endo; W/bx 1/mx Level Iv-surg Path Gross/micro Routine Serum Collection Routine Serum Collection Subsqt Hosp-da E&m Minr Compl 2 Init Inpt Cons New/est Mod-hi Established Level 4 Routine Serum Collection Established [...] 10 Mg Routine Serum Collection Offic/outpt E&m [facility] Mod-hi 4 21 Colonoscopy Flex; W/bx 1/mx Ugi Endo; W/bx 1/mx Level Iv-surg Path Gross/micro 21 Immunocytochemistry, Each Antibody Offic/outpt E&m New Mod-hi Routine Serum Collection Bld Ct; Hg/pltlt Ct Auto/compl Ag-immunoassay; Hep B Surface C-reactive Prot Comp Metabolic Panel Cyanocobalamin Vitamin D; 25 Hydroxy Offic/outpt E&m Estab Low-mod Dec-20-201 6 Routine Serum Collection C-reactive Prot Vitamin [...] 16 Immuniz Admin; 2/> Sing/comb V 16 [id number] Vaccine Immuniz Admin; 2/> Sing/comb V 16 [...] Diagnoses Date Provider Providers Copied on Encounter [facility], [address] [address], [place], [id number], [place] tel:[phone] [facility] [place] Crohn's disease of both small and lg int w/o complications 4 Demetri Borrego. [address] [facility], [facility] [address], [place], [place], [address], [place]. tel:[phone] Referring Provider: Referral Self, USE FOR SELF REFERRALS. [facility], [address] [address], [place], [id number], [place] tel:[phone] [facility] Crohn's disease of both small and lg int w/o complications 4 Tamica Mcclain. [address] [facility], [facility] [address], [place], [address], [place]. tel:[phone] [facility], [address] [address], [place], [address], [place] tel:[phone] [facility] [place] Crohn's disease of both small and lg int w/o complications 4 Demetri Borrego. [address] [facility], [address], [id number], [place]. tel:[phone] Referring Provider: Referral Self, USE FOR SELF REFERRALS. [facility], [address] [address], [place], [address], [place] tel:[phone] [facility] Crohn's disease of both small and lg int w/o complications 4 Tamica Mcclain. [address], [address], [place]. tel:[phone] Referring Provider: Referral Self, USE FOR SELF REFERRALS. [facility], [address] [address], [place], [address], [place] tel:[phone] [facility] No Information 4 Tamica Mcclain. [address] [facility], [address], [id number], [place]. tel:[phone] Offic/outpt E&m Estab Mod-hi 2 [facility], [address] [address], [place], [address], [place] tel:[phone] [facility] GI Symptoms or Concerns (chief complaint) Previous History Review (chief complaint) Crohn's disease of both small and large intestine without complication 4 Tamica Mcclain. [address] [facility], [facility] [address], [place], [address], [place]. tel:[phone] Referring Provider: Referral Self, USE FOR SELF REFERRALS. [facility], [address] [address], [place], [address], [place] tel:[phone] [facility] [place] Crohn's disease of both small and lg int w/o complications December-0 4 Tamica Mcclain. [address] [facility], [address], [id number], [place]. tel:[phone] [facility], [address] [address], [place], [address], [place] tel:[phone] [facility] Crohn's disease of both small and lg int w/o complications 0 4 Tamica Mcclain. [address] [facility], [address], [id number], [place]. tel:[phone] [facility], [address] [address], [place], [address], [place] tel:[phone] [facility] [place] Crohn's disease of both small and lg int w/o complications 0 4 Demetri Borrego. [address], [id number], [place]. tel:[phone] Referring Provider: Referral Self, USE FOR SELF REFERRALS. [facility], [address] [address], [place], [address], [place] tel:[phone] [facility] Crohn's disease of both small and lg int w/o complications 0 4 Tamica Mcclain. [address], [id number], [place]. tel:[phone] Referring Provider: Referral Self, USE FOR SELF REFERRALS. [facility], [address] [address], [place], [address], [place] tel:[phone] [facility] [place] Crohn's disease of both small and lg int w/o complications 4 Tamica Mcclain. [address] [facility], [facility] [address], [place], [address], [place]. tel:[phone] [facility], [address] [address], [place], [address], [place] tel:[phone] [facility] [place] Crohn's disease of both small and lg int w/o complications 4 Demetir Borrego. [address], [id number], [place]. tel:[phone] Referring Provider: Referral Self, USE FOR SELF REFERRALS. [facility], [address] [address], [place], [address], [place] tel:[phone] [facility] [place] Crohn's disease of both small and lg int w/o complications 4 Tamica Mcclain. [address], [id number], [place]. tel:[phone] [facility], [address] [address], [place], [address], [place] tel:[phone] [facility] [place] Crohn's disease of both small and lg int w/o complications 4 Nazanin Humphrey. [address], [id number], [place]. tel:[phone] Referring Provider: Referral Self, USE FOR SELF REFERRALS. [facility], [address] [address], [place], [address], [place] tel:[phone] [facility] [place] Crohn's disease of both small and lg int w/o complications 4 Tamica Mcclain. [address], [id number], [place]. tel:[phone] [facility], [address] [address], [place], [address], [place] tel:[phone] [facility] [place] Crohn's disease of both small and lg int w/o complications 3 Flip Joyce. [address] [facility], [address], [id number], [place]. tel:[phone] Referring Provider: Referral Self, USE FOR SELF REFERRALS. [facility], [address] [address], [place], [address], [place] tel:[phone] [facility] [place] Crohn's disease of both small and lg int w/o complications 3 Tamica Mcclain. [address] [facility], [facility] [address], [place], [place], [address], [place]. tel:[phone] [facility], [address] [address], [place], [address], [place] tel:[phone] [facility] Crohn's disease of both small and large intestine with other complication 3 Tamica Mcclain. [address] [facility], [address], [place], [place], [address], [place]. tel:[phone] [facility], [address] [address], [place], [address], [place] tel:[phone] [facility] [place] Crohn's disease of both small and lg int w/o complications 3 Bahman Ang. [address] [facility], [address], [place], [place], [address], [place]. tel:[phone] Referring Provider: Johny Davey MD, [address] [facility] [address], [place], [address] . tel:[phone] [facility], [address] [address], [place], [address], [place] tel:[phone] [facility] Crohn's disease of both small and lg int w/o complications 3 Tamica Mcclain. [address] [facility], [address], [place], [place], [address], [place]. tel:[phone] Referring Provider: Referral Self, USE FOR SELF REFERRALS. [facility], [address] [address], [place], [address], [place] tel:[phone] [facility] Crohn's disease of both small and lg int w/o complications 3 Tamica Mcclain. [address] [facility], [facility] [address], [place], [place], [address], [place]. tel:[phone] [facility], [address] [address], [place], [address], [place] tel:[phone] [facility] [place] Crohn's disease of both small and lg int w/o complications 3 Flip Joyce. [address] [facility], [facility] [address], [place], [address], [place]. tel:[phone] Referring Provider: Referral Self, USE FOR SELF REFERRALS. [facility], [address] [address], [place], [address], [place] tel:[phone] [facility] [place] Crohn's disease of both small and lg int w/o complications 3 Tamica Mcclain. [address] [facility], [facility] [address], [place], [address], [place]. tel:[phone] [facility], [address] [address], [place], [address], [place] tel:[phone] [facility] [place] Crohn's disease of both small and lg int w/o complications 3 Bahman Ang. [address] [facility], [facility] [address], [place], [address], [place]. tel:[phone] Referring Provider: Referral Self, USE FOR SELF REFERRALS. [facility], [address] [address], [place], [address], [place] tel:[phone] [facility] Crohn's disease of both small and lg int w/o complications 3 Tamica Mcclain. [address] [facility], [facility] [address], [place], [address], [place]. tel:[phone] Referring Provider: Referral Self, USE FOR SELF REFERRALS. [facility], [address] [address], [place], [address], [place] tel:[phone] [facility] [place] Crohn's disease of both small and lg int w/o complications 3 Tamica Mcclain. [address] [facility], [facility] [address], [place], [address], [place]. tel:[phone] [facility], [address] [address], [place], [address], [place] tel:[phone] [facility] GI Symptoms or Concerns (chief complaint) Crohn's disease of both small and lg int w oth complicationC rohn's disease of both small and large intestine with other complicationC rohn's disease of both small and lg int w oth complication 3 Tamica Mcclain. [address] [facility], [address], [id number], [place]. tel:[phone] Referring Provider: Referral Self, USE FOR SELF REFERRALS. [facility], [address] [address], [place], [address], [place] tel:[phone] [facility] [place] Crohn's disease of both small and lg int w/o complications 3 Gregorio Ponce. [address] [facility], [address], [id number], [place]. tel:[phone] Referring Provider: Referral Self, USE FOR SELF REFERRALS. [facility], [address] [address], [place], [address], [place] tel:[phone] [facility] Crohn's disease of both small and lg int w/o complications 3 Tamica Mcclain. [address] [facility], [facility] [address], [place], [address], [place]. tel:[phone] [facility], [address] [address], [place], [address], [place] tel:[phone] [facility] [place] Crohn's disease of both small and lg int w/o complications 3 Ashu Ruby. [address] [facility], [facility] [address], [place], [address], [place]. tel:[phone] Referring Provider: Referral Self, USE FOR SELF REFERRALS. [facility], [address] [address], [place], [address], [place] tel:[phone] [facility] Crohn's disease of both small and lg int w/o complications 3 Tamica Mcclain. [address] [facility], [address], [id number], [place]. tel:[phone] Referring Provider: Referral Self, USE FOR SELF REFERRALS. [facility], [address] [address], [place], [address], [place] tel:[phone] [facility] Crohn's disease of both small and lg int w/o complications Nov- 3 Tamica Mcclain. [address] [facility], [facility] [address], [place], [address], [place]. tel:[phone] [facility], [address] [address], [place], [address], [place] tel:[phone] [facility] Crohn's disease of both small and large intestine with other complication 3 Tamica Mcclain. [address] [facility], [facility] [address], [place], [address], [place]. tel:[phone] [facility], [address] [address], [place], [address], [place] tel:[phone] [facility] [place] Crohn's disease of both small and lg int w/o complications 3 Nazanin Humphrey. [address] [facility], [facility] [address], [place], [address], [place]. tel:[phone] Referring Provider: Referral Self, USE FOR SELF REFERRALS. [facility], [address] [address], [place], [address], [place] tel:[phone] [facility] Crohn's disease of both small and lg int w/o complications 3 Tamica Mcclain. [address] [facility], [facility] [address], [place], [address], [place]. tel:[phone] [facility], [address] [address], [place], [address], [place] tel:[phone] [facility] GI Symptoms or Concerns (chief complaint) Crohn's disease of both small and lg int w oth complication 3 Tung Klein. [address] [facility], [address], [place], [place], [address], [place]. tel:[phone] Referring Provider: Referral Self, USE FOR SELF REFERRALS. [facility], [address] [address], [place], [address], [place] tel:[phone] [facility] Crohn's disease of both small and lg int w/o complications 3 Tamica Mcclain. [address] [facility], [facility] [address], [place], [address], [place]. tel:[phone] Referring Provider: Referral Self, USE FOR SELF REFERRALS. [facility], [address] [address], [place], [address], [place] tel:[phone] [facility] Crohn's disease of both small and lg int w/o complications 3 Cabrera Carrasco. [address] [facility], [facility] [address], [place], [address], [place]. tel:[phone] Referring Provider: Referral Self, USE FOR SELF REFERRALS. [facility], [address] [address], [place], [address], [place] tel:[phone] [facility] Crohn's disease of both small and large intestine without complication 3 Tamica Mcclain. [address] [facility], [facility] [address], [place], [address], [place]. tel:[phone] [facility], [address] [address], [place], [address], [place] tel:[phone] [facility] GI Symptoms or Concerns (chief complaint) Crohn's disease of both small and large intestine without complicationD ietary counseling and surveillance 2 Trav Klein. [address] [facility], [facility] [address], [place], [place], [address], [place]. tel:[phone] Referring Provider: Referral Self, USE FOR SELF REFERRALS. [facility], [address] [address], [place], [address], [place] tel:[phone] [facility] [place] Crohn's disease of both small and large intestine without complicationC rohn's disease of both small and lg int w oth complication 2 Teresa Lim. [address] [place] [address], [address], [place]. tel:[phone] Referring Provider: Referral Self, USE FOR SELF REFERRALS. [facility], [address] [address], [place], [address], [place] tel:[phone] [facility] [place] Crohn's disease of both small and large intestine without complication 2 Tamica Mcclain. [address] [place] [address], [address], [place]. tel:[phone] Offic/outpt E&m Estab Mod-hi 2 [facility], [address] [address], [place], [address], [place] tel:[phone] [facility] GI Symptoms or Concerns (chief complaint) Previous History Review (chief complaint) Crohn's disease of both small and large intestine with other complication 2 Tamica Mcclain. [address] [place] [address], [id number], [place]. tel:[phone] Referring Provider: Referral Self, USE FOR SELF REFERRALS. Offic/outpt E&m Estab Mod-hi 2 [facility], [address] [address], [place], [address], [place] tel:[phone] [facility] GI Symptoms or Concerns (chief complaint) Previous History Review (chief complaint) Crohn's disease of both small and large intestine without complication 2 Tamica Mcclain. [address] [place] [address], [id number], [place]. tel:[phone] Referring Provider: Referral Self, USE FOR SELF REFERRALS. [facility], [address] [address], [place], [address], [place] tel:[phone] [facility] [place] Crohn's disease of both small and lg int w/o complications Sep-2 2 Teresa Lim. [address] [facility], [address], [place], [place], [address], [place]. tel:[phone] Referring Provider: Referral Self, USE FOR SELF REFERRALS. [facility], [address] [address], [place], [address], [place] tel:[phone] [facility] Crohn's disease of both small and large intestine without complication Sep-1 2 Tamica Mcclain. [address] [facility], [facility] [address], [place], [address], [place]. tel:[phone] [facility], [address] [address], [place], [address], [place] tel:[phone] [facility] GI Symptoms or Concerns (chief complaint) Abdominal pain, unspecified abdominal locationUnspe cified abdominal pain Sep-0 2 Tamica Mcclain. [address] [facility], [facility] [address], [place], [address], [place]. tel:[phone] Referring Provider: Referral Self, USE FOR SELF REFERRALS. [facility], [address] [address], [place], [address], [place] tel:[phone] [facility] Epigastric abdominal pain Sep-0 2 Tamica Mcclain. [address] [facility], [address], [place], [address], [place]. tel:[phone] [facility], [address] [address], [place], [address], [place] tel:[phone] [facility] Crohn's disease of both small and lg int w/o complications Sep-0 2 Tamica Mcclain. [address] [facility], [facility] [address], [place], [address], [place]. tel:[phone] Referring Provider: Referral Self, USE FOR SELF REFERRALS. [facility]EL, [address] [address], [place], [address], [place] tel:[phone] [facility] Crohn's disease of both small and lg int w/o complications 2 Tamica Mcclain. [address] [facility], [address], [place], [place], [address], [place]. tel:[phone] Referring Provider: Referral Self, USE FOR SELF REFERRALS. [facility], [address] [address], [place], [address], [place] tel:[phone] [facility] Crohn's disease of both small and large intestine without complication 2 Tamica Mcclain. [address] [facility], [address], [place], [place], [address], [place]. tel:[phone] Subsqt Hosp-da E&m Minr Compl [facility], [address] [address], [place], [id number], [place] tel:[phone] [facility] No Information 2 Bud Fernandez. [address] [facility], [address], [place], [place], [address], [place]. tel:[phone] Referring Provider: Rebecca Pulliam, [address] [facility] [address], [place], [address] . tel:[phone] Init Inpt Cons New/est Mod-hi [facility], [address] [address], [place], [address], [place] tel:[phone] [facility] No Information 2 Enriqueta Sauceda. [address] [facility], [address], [place], [place], [address], [place]. tel:[phone] Referring Provider: Marie LALA, [address] [place], [address]. tel:[phone] Established Level 4 [facility], [address] [address], [place], [address], [place] tel:[phone] [facility] GI Symptoms or Concerns (chief complaint) Previous History Review (chief complaint) Crohn's disease of both small and large intestine without complication 2 Tamica Mcclain. [address] [facility], [address], [id number], [place]. tel:[phone] Referring Provider: Referral Self, USE FOR SELF REFERRALS. [facility], [address] [address], [place], [address], [place] tel:[phone] [facility] Crohn's disease of both small and lg int w/o complications 2 Zackery Aguirre. [address] [facility], [address], [address], [place]. tel:[phone] Referring Provider: Referral Self, USE FOR SELF REFERRALS. Established Level 5 [facility], [address] [address], [place], [address], [place] tel:[phone] [facility] GI Symptoms or Concerns (chief complaint) Crohn's disease of both small and lg int w/o complications 2 Zackery Aguirre. [address] [facility], [address], [id number], [place]. tel:[phone] Referring Provider: Referral Self, USE FOR SELF REFERRALS. [facility], [address] [address], [place], [address], [place] tel:[phone] [facility] [place] Crohn's disease of both small and lg int w/o complications 2 Skylar Duron. [address] [facility], [address], [id number], [place]. tel:[phone] Referring Provider: Referral Self, USE FOR SELF REFERRALS. [facility], [address] [address], [place], [address], [place] tel:[phone] [facility] Iron deficiency anemia secondary to blood loss (chronic) 2 Tamica Mcclain. [address] [facility], [address], [id number], [place]. tel:[phone] Referring Provider: Referral Self, USE FOR SELF REFERRALS. [facility] [facility], [address] [address], [place], [place], [id number], [place] tel:[phone] [facility] No Information 1 Tamica Mcclain. [address] [place] [address], [id number], [place]. tel:[phone] [facility], [address] [address], [place], [place], [id number], [place] tel:[phone] [facility] [place] Crohn's disease of both small and lg int w/o complications May- 1 Skylar Duron. [address] [place] [address], [id number], [place]. tel:[phone] Referring Provider: Referral Self, USE FOR SELF REFERRALS. [facility], [address] [address], [place], [place], [id number], [place] tel:[phone] [facility] No Information 1 Tamica Mcclain. [address] [place] [address], [id number], [place]. tel:[phone] [facility], [address] [address], [place], [place], [id number], [place] tel:[phone] [facility] [place] deficiency anemia secondary to blood loss (chronic) 1 Skylar Duron. [address] [place] [address], [id number], [place]. tel:[phone] Referring Provider: Referral Self, USE FOR SELF REFERRALS. [facility], [address] [address], [place], [place], [id number], [place] tel:[phone] [facility] [place] Iron deficiency anemia secondary to blood loss (chronic) 0 1 Kushal Biggs. [address] [place] [address], [id number], [place]. tel:[phone] Referring Provider: Referral Self, USE FOR SELF REFERRALS. [facility], [address] [address], [place], [id number], [place] tel:[phone] [facility] [place] Iron deficiency anemia secondary to blood loss (chronic) 1 Shell Olmos. [address] [facility], [facility] [address], [place], [id number], [place]. tel:[phone] Referring Provider: Referral Self, USE FOR SELF REFERRALS. [facility], [address] [address], [place], [id number], [place] tel:[phone] [facility] [place] Iron deficiency anemia secondary to blood loss (chronic) 1 Juanjose Carlisle. [address] [facility], [address], [id number], [place]. tel:[phone] Referring Provider: Referral Self, USE FOR SELF REFERRALS. [facility], [address] [address], [place], [id number], [place] tel:[phone] [facility] [place] Crohn's disease of both small and lg int w/o complications Apr- 1 Mau Mclain. [address] [facility], [facility] [address], [place], [id number], [place]. tel:[phone] Referring Provider: Referral Self, USE FOR SELF REFERRALS. [facility], [address] [address], [place], [id number], [place] tel:[phone] [facility] [place] Crohn's disease of both small and lg int w/o complications Apr- 1 Tamica Mcclain. [address] [facility], [facility] [address], [place], [id number], [place]. tel:[phone] Referring Provider: Referral Self, USE FOR SELF REFERRALS. [facility], [address] [address], [place], [id number], [place] tel:[phone] [facility] No Information 1 Jackie Kelly. [address] [facility], [facility] [address], [place], [id number], [place]. tel:[phone] [facility], [address] [address], [place], [id number], [place] tel:[phone] [facility] Iron deficiency anemia due to chronic blood loss Apr-0 1 Tamica Mcclain. [address] [facility], [facility] [address], [place], [place], [id number], [place]. tel:[phone] Offic/outpt E&m Estab Mod-hi 4 [facility], [address] [address], [place], [id number], [place] tel:[phone] [facility] GI Symptoms or Concerns (chief complaint) Crohn's disease of both small and large intestine without complication 1 Tamica Mcclain. [address] [facility], [facility] [address], [place], [id number], [place]. tel:[phone] Referring Provider: Referral Self, USE FOR SELF REFERRALS. [facility], [address] [address], [place], [id number], [place] tel:[phone] [facility] Anemia, unspecifiedCr ohn's disease of colon with complicationC rohn's disease of large intestine with unsp complications Anemia, unspecified Mar-2 1 Marily Rodriguez. [address] [facility], [facility] [address], [place], [id number], [place]. [phone] [facility], [address] [address], [place], [id number], [place] tel:[phone] [facility] No Information 0 1 Jackie Kelly. [address] [facility], [facility] [address], [place], [id number], [place]. tel:[phone] [facility], [address] [address], [place], [id number], [place] tel:[phone] [facility] Calculus of gallbladder and bile duct without cholecystitis or obstructionAn emia, unspecified type 1 No Information Offic/outpt E&m New Mod-hi [facility], [address] [address], [place], [place], [id number], [place] tel:[phone] [facility] GI Symptoms or Concerns (chief complaint) Additional Narrative (chief complaint) Crohn's disease of both small and large intestine with other complicationG eneralized abdominal painAcute midline low back pain without sciaticaDiarr hea, unspecified typeErythema nodosum Jan- 1 No Information Referring Provider: [place], [address] [place], [address]. tel:[phone] Offic/outpt E&m Estab Low-mod [facility], [address] [address], [place], [place], [id number], [place] tel:[phone] [facility] GI Symptoms or Concerns (chief complaint) Crohn's disease of both small and large intestine without complicationD ietary counseling and surveillance 6 Tamica Mcclain. [address] [place] [address], [id number], [place]. tel:[phone] Referring Provider: Referral Self, USE FOR SELF REFERRALS. Offic/outpt E&m Estab Mod-hi 2 [facility], [address] [address], [place], [place], [id number], [place] tel:[phone] [facility] GI Symptoms or Concerns (chief complaint) Crohn's disease of both small and large intestine without complication 6 Tamica Mcclain. [address], [id number], [place]. tel:[phone] Referring Provider: Yasmine Dumont MD [place], [address], [place], [address]. tel:[phone] [facility], [address] [address], [place], [place], [id number], [place] tel:[phone] [facility] Crohn's disease of both small and lg int w/o complications Inflammatory polyps of colon without complications Crohn's disease of both small and lg int w/o complications 6 No Information Referring Provider: Yasmine Cleveland, [address], [place], [address]. tel:[phone] [facility], [address] [address], [place], [id number], [place] tel:[phone] [facility] Crohn's disease of both small and large intestine without complication 6 No Information Referring Provider: Referral Self, USE FOR SELF REFERRALS. Offic/outpt E&m Estab Low-mod [facility], [address] [address], [place], [id number], [place] tel:[phone] [facility] GI Symptoms or Concerns (chief complaint) Crohn's disease of both small and large intestine without complication Tamica Mcclain. [address] [facility], [facility] [address], [place], [place], [id number], [place]. tel:[phone] Referring Provider: Yasmine Cleveland, [address], [place], [address]. tel:[phone] Offic/outpt E&m Estab Low-mod [facility], [address] [address], [place], [id number], [place] tel:[phone] [facility] GI Symptoms or Concerns (chief complaint) Perianal lesionCrohn's disease of both small and large intestine without complicationD ietary counseling and surveillance 5 No Information Referring Provider: Referral Self, USE FOR SELF REFERRALS. Offic/outpt E&m Estab Mod-hi 2 [facility], [address] [address], [place], [id number], [place] tel:[phone] [facility] GI Symptoms or Concerns (chief complaint) Crohn's disease of both small and large intestine without complication 5 No Information Referring Provider: Referral Self, USE FOR SELF REFERRALS. Offic/outpt E&m Estab Mod-hi 4 [facility], [address] [address], [place], [id number], [place] tel:[phone] [facility] GI Symptoms or Concerns (chief complaint) Crohn's Small/large Intestine Apr- 5 Tamica Mcclain. [address], [id number], [place]. tel:[phone] Referring Provider: Referral Self, USE FOR SELF REFERRALS. [facility], [address] [address], [place], [id number], [place] tel:[phone] [facility] Abdominal Pain 5 Thomas Burgos. [address] [facility] [address], [place], [id number], [place]. tel:[phone] Referring Provider: Referral Self, USE FOR SELF REFERRALS. [facility], [address] [address], [place], [id number], [place] tel:[phone] [facility] No Information 5 No Information Referring Provider: Yasmine Cleveland, [address], [place], [address]. tel:[phone] [facility], [address] [address], [place], [id number], [place] tel:[phone] [facility] Abn Blood Chemistry NecCrohn's Small/large Intestine 5 No Information Referring Provider: Yasmine Cleveland, [address], [place], [address]. tel:[phone] [facility], [address] [address], [place], [place], [id number], [place] tel:[phone] [facility] Crohn's Small/large IntestineAbn Blood Chemistry Nec 5 No Information Offic/outpt E&m Estab Mod-hi 2 [facility], [address] [address], [place], [id number], [place] tel:[phone] [facility] GI Symptoms or Concerns (chief complaint) Abdominal PainGastritis Crohn's Small/large IntestineDiar jan 5 No Information Referring Provider: Referral Self, USE FOR SELF REFERRALS. [facility], [address] [address], [place], [id number], [place] tel:[phone] [facility] Regional Enteritis Nos 5 No Information [facility], [address] [address], [place], [id number], [place] tel:[phone] [facility] Regional Enteritis NosRegional Enteritis Nos 5 No Information Referring Provider: Yasmine Cleveland, [address], [place], [address]. tel:[phone] Init Hosp-da E&m Mod Severity [facility], [address] [address], [place], [id number], [place] tel:[phone] [facility] No Information Skylar Duron. [facility] [address], [id number], [place]. tel:[phone] Referring Provider: Yasmine Cleveland, [address], [place], [address]. tel:[phone] [facility], [address] [address], [place], [id number], [place] tel:[phone] [facility] Gastric/antra l Ulcer UnspecGastric ulcerGastric ulcerAbdomina l PainNausea And VomitingRegio nal Enteritis NosGastritisA bdominal PainRegional Enteritis Nos 5 Deven Edwards. [address], [id number], [place]. tel:[phone] Referring Provider: Yasmine Cleveland, [address], [place], [address]. tel:[phone] Family History Family Member Type Diagnosis Age [...] bi-directional interface ; Source: Other Registry Prevnar administered Note: [facility] bi-d irectional interface ; Source: Other Registry Havrix administered Note: [facility] bi-d irectional interface ; Source: Other Registry Hep A (adult) administered Source: New Im munization Record Pneumococcal conjugate PCV administere d Source: New Immunization Record Influenza virus vaccine, injectable, quadrivalent, split virus, preservative free, 3 years or older Fluarix Quad not administered Note: old order ; Source: New Immunization Record Influenza virus vaccine, injectable, quadrivalent, split virus, preservative free, 3 years or older Fluarix, Flulaval or Fluzone Quad administered Note: Invalid docume nted admin date was //2013. ; Source: Other Provider human papilloma virus [...] Other Registry Influenza, seasonal, injectable administered Note: [facility] bi-direct ional interface ; Source: Other Registry meningococcal polysaccharide (groups A, C, Y and W-135) diphtheria toxoid conjugate vaccine (MCV4P) administered Note: [facility] bi-direct ional interface ; Source: Other Registry Energix Pediatric administered Note: [facility] bi-directional interface ; Source: Other Registry Energix Pediatric administered Note: [facility] bi-directional interface ; Source: Other Registry hepatitis B vaccine, unspecified formulation administered Note: [facility] bi-di rectional interface ; Source: Other Registry tetanus and diphtheria toxoids, adsorbed, preservative free, for adult use (2 Lf of tetanus toxoid and 2 Lf of diphtheria toxoid) administered Note: [facility] bi-direct ional interface ; Source: Other Registry measles, mumps and rubella virus vaccine administered Note: [facility] bi-direct ional interface ; Source: Other Registry DTP-Haemophilus influenzae type b conjugate vaccine administered Note: [facility] bi-d irectional interface ; Source: Other Registry measles, mumps and rubella virus vaccine administered Note: [facility] bi-direct ional interface ; Source: Other Registry Payers Payer name Insurance type Covered republican ID Authoriza tiraphael(s) [facility] [id number] [facility] [id number] [facility] [id number] [facility] CI [id number] Social History Type Description Quantity Date Captured Comments Sex Female Smoking Status No Information Vital Signs Date / Time: Height Weight BMI Pulse Rate Blood Pressure Temperature Respiratory Rate Body Surface Area Head Circumference Head Circ. Percentile Wt./Carlos. Percentile BMI percentile Pulse Ox Inhaled Ox 8:48 AM 92 /min 125/61 mm[Hg] 96.50 F 16 /min Chief Complaint And Reason For Visit No [...] Ordered: referred to Latoya Mariano PhD LP [facility] therapist Crohn's disease within 3 Months Appointment date/timeframe: 3 Months ordered Referral Ordered: Flexible Sigmoidoscopy Appointment date/timeframe: 09/01/2022 ordered Referral Ordered: follow-up visit with Johny Davey MD in 3 Months or by 10/01/2022 Appointment date/timeframe: 3 Months ordered Referral Ordered: referred to [facility] Supervisor Beet End Mediterranean diet/ok for fiber within 6 Weeks [...] Lab Order Antimito chondrial Ab (AMA), Qn ([id number]), Body Site: Right Antecubital Fossa, Appointment on: [...] boy due in March 2024 (delivering in [place]) and her SO has a 6yo boy. [...] was referred to GI psychology by her workgroup leader, Dr. Davey, for brain-gut therapy to reduce [...] anger about her Crohn's disease and ileostomy. Sebastian: She reported she is generally hopeful about [...] reported she sees a counselor through the [facility] in [place], [place] on a weekly basis, but denied [...] strong social support from her family and fiance. She identified relational stress related to her divorce and shared custody with her son's father as well as financial stress related to being unable to work due to her Crohn's symptoms. 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 Finally, she described emotional distress related [...] psychological treatment. Patient was given handouts on [facility]'s GI Health Psychology Services, patient rights, and [...] Diet Recall: Breakfast: Egg and gluten free faroese muffinLunch: Chicken, pasta, almond milkDinner: Pot roast with carrots, almond milkNutrition Diagnosis: Food and nutrition related knowledge deficit related to IBD nutrition and Mediterranean Diet as evidenced by patient request for information. Nutrition Discussion and Education: Met with patient and fiarsenio in office today. Patient has a complicated [...] outside hospital, she was ultimately transferred to [facility], there was significant shortage of beds. She [...] offer full-time position. 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 Now, she is getting assistance from the state both from the insurance perspective as well as monetary assistance and she may go back to school for the dental field or a rn access.The patient reports there is a slim chance that she could be as well. Previous History Review Previous IBD history is detailed below:Rosa upper GI, ileal and colonic Crohn's disease [...] History Review Previous IBD history is detailed below:Irma's upper GI, ileal and colonic Crohn's disease [...] at the clinic. However, she moved to [place] in 2015 and then returned to [place] in the year 2019. She last saw [...] up until 2015, then she moved to [place] and returned back to [place] about a year ago. She had significant [...] in 2015. The patient had moved to [place] but returned home about 1 year ago. The patient was diagnosed with upper GI, ileal and colonic Crohn's disease in 2014. She was started on Humira in June of 2015 with a dramatic improvement of her symptoms. The patient states that she continued the Humira until around 2019 when she became . She held the [...] June 2015. Stopped by the patient in 2018 while . [employer]. Influenza vaccine done [...] was negative. GI Symptoms or Concerns Irma kernents for followup regarding her Crohn's disease. She continues to do well. She is checking in one last time before she moves to [place]. She is moving to [place] in two weeks. She already has a GI appointment on September 02, 2015. She is moving to [place]. She is pursuing a transfer within her [place]. She denies any diarrhea. 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 It appears as if she has responded [...] contact local crisis mental health resources (provided), 911 or visit the nearest emergency room if there was a psychiatric emergency. 5.Questions for Dr. Tung Mariano can be sent via [facility] patient portal or by calling her patient coordinator at [phone]. [phone].CRISIS ADULT MENTAL HEALTH RESOURCES:[facility] Crisis Line: [phone] [facility]: [phone] Crisis Line: 445-624-2295[place] [facility] ([facility]gen[facility]): 109-497-1788[place] Crisis Line: 021-684-6029[place] Crisis Line: Crisis Text Line: Text [place] to 495[address] Suicide Hotline: 988 or 8-728-614-EGHW (2400)Latoya Mariano, PhD LPClinical Health Psychologist Related to Crohn's disease of [...] Flex sig with ileoscopy in 5 months- Supervisor Beet End- Referral to GI therapist- Follow-up in 3 [...] complication - Go to the ED today ([place] or [place] or [facility]) and be admitted, will need IV steroids and imaging, also work with social work to get patient covered.- We will pursue the [email or web address]] through the assistance application- Follow-up in 2-3 [...] Humira prescription from new GI physician in [place].- Follow-up on as needed basis, given patient will transfer her care to [place]. Related to Crohn's disease of both small [...]
[2024-02-14 21:06] VITALS: RESP 18; TEMP 36.6
[2024-02-14 21:07] VITALS: BP 110/70; PULSE 106
--- NOTE | 2024-02-14 22:55 | PC.OBNST ---
NST Note NST Note Start: 02/14/24 21:05 Freq: ONCE Status: Active Protocol: Document 02/14/24 21:45 ANDRESSA (Rec: 02/14/24 22:54 ANDRESSA [id number]) NST Note 2 Para (# of births) 1 EDC 04/11/24 Gestational Age In Weeks & Days 31 Weeks & 6 Days Patient Presented with Complaint(s) of Pain If Pain, describe location Lightening crotch Appropriate for Gestational Age Yes RN Roland Lima, RN Date 02/14/24 Appropriate for Gestational Age Yes LENA Mancia RN Date 02/14/24 OB NST charge Yes Complete NST Note via Write Note Yes The provider's electronic signature indicates the NST is reactive/appropriate for gestational age. *Note to provider: If an addendum is required, open the patient's chart and click on the note under the Nurse/Allied Health tab.
== END 2024-02-14 21:57 | disposition home or self-care (01) ==
LOC: OB OUT 20:51 → OB 20:58
PROVIDERS: PCP Family Medicine; Visit Provider Obstetrics & Gynecology
DX: O47.03 False labor before 37 completed weeks of gestation, third trimester (principal); Z3A.31 31 weeks gestation of pregnancy
CPT/HCPCS: 59025; G0463

== ENCOUNTER 2024-02-18 13:00 | Outpatient (CLI) | payer MEDICAID, SELFPAY ==
--- NOTE | 2024-02-18 13:00 | US_ITS ---
Patient: SILVIA WEBER Facility:?[facility] Patient ID:?[id number] Site Patient ID:?[id number] Site :?[id number] Study:?US-OB Pelvis -02/18/2024 7:42:51 AM Ordering Physician:?SALBADOR CHAUDHARI Final Report: INDICATION: Crohn`s disease in 3rd trimester . TECHNIQUE: Ultrasound OB pelvis transabdominal. Real-time jones-scale imaging of the fetus was performed without stress testing. COMPARISON: January 21, 2024. FINDINGS: Sonographic imaging demonstrates a single living intrauterine gestation. Fetus demonstrates a regular cardiac rate of 147 beats per minute. Fetus has a breech orientation. Posterior placenta. Cervical length is 4 cm. Biometric measurements: Biparietal diameter: 71st percentile. Head circumference: 84th percentile. Abdominal circumference: 71st percentile. Femur length: 15th percentile. Estimated weight: 2078 grams, 55th percentile. Estimated ultrasound age by today`s measurements is 33 weeks 3 days with an estimated date of delivery April 04, 2024. Amniotic fluid volume appears normal with the deepest pocket of 4.9 cm. breathing movements, motion, and tone were all observed. IMPRESSION: Single viable intrauterine with a biophysical profile 03/30. No abnormality evident. Dictated by Jasmeet Whalen MD @ 02/21/2024 8:22:00 AM Signed by:?Jasmeet Whalen MD @02/21/2024 8:22:00 AM (Electronic Signature)
== END 2024-02-18 13:01 | disposition home or self-care (01) ==
LOC: US 13:00
PROVIDERS: PCP Family Medicine; Visit Provider Obstetrics & Gynecology
DX: O99.613 Diseases of the digestive system complicating pregnancy, third trimester (principal); Z3A.33 33 weeks gestation of pregnancy
CPT/HCPCS: 76816; 76819

== ENCOUNTER 2024-02-25 08:29 | Emergency (ER) | payer MEDICAID, SELFPAY ==
[2024-02-25 08:34] VITALS: BP 91/70; PULSE 117; RESP 16; TEMP 36.2; O2SAT 96; BMI 34.1
--- NOTE | 2024-02-25 09:04 | ED_ITS ---
HPI - Nausea/Vomiting/Diarrhea General Chief complaint: Diarrhea Stated complaint: Food poisoning, nausea, vomiting, 33 wks gestation Time Seen by Provider: 02/25/24 08:55 History of Present Illness HPI Narrative: Patient is a 33-year-old woman who is 33 weeks with her 2nd child who presents with nausea vomiting and diarrhea of approximately 12 hours duration. She has had no fevers no chills no night sweats. She has had no vaginal bleeding or discharge. She has had no blood in her stool or vomit. She has crampy abdominal pain but no other significant symptoms. Patient's case is complicated by the fact that she has ulcerative colitis and is on Stelara. No one else is sick. She relates her illness to a recent trip to a [employer]. Review of her chart indicates she is status post subtotal colectomy. Related Data Home Medications ?Medication ?Instructions ?Recorded ?Confirmed docosahexaenoic acid [ DHA] PO DAILY 10/28/23 02/18/24 ustekinumab [Stelara] subcut .every 6 weeks 10/28/23 02/18/24 Previous Rx's ?Medication ?Instructions ?Recorded ferrous sulfate 325 mg (65 mg 325 mg PO .COMPLEX 60 days #120 01/21/24 iron) tablet tabs Allergies Allergy/AdvReac Type Severity Reaction Status Date / Time bee venom protein (honey bee) Allergy Unknown Verified 02/18/24 13:58 Review of Systems Status of ROS: Reports: 10 or more systems reviewed and unremarkable except as noted in History and below [facility] Medical History History of chicken pox ?Z86.19 - Personal history of other infectious and parasitic diseases (ICD- 10) Surgical History History of tonsillectomy ?Z90.89 - Acquired absence of other organs (ICD-10) S/P colectomy ?Z90.49 - Acquired absence of other specified parts of digestive tract (ICD- 10) Status post colectomy ?Z90.49 - Acquired absence of other specified parts of digestive tract (ICD- 10) Social History What is your current living situation?: I presently have a place to live Problems where you live: no known problems In the past 12 months, utilities in danger of being shut off: no In past 12 months, lack of transportation kept you from medical appts, meetings, work, or getting things needed for daily living: no In the past 12 mos, have been you worried that your food would run out before you had money to buy more?: sometimes true In the past 12 mos, the food you bought just didn't last and you didn't have money to buy more?: sometimes true Smoking Status: Former smoker What tobacco products do you use: cigarettes Do you use any of these nicotine containing products: None Second hand tobacco smoke exposure: No How often do you have a drink containing alcohol: never AUDIT-C Alcohol total score: 0 Non-prescribed substance use: denies use Non-prescribed substance use details: denies during How often does anyone, including family, friends and others, physically hurt you : never How often does anyone, including family, friends and others, insult or talk down to you: never How often does anyone, including family, friends and others, threaten you with harm: never How often does anyone, including family, friends and others, scream or curse at you: never Little interest or pleasure in doing things: more than half the days Feeling down, depressed, or hopeless: more than half the days Are you using contraception or practicing any form of control: No service: No Exam Narrative: Exam Narrative: EXAM GENERAL: Patient appears comfortable and well. EYES: No scleral icterus. LYMPH: No supraclavicular or cervical lymphadenopathy. SKIN: Visible skin seen during exam normal or with benign process only. EXT: No dependent lower extremity pedal edema. HEART: Regular rate and rhythm with no murmurs, rubs, or gallops. LUNGS: Clear to auscultation bilaterally with no crackles or wheezes. ABD: Exam indicates roughly 30 week gestation no rebound masses or guarding throughout hypoactive but present bowel sounds present. PSYCH: Good eye contact, speech is not pressured. Const: Vital Signs, click to edit/add: Vital Signs - 24 hr 02/25/24 08:34 02/25/24 10:40 Temperature 97.1 F L Pulse Rate [Radial ] 117 H 86 Respiratory Rate 16 14 Blood Pressure [Ri ght Upper Arm] 91/70 96/63 Pulse Oximetry 96 Oxygen Delivery Me thod Room Air Room Air Course Course ED Course: Will be in with IV normal saline IV Zofran and sent off CBC comprehensive metabolic panel UA and amylase. Reevaluation(s) Reevaluation #1: Ultrasound ordered the patient's bilirubin was mildly elevated. Status post cholecystectomy there are no other significant findings on ultrasound. Case discussed with OBGYN the recommend nonstress test prior to discharge. Vital Signs Vital signs: Initial Vital Signs Temperature 97.1 F L 02/25/24 08:34 Temperature Source Temporal Artery Scan 02/25/24 08:34 Pulse Rate 117 H 02/25/24 08:34 Pulse Rhythm Regular 02/25/24 08:34 Respiratory Rate 16 02/25/24 08:34 Blood Pressure 91/70 02/25/24 08:34 Blood Pressure Mean 77 02/25/24 08:34 Pulse Oximetry 96 02/25/24 08:34 Oxygen Delivery Method Room Air 02/25/24 08:34 Vital Signs Temperature 97.1 F L 02/25/24 08:34 Pulse Rate 117 H 02/25/24 08:34 Respiratory Rate 16 02/25/24 08:34 Blood Pressure 91/70 02/25/24 08:34 Pulse Oximetry 96 02/25/24 08:34 Oxygen Delivery Method Room Air 02/25/24 08:34 Temperature 97.1 F L 02/25/24 08:34 Pulse Rate 86 02/25/24 10:40 Respiratory Rate 14 02/25/24 10:40 Blood Pressure 96/63 02/25/24 10:40 Pulse Oximetry 96 02/25/24 08:34 Oxygen Delivery Method Room Air 02/25/24 10:40 Medications Administered Medications: Generic Name Dose Route Start Last Admin Trade Name Freq PRN Reason Stop Dose Admin Sodium Chloride 1,000 mls @ 1,000 mls/hr 02/25/24 10:50 02/25/24 10:51 0.9 % Sodium Chloride 1000 Ml IV 02/25/24 11:49 1,000 mls/hr .Q1H EARLE Administration Discontinued Medications Generic Name Dose Route Start Last Admin Trade Name Freq PRN Reason Stop Dose Admin Sodium Chloride 1,000 mls @ 1,000 mls/hr 02/25/24 09:00 02/25/24 10:24 0.9 % Sodium Chloride 1000 Ml IV 02/25/24 09:59 Infused .Q1H EARLE Infusion Ondansetron HCl 4 mg 02/25/24 09:00 02/25/24 09:21 Ondansetron 2 Mg/Ml Inj IVP 02/25/24 09:01 4 mg ONCE ONE Administration MDM - Nausea/Vomiting/Diarrhea MDM Narrative Medical decision making narrative: Patient is a 33-year-old woman who presents with nausea vomiting diarrhea. She does have mild elevation in her liver function tests including bilirubin. Ultrasound of the liver is unremarkable. She is 33 weeks . Nonstress test is normal. She is feeling much better after 2 L normal saline 4 mg of IV Zofran. This time I did prescribe Zofran for at home t.i.d. p.r.n. 4 mg and she will advance her diet activity as tolerated. She will keep her [facility]. Differential diagnosis includes but not limited to bowel obstruction especially given her history of ulcerative colitis gastroenteritis hepatitis complications of UTI. Lab Data Labs: Lab Results 02/25/24 02/25/24 Range/Units 09:28 10:30 WBC 11.70 H (4.50-11.00) K/uL RBC 4.16 (4.00-5.20) m/uL Hgb 11.7 L (12.0-16.0) gm/dL Hct 36.2 (33.0-51.0) % MCV 87 (80-100) fL MCH 28 (26-34) pg MCHC 32 (32-36) gm/dL RDW Coeff of Rebekah 13.9 (11.5-15.5) % Plt Count 328 (140-440) K/uL Neut % (Auto) 85.6 H (42.0-72.0) % Lymph % (Auto) 7.5 L (20-44) % [place] % (Auto) 6.3 (0.0-11.0) % Eos % (Auto) 0.1 (0.0-7.0) % Baso % (Auto) 0.1 (0.0-3.0) % Neut # (Auto) 10.00 H (1.7-7.0) K/uL Lymph # (Auto) 0.90 (0.90-2.90) K/uL [place] # (Auto) 0.70 (0.00-0.90) K/UL Eos # (Auto) 0.00 (0.00-0.50) K/uL Baso # (Auto) 0.00 (0.00-0.30) K/uL Abs Immat Gran (auto) 0.00 (0.00-0.30) K/uL Imm/Tot Granulo (auto) 0.4 % Sodium 132 L (135-149) mmol/L Potassium 4.2 (3.6-5.1) mmol/L Chloride 105 (96-114) mmol/L Carbon Dioxide 14 L (20-32) mmol/L Anion Gap 13 (7-15) mEq/L BUN 11 (5-24) mg/dL Creatinine 0.8 (0.5-1.5) mg/dL Estimated Creat Clear 91.68 Estimated GFR 101 ml/min Glucose 95 (60-115) mg/dL Calcium 9.3 (8.4-10.6) mg/dL Total Bilirubin 1.8 H (0.1-1.5) mg/dL AST 43 H (12-35) U/L ALT 45 H (4-35) U/L Alkaline Phosphatase 145 (40-150) U/L Total Protein 8.3 (6.0-8.3) g/dL Albumin 4.5 (3.3-5.0) g/dL Amylase 144 H (18-89) U/L Urine Color Yellow (Yellow) Urine Appearance Clear (Clear) Urine pH 6.0 (5.0-8.5) Ur Specific [place] >= 1.030 (1.000-1.030) Urine Protein 2+ A (Negative) Urine Glucose (UA) Negative (Negative) Urine Ketones 2+ A (Negative) Urine Blood Negative (Negative) Urine Nitrite Negative (Negative) Urine Bilirubin 2+ A (Negative) Urine Urobilinogen 0.2 (0.2-1.0) Ur Leukocyte Esterase Negative (Negative) Discharge Plan Discharge Clinical Impression: Gastroenteritis Patient Disposition: Home, Self-Care Condition: Stable Instructions: Gastroenteritis (ED) Additional Instructions: Zofran as directed Continue current care Advanced diet as tolerated Follow-up with your doctor as scheduled. Activity Level: No Restrictions Discharge Diet: Regular Prescriptions: No Action docosahexaenoic acid [ DHA] PO DAILY ustekinumab [Stelara] subcut .every 6 weeks Hold Instructions: Resume on 11/29/23. hold for 2 weeks ferrous sulfate 325 mg (65 mg iron) tablet 325 mg PO .COMPLEX 60 Days Qty: 120 0RF Rx Instructions: 325 mg orally twice daily, every other day; 1 tablet twice a day, every other day. Follow Up/Referrals: Cami Watkins MD [Primary Care Provider] - Stand Alone Forms: wiseri Info Instructions
[2024-02-25] MEDS: ONDANSETRON 2 MG/ML inj 4 MG IVP (09:21)
[2024-02-25] MEDS: 0.9 % SODIUM CHLORIDE 1000 ml 1,000 ML IV ×2 (09:22→10:51)
[2024-02-25 09:38] LABS: Basophils Percent Auto 0.1 % (0.0-3.0); Eosinophils Percent Auto 0.1 % (0.0-7.0); Hematocrit 36.2 % (33.0-51.0); Hemoglobin* 11.7 gm/dL (12.0-16.0); Immature Granulocytes Pct Auto 0.4 %; Lymphocytes Percent Auto 7.5 % (20-44); Mean Corpuscular HGB Conc 32 gm/dL (32-36); Mean Corpuscular Hemoglobin 28 pg (26-34); Mean Corpuscular Volume 87 fL (80-100); Monocytes Percent Auto 6.3 % (0.0-11.0); Neutrophils Percent Auto 85.6 % (42.0-72.0); Platelet Count* 328 K/uL (140-440); RDW Coefficient of Variation % 13.9 % (11.5-15.5); Red Blood Count 4.16 m/uL (4.00-5.20)
[2024-02-25 09:44] LABS: Slide Review Reflex No
[2024-02-25 09:59] LABS: Chloride* 105 mmol/L (96-114)
[2024-02-25 10:00] LABS: Albumin* 4.5 g/dL (3.3-5.0); Potassium* 4.2 mmol/L (3.6-5.1); Sodium* 132 mmol/L (135-149)
[2024-02-25 10:03] LABS: Alanine Aminotransferase* 45 U/L (4-35); Alkaline Phosphatase* 145 U/L (40-150); Amylase* 144 U/L (18-89); Anion Gap 13 mEq/L (7-15); Aspartate Amino Transferase* 43 U/L (12-35); Bilirubin Total* 1.8 mg/dL (0.1-1.5); Blood Urea Nitrogen* 11 mg/dL (5-24); Calcium* 9.3 mg/dL (8.4-10.6); Carbon Dioxide* 14 mmol/L (20-32); Creatinine* 0.8 mg/dL (0.5-1.5); Est. Creatinine Clearance* 91.68; Estimated Glomerular Filt Rate 101 ml/min; Glucose* 95 mg/dL (60-115); Total Protein* 8.3 g/dL (6.0-8.3)
--- OUTSIDE RECORDS SUMMARY | 2024-02-25 10:03 | XMS_ITS | Clinical Summary ---
Author Organization [facility] Address [address] [place] [address] Care Team Providers Care Garbage Collector Name Role Phone Yasmine Dumont MD Primary Care Provider [phone] Allergies No known active allergies Medications Medication [...] Description 12/08/2023 2:00 PM CDT Office Visit [facility] [address] [place] [address] Tristen Swartz MD Encounter for follow-up ultrasound of anatomy (Primary Dx) 12/08/2023 1:24 PM CDT - 12/08/2023 11:59 PM CDT Hospital Encounter [facility] M[facility] [address] [place] [address] Tristen Swartz MD Encounter for follow-up ultrasound [...] Required) Completed Medical Devices Implanted Type Area Distribution Operation Supervisor Device Identifier Shelf Expiration Date Model / Serial / Lot Graft Bone Putty Dbx 01ml [id number] Implanted:Qty: 1 on 09/07/2011 at [facility] Left: Arm 10/21/2012 [id number] / [id number] / Explanted Type Area Distribution Operation Supervisor Device Identifier Shelf Expiration Date Model / Serial / Lot Screws And Plate Implanted:09/07 by Israel Rg MD (Quantity not on file) Explanted:Qty: 1 on 09/07/2011 at [facility] Left: Arm Procedures Procedure Name Priority Date/Time Associated Diagnosis Comments [facility] US COMPREHENSIVE SINGLE F/U Routine 12/08/2023 2:13 PM CDT Encounter for follow-up ultrasound of anatomy from Last 3 Months Results * [facility] US Comprehensive Single F/U (12/08/2023 2:13 [...] ? Study Date: ??12/08/2023 1:27pm Pat. NO: ??[id number] ?Referring ??MD: BEBO SANTIAGO Site: [facility] ? Crm Architect: Rekha Maldonado RDMS : ??1990 ?Age: ?? [...] 1 lb 1 ?oz EFW by ?Hadlock ([id number]) Head / Face / Neck Biometry: Boiler Tenders Supervisor ? 6.1 ? mm CM ?4.5 ? mm ANATOMY ----- The following structures appear normal: Head / Neck ? Cranium. Head size. Head shape. Lateral ventricles. Midline falx. Cavum septi pellucidi. Cerebellum. Cisterna magna. Thalami. Face ? Lips. Nose. Heart / Thorax ?4-chamber view. RVOT view. LVOT view. Aortic arch view. Ductal arch view. 5-qjdaig-vukmdvf view. ? Right lung. Left lung. Diaphragm. [...] WEBER Study Date: 12/08/2023 1:27pm Pat. NO: [id number] Referring MD: BEBO SANTIAGO Site: [facility] Crm Architect: Rekha Maldonado RDMS : 1990 Age: 33 [...] 1 lb 1 oz EFW by Hadlock ([id number]) Head / Face / Neck Biometry: Boiler Tenders Supervisor 6.1 mm CM 4.5 mm ANATOMY ----- The following structures appear normal: Head / Neck Cranium. Head size. Head shape.Lateral ventricles. Midline falx. Cavum septi pellucidi. Cerebellum.Cisterna magna. Thalami. Face Lips. Nose. Heart / Thorax 4-chamber view. RVOT view. LVOT view.Aortic arch view. Ductal arch view. 3-nzqufa-xexsinw view. Right lung. Left lung.Diaphragm. Abdomen Stomach. [...] fluid volume appeared normal. Tristen Swartz MD [facility] ORDERABL ES from Last 3 Months Care Teams Garbage Collector Relationship Specialty Start Date End Date Yasmine Dumont MD PCP - General Speciality Unknown 08/31/11
--- OUTSIDE RECORDS SUMMARY | 2024-02-25 10:03 | XMS_ITS | Encounter Summary ---
Author Organization [place] Address [address] [facility] [place] [address] Care Team Providers Care Linter Tender Name Role Phone Yasmine Dumont MD Primary Care Provider [phone] Reason for Visit * Reason Comments Ultrasound [id number] Encounter Details Date Type Department Care Team (Late st Contact Info) Description 12/08/2023 2:00 PM CDT Office Visit [facility] Maternal Medicine [facility] [place] [address] [place] [address] Tristen Swartz MD [address] [facility] [address] [place] [address] Encounter for follow-up ultrasound of [...] of this encounter Progress Notes * Tristen Swarzt MD - 12/08/2023 2:00 PM CDT Please see Imaging tab under Chart Review for details of today's US at the [facility]. Tristen Swartz MD Maternal- Medicine documented in this encounter Plan of Treatment Not on file documented as of this encounter Visit Diagnoses Diagnosis Encounter for follow-up ultrasound of anatomy- Primary documented in this encounter Care Teams Linter Tender Relationship Specialty Start Date End Date Yasmine Dumont MD PCP - General Speciality Unknown 08/31/11 documented as of this encounter
--- OUTSIDE RECORDS SUMMARY | 2024-02-25 10:03 | XMS_ITS | Encounter Summary ---
Author Organization [facility] Address [address] [place] [address] Care Team Providers Care Under Ground Miner Name Role Phone Yasmine Dumont MD Primary Care Provider [phone] Reason for Referral * Diagnostic Imaging Ultrasound (Routine) - Pending Review Specialty Diagnoses / Procedures Referred By Lesviaac t Referred To Contact Radiology. Diagnoses Encounter for follow-up ultrasound of anatomy Procedures [facility] US Comprehensive Single F/U Tristen Swartz MD [address] [address] Referral ID Status Reason Start Date Expiration Date V isits Requested Visits Authorized [id number] Pending Review 11/10/2023 11/09/2024 1 1 Reason for Visit * Diagnostic Imaging Ultrasound (Routine) - Pending Review Specialty Diagnoses / Procedures Referred By Holly perry Referred To Contact Radiology. Diagnoses Encounter for follow-up ultrasound of anatomy Procedures [facility] US Comprehensive Single F/U Tristen Swartz MD [address] [place] [address] [place] [address] Referral ID Status Reason Start Date Expiration Date V isits Requested Visits Authorized [id number] Pending Review 11/10/2023 11/09/2024 1 1 Encounter Details Date Type Department Care Team (Latest Contact Info) Description 12/08/2023 1:24 PM CDT - 12/08/2023 11:59 PM CDT Hospital Encounter [facility] Maternal Medicine [facility] [place] [address] [place] [address] Tristen Swartz MD [address] [place] [address] Encounter for follow-up ultrasound of [...] Procedure Name Priority Date/Time Associated Diagnosis Comments [facility] US COMPREHENSIVE SINGLE F/U Routine 12/08/2023 2:13 PM CDT Encounter for follow-up ultrasound of anatomy documented in this encounter Results * [facility] US Comprehensive Single F/U (12/08/2023 2:13 [...] ? Study Date: ??12/08/2023 1:27pm Pat. NO: ??[id number] ?Referring ??MD: BEBO SANTIAGO Site: ??[facility] ? Eeler: Rekha Maldonado RDMS : ??1990 ?Age: ?? [...] 1 lb 1 ?oz EFW by ?Hadlock ([id number]) Head / Face / Neck Biometry: Automotive Airconditioning Mechanic ? 6.1 ? mm CM ?4.5 ? mm ANATOMY ----- The following structures appear normal: Head / Neck ? Cranium. Head size. Head shape. Lateral ventricles. Midline falx. Cavum septi pellucidi. Cerebellum. Cisterna magna. Thalami. Face ? Lips. Nose. Heart / Thorax ?4-chamber view. RVOT view. LVOT view. Aortic arch view. Ductal arch view. 0-rgrvek-keumgcf view. ? Right lung. Left lung. Diaphragm. [...] WEBER Study Date: 12/08/2023 1:27pm Pat. NO: [id number] Referring MD: BEBO SANTIAGO Site: [facility] Eeler: Rekha BoyleFLORENCIO العلي : 1990 Age: 33 [...] 1 lb 1 oz EFW by Quang ([id number]) Head / Face / Neck Biometry: Automotive Airconditioning Mechanic 6.1 mm CM 4.5 mm ANATOMY ----- The following structures appear normal: Head / Neck Cranium. Head size. Head shape.Lateral ventricles. Midline falx. Cavum septi pellucidi. Cerebellum.Cisterna magna. Thalami. Face Lips. Nose. Heart / Thorax 4-chamber view. RVOT view. LVOT view.Aortic arch view. Ductal arch view. 7-dehhch-rhzblmp view. Right lung. Left lung.Diaphragm. Abdomen Stomach. [...] volume appeared normal. Tristen Swartz MD [facility] US ORDERABL ES documented in this encounter Visit Diagnoses Diagnosis Encounter for follow-up ultrasound of anatomy documented in this encounter Care Teams Under Ground Miner Relationship Specialty Start Date End Date Yasmine Dumont MD PCP - General Speciality Unknown 08/31/11 documented as of this encounter
--- OUTSIDE RECORDS SUMMARY | 2024-02-25 10:03 | XMS_ITS | Referral Summary ---
Author Organization [facility] Address [address] [place] [address] Care Team Providers Care Tree Trimming Supervisor Name Role Phone Yasmine Dumont MD Primary Care Provider [phone] Encounters Date Type Department Care Team Description 12/08/2023 Travel 12/08/2023 2:00 PM CDT Office Visit [facility] Maternal Medicine [facility] [address] [facility] [address] [place] [id number] Tristen Swartz MD Encounter for follow-up ultrasound of anatomy (Primary Dx) 12/08/2023 1:24 PM CDT - 12/08/2023 11:59 PM CDT Hospital Encounter [facility] Maternal Medicine [facility] [address] [facility] [address] [place] [address] Tristen Swartz MD Encounter for follow-up ultrasound [...] on file Medical Devices Implanted Type Area Correctional Facility Nurse Device Identifier Shelf Expiration Date Model / Serial / Lot Graft Bone Putty Dbx 01ml [id number] Implanted:Qty: 1 on 09/07/2011 at [facility] Left: Arm 10/21/2012 [id number] / [id number] / Explanted Type Area Correctional Facility Nurse Device Identifier Shelf Expiration Date Model / Serial / Lot Screws And Plate Implanted:09/07 by Israel Rg MD (Quantity not on file) Explanted:Qty: 1 on 09/07/2011 at [facility] Left: Arm Procedures Procedure Name Priority Date/Time Associated Diagnosis Comments [facility] US COMPREHENSIVE SINGLE F/U Routine 12/08/2023 2:13 PM CDT Encounter for follow-up ultrasound of anatomy from Last 3 Months Results * [facility] US Comprehensive Single F/U (12/08/2023 2:13 [...] ? Study Date: ??12/08/2023 1:27pm Pat. NO: ??[id number] ?Referring ??: BEBO SANTIAGO Site: ??[facility] ? Swimmer: Rekha Maldonado RDMS : ??1990 ?Age: ?? [...] 1 lb 1 ?oz EFW by ?Hadlock ([id number]-FL) Head / Face / Neck Biometry: Leg Man ? 6.1 ? mm CM ?4.5 ? mm ANATOMY ----- The following structures appear normal: Head / Neck ? Cranium. Head size. Head shape. Lateral ventricles. Midline falx. Cavum septi pellucidi. Cerebellum. Cisterna magna. Thalami. Face ? Lips. Nose. Heart / Thorax ?4-chamber view. RVOT view. LVOT view. Aortic arch view. Ductal arch view. 8-qwzbxg-gqtdxzc view. ? Right lung. Left lung. Diaphragm. [...] WEBER Study Date: 12/08/2023 1:27pm Pat. NO: [id number] Referring MD: BEBO SANTIAGO Site: [facility] Swimmer: Rekha Maldonado RDMS : 1990 Age: 33 [...] 1 lb 1 oz EFW by Hadlock ([id number]-FL) Head / Face / Neck Biometry: Leg Man 6.1 mm CM 4.5 mm ANATOMY ----- The following structures appear normal: Head / Neck Cranium. Head size. Head shape.Lateral ventricles. Midline falx. Cavum septi pellucidi. Cerebellum.Cisterna magna. Thalami. Face Lips. Nose. Heart / Thorax 4-chamber view. RVOT view. LVOT view.Aortic arch view. Ductal arch view. 0-bdtmop-bcicgfj view. Right lung. Left lung.Diaphragm. Abdomen Stomach. [...] fluid volume appeared normal. Tristen Swartz MD [facility] ORDERABL ES from Last 3 Months Care Teams Tree Trimming Supervisor Relationship Specialty Start Date End Date Yasmine Dumont MD PCP - General Speciality Unknown 08/31/11
--- OUTSIDE RECORDS SUMMARY | 2024-02-25 10:03 | XMS_ITS | Clinical Summary ---
Author Organization [facility] Address [address], [place] [address] Care Team Providers Care Tarper Name Role Phone Marie Yanes PA-C Primary Care Provider [phone] Source Comments You are receiving this document as you are listed as the primary care provider,follow-up provider, or the patient has been referred to you for consultation.This is in compliance with the Medicare and[facility] Hospitalca[facility] EHR Incentive Program,which states Providers who transition their patient to another setting of careor provider of care or refers their patient to another provider of care shouldprovide summary care record for each transition of care or referral. [facility] Allergies Active Allergy Reactions Criticality Noted Date [...] 11:02 PM 06/22/2022 8:11 PM Care Teams Tarper Relationship Specialty Start Date End Date Marie Yanes PA-C PCP - General Physician Manager Wellness 06/18/22
--- OUTSIDE RECORDS SUMMARY | 2024-02-25 10:03 | XMS_ITS | Continuity of Care Document ---
Author Organization [facility] Address [address] [address] [place] [address] Phone Care Team Providers Care Sales Planning Analyst Name Role Phone Elmo Mosquera MD Unavailable [...] 10 Mg Routine Serum Collection Offic/outpt E&m [facility] Mod-hi 4 21 Colonoscopy Flex; W/bx 1/mx [...] 16 Immuniz Admin; 2/> Sing/comb V 16 [id number] Vaccine Immuniz Admin; 2/> Sing/comb V 16 [...] Diagnoses Date Provider Providers Copied on Encounter [facility], [address] [address], [place], [address], [place] tel:[phone] [facility] [place] Crohn's disease of both small and lg int w/o complications 4 Demetri Borrego. [address] [facility], [facility] [address], [place], [place], [address], [place]. tel:[phone] Referring Provider: Referral Self, USE FOR SELF REFERRALS. [facility], [address] [address], [place], [address], [place] tel:[phone] [facility] Crohn's disease of both small and lg int w/o complications 4 Tamica Mcclain. [address] [facility], [facility] [address], [place], [address], [place]. tel:[phone] [facility], [address] [address], [place], [address], [place] tel:[phone] [facility] [place] Crohn's disease of both small and lg int w/o complications 4 Demetri Borrego. [address] [facility], [address], [id number], [place]. tel:[phone] Referring Provider: Referral Self, USE FOR SELF REFERRALS. [facility], [address] [address], [place], [address], [place] tel:[phone] [facility] Crohn's disease of both small and lg int w/o complications 4 Tamica Mcclain. [address], [id number], [place]. tel:[phone] Referring Provider: Referral Self, USE FOR SELF REFERRALS. [facility], [address] [address], [place], [address], [place] tel:[phone] [facility] No Information 4 Tamica Mcclain. [address] [facility], [address], [id number], [place]. tel:[phone] Offic/outpt E&m Estab Mod-hi 2 [facility], [address] [address], [place], [address], [place] tel:[phone] [facility] GI Symptoms or Concerns (chief complaint) Previous History Review (chief complaint) Crohn's disease of both small and large intestine without complication 4 Tamica Mcclain. [address] [facility], [facility] [address], [place], [address], [place]. tel:[phone] Referring Provider: Referral Self, USE FOR SELF REFERRALS. [facility], [address] [address], [place], [address], [place] tel:[phone] [facility] [place] Crohn's disease of both small and lg int w/o complications December-0 4 Tamica Mcclain. [address] [facility], [address], [id number], [place]. tel:[phone] [facility], [address] [address], [place], [address], [place] tel:[phone] [facility] Crohn's disease of both small and lg int w/o complications 0 4 Tamica Mcclain. [address] [facility], [address], [id number], [place]. tel:[phone] [facility], [address] [address], [place], [address], [place] tel:[phone] [facility] [place] Crohn's disease of both small and lg int w/o complications 0 4 Demetri Borrego. [address], [id number], [place]. tel:[phone] Referring Provider: Referral Self, USE FOR SELF REFERRALS. [facility], [address] [address], [place], [address], [place] tel:[phone] [facility] Crohn's disease of both small and lg int w/o complications 0 4 Tamica Mcclain. [address], [id number], [place]. tel:[phone] Referring Provider: Referral Self, USE FOR SELF REFERRALS. [facility], [address] [address], [place], [address], [place] tel:[phone] [facility] [place] Crohn's disease of both small and lg int w/o complications 4 Tamica Mcclain. [address] [facility], [facility] [address], [place], [address], [place]. tel:[phone] [facility], [address] [address], [place], [address], [place] tel:[phone] [facility] [place] Crohn's disease of both small and lg int w/o complications 4 Demetri Borrego. [address], [id number], [place]. tel:[phone] Referring Provider: Referral Self, USE FOR SELF REFERRALS. [facility], [address] [address], [place], [address], [place] tel:[phone] [facility] [place] Crohn's disease of both small and lg int w/o complications 4 Tamica Mcclain. [address], [id number], [place]. tel:[phone] [facility], [address] [address], [place], [address], [place] tel:[phone] [facility] [place] Crohn's disease of both small and lg int w/o complications 4 Nazanin Humphrey. [address], [id number], [place]. tel:[phone] Referring Provider: Referral Self, USE FOR SELF REFERRALS. [facility], [address] [address], [place], [address], [place] tel:[phone] [facility] [place] Crohn's disease of both small and lg int w/o complications 4 Tamica Mcclain. [address], [id number], [place]. tel:[phone] [facility], [address] [address], [place], [address], [place] tel:[phone] [facility] [place] Crohn's disease of both small and lg int w/o complications 3 Flip Joyce. [address] [facility], [address], [id number], [place]. tel:[phone] Referring Provider: Referral Self, USE FOR SELF REFERRALS. [facility], [address] [address], [place], [address], [place] tel:[phone] [facility] [place] Crohn's disease of both small and lg int w/o complications 3 Tamica Mcclain. [address] [facility], [facility] [address], [place], [place], [address], [place]. tel:[phone] [facility], [address] [address], [place], [address], [place] tel:[phone] [facility] Crohn's disease of both small and large intestine with other complication 3 Tamica Mcclain. [address] [facility], [address], [place], [place], [address], [place]. tel:[phone] [facility], [address] [address], [place], [address], [place] tel:[phone] [facility] [place] Crohn's disease of both small and lg int w/o complications 3 Bahman Ang. [address] [facility], [address], [place], [place], [address], [place]. tel:[phone] Referring Provider: Johny Davey MD, [address] [facility] [address], [place], [address] . tel:[phone] [facility], [address] [address], [place], [address], [place] tel:[phone] [facility] Crohn's disease of both small and lg int w/o complications 3 Tamica Mcclain. [address] [facility], [facility] [address], [place], [place], [address], [place]. tel:[phone] Referring Provider: Referral Self, USE FOR SELF REFERRALS. [facility], [address] [address], [place], [address], [place] tel:[phone] [facility] Crohn's disease of both small and lg int w/o complications 3 Tamiac Mcclain. [address] [facility], [facility] [address], [place], [place], [address], [place]. tel:[phone] [facility], [address] [address], [place], [address], [place] tel:[phone] [facility] [place] Crohn's disease of both small and lg int w/o complications 3 Flip Joyce. [address] [facility], [facility] [address], [place], [address], [place]. tel:[phone] Referring Provider: Referral Self, USE FOR SELF REFERRALS. [facility], [address] [address], [place], [address], [place] tel:[phone] [facility] [place] Crohn's disease of both small and lg int w/o complications 3 Tamica Mcclain. [address] [facility], [facility] [address], [place], [address], [place]. tel:[phone] [facility], [address] [address], [place], [address], [place] tel:[phone] [facility] [place] Crohn's disease of both small and lg int w/o complications 3 Bahman Ang. [address] [facility], [facility] [address], [place], [address], [place]. tel:[phone] Referring Provider: Referral Self, USE FOR SELF REFERRALS. [facility], [address] [address], [place], [address], [place] tel:[phone] [facility] Crohn's disease of both small and lg int w/o complications 3 Tamica Mcclain. [address] [facility], [facility] [address], [place], [address], [place]. tel:[phone] Referring Provider: Referral Self, USE FOR SELF REFERRALS. [facility], [address] [address], [place], [address], [place] tel:[phone] [facility] [place] Crohn's disease of both small and lg int w/o complications 3 Tamica Mcclain. [address] [facility], [facility] [address], [place], [address], [place]. tel:[phone] [facility], [address] [address], [place], [address], [place] tel:[phone] [facility] GI Symptoms or Concerns (chief complaint) Crohn's disease of both small and lg int w oth complicationC rohn's disease of both small and large intestine with other complicationC rohn's disease of both small and lg int w oth complication 3 Tamica Mcclain. [address] [facility], [address], [id number], [place]. tel:[phone] Referring Provider: Referral Self, USE FOR SELF REFERRALS. [facility], [address] [address], [place], [address], [place] tel:[phone] [facility] [place] Crohn's disease of both small and lg int w/o complications 3 Gregorio Ponce. [address] [facility], [address], [id number], [place]. tel:[phone] Referring Provider: Referral Self, USE FOR SELF REFERRALS. [facility], [address] [address], [place], [address], [place] tel:[phone] [facility] Crohn's disease of both small and lg int w/o complications 3 Tamica Mcclain. [address] [facility], [facility] [address], [place], [address], [place]. tel:[phone] [facility], [address] [address], [place], [address], [place] tel:[phone] [facility] [place] Crohn's disease of both small and lg int w/o complications 3 Ashu Ruby. [address] [facility], [facility] [address], [place], [address], [place]. tel:[phone] Referring Provider: Referral Self, USE FOR SELF REFERRALS. [facility], [address] [address], [place], [address], [place] tel:[phone] [facility] Crohn's disease of both small and lg int w/o complications 3 Tamica Mcclain. [address] [facility], [address], [id number], [place]. tel:[phone] Referring Provider: Referral Self, USE FOR SELF REFERRALS. [facility], [address] [address], [place], [address], [place] tel:[phone] [facility] Crohn's disease of both small and lg int w/o complications Nov- 3 Tamica Mcclain. [address] [facility], [facility] [address], [place], [address], [place]. tel:[phone] [facility], [address] [address], [place], [address], [place] tel:[phone] [facility] Crohn's disease of both small and large intestine with other complication 3 Tamica Mcclain. [address] [facility], [facility] [address], [place], [address], [place]. tel:[phone] [facility], [address] [address], [place], [address], [place] tel:[phone] [facility] [place] Crohn's disease of both small and lg int w/o complications 3 Nazanin Humphrey. [address] [facility], [facility] [address], [place], [address], [place]. tel:[phone] Referring Provider: Referral Self, USE FOR SELF REFERRALS. [facility], [address] [address], [place], [address], [place] tel:[phone] [facility] Crohn's disease of both small and lg int w/o complications 3 Tamica Mcclain. [address] [facility], [facility] [address], [place], [address], [place]. tel:[phone] [facility], [address] [address], [place], [address], [place] tel:[phone] [facility] GI Symptoms or Concerns (chief complaint) Crohn's disease of both small and lg int w oth complication 3 Tung Klein. [address] [facility], [address], [place], [place], [address], [place]. tel:[phone] Referring Provider: Referral Self, USE FOR SELF REFERRALS. [facility], [address] [address], [place], [address], [place] tel:[phone] [facility] Crohn's disease of both small and lg int w/o complications 3 Tamica Mcclain. [address] [facility], [facility] [address], [place], [address], [place]. tel:[phone] Referring Provider: Referral Self, USE FOR SELF REFERRALS. [facility], [address] [address], [place], [address], [place] tel:[phone] [facility] Crohn's disease of both small and lg int w/o complications 3 Cabrera Carrasco. [address] [facility], [facility] [address], [place], [address], [place]. tel:[phone] Referring Provider: Referral Self, USE FOR SELF REFERRALS. [facility], [address] [address], [place], [address], [place] tel:[phone] [facility] Crohn's disease of both small and large intestine without complication 3 Tamica Mcclain. [address] [facility], [facility] [address], [place], [address], [place]. tel:[phone] [facility], [address] [address], [place], [address], [place] tel:[phone] [facility] GI Symptoms or Concerns (chief complaint) Crohn's disease of both small and large intestine without complicationD ietary counseling and surveillance 2 Trav Klein. [address] [facility], [facility] [address], [place], [place], [address], [place]. tel:[phone] Referring Provider: Referral Self, USE FOR SELF REFERRALS. [facility], [address] [address], [place], [address], [place] tel:[phone] [facility] [place] Crohn's disease of both small and large intestine without complicationC rohn's disease of both small and lg int w oth complication 2 Teresa Lim. [address] [place] [address], [address], [place]. tel:[phone] Referring Provider: Referral Self, USE FOR SELF REFERRALS. [facility], [address] [address], [place], [address], [place] tel:[phone] [facility] [place] Crohn's disease of both small and large intestine without complication 2 Tamica Mcclian. [address] [place] [address], [address], [place]. tel:[phone] Offic/outpt E&m Estab Mod-hi 2 [facility], [address] [address], [place], [address], [place] tel:[phone] [facility] GI Symptoms or Concerns (chief complaint) Previous History Review (chief complaint) Crohn's disease of both small and large intestine with other complication 2 Tamica Mcclain. [address] [place] [address], [id number], [place]. tel:[phone] Referring Provider: Referral Self, USE FOR SELF REFERRALS. Offic/outpt E&m Estab Mod-hi 2 [facility], [address] [address], [place], [address], [place] tel:[phone] [facility] GI Symptoms or Concerns (chief complaint) Previous History Review (chief complaint) Crohn's disease of both small and large intestine without complication 2 Tamica Mcclain. [address] [place] [address], [id number], [place]. tel:[phone] Referring Provider: Referral Self, USE FOR SELF REFERRALS. [facility], [address] [address], [place], [address], [place] tel:[phone] [facility] [place] Crohn's disease of both small and lg int w/o complications Sep-2 2 Teresa Lim. [address] [facility], [address], [place], [place], [address], [place]. tel:[phone] Referring Provider: Referral Self, USE FOR SELF REFERRALS. [facility], [address] [address], [place], [address], [place] tel:[phone] [facility] Crohn's disease of both small and large intestine without complication Sep-1 2 Tamica Mcclain. [address] [facility], [facility] [address], [place], [address], [place]. tel:[phone] [facility], [address] [address], [place], [address], [place] tel:[phone] [facility] GI Symptoms or Concerns (chief complaint) Abdominal pain, unspecified abdominal locationUnspe cified abdominal pain Sep-0 2 Tamica Mcclain. [address] [facility], [facility] [address], [place], [address], [place]. tel:[phone] Referring Provider: Referral Self, USE FOR SELF REFERRALS. [facility], [address] [address], [place], [address], [place] tel:[phone] [facility] Epigastric abdominal pain Sep-0 2 Tamica Mcclain. [address] [facility], [address], [place], [address], [place]. tel:[phone] [facility], [address] [address], [place], [address], [place] tel:[phone] [facility] Crohn's disease of both small and lg int w/o complications Sep-0 2 Tamica Mcclain. [address] [facility], [facility] [address], [place], [address], [place]. tel:[phone] Referring Provider: Referral Self, USE FOR SELF REFERRALS. [facility], [address] [address], [place], [address], [place] tel:[phone] [facility] Crohn's disease of both small and lg int w/o complications 2 Tamica Mcclain. [address] [facility], [address], [place], [place], [address], [place]. tel:[phone] Referring Provider: Referral Self, USE FOR SELF REFERRALS. [facility], [address] [address], [place], [address], [place] tel:[phone] [facility] Crohn's disease of both small and large intestine without complication 2 Tamica Mcclain. [address] [facility], [address], [place], [place], [address], [place]. tel:[phone] [facility]&m Minr Compl [facility], [address] [address], [place], [address], [place] tel:[phone] [facility] No Information 2 Bud Fernandez. [address] [facility], [address], [place], [place], [address], [place]. tel:[phone] Referring Provider: Rebecca Pulliam, [address] [facility] [address], [place], [address] . tel:[phone] Init Inpt Cons New/est Mod-hi [facility], [address] [address], [place], [address], [place] tel:[phone] [facility] No Information 2 Enriqueta Sauceda. [address] [facility], [address], [place], [place], [address], [place]. tel:[phone] Referring Provider: Marie LALA, [address] [place], [address]. tel:[phone] Established Level 4 [facility], [address] [address], [place], [address], [place] tel:[phone] [facility] GI Symptoms or Concerns (chief complaint) Previous History Review (chief complaint) Crohn's disease of both small and large intestine without complication 2 Tamica Mcclain. [address] [facility], [address], [address], [place]. tel:[phone] Referring Provider: Referral Self, USE FOR SELF REFERRALS. [facility], [address] [address], [place], [address], [place] tel:[phone] [facility] Crohn's disease of both small and lg int w/o complications 2 Zackery Aguirre. [address] [facility], [address], [address], [place]. tel:[phone] Referring Provider: Referral Self, USE FOR SELF REFERRALS. Established Level 5 [facility], [address] [address], [place], [address], [place] tel:[phone] [facility] GI Symptoms or Concerns (chief complaint) Crohn's disease of both small and lg int w/o complications 2 Zackery Aguirre. [address] [facility], [address], [id number], [place]. tel:[phone] Referring Provider: Referral Self, USE FOR SELF REFERRALS. [facility], [address] [address], [place], [address], [place] tel:[phone] [facility] [place] Crohn's disease of both small and lg int w/o complications 2 Skylar Duron. [address] [facility], [address], [id number], [place]. tel:[phone] Referring Provider: Referral Self, USE FOR SELF REFERRALS. [facility], [address] [address], [place], [address], [place] tel:[phone] [facility] Iron deficiency anemia secondary to blood loss (chronic) 2 Tamica Mcclain. [address] [facility], [address], [id number], [place]. tel:[phone] Referring Provider: Referral Self, USE FOR SELF REFERRALS. [facility], [address] [address], [place], [address], [place] tel:[phone] [facility] No Information 1 Tamica Mcclain. [address] [place] [address], [id number], [place]. tel:[phone] [facility], [address] [address], [place], [address], [place] tel:[phone] [facility] [place] Crohn's disease of both small and lg int w/o complications May- 1 Skylar Duron. [address] [place] [address], [id number], [place]. tel:[phone] Referring Provider: Referral Self, USE FOR SELF REFERRALS. [facility], [address] [address], [place], [address], [place] tel:[phone] [facility] No Information 1 Tamica Mcclain. [address] [place] [address], [id number], [place]. tel:[phone] [facility], [address] [address], [place], [address], [place] tel:[phone] [facility] Iron deficiency anemia secondary to blood loss (chronic) 1 Skylar Duron. [address] [place] [address], [id number], [place]. tel:[phone] Referring Provider: Referral Self, USE FOR SELF REFERRALS. [facility], [address] [address], [place] [place], [place], [id number], [place] tel:[phone] [facility] [place] Iron deficiency anemia secondary to blood loss (chronic) 0 1 Kushal Biggs. [address] [place] [address], [id number], [place]. tel:[phone] Referring Provider: Referral Self, USE FOR SELF REFERRALS. [facility], [address] [address], [place], [id number], [place] tel:[phone] [facility] [place] Iron deficiency anemia secondary to blood loss (chronic) 1 Shell Olmos. [address] [facility], [facility] [address], [place], [id number], [place]. tel:[phone] Referring Provider: Referral Self, USE FOR SELF REFERRALS. [facility], [address] [address], [place], [id number], [place] tel:[phone] [facility] [place] Iron deficiency anemia secondary to blood loss (chronic) 1 Juanjose Carlisle. [address] [facility], [address], [id number], [place]. tel:[phone] Referring Provider: Referral Self, USE FOR SELF REFERRALS. [facility], [address] [address], [place], [id number], [place] tel:[phone] [facility] [place] Crohn's disease of both small and lg int w/o complications Apr- 1 Mau Mclain. [address] [facility], [facility] [address], [place], [id number], [place]. tel:[phone] Referring Provider: Referral Self, USE FOR SELF REFERRALS. [facility], [address] [address], [place], [id number], [place] tel:[phone] [facility] [place] Crohn's disease of both small and lg int w/o complications Apr- 1 Tamica Mcclain. [address] [facility], [facility] [address], [place], [id number], [place]. tel:[phone] Referring Provider: Referral Self, USE FOR SELF REFERRALS. [facility], [address] [address], [place], [id number], [place] tel:[phone] [facility] No Information 1 Jackie Kelly. [address] [facility], [facility] [address], [place], [id number], [place]. tel:[phone] [facility], [address] [address], [place], [id number], [place] tel:[phone] [facility] Iron deficiency anemia due to chronic blood loss Apr-0 1 Tamica Mcclain. [address] [facility], [facility] [address], [place], [place], [id number], [place]. tel:[phone] Offic/outpt E&m Estab Mod-hi 4 [facility], [address] [address], [place], [id number], [place] tel:[phone] [facility] GI Symptoms or Concerns (chief complaint) Crohn's disease of both small and large intestine without complication 1 Tamica Mcclain. [address] [facility], [facility] [address], [place], [id number], [place]. tel:[phone] Referring Provider: Referral Self, USE FOR SELF REFERRALS. [facility], [address] [address], [place], [id number], [place] tel:[phone] [facility] Anemia, unspecifiedCr ohn's disease of colon with complicationC rohn's disease of large intestine with unsp complications Anemia, unspecified Mar-2 1 Marily Rodriguez. [address] [facility], [facility] [address], [place], [id number], [place]. tel:[phone] [facility], [address] [address], [place], [id number], [place] tel:[phone] [facility] No Information 0 1 Jackie Kelly. [address] [facility], [facility] [address], [place], [id number], [place]. tel:[phone] [facility], [address] [address], [place], [id number], [place] tel:[phone] [facility] Calculus of gallbladder and bile duct without cholecystitis or obstructionAn emia, unspecified type 1 No Information Offic/outpt E&m New Mod-hi [facility], [address] [address], [place], [place], [id number], [place] tel:[phone] [facility] GI Symptoms or Concerns (chief complaint) Additional Narrative (chief complaint) Crohn's disease of both small and large intestine with other complicationG eneralized abdominal painAcute midline low back pain without sciaticaDiarr hea, unspecified typeErythema nodosum Jan- 1 No Information Referring Provider: [place], [address] [place], [address]. tel:[phone] Offic/outpt E&m Estab Low-mod [facility], [address] [address], [place], [place], [id number], [place] tel:[phone] [facility] GI Symptoms or Concerns (chief complaint) Crohn's disease of both small and large intestine without complicationD ietary counseling and surveillance 6 Tamica Mcclain. [address] [place] [address], [id number], [place]. tel:[phone] Referring Provider: Referral Self, USE FOR SELF REFERRALS. Offic/outpt E&m Estab Mod-hi 2 [facility], [address] [address], [place], [place], [id number], [place] tel:[phone] [facility] GI Symptoms or Concerns (chief complaint) Crohn's disease of both small and large intestine without complication 6 Tamica Mcclain. [address], [id number], [place]. tel:[phone] Referring Provider: Yasmine Dumont MD [place], [address], [place], [address]. tel:[phone] [facility], [address] [address], [place], [place], [id number], [place] tel:[phone] [facility] Crohn's disease of both small and lg int w/o complications Inflammatory polyps of colon without complications Crohn's disease of both small and lg int w/o complications 6 No Information Referring Provider: Yasmine Cleveland, [address], [place], [address]. tel:[phone] [facility], [address] [address], [place], [id number], [place] tel:[phone] [facility] Crohn's disease of both small and large intestine without complication 6 No Information Referring Provider: Referral Self, USE FOR SELF REFERRALS. Offic/outpt E&m Estab Low-mod [facility], [address] [address], [place], [id number], [place] tel:[phone] [facility] GI Symptoms or Concerns (chief complaint) Crohn's disease of both small and large intestine without complication Tamica Mcclain. [address] [facility], [facility] [address], [place], [place], [id number], [place]. tel:[phone] Referring Provider: Yasmine Cleveland, [address], [place], [address]. tel:[phone] Offic/outpt E&m Estab Low-mod [facility], [address] [address], [place], [id number], [place] tel:[phone] [facility] GI Symptoms or Concerns (chief complaint) Perianal lesionCrohn's disease of both small and large intestine without complicationD ietary counseling and surveillance 5 No Information Referring Provider: Referral Self, USE FOR SELF REFERRALS. Offic/outpt E&m Estab Mod-hi 2 [facility], [address] [address], [place], [id number], [place] tel:[phone] [facility] GI Symptoms or Concerns (chief complaint) Crohn's disease of both small and large intestine without complication 5 No Information Referring Provider: Referral Self, USE FOR SELF REFERRALS. Offic/outpt E&m Estab Mod-hi 4 [facility], [address] [address], [place], [id number], [place] tel:[phone] [facility] GI Symptoms or Concerns (chief complaint) Crohn's Small/large Intestine Apr- 5 Tamica Mcclain. [address], [id number], [place]. tel:[phone] Referring Provider: Referral Self, USE FOR SELF REFERRALS. [facility], [address] [address], [place], [id number], [place] tel:[phone] [facility] Abdominal Pain 5 Thomas Burgos. [address] [facility] [address], [place], [id number], [place]. tel:[phone] Referring Provider: Referral Self, USE FOR SELF REFERRALS. [facility], [address] [address], [place], [id number], [place] tel:[phone] [facility] No Information 5 No Information Referring Provider: Yasmine Cleveland, [address], [place], [address]. tel:[phone] [facility], [address] [address], [place], [id number], [place] tel:[phone] [facility] Abn Blood Chemistry NecCrohn's Small/large Intestine 5 No Information Referring Provider: Yasmine Cleveland, [address], [place], [address]. tel:[phone] [facility], [address] [address], [place], [place], [id number], [place] tel:[phone] [facility] Crohn's Small/large IntestineAbn Blood Chemistry Nec 5 No Information Offic/outpt E&m Estab Mod-hi 2 [facility], [address] [address], [place], [place], [id number], [place] tel:[phone] [facility] GI Symptoms or Concerns (chief complaint) Abdominal PainGastritis Crohn's Small/large IntestineDiar jan 5 No Information Referring Provider: Referral Self, USE FOR SELF REFERRALS. [facility], [address] [address], [place], [id number], [place] tel:[phone] [facility] Regional Enteritis Nos 5 No Information [facility], [address] [address], [place], [id number], [place] tel:[phone] [facility] Regional Enteritis NosRegional Enteritis Nos 5 No Information Referring Provider: Yasmine Cleveland, [address], [place], [address]. tel:[phone] Init Hosp-da E&m Mod Severity [facility], [address] [address], [place], [id number], [place] tel:[phone] [facility] No Information Skylar Duron. [facility] [address], [id number], [place]. tel:[phone] Referring Provider: Yasmine Cleveland, [address], [place], [address]. tel:[phone] [facility], [address] [address], [place], [id number], [place] tel:[phone] [facility] Gastric/antra l Ulcer UnspecGastric ulcerGastric ulcerAbdomina l PainNausea And VomitingRegio nal Enteritis NosGastritisA bdominal PainRegional Enteritis Nos 5 Deven Edwards. [address], [id number], [place]. tel:[phone] Referring Provider: Yasmine Cleveland, [address], [place], [address]. tel:[phone] Family History Family Member Type Diagnosis Age [...] hepatitis B vaccine, unspecified formulation administered Note: LinkageIC bi-di rectional interface ; Source: Other Registry tetanus and diphtheria toxoids, adsorbed, preservative free, for adult use (2 Lf of tetanus toxoid and 2 Lf of diphtheria toxoid) administered Note: MIIC bi-direct ional interface ; Source: Other Registry measles, mumps and rubella virus vaccine administered Note: MIIC bi-direct ional interface ; Source: Other Registry DTP-Haemophilus influenzae type b conjugate vaccine administered Note: Linkage[facility] bi-d irectional interface ; Source: Other Registry measles, mumps and rubella virus vaccine administered Note: MIIC bi-direct ional interface ; Source: Other Registry Payers Payer name Insurance type Covered republican ID Authoriza tiraphael(s) [facility] [id number] [facility] [id number] [facility] [id number] [facility] CI [id number] Social History Type Description Quantity Date Captured [...] Ordered: referred to Latoya Mariano PhD LP [facility] therapist Crohn's disease within 3 Months Appointment date/timeframe: 3 Months ordered Referral Ordered: Flexible Sigmoidoscopy Appointment date/timeframe: 09/01/2022 ordered Referral Ordered: follow-up visit with Johny Davey MD in 3 Months or by 10/01/2022 Appointment date/timeframe: 3 Months ordered Referral Ordered: referred to [facility] Collateral Specialist Mediterranean diet/ok for fiber within 6 Weeks [...] Lab Order Antimito chondrial Ab (AMA), Qn ([id number]), Body Site: Right Antecubital Fossa, Appointment on: [...] boy due in March 2024 (delivering in [place]) and her SO has a 6yo boy. [...] was referred to GI psychology by her clinical team manager, Dr. Davey, for brain-gut therapy to reduce [...] anger about her Crohn's disease and ileostomy. [place]: She reported she is generally hopeful about [...] reported she sees a counselor through the [facility] in [place], [place] on a weekly basis, but denied [...] her Crohn's symptoms. 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 Finally, she described emotional distress related [...] psychological treatment. Patient was given handouts on [facility]'s GI Health Psychology Services, patient rights, and [...] Diet Recall: Breakfast: Egg and gluten free estonian muffinLunch: Chicken, pasta, almond milkDinner: Pot roast [...] outside hospital, she was ultimately transferred to [facility], there was significant shortage of beds. [...] offer full-time position. 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 Now, she is getting assistance from the state both from the insurance perspective as well as monetary assistance and she may go back to school for the dental field or a student development coordinator.The patient reports there is a slim chance [...] at the clinic. However, she moved to [place] in 2015 and then returned to [place] in the year 2019. She last saw [...] up until 2015, then she moved to [place] and returned back to [place] about a year ago. She had significant [...] in 2015. The patient had moved to [place] but returned home about 1 year ago. [...] one last time before she moves to [place]. She is moving to [place] in two weeks. She already has a GI appointment on September 02, 2015. She is moving to [place]. She is pursuing a transfer within her [employer]. She denies any diarrhea. No fevers or [...] The patient was seen by Dr. Johny aDvey last month in our Crohn's and Colitis [...] sometimes will have mild nausea in the product marketer. It appears as if she has responded [...] Dr. Tung Mariano can be sent via [facility] patient portal or by calling her patient coordinator at [phone]. [phone].CRISIS ADULT MENTAL HEALTH RESOURCES:[facility] Crisis Line: [phone] [facility]: [phone] Crisis Line: 237-886-9657[place] COPE ([facility] for Psychiatric Emergencies): 178-240-3125[place] Crisis Line: 951-362-2145[place] Crisis Line: Crisis Text Line: Text [place] to [address]22[address] Suicide Hotline: 988 or 4-270-540-UMIJ (3653)Latoya Mariano, PhD LPClinical Health Psychologist Related to [...] Flex sig with ileoscopy in 5 months- Collateral Specialist- Referral to GI therapist- Follow-up in 3 [...] complication - Go to the ED today ([facility] or [facility]) and be admitted, will need IV steroids and imaging, also work with social work to get patient covered.- We will pursue the [facility] through the assistance application- Follow-up in [...] Humira prescription from new GI physician in [place].- Follow-up on as needed basis, given patient will transfer her care to [place]. Related to Crohn's disease of both small [...]
--- OUTSIDE RECORDS SUMMARY | 2024-02-25 10:03 | XMS_ITS | Encounter Summary ---
Author Organization [facility] Address [address] [place] [address] Care Team Providers Care Ingot Buggy Operator Name Role Phone Yasmine Dumont MD Primary Care Provider [phone] Encounter Details Date Type Department Care Team [...] on filedocumented in this encounter Care Teams Ingot Buggy Operator Relationship Specialty Start Date End Date Yasmine Dumont MD PCP - General Speciality Unknown 08/31/11 documented as of this encounter
--- NOTE | 2024-02-25 10:15 | CRLHL7_ITS ---
For Patients: As a result of the Century Cures Act, medical imaging exams and procedure reports are released immediately into your electronic medical record. You may view this report before your referring provider. If you have questions, please contact your health care provider. Indication: RUQ PAIN Technique: Multiple transverse and longitudinal sonographic grayscale images of the right upper quadrant of the abdomen were obtained, supplemented with color, power, and spectral Doppler imaging. Comparison: 10/18/2023, 06/15/2022 Findings: Pancreas: Visualized portions normal. Liver appearance: Normal. No biliary ductal dilation. Portal vein: Patent, hepatopetal flow. CBD: 0.4 cm. Gallbladder: Status post cholecystectomy. Right kidney length: 12.4 cm. Right kidney appearance: Normal. Impression: Postsurgical changes from cholecystectomy. Normal sonographic appearance of the right upper quadrant of the abdomen. Dictated by Taurus Collins MD @ 02/25/2024 11:15:12 AM (Electronically Signed)
[2024-02-25 10:40] VITALS: BP 96/63; PULSE 86; RESP 14
[2024-02-25 10:44] LABS: Appearance Urine Clear (Clear); Bilirubin Urine 2+ (Negative); Blood Urine Negative (Negative); Color Urine Yellow (Yellow); Glucose Urine Negative (Negative); Ketones Urine 2+ (Negative); Leukocyte Esterase Urine Negative (Negative); Nitrite Urine Negative (Negative); Protein Urine 2+ (Negative); Specific Gravity Urine >= 1.030 (1.000-1.030); Urobilinogen Urine 0.2 (0.2-1.0)
[2024-02-25 11:15] LABS: Bacteria Urine Many; RBC Urine 0-2 (0-2); WBC Urine 0-2 (0-5)
--- NOTE | 2024-02-25 12:34 | PC.OBNST ---
NST Note NST Note Start: 02/25/24 11:26 Freq: ONCE Status: Active Protocol: Document 02/25/24 12:08 [facility] (Rec: 02/25/24 12:34 [facility] [id number]) NST Note 2 Para (# of births) 1 EDC 04/11/24 Gestational Age In Weeks & Days 33 Weeks & 3 Days Patient Presented with Complaint(s) of Nausea and vomiting Other Complaints Feeling ill, like she has food poisoning; seen in ED Reactive Yes Appropriate for Gestational Age Yes RN Rody RN Date 02/25/24 Reactive Yes Appropriate for Gestational Age Yes RN JSchuhrudy Date 02/25/24 OB NST charge Yes Complete NST Note via Write Note Yes The provider's electronic signature indicates the NST is reactive/appropriate for gestational age. *Note to provider: If an addendum is required, open the patient's chart and click on the note under the Nurse/Allied Health tab.
[2024-02-25 12:37] VITALS: BP 99/70; PULSE 100; RESP 14
== END 2024-02-25 12:39 | disposition home or self-care (01) ==
PROVIDERS: Emergency Provider Internal Medicine; PCP Family Medicine
DX: K52.9 Noninfective gastroenteritis and colitis, unspecified (principal); Z3A.33 33 weeks gestation of pregnancy
CPT/HCPCS: 36415; 59025; 76705; 80053; 81001; 81003; 82150; 85025; 87086; 96374; 99283; 99284; J2405; J7030

== ENCOUNTER 2024-03-17 08:03 | Outpatient (CLI) | payer MEDICAID, SELFPAY ==
--- OUTSIDE RECORDS SUMMARY | 2024-03-17 08:05 | XMS_ITS | Encounter Summary ---
Author Organization [facility] Address [address] [place] [address] Care Team Providers Care Treasury Analyst Name Role Phone Yasmine Dumont MD Primary Care Provider [phone] Encounter Details Date Type Department Care Team [...] on filedocumented in this encounter Care Teams Treasury Analyst Relationship Specialty Start Date End Date Yasmine Dumont MD PCP - General Speciality Unknown 08/31/11 documented as of this encounter
--- OUTSIDE RECORDS SUMMARY | 2024-03-17 08:05 | XMS_ITS | Clinical Summary ---
Author Organization [facility] Address [address] [place] [address] Care Team Providers Care Hogshead Filler Name Role Phone Yasmine Dumont MD Primary Care Provider [phone] Allergies No known active allergies Medications Medication [...] MATERNAL SCREENING DISCUSSION 09/14/2023 OBGCT (OB) 12/21/2023 GROUP B STREP SCREENING 03/14/2024 INFLUENZA VACCINE (#1) 2024 , 05/04/2019, 08/20/2017, Additional history exists PAP 08/20/2026 [...] Required) Completed Medical Devices Implanted Type Area Web Project Manager Device Identifier Shelf Expiration Date Model / Serial / Lot Graft Bone Putty Dbx 01ml [id number] Implanted:Qty: 1 on 09/07/2011 at [facility] Left: Arm 10/21/2012 [id number] / [id number] / Explanted Type Area Web Project Manager Device Identifier Shelf Expiration Date Model / Serial / Lot Screws And Plate Implanted:09/07 by Israel Rg MD (Quantity not on file) Explanted:Qty: 1 on 09/07/2011 at [facility] Left: Arm Care Teams Hogshead Filler Relationship Specialty Start Date End Date Yasmine Dumont MD PCP - General Speciality Unknown 08/31/11
--- OUTSIDE RECORDS SUMMARY | 2024-03-17 08:05 | XMS_ITS | Encounter Summary ---
Author Organization [facility] Address [address] [place] [address] Care Team Providers Care Broiler Supervisor Name Role Phone Yasmine Dumont MD Primary Care Provider [phone] Reason for Referral * Diagnostic Imaging Ultrasound (Routine) - Pending Review Specialty Diagnoses / Procedures Referred By Contac t Referred To Contact Radiology. Diagnoses Encounter for follow-up ultrasound of anatomy Procedures [facility] US Comprehensive Single F/U Tristen Swartz MD [address] [facility] [address] Referral ID Status Reason Start Date Expiration Date V isits Requested Visits Authorized [id number] Pending Review 11/10/2023 11/09/2024 1 1 Reason for Visit * Diagnostic Imaging Ultrasound (Routine) - Pending Review Specialty Diagnoses / Procedures Referred By Holly perry Referred To Contact Radiology. Diagnoses Encounter for follow-up ultrasound of anatomy Procedures [facility] US Comprehensive Single F/U Tristen Swartz MD [address] [place] [address] Referral ID Status Reason Start Date Expiration Date V isits Requested Visits Authorized [id number] Pending Review 11/10/2023 11/09/2024 1 1 Encounter Details Date Type Department Care Team (Latest Contact Info) Description 12/08/2023 1:24 PM CDT - 12/08/2023 11:59 PM CDT Hospital Encounter [facility] [place] [address] [place] [address] Tristen Swartz MD [address] [place] [address] Encounter for follow-up ultrasound of [...] Procedure Name Priority Date/Time Associated Diagnosis Comments [facility] US COMPREHENSIVE SINGLE F/U Routine 12/08/2023 2:13 PM CDT Encounter for follow-up ultrasound of anatomy documented in this encounter Results * [facility] US Comprehensive Single F/U (12/08/2023 2:13 [...] ? Study Date: ??12/08/2023 1:27pm Pat. NO: ??[id number] ?Referring ??MD: BEBO SANTIAGO Site: ??[facility] ? Peach Grower: Rekha Maldonado RDMS : ??1990 ?Age: ?? [...] 1 lb 1 ?oz EFW by ?Hadlock (WID-[id number]-FL) Head / Face / Neck Biometry: Supervisory Civil Engineer ? 6.1 ? mm CM ?4.5 ? mm ANATOMY ----- The following structures appear normal: Head / Neck ? Cranium. Head size. Head shape. Lateral ventricles. Midline falx. Cavum septi pellucidi. Cerebellum. Cisterna magna. Thalami. Face ? Lips. Nose. Heart / Thorax ?4-chamber view. RVOT view. LVOT view. Aortic arch view. Ductal arch view. 8-igniaa-hymsgla view. ? Right lung. Left lung. Diaphragm. [...] WEBER Study Date: 12/08/2023 1:27pm Pat. NO: [id number] Referring MD: BEBO SANTIAGO Site: [facility] Peach Grower: Rekha BoyleFLORENCIO العلي : 1990 Age: 33 [...] 1 lb 1 oz EFW by Quang (PNE-[id number]-FL) Head / Face / Neck Biometry: Supervisory Civil Engineer 6.1 mm CM 4.5 mm ANATOMY ----- The following structures appear normal: Head / Neck Cranium. Head size. Head shape.Lateral ventricles. Midline falx. Cavum septi pellucidi. Cerebellum.Cisterna magna. Thalami. Face Lips. Nose. Heart / Thorax 4-chamber view. RVOT view. LVOT view.Aortic arch view. Ductal arch view. 2-kddzel-xskosaz view. Right lung. Left lung.Diaphragm. Abdomen Stomach. [...] fluid volume appeared normal. Tristen Swartz MD [facility] US ORDERABL ES documented in this encounter Visit Diagnoses Diagnosis Encounter for follow-up ultrasound of anatomy documented in this encounter Care Teams Broiler Supervisor Relationship Specialty Start Date End Date Yasmine Dumont MD PCP - General Speciality Unknown 08/31/11 documented as of this encounter
--- OUTSIDE RECORDS SUMMARY | 2024-03-17 08:05 | XMS_ITS | Encounter Summary ---
Author Organization [facility] Address [address] [facility] [place] [address] Care Team Providers Care Front End Ui Developer Name Role Phone Yasmine Dumont MD Primary Care Provider [phone] Reason for Visit * Reason Comments Ultrasound [id number] Encounter Details Date Type Department Care Team (Late st Contact Info) Description 12/08/2023 2:00 PM CDT Office Visit [facility] [place] [address] [place] [address] Tristen Swartz MD [address] [facility] [address] [place] [address] Encounter for follow-up ultrasound of [...] for details of today's US at [facility] [place]. Tristen Swartz MD Maternal- Medicine documented in this encounter Plan of Treatment Not on file documented as of this encounter Visit Diagnoses Diagnosis Encounter for follow-up ultrasound of anatomy- Primary documented in this encounter Care Teams Front End Ui Developer Relationship Specialty Start Date End Date Yasmine Dumont MD PCP - General Speciality Unknown 08/31/11 documented as of this encounter
--- OUTSIDE RECORDS SUMMARY | 2024-03-17 08:05 | XMS_ITS | Referral Summary ---
Author Organization [facility] Address [address] [place] [address] Care Team Providers Care Wind Project Manager Name Role Phone Yasmine Dumont MD Primary Care Provider [phone] Allergies No known active allergies Medications Medication [...] on file Medical Devices Implanted Type Area Personal Care Home Administrator Device Identifier Shelf Expiration Date Model / Serial / Lot Graft Bone Putty Dbx 01ml [id number] Implanted:Qty: 1 on 09/07/2011 at [facility] Left: Arm 10/21/2012 [id number] / [id number] / Explanted Type Area Personal Care Home Administrator Device Identifier Shelf Expiration Date Model / Serial / Lot Screws And Plate Implanted:09/07 by Israel Rg MD (Quantity not on file) Explanted:Qty: 1 on 09/07/2011 at [facility] Left: Arm Care Teams Wind Project Manager Relationship Specialty Start Date End Date Yasmine Dumont MD PCP - General Speciality Unknown 08/31/11
--- OUTSIDE RECORDS SUMMARY | 2024-03-17 08:06 | XMS_ITS | Clinical Summary ---
Author Organization [facility] Address [address] [address] Care Team Providers Care Garbage Person Name Role Phone Marie Yanes PA-C Primary Care Provider [phone] Source Comments You are receiving this document as you are listed as the primary care provider,follow-up provider, or the patient has been referred to you for consultation.This is in compliance with the Medicare and[facility] EHR Incentive Program,which states Providers who transition their patient to another setting of careor provider of care or refers their patient to another provider of care shouldprovide summary care record for each transition of care or referral. [facility] Allergies Active Allergy Reactions Criticality Noted Date [...] Vaccine ( season) 2023 06/27/2021, 06/06/2021 Influenza (#1) 2024 08/14/2020, 04/23, 08/20/2017, Additional history exists DTaP/Tdap/Td (7 - [...] 11:02 PM 06/22/2022 8:11 PM Care Teams Garbage Person Relationship Specialty Start Date End Date Marie Yanes PA-C PCP - General Physician Ultra Sound Technician 06/18/22
--- NOTE | 2024-03-17 08:15 | CRLHL7_ITS ---
For Patients: As a result of the Century Cures Act, medical imaging exams and procedure reports are released immediately into your electronic medical record. You may view this report before your referring provider. If you have questions, please contact your health care provider. INDICATION: Crohn`s disease TECHNIQUE: Real time jones scale imaging of the fetus was performed. COMPARISON: 02/18/2024 FINDINGS: Sonographic imaging demonstrates a single living intrauterine gestation. Fetus demonstrates a regular cardiac rate of 150 beats per minute. Fetus has a vertex position. The placenta lies right sided. Amniotic fluid volume appears normal and there is a single deepest pocket of 7.6 cm. The estimated weight is 3125gm which lies at the 72nd %. On the prior OB ultrasound dated 02/18/2024 the estimated weight was at the 56th percentile. BPD greater than 97th percentile. HC 61st percentile. AC 82nd percentile. FL 31st percentile. The fetus was active and demonstrated normal breathing movements. There was normal flexion and extension of the trunk and extremities. IMPRESSION: Normal biophysical profile score 8/8. Sonographic gestational age 37 weeks 3 days and a sonographic due date 04/04/2024. Sonographic age 1 week ahead of the clinical age. Estimated weight 72nd percentile. Abdominal circumference 82nd percentile. Dictated by Agus Mcconnell MD @ 03/17/2024 11:07:57 AM (Electronically Signed)
== END 2024-03-17 08:04 | disposition home or self-care (01) ==
LOC: US 08:04
PROVIDERS: PCP Family Medicine; Visit Provider Obstetrics & Gynecology
DX: O99.613 Diseases of the digestive system complicating pregnancy, third trimester (principal); K50.90 Crohn's disease, unspecified, without complications; Z3A.37 37 weeks gestation of pregnancy
CPT/HCPCS: 76816; 76819; 87081; 87653

== ENCOUNTER 2024-03-20 14:42 | Outpatient (CLI) | payer MEDICAID, SELFPAY ==
--- OUTSIDE RECORDS SUMMARY | 2024-03-20 14:46 | XMS_ITS | Referral Summary ---
Author Organization [facility] Address [address] [place] [address] Care Team Providers Care Blister Rust Eradicator Name Role Phone Yasmine Dumont MD Primary Care Provider [phone] Allergies No known active allergies Medications Medication [...] on file Medical Devices Implanted Type Area Screen And Cyclone Repairer Device Identifier Shelf Expiration Date Model / Serial / Lot Graft Bone Putty Dbx 01ml [id number] Implanted:Qty: 1 on 09/07/2011 at [facility] Left: Arm 10/21/2012 [id number] / [id number] / Explanted Type Area Screen And Cyclone Repairer Device Identifier Shelf Expiration Date Model / Serial / Lot Screws And Plate Implanted:09/07 by Israel Rg MD (Quantity not on file) Explanted:Qty: 1 on 09/07/2011 at [facility] Left: Arm Care Teams Blister Rust Eradicator Relationship Specialty Start Date End Date Yasmine Dumont MD PCP - General Speciality Unknown 08/31/11
--- OUTSIDE RECORDS SUMMARY | 2024-03-20 14:46 | XMS_ITS | Clinical Summary ---
Author Organization [facility] Address [address], [place] [address] Care Team Providers Care Cash On Delivery Clerk Name Role Phone Marie Yanes PA-C Primary Care Provider [phone] Source Comments You are receiving this document as you are listed as the primary care provider,follow-up provider, or the patient has been referred to you for consultation.This is in compliance with the Medicare and[facility]aid EHR Incentive Program,which states Providers who transition their patient to another setting of careor provider of care or refers their patient to another provider of care shouldprovide summary care record for each transition of care or referral. [facility] Allergies Active Allergy Reactions Criticality Noted Date [...] 11:02 PM 06/22/2022 8:11 PM Care Teams Cash On Delivery Clerk Relationship Specialty Start Date End Date Marie Yanes PA-C PCP - General Physician Siebel Administrator 06/18/22
--- OUTSIDE RECORDS SUMMARY | 2024-03-20 14:46 | XMS_ITS | Clinical Summary ---
Author Organization [facility] Address [address] [place] [address] Care Team Providers Care Application Manager Name Role Phone Yasmine Dumont MD Primary Care Provider [phone] Allergies No known active allergies Medications Medication [...] Required) Completed Medical Devices Implanted Type Area Quality Assurance Representative Device Identifier Shelf Expiration Date Model / Serial / Lot Graft Bone Putty Dbx 01ml [id number] Implanted:Qty: 1 on 09/07/2011 at [facility] Left: Arm 10/21/2012 [id number] / [id number] / Explanted Type Area Quality Assurance Representative Device Identifier Shelf Expiration Date Model / Serial / Lot Screws And Plate Implanted:09/07 by Israel Rg MD (Quantity not on file) Explanted:Qty: 1 on 09/07/2011 at [facility] Left: Arm Care Teams Application Manager Relationship Specialty Start Date End Date Yasmine Dumont MD PCP - General Speciality Unknown 08/31/11
[2024-03-20 14:56] VITALS: PULSE 112; O2SAT 98
[2024-03-20 14:57] VITALS: BP 109/71; PULSE 100
--- NOTE | 2024-03-20 16:32 | PC.OBNST ---
NST Note NST Note Start: 03/20/24 14:52 Freq: ONCE Status: Active Protocol: Document 03/20/24 15:00 [facility] (Rec: 03/20/24 16:32 [facility] [id number]) NST Note 2 Para (# of births) 1 EDC 04/11/24 Gestational Age In Weeks & Days 36 Weeks & 6 Days Patient Presented with Complaint(s) of Pain If Pain, describe location complaining of 10/10 pain over pubic bone with tightening or ambulation. Other Complaints general discomforts of . Reactive Yes Appropriate for Gestational Age Yes LENA Baptiste RN Date 03/20/24 Reactive Yes Appropriate for Gestational Age Yes LENA Kent Date 03/20/24 OB NST charge Yes Complete NST Note via Write Note Yes The provider's electronic signature indicates the NST is reactive/appropriate for gestational age. *Note to provider: If an addendum is required, open the patient's chart and click on the note under the Nurse/Allied Health tab.
== END 2024-03-20 15:45 | disposition home or self-care (01) ==
LOC: OB OUT 14:44 → OB 14:46
PROVIDERS: PCP Family Medicine; Visit Provider Obstetrics & Gynecology
DX: O47.03 False labor before 37 completed weeks of gestation, third trimester (principal); Z3A.36 36 weeks gestation of pregnancy
CPT/HCPCS: 59025; G0463

== ENCOUNTER 2024-04-02 02:05 | Outpatient (CLI) | payer MEDICAID, SELFPAY ==
--- OUTSIDE RECORDS SUMMARY | 2024-04-02 04:33 | XMS_ITS | Clinical Summary ---
Author Organization [facility] Address [address] [place] [address] Care Team Providers Care Cyber Transport Systems Specialist Name Role Phone Yasmine Dumont MD Primary Care Provider [phone] Allergies No known active allergies Medications Medication [...] Required) Completed Medical Devices Implanted Type Area Development Coach Device Identifier Shelf Expiration Date Model / Serial / Lot Graft Bone Putty Dbx 01ml [id number] Implanted:Qty: 1 on 09/07/[address] [facility] Left: Arm 10/21/2012 [id number] / [id number] / Explanted Type Area Development Coach Device Identifier Shelf Expiration Date Model / Serial / Lot Screws And Plate Implanted:09/07 by Israel Rg MD (Quantity not on file) Explanted:Qty: 1 on 09/07/[address] [facility] Left: Arm Care Teams Cyber Transport Systems Specialist Relationship Specialty Start Date End Date Yasmine Dumont MD PCP - General Speciality Unknown 08/31/11
--- OUTSIDE RECORDS SUMMARY | 2024-04-02 04:33 | XMS_ITS | Clinical Summary ---
Author Organization [facility] Address [address], [place] [address] Care Team Providers Care Food Service Counter Clerk Name Role Phone Marie Yanes PA-C Primary Care Provider [phone] Source Comments You are receiving this document as you are listed as the primary care provider,follow-up provider, or the patient has been referred to you for consultation.This is in compliance with the Medicare and[facility] Hospital[facility] EHR Incentive Program,which states Providers who transition their patient to another setting of careor provider of care or refers their patient to another provider of care shouldprovide summary care record for each transition of care or referral. [facility] Allergies Active Allergy Reactions Criticality Noted Date [...] 11:02 PM 06/22/2022 8:11 PM Care Teams Food Service Counter Clerk Relationship Specialty Start Date End Date Marie Yanes PA-C PCP - General Physician Quality Auditor 06/18/22
--- OUTSIDE RECORDS SUMMARY | 2024-04-02 04:33 | XMS_ITS | Referral Summary ---
Author Organization [facility] Address [address] [place] [address] Care Team Providers Care Conventional Machinist Name Role Phone Yasmine Dumont MD Primary Care Provider [phone] Allergies No known active allergies Medications Medication [...] on file Medical Devices Implanted Type Area Director Fundraising Device Identifier Shelf Expiration Date Model / Serial / Lot Graft Bone Putty Dbx 01ml [id number] Implanted:Qty: 1 on 09/07/2011 at Left: Arm 10/21/2012 [id number] / [id number] / Explanted Type Area Director Fundraising Device Identifier Shelf Expiration Date Model / Serial / Lot Screws And Plate Implanted:09/07 by Israel Rg MD (Quantity not on file) Explanted:Qty: 1 on 09/07/2011 at Left: Arm Care Teams Conventional Machinist Relationship Specialty Start Date End Date Yasmine Dumont MD PCP - General Speciality Unknown 08/31/11
--- NOTE | 2024-04-02 04:44 | PC.OBNST ---
NST Note NST Note Start: 04/02/24 04:32 Freq: ONCE Status: Active Protocol: Document 04/02/24 04:43 [facility] (Rec: 04/02/24 04:44 [facility] [id number]) NST Note 2 Para (# of births) 1 EDC 04/11/24 Gestational Age In Weeks & Days 38 Weeks & 5 Days Patient Presented with Complaint(s) of Contractions/cramping,Leaking fluid Reactive Yes Appropriate for Gestational Age Yes LENA Cosby Date 04/02/24 Reactive Yes Appropriate for Gestational Age Yes LENA Alonso RN Date 04/02/24 OB NST charge Yes Complete NST Note via Write Note Yes The provider's electronic signature indicates the NST is reactive/appropriate for gestational age. *Note to provider: If an addendum is required, open the patient's chart and click on the note under the Nurse/Allied Health tab.
[2024-04-02 05:07] LABS: Amnisure Rom* Negative
== END 2024-04-02 04:21 | disposition home or self-care (01) ==
LOC: OB OUT 04:30 → OB 04:31
PROVIDERS: PCP Family Medicine; Visit Provider Obstetrics & Gynecology
DX: O47.1 False labor at or after 37 completed weeks of gestation (principal); Z3A.38 38 weeks gestation of pregnancy
CPT/HCPCS: 59025; 84112; G0463

== ENCOUNTER 2024-04-04 09:23 | Inpatient (IN) | payer MEDICAID, SELFPAY ==
[2024-04-04] VITALS (51 sets, daily range): BP systolic 86–156; BP diastolic 51–118; PULSE 69–210; RESP 16; TEMP 36.3–36.6; O2SAT 97–100; BMI 33.5
[2024-04-04] MEDS: LACTATED RINGERS 1000 ML 1,000 ML 125 ML IV ×2 (12:24→18:19)
[2024-04-04] MEDS: OXYTOCIN 30 unit/500 ML in NS 30 UNIT/500 ML BAG IVPB (12:26)
[2024-04-04 14:56] LABS: Basophils Absolute Auto 0.01 K/uL (0.00-0.30); Basophils Percent Auto 0.2 % (0.0-3.0); Eosinophils Absolute Auto 0.02 K/uL (0.00-0.50); Eosinophils Percent Auto 0.3 % (0.0-7.0); Hematocrit 31.4 % (33.0-51.0); Hemoglobin* 9.9 gm/dL (12.0-16.0); Immature Granulocytes Abs Auto 0.01 K/uL (0.00-0.30); Immature Granulocytes Pct Auto 0.2 %; Lymphocytes Percent Auto 17.9 % (20-44); Mean Corpuscular HGB Conc 32 gm/dL (32-36); Mean Corpuscular Hemoglobin 28 pg (26-34); Mean Corpuscular Volume 87 fL (80-100); Monocytes Percent Auto 6.2 % (0.0-11.0); Neutrophils Percent Auto 75.2 % (42.0-72.0); Platelet Count* 249 K/uL (140-440); RDW Coefficient of Variation % 16.5 % (11.5-15.5); White Blood Count* 5.93 K/uL (4.50-11.00)
[2024-04-04 15:19] LABS: Slide Review Reflex No
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
[2024-04-04] MEDS: fentaNYL 250 MCG/5 ML inj 100 MCG EPIDURAL (16:33)
[2024-04-04] MEDS: ROPIVACAINE 0.2% 100 ml 100 ML 12 MG EPIDURAL (16:48)
[2024-04-04] MEDS: LIDOCAINE 2% (PF) 5 ML VIAL EPIDURAL (16:48)
--- NOTE | 2024-04-04 17:00 | P.ANBPRC_ITS ---
[facility] Medical History History of chicken pox ?Z86.19 - Personal history of other infectious and parasitic diseases (ICD- 10) Surgical History History of tonsillectomy ?Z90.89 - Acquired absence of other organs (ICD-10) S/P colectomy ?Z90.49 - Acquired absence of other specified parts of digestive tract (ICD- 10) Status post colectomy ?Z90.49 - Acquired absence of other specified parts of digestive tract (ICD- 10) Social History What is your current living situation?: I presently have a place to live Problems where you live: no known problems In the past 12 months, utilities in danger of being shut off: no In past 12 months, lack of transportation kept you from medical appts, meetings, work, or getting things needed for daily living: no In the past 12 mos, have been you worried that your food would run out before you had money to buy more?: never true In the past 12 mos, the food you bought just didn't last and you didn't have money to buy more?: never true Smoking Status: Never smoker Do you use any of these nicotine containing products: None Second hand tobacco smoke exposure: No How often do you have a drink containing alcohol: never AUDIT-C Alcohol total score: 0 Non-prescribed substance use: denies use Non-prescribed substance use details: denies during How often does anyone, including family, friends and others, physically hurt you : never How often does anyone, including family, friends and others, insult or talk down to you: never How often does anyone, including family, friends and others, threaten you with harm: never How often does anyone, including family, friends and others, scream or curse at you: never Little interest or pleasure in doing things: more than half the days Feeling down, depressed, or hopeless: more than half the days Are you using contraception or practicing any form of control: No service: No Meds Home Medications and Allergies Home Medications ?Medication ?Instructions ?Recorded ?Confirmed ?Type docosahexaenoic acid 150 mg PO DAILY 10/28/23 04/04/24 History ustekinumab 90 mg subcut .every 6 weeks 10/28/23 04/04/24 History ferrous sulfate 325 mg (65 mg 325 mg PO DAILY 04/04/24 04/04/24 History iron) tablet Allergies Allergy/AdvReac Type Severity Reaction Status Date / Time bee venom protein (honey bee) Allergy Unknown Verified 04/02/24 04:54 Results Labs Labs: Laboratory Results - last 24 hr 04/04/24 14:50 WBC 5.93 RBC 3.60 L Hgb 9.9 L Hct 31.4 L MCV 87 MCH 28 MCHC 32 RDW Coeff of Rebekah 16.5 H Plt Count 249 Neut % (Auto) 75.2 H Lymph % (Auto) 17.9 L Bowman % (Auto) 6.2 Eos % (Auto) 0.3 Baso % (Auto) 0.2 Neut # (Auto) 4.50 Lymph # (Auto) 1.10 Bowman # (Auto) 0.40 Eos # (Auto) 0.02 Baso # (Auto) 0.01 Abs Immat Gran (auto) 0.01 Imm/Tot Granulo (auto) 0.2 Vital Signs Vital Signs: Last Vital Signs Temp 98 F 04/04/24 16:44 Pulse 73 04/04/24 16:53 Resp 16 04/04/24 13:45 BP 109/65 04/04/24 16:53 Pulse Ox 100 04/04/24 16:58 Weight: 91.263 kg Height: 165.1 cm Anesthesia Procedures Epidural Insertion Patient Location: OB Start Time: 16:00 Stop Time: 17:00 Start Date: 04/04/24 Stop Date: 04/04/24 Reason for Block: primary anesthetic Patient Position: sitting Performed By: Claude Fletcher Preanesthetic Checklist: IV checked, risks and benefits discussed, surgical consent, monitors and equipment checked, pre-op evaluation, timeout performed and anesthesia consent Prep: chlorhexidine gluconate Monitoring: blood pressure monitoring, casting wheel operator, continuous pulse oximetry and heart rate Approach: midline Vertebral Space: lumbar (1-5) Needle Type: Tuohy needle Injection Technique: continuous catheter Needle gauge: 17 Needle Length (cm): 10 cm Needle Insertion Depth (cm): 6 Catheter Gauge: 19 Catheter Type: multi-orifice Catheter at skin depth (cm): 12 Test Dose Result: negative and lidocaine 1.5% with epinephrine 1 to 200,000 Events: other
--- NOTE | 2024-04-04 22:33 | W.PM.VAGDEL1 ---
Procedure Delivery date: 04/04/24 Procedure Done: [employer] Procedure Details: The patient is a 33 year-old G 2 P 1-0-0-1 woman admitted on 04/04/2024 at 39 Weeks, 0 Days gestation for induction of labor.? Cervical exam on admission was 4.5 cm/80 % effaced/-1 station with membranes intact in cephalic presentation.? heart rate demonstrated baseline 130 bpm with moderate variability, positive accelerations, no decelerations; a category 1 tracing.? AROM occurred at 12:03 p.m. with copious clear fluid. ? Labor Analgesia:? Epidural ? Pitocin:? Yes ? Labor onset:? 3:00 p.m. ? Complete:? 7:44 p.m. ? Pushing:? 7:44 p.m. ? heart tones during second stage were reassuring. ? At 10:22 p.m. a viable male infant delivered in vertex direct OA presentation over intact perineum via spontaneous vaginal delivery.? Infant was placed on maternal abdomen.? Cord was clamped and cut after a 30-60 second delay.? Nose and mouth were bulb suctioned.? Infant weight pending.? 7 at 1 minute and 9 at 5 minutes.? Shoulder dystocia: No.? Nuchal cord: No. ? Placenta delivered spontaneously and complete at 10:29 p.m. with a 3 vessel cord. ? Mother and were stable after delivery. ? Lacerations:? None ? Blood loss: 50 mL. Blood loss measurement type: QBL ? Sponge counts are correct.
[2024-04-05 00:14] VITALS: BP 107/63; PULSE 71
[2024-04-05 00:29] VITALS: BP 100/60; PULSE 78
[2024-04-05 05:24] VITALS: BP 98/61; PULSE 67; RESP 16; TEMP 36.8; O2SAT 97
[2024-04-05] MEDS: ACETAMINOPHEN 500 MG TABLET 1000 MG PO ×3 (05:55→21:10)
[2024-04-05 06:54] LABS: Hemoglobin* 8.8 gm/dL (12.0-16.0)
[2024-04-05 07:49] VITALS: BP 92/56; PULSE 67; RESP 16; O2SAT 97
--- NOTE | 2024-04-05 13:40 | PM.OBPNVD1 ---
OB - PN:Subj Subjective Date Seen: 04/05/24 Patient comments OB post-: no complaints, pain well controlled, tolerating diet and flatus present [place] status: (working on latch with ) and doing well [place] feeding status: exclusively Narrative: Irma feels well.? Her pain is well controlled with current medications.? She has no new complaints.? Urinary output is adequate and she is voiding without difficulty.? Has a good appetite, is tolerating a general diet, is passing flatus, and has had a bowel movement.? Has scant amount of rubra lochia.? She is ambulating well.?She is working with on getting baby to latch. She was considering discharging today but will plan to discharge in the morning due to a very late discharge time. She is and working with on getting baby to latch as he has not had good feeds at breast so far. Will plan to continue taking PO iron supplement but denies symptoms. OB - PN: Obj Exam Physical Exam: Vital signs: Temp Pulse Resp BP Pulse Ox O2 Del Method 98.3 F 67 16 92/56 L 97 Room Air 04/05/24 05:24 04/05/24 07:49 04/05/24 07:49 04/05/24 07:49 04/05/24 07:49 04/05/24 07:49 Narrative: GENERAL APPEARANCE:? normal affect, alert, no distress? MOOD:? appropriate? CHEST:? clear to auscultation and percussion? HEART:? regular rate and rhythm? ABDOMEN:? soft, non-tender the uterine fundus is U/2 and is appropriate for the stage of recovery.? PERINEUM:? mild edema of the perineum, there is a intact perineum that is healing well.? EXTREMITIES:? normal and no edema? OB - PN: Obj Data Labs Labs: Laboratory Results - last 24 hr 04/04/24 04/05/24 14:50 06:28 WBC 5.93 RBC 3.60 L Hgb 9.9 L 8.8 L Hct 31.4 L MCV 87 MCH 28 MCHC 32 RDW Coeff of Rebekah 16.5 H Plt Count 249 Neut % (Auto) 75.2 H Lymph % (Auto) 17.9 L [place] % (Auto) 6.2 Eos % (Auto) 0.3 Baso % (Auto) 0.2 Neut # (Auto) 4.50 Lymph # (Auto) 1.10 [place] # (Auto) 0.40 Eos # (Auto) 0.02 Baso # (Auto) 0.01 Abs Immat Gran (auto) 0.01 Imm/Tot Granulo (auto) 0.2 Blood Type A Positive Antibody Screen NEGATIVE OB - PN: A/P Delivery Assessment and Plan (1) Crohn's disease: Problem details: Levi Status: Acute (2) anemia: Status: Acute (3) Lactating mother: Status: Acute (4) care following vaginal delivery: Status: Acute Plan day: 1 Plan: routine care Comments: Anticipate discharge home tomorrow.
[2024-04-05 14:28] VITALS: BP 103/67; PULSE 78; RESP 16; O2SAT 97
--- NOTE | 2024-04-05 14:44 | PM.ANPOST ---
Post Anesthesia Note Post Anesthesia Note Patient seen: Inpatient Respiratory Status: adequate Cardiovascular Status: adequate Mental Status: baseline Pain: adequate Temp: baseline Anesthetic awareness: N/A Complications: none Follow care: none
[2024-04-05 21:08] VITALS: BP 100/67; PULSE 71; RESP 16; TEMP 36.7; O2SAT 97
[2024-04-06 00:25] VITALS: BP 103/69; PULSE 65; RESP 12; TEMP 36.4; O2SAT 96
[2024-04-06] MEDS: ACETAMINOPHEN 500 MG TABLET 1000 MG PO (03:06)
[2024-04-06 08:24] VITALS: BP 103/68; PULSE 71; RESP 16; TEMP 36.8
--- NOTE | 2024-04-06 11:37 | P.DS_ITS ---
DS: Providers Provider Date Seen: 04/06/24 Date of admission: 04/04/24 09:23 Primary care physician: Cami Watkins MD Admitting Clinician: Magali Fountain MD Attending Physician on discharge: Yareli Schneider CNM Date of Discharge: 04/06/24 DS: Diagnosis Discharge Diagnosis (1) care following vaginal delivery: Status: Acute (2) Lactating mother: Status: Acute (3) anemia: Status: Acute Exam Narrative: Exam Narrative: GENERAL APPEARANCE:? normal affect, alert, no distress MOOD:? appropriate CHEST:? clear to auscultation HEART:? regular rate and rhythm ABDOMEN:? soft, non-tender the uterine fundus is At Umbilicus, Midline and is appropriate for the stage of recovery. EXTREMITIES:? normal and edema Const: Vital Signs, click to edit/add: Vital Signs - 24 hr 04/05/24 14:28 04/05/24 21:08 04/06/24 00:25 Temperature 98.1 F 97.5 F L Pulse Rate [Pulse Oximeter] 78 71 65 Respiratory Rate 16 16 12 Blood Pressure [Le ft Arm] 103/67 100/67 103/69 Pulse Oximetry 97 97 96 Oxygen Delivery Me thod Room Air Room Air Room Air 04/06/24 08:24 Temperature 98.2 F Pulse Rate [Pulse Oximeter] 71 Respiratory Rate 16 Blood Pressure [Le ft Arm] 103/68 Pulse Oximetry Oxygen Delivery Me thod Room Air OB - DS: Summary Hospital Course Hospital Course: Irma is a 33 y.o. who was admitted to [facility] for Active labor. ?She had an uncomplicated NVD.?The patient feels well. ?The pain is well controlled with current medications. ?She has no new complaints. ?She is breast feeding and reports things are going well.? the patient has done well.? Vitals have been stable.? She has remained afebrile.? Has a good appetite, is tolerating a general diet. ?She is voiding without difficulty.? She is passing gas and has had a bowel movement.? She is ambulating and denies any dizziness.? Has Small amount of rubra lochia. ?She is planning PPTL vs Vas for prevention. Peripartum Data Infant delivery method: Vaginal Laceration description: None complications: none Infant Gender: Male Infant Discharge Plan: Home Status at Discharge Overall status at discharge: patient is progressing back to baseline Time Spent with Patient Time attestation: Total time spent providing and/or coordinating discharge services: Time spent: Less than 30 minutes Discharge Plan Discharge Disposition: Home, Self-Care Date of Admission: 04/04/24 09:23 Primary Care Provider: Cami Watkins Condition: Stable Anticipated Discharge Date/Time: 04/06/24 11:35 Discharge Medications: Continued docosahexaenoic acid [ DHA] 150 mg PO DAILY ustekinumab [Stelara] 90 mg subcut .every 6 weeks Hold Instructions: Resume on 11/29/23. hold for 2 weeks ferrous sulfate 325 mg (65 mg iron) tablet 325 mg PO DAILY Discontinued omeprazole 20 mg capsule,delayed release(DR/EC) 20 mg PO QDAY Qty: 30 1RF Discharge Orders: Discharge Order (Routine); Ordered 04/06/24 Ordered By: Yareli Schneider Patient Education: OB Care, OB Vaginal/Breast Feeding Additional Instructions: Discharge instructions were reviewed with the patient including signs and symptoms of infection and home going medications Nothing vaginally for 6 weeks: no tampons or intercourse Do not drive while taking narcotic pain medication(s) Off Work or School for 6 weeks Symptoms to report to doctor: * Bleeding that saturates more than one pad per hour * Passing clots larger than the size of a golf ball * Pain not relieved by prescribed medication * Fever above 100.4 degrees Fahrenheit * A foul vaginal odor * Difficulty in emotions, mood, and functions * Thoughts of hurting yourself and/or * Painful, reddened area in your breast * Any drainage, redness, or tenderness in your IV/epidural site * Severe headache that doesn't improve after taking medications * Changes in vision, including temporary loss of vision, blurred vision, and/or light sensitivity * Upper abdominal pain (usually under ribs on the right side) * Decrease in urination or painful, frequent urinating * Chest pain * Shortness of breath * Tenderness or pain with redness and/swelling in the calf(s) of your leg 2-week visit: discuss infant feeding concerns, review control options and screen for anxiety/depression. 6-week visit for an annual exam. Tylenol 1000mg by mouth every 6 hours as needed for pain. consultation services are available to all mothers and babies for the first year after delivery.? To make an appointment, please call [phone]. Activity Level: Activity as Tolerated Discharge Diet: Regular Follow Up Appointments: [facility] [Provider Group] Magali Fountain MD [Staff Physician] - Forms: [employer] Info Instructions
[2024-04-07 01:25] LABS: Rapid Plasma Reagin (RPR) Non Reactive (Non Reactive)
== END 2024-04-06 13:10 | disposition home or self-care (01) | DRG 806 ==
PROVIDERS: Admitting Provider Obstetrics & Gynecology; PCP Family Medicine; Visit Provider Obstetrics & Gynecology
DX: O99.02 Anemia complicating childbirth (principal); K50.90 Crohn's disease, unspecified, without complications; Z37.0 Single live birth; O99.62 Diseases of the digestive system complicating childbirth; D64.9 Anemia, unspecified; O99.344 Other mental disorders complicating childbirth; F41.9 Anxiety disorder, unspecified; F32.A Depression, unspecified; Z3A.39 39 weeks gestation of pregnancy
CPT/HCPCS: 01967; 36415; 85018; 85025; 86592; 86850; 86900; 86901; A9270; J2371; J2795; J3010; J7120

== ENCOUNTER 2024-10-04 16:16 | Outpatient (CLI) | payer MEDICAID, SELFPAY | END 2024-10-04 16:17 | disposition home or self-care (01) | LOC: CT 16:17 | PROVIDERS: PCP Family Medicine; Visit Provider Surgery | DX: K43.9 Ventral hernia without obstruction or gangrene (principal); K43.2 Incisional hernia without obstruction or gangrene; N20.0 Calculus of kidney | CPT/HCPCS: 74177; Q9967 ==

== ENCOUNTER 2024-12-28 09:05 | Day surgery (SDC) | payer MEDICAID, SELFPAY ==
[2024-12-28] VITALS (20 sets, daily range): BP systolic 112–128; BP diastolic 60–79; PULSE 71–101; RESP 14–20; TEMP 36.1–36.7; O2SAT 94–100; BMI 34.8
[2024-12-28 10:05] LABS: Ur HCG Qualitative* Negative (Negative)
--- NOTE | 2024-12-28 10:46 | W.PM.H&PU_ITS ---
History & Physical Update History & Physical Update H&P Reviewed and patient assessed: The following changes are noted below H&P Updates: Have spoken with Irma's central station operator. Her Crohn disease is now considered under control. She has started Rinvoq. We have discussed the manage ment of this medication in the perioperative period. The data is mostly in the setting joint surgery in rheumatoid arthritis. It is recommended to hold it preoperatively and for a few days postop possible. There is also increased risk of blood clots, however after review with pharmacy it seems as though this may be mostly in people who have a prior history of blood clots. She has held herRinvoq for 4 days preoperatively. We will decide on postoperative management after the surgery. I will give her dose of perioperative heparin prophylactically and as long as she is ambulatory postop then we will not plan on continued heparin prophylaxis at home.
[2024-12-28] MEDS: HEPARIN 5,000 UNIT/0.5 ML INJ 5000 UNIT SUBCUT (10:52)
[2024-12-28] MEDS: CEFAZOLIN 1 GM inj IVP ×2 (11:14→15:02)
[2024-12-28] MEDS: BUPIVACAINE 0.25% 30 ML INJECTION (11:28)
[2024-12-28] MEDS: LACTATED RINGERS 1000 ML 1,000 ML 125 ML IV ×3 (12:40→19:47)
--- NOTE | 2024-12-28 13:24 | SUR.OPER ---
RN called rosaura nolan at 1324 and updated him on the surgery and that everything was going well.
--- NOTE | 2024-12-28 14:08 | P.ANES_ITS ---
Anesthesia Charges Start Date/Time Anesthesia Start Date: 12/28/24 Anesthesia Start Time: 11:00 Stop Date/Time Anesthesia Stop Date: 12/28/24 Anesthesia Stop Time: 16:50 Coding CPT Codes CPT Codes: ANESTH REPAIR OF HERNIA - 66076 ([id number]) P2 - PATIENT W/MILD SYST DISEASE, QK - ELECTRICAL LOGGING OPERATOR 2-4 CNCRNT ANES PROC, QX - GAS COMBUSTION ENGINEER SVC W/ MD MED DIRECTION
--- NOTE | 2024-12-28 14:08 | W.ANESCHARGE ---
Anesthesia Charges Start Date/Time Anesthesia Start Date: 12/28/24 Anesthesia Start Time: 11:00 Stop Date/Time Anesthesia Stop Date: 12/28/24 Anesthesia Stop Time: 16:50 Coding CPT Codes CPT Codes: ANESTH REPAIR OF HERNIA - 25047 ([id number]) P2 - PATIENT W/MILD SYST DISEASE, QK - TAPE CUTTING MACHINE OPERATOR 2-4 CNCRNT ANES PROC, QX - STATISTICAL ASSISTANT SVC W/ MD MED DIRECTION
--- NOTE | 2024-12-28 16:45 | PM.GSPRC ---
Operative Note Date of procedure: 12/28/24 Pre-op diagnosis: 1. Incisional hernia 2. Crohn disease on immunosuppression Post-op diagnosis: Same Type of Procedure: Laparoscopic repair incisional hernia, 5 x 10 cm Indications: The patient is a 34-year-old female who in 2021 underwent exploratory laparotomy and right colectomy with end ileostomy for transverse colon perforation. She was found to have Crohn disease at that time. She then underwent subtotal colectomy and ileostomy with ileal to sigmoid anastomosis. She developed cholecystitis during her approximately 1 year ago and underwent laparoscopic cholecystectomy. At the time she was noted to have 2 hernias at the site of her previous incisions. She became increasingly symptomatic from these hernias and desired repair. Unfortunately she did have resistant Crohn's disease which necessitated switching immunosuppressive agents. Per her fittings finisher, her disease is now stable on Rinvoq. Because of her ongoing symptoms she continued to desire repair. We discussed the risks of surgery including injury to the bowel, recurrence, bleeding, wound infection and difficulty with wound healing. After discussion with her fittings finisher and research, Rinvoq was held for 3 days preoperatively with a plan to withhold postoperatively depending on her postoperative course. Procedure Description: After discussing the risks and benefits of the procedure, the patient signed informed consent.? The operative site was marked and the patient was brought to the operating room and placed on the operating table in supine position.? Care was taken to pad the patient's pressure points.?? The patient was then intubated by anesthesia.?? The operative site was then prepped and draped in the usual sterile fashion.? A time-out was then performed. Entrance to the abdomen was obtained via Visiport technique in the left upper quadrant. The layers of the abdominal wall were visualized as I passed through. The abdomen was then insufflated and briefly surveyed. I was able to appreciate her midline hernia which was actually 2 separate hernias. There were no bowel adhesions to the hernias. There was partial posterior fascial defect at the site of her ileostomy, however the anterior fascia was intact. I began by placing ports in the left lateral and lower abdomen. This was done under direct vision. These were 5 mm ports. Once the ports were placed, I examined the left upper quadrant. She had 1 adhesion of omentum to the anterior abdominal wall. This was at the site of her prior port site from cholecystectomy. Interestingly there was a peritoneal nodule here which measured almost 2 cm. This appeared benign. I began by incising the peritoneum at the inferior hernia sac. This was done using the LigaSure. I dissected the hernia sac from the hernia defect with care to avoid injuring the site overlying skin. The umbilicus was detached from the hernia sac sharply using Metzenbaum scissors. Once the hernia sac was removed from the hernia, a preperitoneal flap was then created laterally on the left abdomen. This was taken past the patient's ileostomy site. I then turned my attention to the superior hernia, this hernia had a small fascial bridge between it and the inferior larger hernia. There were fibers of fascia extending across the hernia itself. The peritoneum was taken down beyond the falciform ligament and again a preperitoneal space was created. I then placed a port in the left lateral abdomen - this was a 5 mm port. I placed a 2nd 10 mm port in the right upper abdomen. I then created a preperitoneal flap on the patient's left side continuing more had left off on the right. Once this was done, the abdomen was then desufflated to 9 mm Hg of pressure and in 0 Stratafix suture was then advanced into the abdomen. I began by attempting to close the fascial defect laparoscopically. The patient had significant abdominal laxity, therefore, when she was relaxed the fascial edges did appear to come together. Because of the port position, it was difficult to close the fascial defect laparoscopically. I felt at this point that the best option would be to make a small incision in her midline in between the 2 fascial defects and closed both of them in an open fashion. When the fascial defect was opened, an area small bowel was noted to have a 5 mm area of crush without serosal tear, likely from an instrument. This was oversewn with 3-0 silk in an imbricating fashion. I measured the hernia at this point. At maximal width that was 5 cm though the majority of it was 4 cm. The length was 10 cm. I made a small incision at the midportion of both of these defects measuring 5 cm. Dissection was taken down to the subcutaneous tissue. The abdominal cavity was entered. The fascial edges were palpated and grasped with Miguel clamps. Continuing the Stratafix suture I closed the inferior aspect fashion. I also oversewed this with a 1. PDS. I then placed a piece of Phasix ST mesh with the Echo positioning System into the abdominal cavity. The mesh measured 16 x 21 cm. I had discussed with the patient using Phasix mesh as she is at high risk for repeat surgery in the future and I felt that with primary closure and buttressing with absorbable mesh, this would give her the best opportunity at healing without having to worry about having permanent mesh long-term in a potentially reoperative field. I also felt that if she needed hernia repair in the future, I would preserve the retro rectus space if possible as long as I was able to primarily close the facial defect. At the superior aspect, similarly I closed the fascial defect with a running 1. PDS. The fascial edges came together without tension as the patient still had significant laxity in her abdominal wall. The abdomen was then insufflated again to 9 mm Hg and there was a small portion of the fascial defect in the superior portion which had not been closed. This is because the patient had significant scarring and the fascial edge was somewhat difficult to palpate. However, this was now closed using an 0 Vicryl and a Cheko-Kyle device. This closed without significant tension with the abdomen insufflated. At this point, the mesh was then positioned. I elected to position this somewhat to the right of midline to also cover the ileostomy site she did not have a clinical hernia, however the posterior fascia was noted to be partially absent. This was also positioned over the 10 mm port site. Therefore, Cheko-Kyle device was then used to position the string from the positioning device just to the right of the fascial closure. I then used LigaSure to remove the peritoneal nodule in the left upper quadrant. This was removed with an Endo-Catch bag and sent for pathology. Once this was done, I then used the Cheko-Kyle device to secure 4 1. PDS transfascial sutures which I had placed prior to putting the mesh into the abdomen. These were secured at the superior and inferior aspects of the mesh on each side. Once this was done, the absorbable Tacker was then used to affix the mesh to the fascia. This was done circumferentially. The trans fascial sutures were then tied. The positioning device was then removed from the abdomen intact. I then tacked the peritoneal flaps across the mesh and affixed them using the absorbable Tacker. The mesh laid nicely flat on the anterior abdominal wall with the pressure decreased. The ports were then removed and the abdomen desufflated. The port sites were closed with 4-0 Monocryl interrupted suture. In the midline incision, subcutaneous space was closed with 3-0 Vicryl stitches, reapproximating scar tissue to itself. The umbilicus was reapproximated to the fascia. The dermis was then closed with 3-0 Vicryl interrupted sutures and the skin with 4-0 Monocryl running subcuticular sutures. I then requested that a tap block be performed by Anesthesia for postoperative pain control. Sterile dressings were then applied. ? The patient was then woken and transported to the recovery area in stable condition. ? The patient tolerated the procedure well. Findings: 1. 10 x 5 cm incisional hernia in the upper abdomen. 2. Developing hernia at the site of the patient's prior ileostomy 3. 1.5 cm intraperitoneal nodule Anesthesia: GET Surgeon: Jaida Cuevas MD Estimated blood loss (mL): 10 Specimen: Other Additional Specimen Information: Peritoneal nodule Condition: stable Disposition: PACU
--- NOTE | 2024-12-28 16:48 | W.PM.NB ---
Nerve Block Nerve Block Time Seen by Provider: 16:35 Date Seen: 12/28/24 Type of block requested by surgeon for post-operative analgesia: TAP Side: bilateral Time out performed: Yes Verification of patient name: Yes Verification of date of : Yes Site marking: site marked Name of person performing procedure: Thomas Continuous monitoring Was continuous monitoring of O2 sat, B/P, monitoring coordinator, recorded every 15 minutes?: Yes Procedure Checklist: sterile prep, needles and gloves Ultrasound guided. Images saved: Yes Medications given in 5ml increments after negative aspiration: Marcaine %: 0.25 mL: 30 Needle gauge: 20 and Exparel mL: 10 Patient tolerated procedure well: Yes Additional comments: Needle noted between internal oblique and transversus abdominus. Local spread visualized Block Charges Block Charge (with Pro Fee): TAP Bilateral Use of Ultrasound Machine for Block: Yes- US Guidance/pain block
--- NOTE | 2024-12-28 16:54 | P.ANES_ITS ---
Anesthesia Charges Start Date/Time Anesthesia Start Date: 12/28/24 Anesthesia Start Time: 11:00 Stop Date/Time Anesthesia Stop Date: 12/28/24 Anesthesia Stop Time: 16:50 Coding CPT Codes CPT Codes: ANESTH REPAIR OF HERNIA - 39758 ([id number]) P2 - PATIENT W/MILD SYST DISEASE, QK - SENIOR RD ENGINEER 2-4 CNCRNT ANES PROC, QX - CORRUGATOR SUPERVISOR SVC W/ MD MED DIRECTION
--- NOTE | 2024-12-28 16:54 | W.ANESCHARGE ---
Anesthesia Charges Start Date/Time Anesthesia Start Date: 12/28/24 Anesthesia Start Time: 11:00 Stop Date/Time Anesthesia Stop Date: 12/28/24 Anesthesia Stop Time: 16:50 Coding CPT Codes CPT Codes: ANESTH REPAIR OF HERNIA - 36797 ([id number]) P2 - PATIENT W/MILD SYST DISEASE, QK - FILM VAULT SUPERVISOR 2-4 CNCRNT ANES PROC, QX - TESTER ROCKET ENGINE SVC W/ MD MED DIRECTION
[2024-12-28] MEDS: fentaNYL 100 MCG/2 ML inj 50 MCG IVP (16:56)
[2024-12-28] MEDS: HYDROmorphone 0.5 mg/0.5 ml inj IVP ×2 (17:49→22:55)
--- NOTE | 2024-12-28 19:29 | PC.NURSE ---
Nursing Care Hours: [id number] Pt arrived to unit drowsy and oriented. Pain 01/30. VSS. Pain treated with IV meds and effective. BS absent, denies nausea. Bedpan used, voided x1. IV patent. tolerating ice chips. Sleeping most of shift.
[2024-12-28] MEDS: CEFAZOLIN 1 GM in 0.9 % SODIUM CHLORIDE Mini-bag 100 ML IVPB (20:38)
[2024-12-28] MEDS: KETOROLAC 15 MG/ML inj IVP (20:38)
[2024-12-29 03:00] VITALS: BP 106/63; PULSE 83; RESP 16; TEMP 36.5; O2SAT 98
[2024-12-29] MEDS: LACTATED RINGERS 1000 ML 1,000 ML 125 ML IV (03:34)
[2024-12-29] MEDS: HYDROCODONE-ACETAMIN 5-325 MG 1 TAB PO (03:40)
[2024-12-29] MEDS: ONDANSETRON 2 MG/ML inj IVP (04:20)
[2024-12-29] MEDS: CEFAZOLIN 1 GM in 0.9 % SODIUM CHLORIDE Mini-bag 100 ML IVPB (04:23)
--- NOTE | 2024-12-29 05:15 | PC.NURSE ---
Shift note: Patient is doing well ambulating with SBA to and from BR and hallway. Pain level has been rated between 3 and 8. She tolerated clear liquid well. At 0330, patient was given Narco PO for pain of 5/10. She reported feeling nauseated about 20 to 30 minutes after the medication. Zofran given which was effective. Incisional sites dry and clean. Abdominal binder in place, ice pack applied.
[2024-12-29 06:50] LABS: Basophils Absolute Auto 0.02 K/uL (0.00-0.30); Basophils Percent Auto 0.3 % (0.0-3.0); Hematocrit* 29.8 % (33.0-51.0); Hemoglobin* 9.5 gm/dL (12.0-16.0); Immature Granulocytes Abs Auto 0.01 K/uL (0.00-0.30); Immature Granulocytes Pct Auto 0.1 %; Lymphocytes Percent Auto 16.3 % (20-44); Mean Corpuscular HGB Conc 32 gm/dL (32-36); Mean Corpuscular Hemoglobin 29 pg (26-34); Mean Corpuscular Volume 90 fL (80-100); Neutrophils Percent Auto 76.3 % (42.0-72.0); Platelet Count* 274 K/uL (140-440); RDW Coefficient of Variation % 14.8 % (11.5-15.5); White Blood Count* 6.68 K/uL (4.50-11.00)
[2024-12-29 06:51] LABS: Slide Review Reflex No
[2024-12-29 07:00] VITALS: RESP 18; O2SAT 99
[2024-12-29 07:01] LABS: Chloride* 106 mmol/L (96-114); Potassium* 3.9 mmol/L (3.6-5.1); Sodium* 137 mmol/L (135-149)
[2024-12-29 07:04] LABS: Anion Gap 7 mEq/L (7-15); Blood Urea Nitrogen* 9 mg/dL (5-24); Calcium* 7.9 mg/dL (8.4-10.6); Carbon Dioxide* 24 mmol/L (20-32); Creatinine* 0.8 mg/dL (0.5-1.5); Est. Creatinine Clearance* 87.18; Estimated Glomerular Filt Rate 100 ml/min; Glucose* 96 mg/dL (60-115)
[2024-12-29 07:48] VITALS: BP 124/71; PULSE 82; RESP 18; TEMP 36.7; O2SAT 99
[2024-12-29] MEDS: ACETAMINOPHEN 325 MG TABLET 650 MG PO (09:37)
--- NOTE | 2024-12-29 11:22 | PM.DS1 ---
DS: Providers Provider Date Seen: 12/29/24 Primary care physician: Cami Watkins MD Attending Physician on discharge: Jaida Cuevas MD Date of Discharge: 12/29/24 DS: Diagnosis Discharge Diagnosis (1) S/P ventral herniorrhaphy: Status: Acute Problem details: 12/28/24 DS: Summary Hospital Course Hospital Course: The patient is a 34-year-old female who underwent laparoscopic repair of an incisional hernia on 12/28/2024. She was admitted overnight for pain control. On postop day 1 she was doing well. She was tolerating a diet, had good pain control on oral medications and was moving her bowels. She was deemed safe for discharge home. Time Spent with Patient Time attestation: Total time spent providing and/or coordinating discharge services: Exam Narrative: Exam Narrative: General: No acute distress CV: Regular rate and rhythm Respiratory: Breathing nonlabored on room air Abdomen: Incisions are clean and dry without erythema. Small amount of bruising noted on the left. Const: Vital Signs, click to edit/add: Vital Signs - 24 hr 12/28/24 16:45 12/28/24 16:50 12/28/24 16:55 Temperature 97 F L Pulse Rate 101 H 94 88 Pulse Rate [Right Pulse Oximeter] Respiratory Rate 17 16 20 Blood Pressure 116/60 115/65 118/76 Blood Pressure [Ri ght Arm] Pulse Oximetry 94 98 99 Oxygen Delivery Me thod Room Air 12/28/24 17:00 12/28/24 17:05 12/28/24 17:10 Temperature Pulse Rate 83 92 79 Pulse Rate [Right Pulse Oximeter] Respiratory Rate 15 16 15 Blood Pressure 116/74 119/77 122/75 Blood Pressure [Ri ght Arm] Pulse Oximetry 95 100 100 Oxygen Delivery Me thod 12/28/24 17:15 12/28/24 17:30 12/28/24 17:33 Temperature 97.1 F L 97.7 F Pulse Rate 80 71 79 Pulse Rate [Right Pulse Oximeter] Respiratory Rate 16 18 14 Blood Pressure 124/78 126/77 128/79 Blood Pressure [Ri ght Arm] Pulse Oximetry 100 100 100 Oxygen Delivery Me thod Room Air Room Air 12/28/24 17:37 12/28/24 17:45 12/28/24 18:00 Temperature Pulse Rate 76 77 Pulse Rate [Right Pulse Oximeter] Respiratory Rate 18 16 Blood Pressure 126/76 124/70 Blood Pressure [Ri ght Arm] Pulse Oximetry 99 100 99 Oxygen Delivery Al thod Room Air Room Air 12/28/24 18:15 12/28/24 18:45 12/28/24 19:15 Temperature Pulse Rate 74 84 80 Pulse Rate [Right Pulse Oximeter] Respiratory Rate 16 16 Blood Pressure 123/74 119/72 112/69 Blood Pressure [Ri ght Arm] Pulse Oximetry 97 98 99 [facility] Room Air Room Air 12/28/24 19:40 12/28/24 21:00 12/28/24 22:00 Temperature 97.2 F L 97.2 F L 97.4 F L Pulse Rate 75 75 76 Pulse Rate [Right Pulse Oximeter] Respiratory Rate 16 16 16 Blood Pressure 122/68 122/64 115/67 Blood Pressure [Ri ght Arm] Pulse Oximetry [address] [facility] Room Air Room Air Room Air 12/28/24 22:33 12/29/24 03:00 12/29/24 07:00 Temperature 97.7 F Pulse Rate Pulse Rate [Right Pulse Oximeter] 83 Respiratory Rate 16 16 18 Blood Pressure Blood Pressure [Ri ght Arm] 106/63 Pulse Oximetry 99 98 99 [facility] Room Air Room Air 12/29/24 07:48 Temperature 98.0 F Pulse Rate Pulse Rate [Right Pulse Oximeter] 82 Respiratory Rate 18 Blood Pressure Blood Pressure [Ri ght Arm] 124/71 Pulse Oximetry 99 [facility] Air DS: Data Data Completed and Pending Labs on day of discharge: Labs from last 24 hours 12/29/24 06:15 WBC 6.68 RBC 3.30 L Hgb 9.5 L Hct 29.8 L MCV 90 MCH 29 MCHC 32 RDW Coeff of Rebekah 14.8 Plt Count 274 Neut % (Auto) 76.3 H Lymph % (Auto) 16.3 L Sevier % (Auto) 7.0 Eos % (Auto) 0.0 Baso % (Auto) 0.3 Neut # (Auto) 5.10 Lymph # (Auto) 1.10 Sevier # (Auto) 0.50 Eos # (Auto) 0.00 Baso # (Auto) 0.02 Abs Immat Gran (auto) 0.01 Imm/Tot Granulo (auto) 0.1 Sodium 137 Potassium 3.9 Chloride 106 Carbon Dioxide 24 Anion Gap 7 BUN 9 Creatinine 0.8 Estimated Creat Clear 87.18 Estimated GFR 100 Glucose 96 Calcium 7.9 L Discharge Plan Discharge Disposition: Home w/ Parent or Adult Discharging Surgeon: Jaida Cuevas Follow-Up Appointment: 3-4 weeks Prescriptions: New hydrocodone-acetaminophen 5-325 mg Tablet 1 - 2 tab PO Q6H PRN (Reason: Pain) Qty: 25 0RF ketorolac 10 mg tablet 10 mg PO TID PRN (Reason: pain) 5 Days Qty: 15 0RF Continued desvenlafaxine succinate [Pristiq] 50 mg tablet extended release 24 hr 50 mg PO QDAY Qty: 90 3RF Held Rinvoq 45 mg tablet extended release 24 hr 45 mg PO QDAY Hold Instructions: Resume on 12/30/24. Restart Rinvoq tomorrow Activity Level: No strenuous activity Activity Detail: No lifting more than 20 pounds for 4 weeks Discharge Diet: Regular Patient Instructions: Hydrocodone/Acetaminophen (By mouth), Ketorolac (By mouth), Post-Operative Instructions: Hernia Repair Additional Instructions: Wound care: Your sutures are under the skin and will dissolve over time. Leave steri strips (white bandages) over incisions until they fall off (or remove after 7 days). OK to shower tomorrow but avoid bathing, soaking or swimming for 2 weeks. Pat the incisions dry. No need to wash or scrub the area. Apply ice to the area as needed for swelling. It is also OK to use a heating pad if this provides more comfort to you. wear abdominal binder or preferred abdominal support when you are up and about. Pain control: You were prescribed two pain medications. Take Ketorolac first for pain. Do not take additional Ibuprofen or Naproxen (Motrin, Aleve, Advil, etc) while you are taking this medication. Take Hydrocodone/Acetaminophen for severe pain. Avoid taking Acetaminophen (Tylenol) while you are taking this medication. As your pain improves, you can try taking acetaminophen instead of the prescribed pain pills. Take an [id number] stool softener while you are taking prescribed pain medications to help alleviate constipation. I recommend Senna and/or Colace. Take as directed on package. If you have not had a bowel movement in 3 days, try taking Miralax as directed on the package. All of these are available over the counter. Follow-up Follow up with Dr. Cuevas in 3-4 weeks Please call if you are experiencing severe pain, nausea, vomiting, difficulty urinating, fever or have not had bowel movement in 4 days after surgery. Follow-up: Jaida Cuevas MD [Staff Physician] - 01/23/25 9:30 am ([facility] for postop hospital follow-up.) Cami Watkins MD [Primary Care Provider] - Discharge Orders: Discharge Order (Routine); Ordered 12/29/24 Ordered By: Jaida Cuevas
--- NOTE | 2024-12-29 11:54 | PC.NURSE ---
Pt doing well this morning. VSS. Afebrile. PRN tylenol is effective for pain. Ambulating well in room and tolerating regular diet with no nausea or vomiting. Surgical sites are clean, dry and intact. Pt belongings and discharge information signed. Education reviewed, no questions or concerns at this time. Pt discharged home via at 1150.
== END 2024-12-29 11:50 | disposition home or self-care (01) ==
LOC: OR 09:06 → MEDSURG 09:07
PROVIDERS: PCP Family Medicine; Visit Provider Surgery
PROC: 0WQF4ZZ Repair Abdominal Wall, Percutaneous Endoscopic Approach (ICD-10-PCS; CPT 49595; principal; 2024-12-28 10:30)
DX: K43.2 Incisional hernia without obstruction or gangrene (principal); G89.18 Other acute postprocedural pain; K66.8 Other specified disorders of peritoneum; K50.90 Crohn's disease, unspecified, without complications; D84.821 Immunodeficiency due to drugs; Z79.622 Long term (current) use of Janus kinase inhibitor; Z93.2 Ileostomy status
CPT/HCPCS: 49595; 00752; 00830; 36415; 64488; 76942; 80048; 81025; 85025; 88305; A4467; A9270; J0665; J0666; J0690; J1100; J1171; J1630; J1644; J1885; J2250; J2405; J2704; J3010; J3490; J7120

== ENCOUNTER 2025-05-02 12:59 | Outpatient (CLI) | payer MEDICAID, SELFPAY | END 2025-05-02 13:00 | disposition home or self-care (01) | LOC: NFLDREF 05-08 06:36 | PROVIDERS: PCP Nurse Practitioner Family; Referring Provider Nurse Practitioner Family; Visit Provider Nurse Practitioner Family | DX: Z11.1 Encounter for screening for respiratory tuberculosis (principal) | CPT/HCPCS: 86480 ==